=== PATIENT | male | born 1935 | race Caucasian/White ===

== ENCOUNTER 2017-01-08 16:17 | Inpatient (IN) | END 2017-01-23 23:40 | DRG 280 | DX: I13.2 Hypertensive heart and chronic kidney disease with heart failure and with stage 5 chronic kidney disease, or end stage renal disease (principal); I50.23 Acute on chronic systolic (congestive) heart failure; I21.4 Non-ST elevation (NSTEMI) myocardial infarction; J96.02 Acute respiratory failure with hypercapnia; N18.4 Chronic kidney disease, stage 4 (severe); N17.9 Acute kidney failure, unspecified; G93.49 Other encephalopathy; N18.6 End stage renal disease; F03.90 Unspecified dementia, unspecified severity, without behavioral disturbance, psychotic disturbance, mood disturbance, and anxiety; D68.9 Coagulation defect, unspecified; J44.9 Chronic obstructive pulmonary disease, unspecified; D64.9 Anemia, unspecified; I48.2 Chronic atrial fibrillation; I25.5 Ischemic cardiomyopathy; R09.02 Hypoxemia ==

== ENCOUNTER 2017-01-26 00:06 | Emergency (ER) | payer OTHER ==
[~2017-01-26] VITALS: Ht 162.6 cm; Wt 59.1 kg
[~2017-01-26 00:06] MED LIST: BUME0.5T PO; CARV3.1260 PO; FURO40TA4 PO; LOSA100T7 PO; METO-448 PO; POTA20TA96 PO; TRAM-40 PO
[2017-01-26 00:23] VITALS: Ht 162.6 cm; Wt 59.1 kg
[2017-01-26] MEDS ORDERED: DIPHTH/TET/ACEL PERTUSS (ADULT) 0.5 ML VIAL IM* ONE (01:30)
--- NOTE | 2017-01-26 02:19 | RADRPT ---
PROCEDURE: XR right shoulder. CLINICAL INDICATION: Fall with right shoulder pain. TECHNIQUE: 2 views of the right shoulder were performed. COMPARISON: None. FINDINGS: Demineralization limits evaluation of fine osseous detail. No acute fracture or osseous lesion is identified. Superior subluxation of the right humeral head in the glenoid fossa compatible with chronic rotator cuff tear. The soft tissues are unremarkable. IMPRESSION: Chronic rotator cuff tear and demineralization, otherwise without evident acute fracture. RPTAT: [facility] Physician Sejal Date Time Electronically viewed and signed by Physician Sejal on 01/26/2017 02:19 RS/
--- NOTE | 2017-01-26 02:20 | RADRPT ---
PROCEDURE: XR Humerus. CLINICAL INDICATION: fall TECHNIQUE: AP and lateral views of the right humerus were performed. COMPARISON: None. FINDINGS: No fracture or dislocation is seen. No definite lytic or blastic bony lesion. Degenerative change of the shoulder is seen with osteophytes and slight glenohumeral joint space narrowing. IMPRESSION: No definite acute bony abnormality. RPTAT: [facility] Physician Jemal Date Time Electronically viewed and signed by Jelly Traylor Physician on 01/26/2017 02:20 LE/
--- NOTE | 2017-01-26 02:21 | RADRPT ---
PROCEDURE: XR Elbow. CLINICAL INDICATION: fall TECHNIQUE: AP, lateral and oblique views of the right elbow performed. COMPARISON: None. FINDINGS: No fracture or dislocation is seen. No definite elbow effusion. No lytic or blastic lesion. No de finite soft tissue abnormality.. Olecranon osteophyte. IMPRESSION: No definite acute bony abnormality. RPTAT: [facility] Physician Jemal Date Time Electronically viewed and signed by Jelly Traylor Physician on 01/26/2017 02:21 LE/
--- NOTE | 2017-01-26 02:47 | RADRPT ---
PROCEDURE: CT brain without contrast. CLINICAL INDICATION: Injury and pain. TECHNIQUE: CT scan of the brain was performed on a multi-detector high-resolution CT scanner. Co ntiguous axial images were obtained from the skull base to the vertex without intravenous contrast. Coronal and sagittal reformatted images were also obtained. Images were reviewed on the PACS works tation. One or more of the following dose reduction techniques were used: - Automated exposure control. - Adjustment of the mA and/or kV according to patient size. - Use of iterative reconstruction technique. Exam CTD/vol = 44.93 mGy. Total exam DLP = 720.23 mGy-cm. COMPARISON: None. FINDINGS: The ventricles and cortical sulci are prominent consistent with moderate age related volume loss. T here are patchy areas of low attenuation within the periventricular and subcortical white matter con sistent with moderate chronic ischemic changes secondary to small vessel disease. There is no mass effect or midline shift. There is no intracranial hemorrhage or abnormal extra-axial collection. Th ere are atherosclerotic calcifications within bilateral distal internal carotid arteries. There is left frontal scalp soft tissue swelling and laceration. The calvarium is intact. There is no evidence of fracture. Visualized paranasal sinuses and mastoid air cells are clear. IMPRESSION: No acute intracranial abnormality identified. Moderate age related volume loss and chronic ischemic white matter disease. Cerebral atherosclerosis. Left frontal scalp soft tissue swelling and laceration. .Constantine Heard MD, MD Date Time Electronically viewed and signed by .Constantine Heard MD, MD on 01/26/2017 02:47 .T/
[2017-01-26] MEDS ORDERED: LIDOCAINE 1% (MDV) 20 ML INJ ONE (03:59)
[2017-01-26] MEDS ORDERED: LIDOCAINE 1% (MDV) 20 ML INJ SC ONE (04:00)
[2017-01-26 04:24] VITALS: TEMP 98.3
--- NOTE | 2017-01-26 05:49 | ERD ---
ER Documentation Chief Complaint Date/Time DATE: 01/26/17 TIME: 05:47 Chief Complaint BROUGHT IN VIA EMS DUE TO HIP PAIN AND LACERATION ON HEAD LEFT SIDE HPI This is an 81-year-old male brought in by EMS secondary to mechanical fall at group home facility. He has a laceration to his head. No loss consciousness. Patient remembers the fall. No other current complaints. Active bleeding noted a laceration site in the left periorbital ridge. ROS All systems reviewed and are negative except as per history of present illness. Medications Home Meds Reported Medications Tramadol Hcl* (Ultram*) 50 Mg Tablet, 50 MG PO Q6H Y for PAIN, TAB 01/08/17 Losartan Potassium* (Losartan Potassium*) 100 Mg Tablet, 100 MG PO DAILY, TAB 01/08/17 Potassium Chloride* (Potassium Chloride*) 20 Meq Tablet.er, 20 MEQ PO DAILY, TAB.SA 01/08/17 Metoprolol Tartrate* (Lopressor*) 25 Mg Tab, 25 MG PO BID, #60 TAB 01/08/17 Furosemide* (Furosemide*) 40 Mg Tablet, 40 MG PO DAILY, TAB 01/08/17 Carvedilol* (Carvedilol*) 3.125 Mg Tablet, 3.125 MG PO BID, #60 TAB 01/08/17 Bumetanide* (Bumetanide*) 0.5 Mg Tablet, 0.5 MG PO DAILY, TAB 01/08/17 Allergies Allergies: Coded Allergies: Penicillins (Verified Allergy, Unknown, 01/08/17) PMhx/Soc History of Surgery: Yes (left leg surgey, tonsillectomy) Anesthesia Reaction: No Hx Neurological Disorder: No Hx Respiratory Disorders: Yes (copd) Hx Cardiac Disorders: Yes (htn) Hx Psychiatric Problems: Yes (depression) Hx Miscellaneous Medical Probl: Yes (HTN, CHF, COPD, anemia, renal failure, ETOH/tobacco abuse) Hx Alcohol Use: Yes Hx Substance Use: No Hx Tobacco Use: Yes Smoking Status: Former smoker Physical Exam Vitals Vital Signs Date Time Temp Pulse Resp B/P Pulse Ox O2 Delivery O2 Flow Rate FiO2 01/26/17 04:24 98.3 99 20 114/79 Room Air 01/26/17 03:24 18 109/77 Room Air 01/26/17 01:25 98.2 88 20 105/68 Room Air 01/26/17 00:23 98.1 80 16 126/79 99 Physical Exam Const: [] Head: Atraumatic Eyes: Normal Conjunctiva ENT: Normal External Ears, Nose and Mouth. Neck: Full range of motion..~ No meningismus. Resp: Clear to auscultation bilaterally Cardio: Regular rate and rhythm, no murmurs Abd: Soft, non tender, non distended. Normal bowel sounds Skin: No petechiae or rashes Back: No midline or flank tenderness Ext: No cyanosis, or edema Neur: Awake and alert Psych: Normal Mood and Affect Results 24 hrs Current Medications Medications (Trade) Dose Ordered Sig/Kacy Route PRN Reason Start Time Stop Time Status Last Admin Dose Admin Diphtheria/ Tetanus/Acell Pertussis (Adacel) 0.5 ml ONCE ONCE IM* 01/26/17 01:30 01/26/17 01:31 DC 01/26/17 02:43 Lidocaine (Xylocaine 1% (Mdv) 20 ml) 20 ml ONCE ONCE SC 01/26/17 04:00 01/26/17 04:01 DC Lidocaine (Xylocaine 1% (Mdv) 20 ml) 20 ml STK-MED ONCE .ROUTE 01/26/17 03:59 01/26/17 04:00 DC Procedures/MDM X-ray Shoulder 3V Interpreted by me: Bones: [No fracture] Joints: [No dislocation] Foreign body: [None] X-ray Elbow 3V Interpreted by me: Fat Pads: Normal Bones: No fracture Joints: No dislocation Foreign body: None CT of the head is negative for acute pathology Medical decision making: A 1-year-old male who has a laceration secondary to fall. Laceration was repaired patient is at neurological baseline. Family refuses to have the patient come back to [facility] which is where his place. Patient awaiting case management Laceration Repair by me: Anesthesia: 1% lidocaine locally Location: Forehead Tendon/Joint/Nerves: No injury Foreign body: None detected after copious irrigation and exploration Technique: Simple Interrupted Sutures Complexity: No subcutaneous sutures/mucosal repair/ edge excision Post Closure Length: 4 cm Patient's bleeding was easily controlled in the department and there is no indication of anemia. No evidence of compartment syndrome, neurologic injury, vascular injury, open joint, tendon laceration, or foreign body. Patient is appropriate for outpatient follow up. 48 hour wound check. Scar minimization instructions given. Departure Diagnosis: Primary Impression: Closed head injury Encounter type: initial encounter Qualified Code: S09.90XA - Closed head injury, initial encounter Additional Impression: Laceration Condition: Stable INDERJIT MICHAEL Jan 26, 2017 05:49
[2017-01-26 13:19] VITALS: BP 118/90; PULSE 104; RESP 16
== END 2017-01-26 18:14 | disposition short-term general hospital (02) ==
LOC: E/R 00:06
DX: S09.90XA Unspecified injury of head, initial encounter (principal); I10 Essential (primary) hypertension; I50.9 Heart failure, unspecified; J44.9 Chronic obstructive pulmonary disease, unspecified; R40.2142 Coma scale, eyes open, spontaneous, at arrival to emergency department; R40.2252 Coma scale, best verbal response, oriented, at arrival to emergency department; R40.2362 Coma scale, best motor response, obeys commands, at arrival to emergency department; W18.39XA Other fall on same level, initial encounter; Y92.129 Unspecified place in nursing home as the place of occurrence of the external cause; Z23 Encounter for immunization; Z87.891 Personal history of nicotine dependence
CPT/HCPCS: 70450; 73020; 90471; 90715

== ENCOUNTER 2017-01-31 12:27 | Inpatient (IN) | payer OTHER ==
[~2017-01-31] VITALS: Ht 167.6 cm; Wt 65.0 kg
[2017-01-31] VITALS (13 sets, daily range): BP systolic 103–156; BP diastolic 55–94; PULSE 82–105; RESP 15–18; TEMP 98; Ht 167.6 cm; Wt 65.0 kg
[2017-01-31] MEDS ORDERED: ALBUTEROL 0.083% (NEB) 2.5 MG/3 ML AMP NEB STA (13:27)
[2017-01-31] MEDS ORDERED: IPRATROPIUM (NEB) 0.5 MG/2.5 ML AMP NEB STA (13:27)
--- NOTE | 2017-01-31 13:37 | ERA ---
ER Documentation Chief Complaint Date/Time DATE: 01/31/17 TIME: 13:27 Chief Complaint patient TREVON Sent from skilled nursing with Complaint of SOB HPI This is an 81-year-old male with a known history of dementia, atrial fibrillation, congestive heart failure, chronic kidney disease currently on hemodialysis which she receives every Tuesday and Tuesday. The patient had a recent closed head injury with a mechanical fall which required stitches in the left forehead 5 days prior to arrival. His friend was visiting the patient in his assisted living facility when she noticed that the patient appeared to have severe difficulty breathing. The patient was hypoxic satting at roughly 80%. He had been placed on low-flow supplemental oxygen when EMS arrived they indicated that the patient had a significant improvement in his respiratory distress as he was no longer using accessory muscles of respiration. There is been no documentation of fever shaking or chills. Patient however does complain of dyspnea but states it has improved after receiving the oxygen. He denies a productive or nonproductive cough. He denies any chest pain or pressure that radiates to the neck arm back or jaw. ROS All systems reviewed and are negative except as per history of present illness. Medications Home Meds Reported Medications Tramadol Hcl* (Ultram*) 50 Mg Tablet, 50 MG PO Q6H Y for PAIN, TAB 01/08/17 Losartan Potassium* (Losartan Potassium*) 100 Mg Tablet, 100 MG PO DAILY, TAB 01/08/17 Potassium Chloride* (Potassium Chloride*) 20 Meq Tablet.er, 20 MEQ PO DAILY, TAB.SA 01/08/17 Metoprolol Tartrate* (Lopressor*) 25 Mg Tab, 25 MG PO BID, #60 TAB 01/08/17 Furosemide* (Furosemide*) 40 Mg Tablet, 40 MG PO DAILY, TAB 01/08/17 Carvedilol* (Carvedilol*) 3.125 Mg Tablet, 3.125 MG PO BID, #60 TAB 01/08/17 Bumetanide* (Bumetanide*) 0.5 Mg Tablet, 0.5 MG PO DAILY, TAB 01/08/17 Allergies Allergies: Coded Allergies: Penicillins (Verified Allergy, Unknown, 01/08/17) PMhx/Soc History of Surgery: No Anesthesia Reaction: No Hx Neurological Disorder: No Hx Respiratory Disorders: No Hx Cardiac Disorders: No Hx Psychiatric Problems: No Hx Miscellaneous Medical Probl: Yes Hx Alcohol Use: No Hx Substance Use: No Hx Tobacco Use: No Smoking Status: Never smoker Physical Exam Vitals Vital Signs Date Time Temp Pulse Resp B/P Pulse Ox O2 Delivery O2 Flow Rate FiO2 01/31/17 14:27 69 20 100 Nasal Cannula 2.0 28 01/31/17 12:57 98.3 75 20 169/74 100 Nasal Cannula 2.0 01/31/17 12:57 Nasal Cannula 2.0 01/31/17 12:50 98.4 69 20 169/72 99 01/31/17 12:49 Nasal Cannula 2 Physical Exam Constitutional:Well-developed. Well-nourished. HEENT:Normocephalic. Ecchymosis over the left forehead and simple interrupted sutures were clean dry and intact present over the left forehead.Pupils were equal round reactive to light. Moist mucous membranes.No tonsillar exudates. Neck: No nuchal rigidity. No lymphadenopathy. No posterior cervical spine tenderness or step-offs. Respiratory: Not using accessory muscles of respiration.Lungs were clear to auscultation bilaterally. Bilateral rhonchi. No rales. No wheezing. Cardiovascular: Regular rate regular rhythm.No murmurs. No rubs were appreciated.S1, S2 normal. Distal pulses are palpable 2+ bilaterally. GI: Abdomen was soft. Nontender. Non Distended. No pulsatile abdominal masses or bruits. No rebound. No guarding. Bowel sounds were present and normal. Muscle skeletal: Full range of motion of both the upper and lower extremities bilaterally.Normal muscle tone.No assymetrical calf tenderness or swelling. Skin: No petechia, no purpura. No lesions on the palms or the soles of the feet. No maculopapular rash. NEURO: Patient was alert to person but not to time or place. He follows verbal command and answered all questions appropriately. Patient is unable to ambulate therefore gait not observed Result Diagram: 01/31/17 1342 01/31/17 1342 Results 24 hrs Laboratory Tests Test 01/31/17 12:33 01/31/17 13:42 Blood Gas Specimen Source Blood arterial Arterial Blood Date Drawn 01/31/2017 1:32:42 PM Arterial Blood pH (Temp corrected) 7.554 Arterial Blood pCO2 (Temp correct) 28.2mmhg Arterial Blood pO2 (Temp corrected) 97.5mmHG Arterial Blood HCO3 24.3mmol/L Arterial Blood Base Excess 2.6mmol/L Arterial Blood Oxygen Saturation 97.0mmHG Kevin Test N/A Arterial Blood Gas Puncture Site LB Arterial Blood Carboxyhemoglobin 0.3% Arterial Blood Methemoglobin 0.1% Blood Gas A-a O2 Differential 68.9mmHg Oxyhemoglobin Percent 96.6% Total Hemoglobin 10.3g/dl Blood Gas Temperature 37.0C Blood Gas Modality NASAL CANNULA FiO2 28.0% Blood Gas Critical Value Read Back DR. FERRELL Blood Gas Notified Whom Roberto Blood Gas Notified Time 01/31/2017 1:40:31 PM White Blood Count 12.610^3/ul Red Blood Count 3.2110^6/ul Hemoglobin 10.0g/dl Hematocrit 31.3% Mean Corpuscular Volume 97.5fl Mean Corpuscular Hemoglobin 31.2pg Mean Corpuscular Hemoglobin Concent 31.9g/dl Red Cell Distribution Width 14.9% Platelet Count 24020^3/UL Mean Platelet Volume 10.5fl Neutrophils % 79.5% Lymphocytes % 13.2% Monocytes % 6.0% Eosinophils % 0.1% Basophils % 0.2% Nucleated Red Blood Cells % 0.0/100WBC Neutrophils # 10.110^3/ul Lymphocytes # 1.710^3/ul Monocytes # 0.810^3/ul Eosinophils # 0.010^3/ul Basophils # 0.010^3/ul Nucleated Red Blood Cells # 0.010^3/ul Sodium Level 140mmol/L Potassium Level 4.5mmol/L Chloride Level 101mmol/L Carbon Dioxide Level 29mmol/L Anion Gap 15 Blood Urea Nitrogen 54mg/dl Creatinine 2.38mg/dl Glucose Level 99mg/dl Calcium Level 8.4mg/dl Total Bilirubin 0.2mg/dl Direct Bilirubin 0.00mg/dl Indirect Bilirubin 0.2mg/dl Aspartate Amino Transf (AST/SGOT) 35IU/L Alanine Aminotransferase (ALT/SGPT) 57IU/L Alkaline Phosphatase 176IU/L Troponin I 0.209ng/ml B-Type Natriuretic Peptide 47327NX/ML Total Protein 5.4g/dl Albumin 2.7g/dl Globulin 2.70g/dl Albumin/Globulin Ratio 1.00 Current Medications Medications (Trade) Dose Ordered Sig/Kacy Route PRN Reason Start Time Stop Time Status Last Admin Dose Admin Albuterol (Proventil 0.083% (Neb)) 2.5 mg ONCE STAT NEB 01/31/17 13:27 01/31/17 13:38 DC 01/31/17 14:26 Ipratropium [place] (Atrovent 0.02% (Neb)) 0.5 mg ONCE STAT NEB 01/31/17 13:27 01/31/17 13:38 DC 01/31/17 14:26 Furosemide 40 mg 40 mg ONCE ONCE IV 01/31/17 15:00 01/31/17 15:01 Cancel Vancomycin HCl 250 ml @ 125 mls/hr ONCE STAT IVPB 01/31/17 14:33 01/31/17 16:32 Cefepime HCl (Maxipime 2gm/50 ml (Pmx)) 50 ml @ 100 mls/hr ONCE STAT IVPB 01/31/17 14:33 01/31/17 15:02 UNV Aspirin (Aspirin) 325 mg ONCE ONCE PO 01/31/17 15:00 01/31/17 15:01 Ondansetron HCl (Zofran Inj) 4 mg ER BRIDGE PRN IV NAUSEA AND/OR VOMITING 01/31/17 15:00 02/01/17 14:59 Acetaminophen (Tylenol Tab) 650 mg ER BRIDGE PRN PO MILD PAIN/FEVER 01/31/17 15:00 02/01/17 14:59 Procedures/MDM The patient presented to the emergency department with shortness of breath. My differential diagnosis included but was not limited to upper airway obstruction , CHF, pulmonary embolism, cardiac ischemia, pneumonia, pneumothorax, anemia, drug overdose, pulmonary edema, COPD or asthma. The patient has a known history of congestive heart failure with an ejection fraction of 15-20%. The patient had IV access established by nursing staff was given nebulizer treatments of albuterol and Atrovent and placed on low-flow supplemental oxygen 2 L nasal cannula in the emergency department. The patient is a chest radiograph which showed bilateral lower lobe consolidations and atelectasis. The patient had mild leukocytosis but was afebrile. I was concerned with fluid overload and pulmonary edema and therefore the patient will be admitted for emergent hemodialysis. The patient' s troponin was elevated but he denied any chest pain. This could be a result of the patient's renal failure but did receive prophylactic aspirin. Patient will be admitted in serious condition in the care of Dr. Booker to the telemetry service with an anticipated stay of greater than 2 midnights. Departure Diagnosis: Primary Impression: Acute renal failure Qualified Code: N17.9 - Acute renal failure, unspecified acute renal failure type Additional Impression: Elevated troponin Condition: Serious KM PEDERSEN Jan 31, 2017 13:37
[2017-01-31 13:40] LABS: AADO2 Arterial 68.9 mmHg (7.0-24.0); Arterial Base Excess 2.6 mmol/L (-3.0-3); Arterial COHb 0.3 % (0.0-3.0); Arterial Fraction of Oxyhgb 96.6 % (93.0-99.0); Arterial HCO3 24.3 mmol/L (22.0-26.0); Arterial MetHb 0.1 % (0.0-1.5); Arterial Total Hemglobin 10.3 g/dl (12.0-18.0); MODE NASAL CANNULA
--- NOTE | 2017-01-31 13:41 | RADRPT ---
PROCEDURE: XR Chest. CLINICAL INDICATION: Abdominal pain TECHNIQUE: Chest AP portable. COMPARISON: 01/16/2017 FINDINGS: Right internal jugular tunnel dialysis catheter. The mediastinal structures are unremarkable. There is calcification of the thoracic aorta (consiste nt with atherosclerosis). There is mild to moderate cardiomegaly. The pulmonary vascularity is nor mal. There is bibasilar subsegmental atelectasis / patchy consolidations. There are small to moder ate-sized bilateral pleural effusions. There are senescent changes of the axial skeleton. IMPRESSION: Calcification of the thoracic aorta (consistent with atherosclerosis) Mild to moderate cardiomegaly RLL and LLL subsegmental atelectasis / patchy consolidations Small to moderate-sized bilateral pleural effusions RPTAT: HGDB .Gabriele Guadarrama MD, Date Time Electronically viewed and signed by .Gabriele Guadarrama MD, on 01/31/2017 13:41 .B/
[2017-01-31 13:50] LABS: ADD SCAN DIFF NO
[2017-01-31 13:52] LABS: BASOPHILS % 0.2 % (0.0-2.0); EOSINOPHILS % 0.1 % (0.0-7.0); HEMATOCRIT 31.3 % (42.0-52.0); LYMPHOCYTES # 1.7 10^3/ul (0.8-2.9); LYMPHOCYTES % 13.2 % (15.0-51.0); MEAN CORPUSCULAR HEMOGLOBIN 31.2 pg (29.0-33.0); MEAN CORPUSCULAR HGB CONC 31.9 g/dl (32.0-37.0); MEAN CORPUSCULAR VOLUME 97.5 fl (82.0-101.0); MEAN PLATELET VOLUME 10.5 fl (7.4-10.4); MONOCYTE # 0.8 10^3/ul (0.3-0.9); NEUTROPHIL # 10.1 10^3/ul (1.6-7.5); NEUTROPHILS % 79.5 % (39.0-77.0); PLATELET COUNT 351 10^3/UL (140-415); RED BLOOD COUNT 3.21 10^6/ul (4.70-6.10); RED CELL DISTRIBUTION WIDTH 14.9 % (11.5-14.5); WHITE BLOOD COUNT 12.6 10^3/ul (4.8-10.8)
[2017-01-31 14:01] LABS: ALBUMIN 2.7 g/dl (3.3-4.9)
[2017-01-31 14:02] LABS: POTASSIUM 4.5 mmol/L (3.5-5.1)
[2017-01-31 14:04] LABS: BILIRUBIN,INDIRECT 0.2 mg/dl (0-1.1); BILIRUBIN,TOTAL 0.2 mg/dl (0.2-1.3); CREATININE 2.38 mg/dl (0.61-1.24); TOTAL PROTEIN 5.4 g/dl (6.1-8.1)
[2017-01-31 14:05] LABS: CALCIUM 8.4 mg/dl (8.4-10.2)
[2017-01-31 14:25] LABS: TROPONIN-I 0.209 ng/ml (0.00-0.12)
[2017-01-31] MEDS ORDERED: CEFEPIME 2GM/50 ML (PMX) 50 ML IVPB STA (14:33)
[2017-01-31] MEDS ORDERED: VANCOMYCIN 1 GM (PMX) 250 ML IVPB STA (14:33)
[2017-01-31] MEDS ORDERED: ASPIRIN 325 MG TAB PO ONE (15:00)
[2017-01-31] MEDS ORDERED: ACETAMINOPHEN 325 MG TAB PO PRN ×2 (15:00→19:00)
[2017-01-31] MEDS ORDERED: FUROSEMIDE 40 MG INJ IV ONE ×2 (15:00→15:30)
[2017-01-31] MEDS ORDERED: ONDANSETRON 4 MG INJ IV PRN ×2 (15:00→19:00)
--- NOTE | 2017-01-31 18:04 | CONS ---
DATE OF ADMISSION: 01/31/2017 DATE OF CONSULTATION: 01/31/2017 TYPE OF CONSULTATION: Nephrology. REFERRING PHYSICIAN: Dr. Booker REASON FOR CONSULTATION: Acute fluid overload with hypoxic distress in a chronic dialysis patient. HISTORY OF PRESENT ILLNESS: This is an 81-year-old male with a past medical history of ischemic car diomyopathy, history of end-stage renal disease who was recently started on hemodialysis on last adm ission, and the patient was placed at the dialysis unit for scheduled dialysis on Tuesday, , Tuesday. The patient was also set up for care home facility placement. He gets his dialysi s scheduled on Tuesday, , Tuesday. He was sent from residential to the [facility] with a complaint of shortness of breath. In the emergency room, he was no lani to have a WBC count of 12.6. The patient was hypoxic with saturation down to 94% on 2 L nasal c annula. He was tachypneic. He had a blood pressure of 169/72. He had a chest x-ray done that show s bibasilar atelectases/infiltrates and possible pulmonary edema. He is getting admitted for fluid overload and hypoxic respiratory distress secondary to pulmonary edema. Renal has been consulted fo r possible hemodialysis. REVIEW OF SYSTEMS: Shortness of breath. Other review of systems is not obtainable from the patient due to the dementia. PAST MEDICAL HISTORY: Hypertension; hyperlipidemia; history of ischemic cardiomyopathy; end-stage r enal disease on hemodialysis Tuesday, , Tuesday. PAST SURGICAL HISTORY: History of dialysis catheter, PermCath placement on last admission. SOCIAL HISTORY: No smoking, alcohol, recreational drug use. FAMILY HISTORY: Noncontributory. PHYSICAL EXAMINATION: VITAL SIGNS: His temperature 98.3, heart rate is 69, respirations 20, blood pressure 169/71, satura tion is 100% on 3 L nasal cannula. GENERAL: Awake, alert. Mild to moderate distress. HEENT: Normal. Oropharynx clear. NECK: Jugular venous distention present. Neck supple. No lymphadenopathy. LUNGS: Bibasilar crackles present with minimal expiratory wheezing. HEART: S1, S2 with regular rhythm. No murmur. ABDOMEN: Soft, nontender, nondistended. Bowel sounds are present. EXTREMITIES: No clubbing, cyanosis, edema. NEUROLOGICAL: Nonfocal, intact. PSYCHIATRIC: Appropriate affect and mood. LABORATORY DATA: WBC 12.6, hemoglobin 10, platelet count is 351. Sodium 140, potassium 4.5, chlori de 101, bicarbonate 29, BUN 54, creatinine 2.3, glucose 99, calcium 8.4. LFTs are normal. Troponin 0.209. BNP 60,300. Albumin 2.7. ABG shows a pH 7.55, pCO2 28, pO2 ____, bicarbonate 24. IMPRESSION: This is an 81-year-old male who is getting admitted for: 1. Acute pulmonary edema secondary to fluid overload. 2. End-stage renal disease on hemodialysis Tuesday, , Tuesday at dialysis unit. 3. History of ischemic cardiomyopathy with low ejection fraction. 4. Hypertension. 5. Hyperlipidemia. 6. Dementia. PLAN: Thank you, Dr. Booker, for this consultation. The patient currently seen in the emergency room . He is getting admitted to the telemetry floor by [facility]. 1. The patient's chest x-ray has been reviewed and consistent with pulmonary edema. His labs today show a sodium of 140, potassium 4.5, chloride was 29. The patient is stable from the chemistry poi nt of view, but his chest x-ray shows pulmonary edema so will try to arrange his hemodialysis for to day, and then the patient will be also on scheduled hemodialysis for Tuesday, , Tuesday aft er that. The patient's BNP is elevated. He previously had a recent workup done for his ischemic ca rdiomyopathy on last admission, and we had a long discussion with the patient's DPOA about further p brent about the long-term dialysis care. At this point will continue his hemodialysis on Tue, Tuesday until the family changes their mind. 2. The patient currently seen in the emergency room, and he will be followed up along with his cour se in the hospital. Dictated By: MACI ASHLEY MD, KP/DINH Conf#: [id number] DID#: [id number]
[2017-01-31] MEDS ORDERED: DOCUSATE SODIUM 100 MG CAP PO PRN (19:00)
[2017-01-31] MEDS ORDERED: BISACODYL 10 MG SUPP PR PRN (19:00)
[2017-01-31] MEDS ORDERED: traMADol 50 MG TAB PO PRN (19:00)
[2017-01-31] MEDS ORDERED: MAGNESIUM HYDROXIDE 30ML CUP PO PRN (19:00)
[2017-01-31] MEDS ORDERED: NITROGLYCERIN (SL) 0.4 MG TAB SL PRN (19:00)
[2017-01-31] MEDS ORDERED: NACL 0.9% 3 ML SYG IV SCH (19:00)
[2017-01-31] MEDS ORDERED: ASPI-664 PO (19:03)
[2017-01-31] MEDS ORDERED: CITR30SO PO (19:04)
[2017-01-31] MEDS ORDERED: FAMO20TA18 PO (19:04)
[2017-01-31] MEDS ORDERED: FURO20TA3 PO (19:05)
[2017-01-31] MEDS ORDERED: LOSA50TA6 PO (19:06)
[2017-01-31] MEDS ORDERED: METO50TA16 PO (19:10)
[2017-01-31] MEDS ORDERED: NIT4 SL (19:10)
[2017-01-31] MEDS ORDERED: TRAM-40 PO (19:12)
[2017-01-31 20:46] LABS: CK-MB 1.67 ng/ml (0.0-2.4)
[2017-01-31 20:59] LABS: TROPONIN-I 0.262 ng/ml (0.00-0.12)
[2017-01-31] MEDS: FAMOTIDINE 20 MG TAB PO SCH ×2 (21:00→21:34)
[2017-01-31] MEDS: APIXABAN 5 MG TABLET PO SCH ×3 (21:00→21:34)
[2017-02-01] VITALS (18 sets, daily range): BP systolic 117–169; BP diastolic 55–101; PULSE 76–101; RESP 18–20
--- NOTE | 2017-02-01 02:01 | HP ---
DATE OF ADMISSION: 01/31/2017 SUCTION OPERATOR ON THIS ADMISSION: Dr. Jamarcus Summers, who is also his outpatient lpta. CHIEF COMPLAINT ON ADMISSION: Shortness of breath. HISTORY OF PRESENT ILLNESS: This is an 81-year-old male well known to me with history of dementia; atrial fibrillation; congestive heart failure, systolic, chronic with ejection fraction 15% to 20%; chronic kidney disease who is now on hemodialysis every Tuesday, and Tuesday; was also rec ently seen in the ER after having a closed head injury after falling, mechanical fall requiring stit ches, has been fairly stable at his longterm facility except today he had an episode of short ness of breath with saturations down to 80% on room air. The patient was started on oxygen, and his saturations did recover well on 3.5 L nasal cannula. However, his DPOA called 911 and requested fo r the patient to go to the emergency department. In the emergency department, the patient was evalu ated. Also per EMS report, the patient is fairly comfortable. His respiratory distress has resolve d the minute he was put on oxygen. The patient does not have any reported fevers. No cough per pat ient report and per longterm facility and ER report also. He does have shortness of breath, and he has been hypoxic, oxygen dependent before. He denied any chest pain or chest pressure. He i s very pleasant. His mental status is at baseline when I am seeing him today. He does remember fabio e of the staff. He, however, does not remember exactly where he is and had to be reminded that he i s in the hospital. In the emergency department, he had a chest x-ray done which shows bilateral pul monary edema actually with atelectasis associated with it, very unlikely to have pneumonia, but he d id receive antibiotics in the emergency department. Dr. Jamarcus Summers was contacted. The patient w ill be dialyzed today urgently for volume overload. He is also noted to have lower extremity edema on exam. He is being admitted to a telemetry bed as his troponin also came back positive with extre renetta elevated BNP of 60,000. ALLERGIES: PENICILLIN. PAST MEDICAL HISTORY: 1. Congestive heart failure, systolic dysfunction with ejection fraction 15% to 20%. 2. End-stage renal disease on dialysis. 3. Atrial fibrillation, chronic. 4. Coronary artery disease. 5. Ischemic cardiomyopathy, ejection fraction 15% to 20%. 6. Chronic hypoxemia, has been oxygen dependent. 7. Hypertension. 8. Dementia. 9. Status post fall with closed head injury, improving. PAST SURGICAL HISTORY: Unknown. SOCIAL HISTORY: The patient currently has been residing at a local longterm facility and goi ng to dialysis from there 3 times a week. Per report, there is no alcohol or tobacco use. REVIEW OF SYSTEMS: As per HPI. The patient is very stoic. He is not complaining of much except fo r some shortness of breath which is much improved currently. OUTPATIENT MEDICATIONS: This is based on the longterm facility medication list, includes: 1. Losartan 50 mg p.o. daily. 2. Metoprolol XL 50 mg p.o. daily. 3. Nitrostat sublingual p.r.n. chest pain. 4. Aspirin 81 mg p.o. daily. 5. Tramadol 50 mg p.o. q.6 hours p.r.n. pain. 6. Citric acid 30 mL p.o. t.i.d. 7. Furosemide 20 mg p.o. daily. 8. Pepcid 20 mg p.o. daily. PHYSICAL EXAMINATION: VITAL SIGNS: Temperature 98.0, heart rate of 96, respiratory rate of 20, blood pressure 131/85. Th at patient is saturating 96% on 3 L nasal cannula. GENERAL: He is alert, oriented x2 at best. He is not in acute distress. HEENT: Pupils are equally round and reactive to light. Extraocular muscles are intact. Anicteric sclerae. No JVD, no thyromegaly. On the right side of his face, he is noted to have some bruising in the periorbital area. He does have stitches on the upper corner of his right ear and also a desmond le scab scarring on the top of his nose. HEART: Irregularly irregular, atrial fibrillation. LUNGS: Decreased breath sounds at the bases bilaterally at least 1/3 up from the base bilaterally. ABDOMEN: Soft, nontender, nondistended. Bowel sounds are present. EXTREMITIES: He does have at least +1 to +2 edema up to his ankles. No clubbing is noted. He has mild cyanosis of the tip of his fingers. NEUROLOGIC: Again, he is slightly disoriented but very pleasant. He is moving all his 4 extremitie s. He does have generalized weakness, 4+/5. Sensation seems to be intact. He has a very unsteady gait, and he is aware he shouldn't be trying to walk on his own. LABORATORY DATA: White blood cell count 12.6, hemoglobin 10.0, hematocrit 31.3, platelet count of 3 51. Chemistry with a sodium of 140, potassium 4.5, chloride 101, bicarbonate 29, BUN 54, creatinine 2.38, glucose of 99, calcium 8.4. Liver function testing within normal. Alkaline phosphatase 176. His troponin is 0.209 with a BNP of 60,300. Total protein is 5.4, albumin of 2.7. INR is not julito lani. EKG is not found but will be reviewed. On telemetry, the patient has chronic atrial fibrillation. IMAGING: Chest x-ray shows bilateral small to moderate-sized pleural effusions, and there is bilate ral bases subsegmental atelectasis likely versus patchy consolidation. ASSESSMENT AND PLAN: This is an 81-year-old male with: 1. Acute episode of respiratory distress, likely due to volume overload. He is requiring minimal a mount of oxygen 2 to 3 L, which is usually his baseline. He does have signs of volume overload on c hest x-ray. Therefore, he is being admitted for urgent dialysis mainly. Dr. Jamarcus Summers has seen the patient already and scheduled him for dialysis today. Will resume the rest of his medications. 2. Chronic atrial fibrillation. I will clarify his beta joni regimen. He was discharged on car vedilol from the hospital, seems to be on Toprol-XL at the longterm facility. For now will r esume carvedilol until further clarification. He is also supposed to be on Eliquis for stroke proph ylaxis given his recent fall at the longterm facility. It looks like he has been taken off o f it. Will also clarify with the longterm facility. It has been reordered while inpatient. 3. Coronary artery disease. He did have a stress test on his past admission that did show signs of coronary artery disease but no acute reversible disease. Therefore, he is maintained on aspirin fo r that reason. 4. Ischemic cardiomyopathy with severe dysfunction, ejection fraction of 15% to 20%. He is current ly in congestive heart failure exacerbation. He will be dialyzed today. 5. Dementia. His mental status seems to be close to baseline at this time. 6. Chronic pain. He is on tramadol as needed for pain control. We are avoiding all narcotics. 7. Hypertension. We are going to resume his beta joni first, and it seems like he has been on l osartan as an outpatient. That can be resumed next after dialysis today, likely in the morning. 8. Status post recent fall with closed head injury, seems to be healing well. Continue aspirin for now. We are resuming his Eliquis prophylactic dosing with close monitoring. 9. Prophylaxis. The patient already on Eliquis, and Pepcid for GI prophylaxis. DISPOSITION: The patient is admitted to telemetry. He is to receive dialysis tonight. Will monito r and re-evaluate in a.m. for discharge planning. Dictated By: SOO TAMAYO/DINH Conf#: [id number] DID#: [id number]
[2017-02-01 03:09] LABS: CK-MB 1.82 ng/ml (0.0-2.4); TROPONIN-I 0.209 ng/ml (0.00-0.12)
[2017-02-01] MEDS: APIXABAN 5 MG TABLET PO SCH ×2 (08:10→22:03)
[2017-02-01] MEDS: ASPIRIN (EC) 81 MG TAB PO SCH (08:10)
[2017-02-01] MEDS: FAMOTIDINE 20 MG TAB PO SCH (08:10)
--- NOTE | 2017-02-01 09:43 | RADRPT ---
PROCEDURE: XR Chest 1 view. CLINICAL INDICATION: Shortness of breath, pulmonary edema TECHNIQUE: AP views of the chest were obtained. COMPARISON: January 31, 2017 FINDINGS: The heart is large. Calcified atherosclerosis is noted in the aorta. Right-sided dialysis catheter is stable. Central pulmonary vascular congestion and interstitial prominence in both lungs is uncha nged. Bilateral perihilar and lower lung infiltrates combined small to moderate pleural effusions a re stable. The osseous structures are unchanged. IMPRESSION: Cardiomegaly with calcified atherosclerosis in the aorta. Stable central pulmonary vascular congestion and interstitial prominence in both lungs. Stable bilateral perihilar and lower lung infiltrates combined with small to moderate pleural effusi ons. RPTAT: AA .Joon Mathew MD, MD Date Time Electronically viewed and signed by .Joon Mathew MD, on 02/01/2017 09:43 .P/
--- NOTE | 2017-02-01 10:13 | CONS ---
Date/Time of Note Date/Time of Note DATE: 02/01/17 TIME: 10:10 Assessment/Plan Assessment/Plan Additional Assessment/Plan 1. Acute pulmonary edema secondary to fluid overload. 2. End-stage renal disease on hemodialysis Tuesday, , Tuesday at dialysis unit. 3. History of ischemic cardiomyopathy with low ejection fraction. 4. Hypertension. 5. Hyperlipidemia. 6. Dementia. PLAN: s/p HD yesterday 2 L removed, will plan for HD today pt follows at HD unit for scheduled HD on TTS will follow up Consultation Date/Type/Reason Admit Date/Time Jan 31, 2017 at 14:53 Initial Consult Date 01/31/2017 Type of Consultation: NEPHROLOGY Reason for Consultation ESRD on HD with fluid overload, hypoxia Referring Provider: SOO NAIK 24 HR Interval Summary Free Text/Dictation s/p HD yesterday,had a CXR showing congestino, still tachypneic with SOB Exam/Review of Systems Vital Signs Vitals Vital Signs Date Time Temp Pulse Resp B/P Pulse Ox O2 Delivery O2 Flow Rate FiO2 02/01/17 08:18 101 02/01/17 08:00 Nasal Cannula 3.0 02/01/17 07:56 97.5 20 136/101 90 01/31/17 14:27 28 Intake and Output 01/31/17 01/31/17 02/01/17 14:59 22:59 06:59 Intake Total 500 ml 300 ml Output Total 2500 ml Balance -2000 ml 300 ml Exam GENERAL: Awake, alert. Mild to moderate distress. HEENT: Normal. Oropharynx clear. NECK: Jugular venous distention present. Neck supple. No lymphadenopathy. LUNGS: Bibasilar crackles present with minimal expiratory wheezing. HEART: S1, S2 with regular rhythm. No murmur. ABDOMEN: Soft, nontender, nondistended. Bowel sounds are present. EXTREMITIES: No clubbing, cyanosis, edema. NEUROLOGICAL: Nonfocal, intact. PSYCHIATRIC: Appropriate affect and mood. Results Result Diagram: 01/31/17 1342 01/31/17 1342 Results 24 hrs Laboratory Tests Test 01/31/17 12:33 01/31/17 13:42 01/31/17 20:15 02/01/17 02:00 Blood Gas Specimen Source Blood arterial Arterial Blood Date Drawn 01/31/2017 1:32:42 PM Arterial Blood pH (Temp corrected) 7.554 *H Arterial Blood pCO2 (Temp correct) 28.2 L Arterial Blood pO2 (Temp corrected) 97.5 H Arterial Blood HCO3 24.3 Arterial Blood Base Excess 2.6 Arterial Blood Oxygen Saturation 97.0 Kevin Test N/A Arterial Blood Gas Puncture Site LB Arterial Blood Carboxyhemoglobin 0.3 Arterial Blood Methemoglobin 0.1 Blood Gas A-a O2 Differential 68.9 H Oxyhemoglobin Percent 96.6 Total Hemoglobin 10.3 L Blood Gas Temperature 37.0 Blood Gas Modality NASAL CANNULA FiO2 28.0 Blood Gas Critical Value Read Back DR. FERRELL Blood Gas Notified Whom Roberto Blood Gas Notified Time 01/31/2017 1:40:31 PM White Blood Count 12.6 #H Red Blood Count 3.21 L Hemoglobin 10.0 L Hematocrit 31.3 L Mean Corpuscular Volume 97.5 Mean Corpuscular Hemoglobin 31.2 Mean Corpuscular Hemoglobin Concent 31.9 L Red Cell Distribution Width 14.9 H Platelet Count 351 # Mean Platelet Volume 10.5 H Neutrophils % 79.5 H Lymphocytes % 13.2 L Monocytes % 6.0 Eosinophils % 0.1 Basophils % 0.2 Nucleated Red Blood Cells % 0.0 Neutrophils # 10.1 H Lymphocytes # 1.7 Monocytes # 0.8 Eosinophils # 0.0 Basophils # 0.0 Nucleated Red Blood Cells # 0.0 Sodium Level 140 Potassium Level 4.5 Chloride Level 101 Carbon Dioxide Level 29 Anion Gap 15 Blood Urea Nitrogen 54 H Creatinine 2.38 H Glucose Level 99 Calcium Level 8.4 Total Bilirubin 0.2 Direct Bilirubin 0.00 Indirect Bilirubin 0.2 Aspartate Amino Transf (AST/SGOT) 35 Alanine Aminotransferase (ALT/SGPT) 57 Alkaline Phosphatase 176 H Troponin I 0.209 *H 0.262 *H 0.209 *H B-Type Natriuretic Peptide 40533 H Total Protein 5.4 L Albumin 2.7 L Globulin 2.70 Albumin/Globulin Ratio 1.00 Creatine Kinase 35 33 Creatine Kinase Index 4.8 5.5 Creatinine Kinase MB (Mass) 1.67 1.82 Medications Medications Current Medications Tramadol HCl (Ultram) 50 mg Q6H PRN PO PAIN; Start 01/31/17 at 19:00 Carvedilol (Coreg) 6.25 mg BID PO Last administered on 02/01/17 08:10; Admin Dose 6.25 MG; Start 01/31/17 at 21:00 Apixaban (Eliquis) 2.5 mg BID PO Last administered on 02/01/17 08:10; Admin Dose 2.5 MG; Start 01/31/17 at 21:00 Aspirin (Halfprin) 81 mg DAILY PO Last administered on 02/01/17 08:10; Admin Dose 81 MG; Start 02/01/17 at 09:00 Ondansetron HCl (Zofran Inj) 4 mg Q6H PRN IV NAUSEA AND/OR VOMITING; Start at 19:00 Nitroglycerin (Nitroglycerin (Sl Tab) 0.4 Mg) 1 tab Q5M PRN SL CHEST PAIN; Start 01/31/17 at 19:00 Acetaminophen (Tylenol Tab) 650 mg Q6H PRN PO PAIN LEVEL 1-3 OR FEVER; Start at 19:00 Docusate Sodium (Colace) 100 mg Q12H PRN PO CONSTIPATION; Start 01/31/17 at 19: 00 Magnesium Hydroxide (Milk Of Mag) 30 ml DAILY PRN PO CONSTIPATION; Start at 19:00 Bisacodyl (Dulcolax Supp) 10 mg DAILY PRN [place] CONSTIPATION; Start 01/31/17 at 19 :00 Famotidine (Pepcid) 20 mg DAILY PO Last administered on 02/01/17 08:10; Admin Dose 20 MG; Start 01/31/17 at 21:00 MACI ASHLEY MD Feb 01, 2017 10:13
[2017-02-01 10:18] LABS: ADD SCAN DIFF NO
[2017-02-01 10:24] LABS: BASOPHILS % 0.2 % (0.0-2.0); EOSINOPHILS % 0.2 % (0.0-7.0); HEMOGLOBIN 9.4 g/dl (14.0-18.0); LYMPHOCYTES # 1.2 10^3/ul (0.8-2.9); LYMPHOCYTES % 11.2 % (15.0-51.0); MEAN CORPUSCULAR HEMOGLOBIN 31.3 pg (29.0-33.0); MEAN CORPUSCULAR HGB CONC 32.4 g/dl (32.0-37.0); MEAN CORPUSCULAR VOLUME 96.7 fl (82.0-101.0); MEAN PLATELET VOLUME 10.6 fl (7.4-10.4); MONOCYTE # 0.6 10^3/ul (0.3-0.9); MONOCYTES % 5.3 % (0.0-11.0); NEUTROPHIL # 8.5 10^3/ul (1.6-7.5); NEUTROPHILS % 82.2 % (39.0-77.0); PLATELET COUNT 308 10^3/UL (140-415); RED CELL DISTRIBUTION WIDTH 14.9 % (11.5-14.5); WHITE BLOOD COUNT 10.4 10^3/ul (4.8-10.8)
[2017-02-01 11:00] LABS: ALBUMIN 2.8 g/dl (3.3-4.9)
[2017-02-01 11:03] LABS: ALBUMIN/GLOBULIN RATIO 1.07; BILIRUBIN,INDIRECT 0.2 mg/dl (0-1.1); BILIRUBIN,TOTAL 0.2 mg/dl (0.2-1.3); CREATININE 2.07 mg/dl (0.61-1.24); TOTAL PROTEIN 5.4 g/dl (6.1-8.1)
[2017-02-01 11:04] LABS: CALCIUM 8.3 mg/dl (8.4-10.2)
--- NOTE | 2017-02-01 16:14 | PN ---
Date/Time of Note Date/Time of Note DATE: 02/01/17 TIME: 15:57 Assessment/Plan VTE Prophylaxis VTE Prophylaxis Intervention: other (eliquis ) Lines/Catheters IV [facility]ter [facility]from [facility]): [facility] Urinary Cath still in place: No Assessment/Plan Assessment/Plan 81-year-old male with: 1. Acute episode of respiratory distress, likely due to volume overload. Remains stable, on supp O2 Appreciate Dr Summers's assistance with HD for volume removal 2. Chronic atrial fibrillation. Rate controlled on current regimen Continue Eliquis for now 3. Coronary artery disease. He did have a stress test on his past admission that did show signs of coronary artery disease but no acute reversible disease. Continue ASA and follow up with cardiology recommendations. 4. Ischemic cardiomyopathy with severe dysfunction, ejection fraction of 15% to 20%. HD for volume management 5. Dementia. Stable mental status. 6. Chronic pain. On tramadol as needed for pain control. 7. Hypertension. Continue beta joni, resume Losartan if tolerated 8. Status post recent fall with closed head injury, seems to be healing well. Continue aspirin for now On Eliquis prophylactic dosing with close monitoring. Prophylaxis. The patient already on Eliquis, and Pepcid for GI prophylaxis. DISPOSITION: HD, Cardiology eval, hopefully d/c plan in the next 48 hrs Subjective 24 Hr Interval Summary Free Text/Dictation Patient doing well this AM Remains stable Trop up, ? demand ischemia, cardiology to re eveal on this admission Exam/Review of Systems Vital Signs Vitals Vital Signs Date Time Temp Pulse Resp B/P Pulse Ox O2 Delivery O2 Flow Rate FiO2 02/01/17 15:19 97.9 93 20 138/83 100 02/01/17 08:00 Nasal Cannula 3.0 01/31/17 14:27 28 Intake and Output 01/31/17 01/31/17 02/01/17 15:00 23:00 07:00 Intake Total 500 ml 300 ml Output Total 2500 ml Balance -2000 ml 300 ml Exam Constitutional: alert, frail, oriented Respiratory: diminished breath sounds (bases ), normal air movement Cardiovascular: irregular rhythm (A fib ) Gastrointestinal: non-tender, soft Musculoskeletal: nl extremities to inspection Extremities: normal pulses, other (trace edema, no clubbing or cyanosis ) Neurological: FORENSIC ANTHROPOLOGIST II-XII intact, nl mental status, nl speech Results Result Diagram: 02/01/1792902/01/17929 Results 24 hrs Laboratory Tests Test 01/31/17 20:15 02/01/17 02:00 02/01/17 09:30 Creatine Kinase 35 33 Creatine Kinase Index 4.8 5.5 Creatinine Kinase MB (Mass) 1.67 1.82 Troponin I 0.262 *H 0.209 *H White Blood Count 10.4 Red Blood Count 3.00 L Hemoglobin 9.4 L Hematocrit 29.0 L Mean Corpuscular Volume 96.7 Mean Corpuscular Hemoglobin 31.3 Mean Corpuscular Hemoglobin Concent 32.4 Red Cell Distribution Width 14.9 H Platelet Count 308 Mean Platelet Volume 10.6 H Neutrophils % 82.2 H Lymphocytes % 11.2 L Monocytes % 5.3 Eosinophils % 0.2 Basophils % 0.2 Nucleated Red Blood Cells % 0.0 Neutrophils # 8.5 H Lymphocytes # 1.2 Monocytes # 0.6 Eosinophils # 0.0 Basophils # 0.0 Nucleated Red Blood Cells # 0.0 Sodium Level 134 L Potassium Level 4.0 Chloride Level 98 Carbon Dioxide Level 29 Anion Gap 11 Blood Urea Nitrogen 44 H Creatinine 2.07 H Glucose Level 133 Calcium Level 8.3 L Magnesium Level 2.0 Total Bilirubin 0.2 Direct Bilirubin 0.00 Indirect Bilirubin 0.2 Aspartate Amino Transf (AST/SGOT) 33 Alanine Aminotransferase (ALT/SGPT) 61 Alkaline Phosphatase 187 H Total Protein 5.4 L Albumin 2.8 L Globulin 2.60 Albumin/Globulin Ratio 1.07 Medications Medications Current Medications Tramadol HCl (Ultram) 50 mg Q6H PRN PO PAIN; Start 01/31/17 at 19:00 Carvedilol (Coreg) 6.25 mg BID PO Last administered on 02/01/17 08:10; Admin Dose 6.25 MG; Start 01/31/17 at 21:00 Apixaban (Eliquis) 2.5 mg BID PO Last administered on 02/01/17 08:10; Admin Dose 2.5 MG; Start 01/31/17 at 21:00 Aspirin (Halfprin) 81 mg DAILY PO Last administered on 02/01/17 08:10; Admin Dose 81 MG; Start 02/01/17 at 09:00 Ondansetron HCl (Zofran Inj) 4 mg Q6H PRN IV NAUSEA AND/OR VOMITING; Start at 19:00 Nitroglycerin (Nitroglycerin (Sl Tab) 0.4 Mg) 1 tab Q5M PRN SL CHEST PAIN; Start 01/31/17 at 19:00 Acetaminophen (Tylenol Tab) 650 mg Q6H PRN PO PAIN LEVEL 1-3 OR FEVER; Start at 19:00 Docusate Sodium (Colace) 100 mg Q12H PRN PO CONSTIPATION; Start 01/31/17 at 19: 00 Magnesium Hydroxide (Milk Of Mag) 30 ml DAILY PRN PO CONSTIPATION; Start at 19:00 Bisacodyl (Dulcolax Supp) 10 mg DAILY PRN [place] CONSTIPATION; Start 01/31/17 at 19 :00 Famotidine (Pepcid) 20 mg DAILY PO Last administered on 02/01/17 08:10; Admin Dose 20 MG; Start 01/31/17 at 21:00 SOO NAIK Feb 01, 2017 16:11
[2017-02-01 16:34] LABS: CK-MB 1.88 ng/ml (0.0-2.4)
[2017-02-01 16:38] LABS: TROPONIN-I 0.192 ng/ml (0.00-0.12)
[2017-02-02] VITALS (11 sets, daily range): BP systolic 126–149; BP diastolic 73–94; PULSE 81–117; RESP 18–20
[2017-02-02 07:49] LABS: ADD SCAN DIFF NO
[2017-02-02 07:57] LABS: BASOPHILS % 0.1 % (0.0-2.0); EOSINOPHILS # 0.1 10^3/ul (0.0-0.5); EOSINOPHILS % 0.7 % (0.0-7.0); LYMPHOCYTES # 1.3 10^3/ul (0.8-2.9); MEAN CORPUSCULAR HEMOGLOBIN 31.3 pg (29.0-33.0); MEAN CORPUSCULAR HGB CONC 32.1 g/dl (32.0-37.0); MEAN CORPUSCULAR VOLUME 97.2 fl (82.0-101.0); MEAN PLATELET VOLUME 10.3 fl (7.4-10.4); MONOCYTE # 0.7 10^3/ul (0.3-0.9); MONOCYTES % 7.1 % (0.0-11.0); NEUTROPHIL # 7.6 10^3/ul (1.6-7.5); NEUTROPHILS % 78.6 % (39.0-77.0); PLATELET COUNT 227 10^3/UL (140-415); RED BLOOD COUNT 2.88 10^6/ul (4.70-6.10); RED CELL DISTRIBUTION WIDTH 15.2 % (11.5-14.5); WHITE BLOOD COUNT 9.6 10^3/ul (4.8-10.8)
[2017-02-02 08:08] LABS: POTASSIUM 3.8 mmol/L (3.5-5.1)
[2017-02-02 08:11] LABS: CALCIUM 8.2 mg/dl (8.4-10.2); CREATININE 1.73 mg/dl (0.61-1.24)
[2017-02-02] MEDS: FAMOTIDINE 20 MG TAB PO SCH (08:40)
[2017-02-02] MEDS: APIXABAN 5 MG TABLET PO SCH ×2 (08:40→21:11)
[2017-02-02] MEDS: ASPIRIN (EC) 81 MG TAB PO SCH (08:40)
[2017-02-02 09:21] LABS: MAGNESIUM 1.9 mg/dl (1.7-2.5); PHOSPHORUS 3.8 mg/dl (2.5-4.9)
[2017-02-02] MEDS ORDERED: ALBUTEROL/IPRATROPIUM (NEB) 3 ML AMP HHN PRN (12:00)
--- NOTE | 2017-02-02 12:16 | CONS ---
Date/Time of Note Date/Time of Note DATE: 02/02/17 TIME: 12:15 Assessment/Plan Assessment/Plan Additional Assessment/Plan 1. Acute pulmonary edema secondary to fluid overload. 2. End-stage renal disease on hemodialysis Tuesday, , Tuesday at dialysis unit. 3. History of ischemic cardiomyopathy with low ejection fraction. 4. Hypertension. 5. Hyperlipidemia. 6. Dementia. PLAN: s/p HD 2 days in a row, no plan for HD todaym, will order HD for tomorrow if pt stays here pt follows at HD unit for scheduled HD on TTS will follow up Consultation Date/Type/Reason Admit Date/Time Jan 31, 2017 at 14:53 Initial Consult Date 01/31/2017 Type of Consultation: NEPHROLOGY Referring Provider: SOO NAIK 24 HR Interval Summary Free Text/Dictation s/p HD yesterday Exam/Review of Systems Vital Signs Vitals Vital Signs Date Time Temp Pulse Resp B/P Pulse Ox O2 Delivery O2 Flow Rate FiO2 02/02/17 12:13 105 02/02/17 11:27 97.9 18 136/82 98 02/02/17 07:50 Nasal Cannula 3.0 01/31/17 14:27 28 Intake and Output 02/01/17 02/01/17 02/02/17 15:00 23:00 07:00 Intake Total 500 ml 400 ml 200 ml Output Total 1500 ml Balance -1000 ml 400 ml 200 ml Exam GENERAL: Awake, alert. Mild to moderate distress. HEENT: Normal. Oropharynx clear. NECK: Jugular venous distention present. Neck supple. No lymphadenopathy. + right chest permacath LUNGS: Bibasilar crackles present with minimal expiratory wheezing. HEART: S1, S2 with regular rhythm. No murmur. ABDOMEN: Soft, nontender, nondistended. Bowel sounds are present. EXTREMITIES: No clubbing, cyanosis, edema. NEUROLOGICAL: Nonfocal, intact. PSYCHIATRIC: Appropriate affect and mood. Results Result Diagram: 02/02/17 0710 02/02/17 0710 Results 24 hrs Laboratory Tests Test 02/01/17 15:50 02/02/17 07:10 Creatine Kinase 46 Creatine Kinase Index 4.1 Creatinine Kinase MB (Mass) 1.88 Troponin I 0.192 *H White Blood Count 9.6 Red Blood Count 2.88 L Hemoglobin 9.0 L Hematocrit 28.0 L Mean Corpuscular Volume 97.2 Mean Corpuscular Hemoglobin 31.3 Mean Corpuscular Hemoglobin Concent 32.1 Red Cell Distribution Width 15.2 H Platelet Count 227 # Mean Platelet Volume 10.3 Neutrophils % 78.6 H Lymphocytes % 13.0 L Monocytes % 7.1 Eosinophils % 0.7 Basophils % 0.1 Nucleated Red Blood Cells % 0.0 Neutrophils # 7.6 H Lymphocytes # 1.3 Monocytes # 0.7 Eosinophils # 0.1 Basophils # 0.0 Nucleated Red Blood Cells # 0.0 Sodium Level 136 Potassium Level 3.8 Chloride Level 102 Carbon Dioxide Level 28 Anion Gap 10 Blood Urea Nitrogen 34 H Creatinine 1.73 H Glucose Level 76 # Calcium Level 8.2 L Phosphorus Level 3.8 Magnesium Level 1.9 Medications Medications Current Medications Tramadol HCl (Ultram) 50 mg Q6H PRN PO PAIN; Start 01/31/17 at 19:00 Carvedilol (Coreg) 6.25 mg BID PO Last administered on 02/02/17 08:40; Admin Dose 6.25 MG; Start 01/31/17 at 21:00 Apixaban (Eliquis) 2.5 mg BID PO Last administered on 02/02/17 08:40; Admin Dose 2.5 MG; Start 01/31/17 at 21:00 Aspirin (Halfprin) 81 mg DAILY PO Last administered on 02/02/17 08:40; Admin Dose 81 MG; Start 02/01/17 at 09:00 Ondansetron HCl (Zofran Inj) 4 mg Q6H PRN IV NAUSEA AND/OR VOMITING; Start at 19:00 Nitroglycerin (Nitroglycerin (Sl Tab) 0.4 Mg) 1 tab Q5M PRN SL CHEST PAIN; Start 01/31/17 at 19:00 Acetaminophen (Tylenol Tab) 650 mg Q6H PRN PO PAIN LEVEL 1-3 OR FEVER; Start at 19:00 Docusate Sodium (Colace) 100 mg Q12H PRN PO CONSTIPATION; Start 01/31/17 at 19: 00 Magnesium Hydroxide (Milk Of Mag) 30 ml DAILY PRN PO CONSTIPATION; Start at 19:00 Bisacodyl (Dulcolax Supp) 10 mg DAILY PRN [place] CONSTIPATION; Start 01/31/17 at 19 :00 Famotidine (Pepcid) 20 mg DAILY PO Last administered on 02/02/17t 08:40; Admin Dose 20 MG; Start 01/31/17 at 21:00 MACI ASHLEY MD Feb 02, 2017 12:16
[2017-02-02] MEDS ORDERED: MAGNESIUM SULFATE 1 GM/D5W 100 ML IVPB ONE (14:00)
--- NOTE | 2017-02-02 14:44 | PN ---
Date/Time of Note Date/Time of Note DATE: 02/02/17 TIME: 14:37 Assessment/Plan VTE Prophylaxis VTE Prophylaxis Intervention: other (eliquis ) Lines/Catheters IV C[facility]ter Type (from [facility]): Saline Lock Urinary Cath still in place: No Assessment/Plan Assessment/Plan 81-year-old male with: 1. Acute episode of respiratory distress, likely due to volume overload. Resolved so far Remains stable, on supp O2 Appreciate Dr Summers's assistance with HD for volume removal 2. Chronic atrial fibrillation. Rate controlled on current regimen Continue Eliquis for now Repleting Magnesium 3. Coronary artery disease. He did have a stress test on his past admission that did show signs of coronary artery disease but no acute reversible disease. Continue ASA and follow up with cardiology recommendations today . 4. Ischemic cardiomyopathy with severe dysfunction, ejection fraction of 15% to 20%. HD for volume management Next HD tomorrow 5. Dementia. Stable mental status. 6. Chronic pain. On tramadol as needed for pain control. 7. Hypertension. Continue beta joni, resume Losartan if tolerated 8. Status post recent fall with closed head injury, seems to be healing well. Continue aspirin for now On Eliquis prophylactic dosing with close monitoring. Prophylaxis. The patient already on Eliquis, and Pepcid for GI prophylaxis. DISPOSITION: HD, Cardiology eval, hopefully d/c plan in the next 48 hrs to SNF , placement challenging due to DPOA requests, demands so far Subjective 24 Hr Interval Summary Free Text/Dictation Patient remains stable with rate controlled A fib, good volume status D/c plan to SNF in the next 24 to 48 hrs Exam/Review of Systems Vital Signs Vitals Vital Signs Date Time Temp Pulse Resp B/P Pulse Ox O2 Delivery O2 Flow Rate FiO2 02/02/17 12:13 105 02/02/17 11:27 97.9 18 136/82 98 02/02/17 07:50 Nasal Cannula 3.0 01/31/17 14:27 28 Intake and Output 02/01/17 02/01/17 02/02/17 15:00 23:00 07:00 Intake Total 500 ml 400 ml 200 ml Output Total 1500 ml Balance -1000 ml 400 ml 200 ml Exam Constitutional: alert, frail, oriented Respiratory: diminished breath sounds (bases bilaterally ), normal air movement Cardiovascular: irregular rhythm (chronic A fib ) Gastrointestinal: non-tender, soft Musculoskeletal: nl extremities to inspection Extremities: normal pulses, other (No clubbing, no cyanosis, trace pedal edema at most ) 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, confused (basline dementia ), other ( generalized weakness ) Results Result Diagram: 02/02/17 0710 02/02/17 0710 Results 24 hrs Laboratory Tests Test 02/01/17 15:50 02/02/17 07:10 Creatine Kinase 46 Creatine Kinase Index 4.1 Creatinine Kinase MB (Mass) 1.88 Troponin I 0.192 *H White Blood Count 9.6 Red Blood Count 2.88 L Hemoglobin 9.0 L Hematocrit 28.0 L Mean Corpuscular Volume 97.2 Mean Corpuscular Hemoglobin 31.3 Mean Corpuscular Hemoglobin Concent 32.1 Red Cell Distribution Width 15.2 H Platelet Count 227 # Mean Platelet Volume 10.3 Neutrophils % 78.6 H Lymphocytes % 13.0 L Monocytes % 7.1 Eosinophils % 0.7 Basophils % 0.1 Nucleated Red Blood Cells % 0.0 Neutrophils # 7.6 H Lymphocytes # 1.3 Monocytes # 0.7 Eosinophils # 0.1 Basophils # 0.0 Nucleated Red Blood Cells # 0.0 Sodium Level 136 Potassium Level 3.8 Chloride Level 102 Carbon Dioxide Level 28 Anion Gap 10 Blood Urea Nitrogen 34 H Creatinine 1.73 H Glucose Level 76 # Calcium Level 8.2 L Phosphorus Level 3.8 Magnesium Level 1.9 Medications Medications Current Medications Tramadol HCl (Ultram) 50 mg Q6H PRN PO PAIN; Start 01/31/17 at 19:00 Carvedilol (Coreg) 6.25 mg BID PO Last administered on 02/02/17 08:40; Admin Dose 6.25 MG; Start 01/31/17 at 21:00 Apixaban (Eliquis) 2.5 mg BID PO Last administered on 02/02/17 08:40; Admin Dose 2.5 MG; Start 01/31/17 at 21:00 Aspirin (Halfprin) 81 mg DAILY PO Last administered on 02/02/17 08:40; Admin Dose 81 MG; Start 02/01/17 at 09:00 Ondansetron HCl (Zofran Inj) 4 mg Q6H PRN IV NAUSEA AND/OR VOMITING; Start at 19:00 Nitroglycerin (Nitroglycerin (Sl Tab) 0.4 Mg) 1 tab Q5M PRN SL CHEST PAIN; Start 01/31/17 at 19:00 Acetaminophen (Tylenol Tab) 650 mg Q6H PRN PO PAIN LEVEL 1-3 OR FEVER; Start at 19:00 Docusate Sodium (Colace) 100 mg Q12H PRN PO CONSTIPATION; Start 01/31/17 at 19: 00 Magnesium Hydroxide (Milk Of Mag) 30 ml DAILY PRN PO CONSTIPATION; Start at 19:00 Bisacodyl (Dulcolax Supp) 10 mg DAILY PRN [place] CONSTIPATION; Start 01/31/17 at 19 :00 Famotidine 20 mg 20 mg DAILY PO Last administered on 02/02/17 08:40; Admin Dose 20 MG; Start 01/31/17 at 21:00 Magnesium Sulfate/ Dextrose (Magnesium Sulfate 1 Gm/D5W) 100 ml @ 100 mls/hr ONCE ONCE IVPB Last administered on 02/02/17 14:35; Admin Dose 100 MLS/HR; Start 02/02/17 at 14:00; Stop 02/02/17 at 14:59 SOO NAIK Feb 02, 2017 14:44
--- NOTE | 2017-02-02 15:35 | CONS ---
DATE OF ADMISSION: 01/31/2017 DATE OF CONSULTATION: 02/02/2017 REASON FOR CONSULTATION: Atrial fibrillation, positive troponin, cardiomyopathy. REQUESTING PHYSICIAN: Dr. Naik HISTORY OF PRESENT ILLNESS: Mr. Duggan is an 81-year-old male known to me from very recent hospit al admission with a history of cardiomyopathy with severely depressed left ventricular ejection frac tion at approximately 41% by stress 01/21/2017 with scar with no ischemia at that time, chronic obst ructive pulmonary disease, ETOH abuse, tobacco use, end-stage renal disease on hemodialysis, and enc ephalopathy who had a recent hospital course for treatment of congestive heart failure exacerbation, atrial fibrillation, and encephalopathy. He was discharged to outpatient followup and represented with shortness of breath. Initially upon arrival, temperature 98.3, blood pressure 169/74, pulse 75 , respiratory rate 20, saturating 100%. The patient's labs revealed a white blood cell count 12.6, hemoglobin 10.0, platelet count of 351. Sodium 140, potassium 4.5, creatinine 2.38, BUN 54. Tropon in 0.209. INR 1.37. ABG revealing a pH of 7.554, PaO2 of 97, pCO2 of 28. The patient's electrocar diogram revealed atrial fibrillation at a rate of 102 with poor R-wave progression across the anteri or precordial leads and artifact obscuring much of the baseline echo interpretation and lateral T-wa ve inversions. The patient subsequently has been admitted to the floor and had been initiated on ba seline aspirin, Eliquis, and carvedilol and is being additionally seen by the phys asst and is un dergoing hemodialysis. The patient, at this time, denies chest pain but has mild shortness breath. The patient additionally had down trending of cardiac enzymes at this time. PAST MEDICAL HISTORY: As above in HPI. MEDICATIONS CURRENTLY IN HOSPITAL: 1. DuoNeb. 2. Aspirin 81 mg daily. 3. Carvedilol 6.25 mg p.o. b.i.d. 4. Apixaban 2.5 mg p.o. b.i.d. 5. Pepcid 20 mg daily. 6. Tramadol 50 mg q. 6 p.r.n. 7. Zofran p.r.n. 8. Tylenol p.r.n. 9. Sublingual nitroglycerin p.r.n. 10. Colace p.r.n. 11. Milk of magnesia p.r.n. 12. Dulcolax p.r.n. ALLERGIES: PENICILLIN. SOCIAL HISTORY: Positive history of tobacco, history of ETOH abuse, no illicit drug use. FAMILY HISTORY: No history of sudden cardiac or early CAD. REVIEW OF SYSTEMS: As above in HPI. CONSTITUTIONAL: No fevers, chills. PULMONARY: Shortness of breath. CARDIOVASCULAR: Congestive heart failure. GASTROINTESTINAL: No vomiting. GENITOURINARY: No hematuria. End-stage renal disease. PSYCHIATRIC: No documented psych history. NEUROLOGIC: Altered mental state. PHYSICAL EXAMINATION: VITAL SIGNS: Temperature of 97.9, blood pressure most recently 136/82, pulse 80, respiratory rate 1 8, saturating 98%. GENERAL: The patient is alert, awake, mildly confused, and lethargic. NECK: JVP approximately 9 cm of water. CHEST: Bibasilar crackles. HEART: Irregularly irregular, I/ systolic murmur, nondisplaced PMI. ABDOMEN: Positive bowel sounds, soft. EXTREMITIES: Trace edema, 1+ pulses bilaterally, posterior tibial. LABORATORY DATA: Most recently from today, sodium 136, potassium 3.8, creatinine 1.73, BUN of 34. Troponin is 0.192, down from a peak of 0.262. White blood cell count 9.6, hemoglobin 9.0, platelet count 227. ABG revealing a pH of 7.554, PaO2 of 97, pCO2 of 28. INR 1.37. IMAGING STUDIES: Chest x-ray from 02/01/2017 revealing cardiomegaly, calcified atherosclerosis of a pawan, stable central pulmonary vascular congestion, and interstitial prominence of both lungs. ECG: As above in HPI. No further electrocardiograms for my review at this time. IMPRESSION: 1. Congestive heart failure exacerbation, systolic, acute on chronic. 2. History of cardiomyopathy, decreased left ventricular ejection fraction. 3. Hypertension. 4. Atrial fibrillation on apixaban with reasonable rate control at this time. 5. End-stage renal disease on hemodialysis. 6. Anemia and thrombocytopenia increasing. RECOMMENDATIONS: 1. At this time, would maintain the patient on telemetry monitoring to follow rhythm and rate contr ol closely. 2. Continue the patient's current carvedilol, and we will initiate the patient on low dose LOBO inhi bitor afterload reduction following potassium closely on this medication. 3. Continue the patient's hemodialysis for volume removal. 4. Continue the patient's apixaban for prevention of thrombolic events in the setting of atrial fib rillation and increased CHADS score. Continue the patient's aspirin as tolerated and follow up for any bleeding complications. 5. Continue to trend the patient's cardiac enzymes to assess for any significant ongoing cardiac da mage. Thank you for allowing me to take part in the care of this patient. I will continue to follow along very closely with you with further recommendations to be made as [facility] Dictated By: SALOMON GRAJEDA/DINH Conf#: [id number] DID#: [id number] CC: SOO NAIK MD;*EndCC*
[2017-02-02] MEDS: ALBUTEROL/IPRATROPIUM (NEB) 3 ML AMP HHN SCH (16:59)
[2017-02-03] VITALS (19 sets, daily range): BP systolic 102–136; BP diastolic 52–95; PULSE 82–124; RESP 18–20
[2017-02-03] MEDS: ALBUTEROL/IPRATROPIUM (NEB) 3 ML AMP HHN SCH ×4 (00:07→23:35)
[2017-02-03 07:43] LABS: ADD SCAN DIFF NO
[2017-02-03 07:48] LABS: BASOPHILS % 0.2 % (0.0-2.0); EOSINOPHILS # 0.1 10^3/ul (0.0-0.5); EOSINOPHILS % 1.1 % (0.0-7.0); HEMATOCRIT 29.8 % (42.0-52.0); HEMOGLOBIN 9.4 g/dl (14.0-18.0); LYMPHOCYTES # 1.6 10^3/ul (0.8-2.9); LYMPHOCYTES % 16.9 % (15.0-51.0); MEAN CORPUSCULAR HEMOGLOBIN 30.9 pg (29.0-33.0); MEAN CORPUSCULAR HGB CONC 31.5 g/dl (32.0-37.0); MEAN PLATELET VOLUME 10.5 fl (7.4-10.4); MONOCYTE # 0.8 10^3/ul (0.3-0.9); MONOCYTES % 8.2 % (0.0-11.0); NEUTROPHIL # 6.8 10^3/ul (1.6-7.5); NEUTROPHILS % 72.6 % (39.0-77.0); PLATELET COUNT 238 10^3/UL (140-415); RED BLOOD COUNT 3.04 10^6/ul (4.70-6.10); RED CELL DISTRIBUTION WIDTH 15.5 % (11.5-14.5); WHITE BLOOD COUNT 9.4 10^3/ul (4.8-10.8)
[2017-02-03 07:58] LABS: POTASSIUM 3.6 mmol/L (3.5-5.1)
[2017-02-03 07:59] LABS: MAGNESIUM 2.1 mg/dl (1.7-2.5); PHOSPHORUS 4.4 mg/dl (2.5-4.9)
[2017-02-03 08:00] LABS: CREATININE 1.95 mg/dl (0.61-1.24)
[2017-02-03 08:01] LABS: CALCIUM 7.7 mg/dl (8.4-10.2)
[2017-02-03 08:15] LABS: CK-MB 1.82 ng/ml (0.0-2.4); TROPONIN-I 0.141 ng/ml (0.00-0.12)
[2017-02-03] MEDS: ASPIRIN (EC) 81 MG TAB PO SCH (08:49)
[2017-02-03] MEDS: FAMOTIDINE 20 MG TAB PO SCH (08:49)
[2017-02-03] MEDS: APIXABAN 5 MG TABLET PO SCH ×2 (08:49→22:00)
--- NOTE | 2017-02-03 11:05 | CONS ---
Date/Time of Note Date/Time of Note DATE: 02/03/17 TIME: 11:03 Assessment/Plan Assessment/Plan Additional Assessment/Plan 1. Acute pulmonary edema secondary to fluid overload. 2. End-stage renal disease on hemodialysis Tuesday, , Tuesday at dialysis unit. 3. History of ischemic cardiomyopathy with low ejection fraction. 4. Hypertension. 5. Hyperlipidemia. 6. Dementia. PLAN: s/p HD 2 days in a row, , No HD done yesterday, will plan for HD today then pt will be on TTS schedule pt follows at [facility] Dialysis unit for chronic HD under my care will follow up Consultation Date/Type/Reason Admit Date/Time Jan 31, 2017 at 14:53 Initial Consult Date 01/31/2017 Type of Consultation: NEPHROLOGY Reason for Consultation ESRD on HD with fluid overload, hyperkalemia, Referring Provider: SOO NAIK 24 HR Interval Summary Free Text/Dictation pt stable, plan for HD today Exam/Review of Systems Vital Signs Vitals Vital Signs Date Time Temp Pulse Resp B/P Pulse Ox O2 Delivery O2 Flow Rate FiO2 02/03/17 08:50 74 18 96 Nasal Cannula 2.0 02/03/17 07:34 98.0 128/77 02/03/17 00:09 28 Intake and Output 02/02/17 02/02/17 02/03/17 15:00 23:00 07:00 Intake Total 400 ml 200 ml Balance 400 ml 200 ml Exam GENERAL: Awake, alert. Mild to moderate distress. HEENT: Normal. Oropharynx clear. NECK: Jugular venous distention present. Neck supple. No lymphadenopathy. + right chest permacath LUNGS: Bibasilar crackles present with minimal expiratory wheezing. HEART: S1, S2 with regular rhythm. No murmur. ABDOMEN: Soft, nontender, nondistended. Bowel sounds are present. EXTREMITIES: No clubbing, cyanosis, edema. NEUROLOGICAL: Nonfocal, intact. PSYCHIATRIC: Appropriate affect and mood. Results Result Diagram: 02/03/1730 02/03/1730 Results 24 hrs Laboratory Tests Test 02/03/17 07:30 White Blood Count 9.4 Red Blood Count 3.04 L Hemoglobin 9.4 L Hematocrit 29.8 L Mean Corpuscular Volume 98.0 Mean Corpuscular Hemoglobin 30.9 Mean Corpuscular Hemoglobin Concent 31.5 L Red Cell Distribution Width 15.5 H Platelet Count 238 Mean Platelet Volume 10.5 H Neutrophils % 72.6 Lymphocytes % 16.9 Monocytes % 8.2 Eosinophils % 1.1 Basophils % 0.2 Nucleated Red Blood Cells % 0.0 Neutrophils # 6.8 Lymphocytes # 1.6 Monocytes # 0.8 Eosinophils # 0.1 Basophils # 0.0 Nucleated Red Blood Cells # 0.0 Sodium Level 133 L Potassium Level 3.6 Chloride Level 100 Carbon Dioxide Level 27 Anion Gap 10 Blood Urea Nitrogen 41 H Creatinine 1.95 H Glucose Level 73 Calcium Level 7.7 L Phosphorus Level 4.4 Magnesium Level 2.1 Creatine Kinase 34 Creatine Kinase Index 5.4 Creatinine Kinase MB (Mass) 1.82 Troponin I 0.141 *H Medications Medications Current Medications Tramadol HCl (Ultram) 50 mg Q6H PRN PO PAIN; Start 01/31/17 at 19:00 Carvedilol (Coreg) 6.25 mg BID PO Last administered on 02/02/17 21:11; Admin Dose 6.25 MG; Start 01/31/17 at 21:00 Apixaban (Eliquis) 2.5 mg BID PO Last administered on 02/03/17 08:49; Admin Dose 2.5 MG; Start 01/31/17 at 21:00 Aspirin (Halfprin) 81 mg DAILY PO Last administered on 02/03/17 08:49; Admin Dose 81 MG; Start 02/01/17 at 09:00 Ondansetron HCl (Zofran Inj) 4 mg Q6H PRN IV NAUSEA AND/OR VOMITING; Start at 19:00 Nitroglycerin (Nitroglycerin (Sl Tab) 0.4 Mg) 1 tab Q5M PRN SL CHEST PAIN; Start 01/31/17 at 19:00 Acetaminophen (Tylenol Tab) 650 mg Q6H PRN PO PAIN LEVEL 1-3 OR FEVER; Start at 19:00 Docusate Sodium (Colace) 100 mg Q12H PRN PO CONSTIPATION; Start 01/31/17 at 19: 00 Magnesium Hydroxide (Milk Of Mag) 30 ml DAILY PRN PO CONSTIPATION; Start at 19:00 Bisacodyl (Dulcolax Supp) 10 mg DAILY PRN [place] CONSTIPATION; Start 01/31/17 at 19 :00 Famotidine (Pepcid) 20 mg DAILY PO Last administered on 02/03/17 08:49; Admin Dose 20 MG; Start 01/31/17 at 21:00 MACI ASHLEY MD Feb 03, 2017 11:05
--- NOTE | 2017-02-03 16:05 | PN ---
Date/Time of Note Date/Time of Note DATE: 02/03/17 TIME: 15:52 Assessment/Plan VTE Prophylaxis VTE Prophylaxis Intervention: other (Eliquis ) Lines/Catheters IV [facility]ter [facility]from [facility] Saline Lock Urinary Cath still in place: No Assessment/Plan Assessment/Plan 81-year-old male with: 1. Acute episode of respiratory distress, likely due to volume overload. Resolved so far after HD x 2, next HD today Remains stable, on supp O2, 2L NC thst he should remain on. Appreciate Dr Summers's assistance with HD for volume removal (-3L today) 2. Chronic atrial fibrillation. Rate controlled on current regimen Continue Eliquis for now Monitor electrolytes 3. Coronary artery disease. He did have a stress test on his past admission that did show signs of coronary artery disease but no acute reversible disease. Continue ASA, carvedilol Cardiac enzymes trending down Follow up with cardiology recommendations today. 4. Ischemic cardiomyopathy with severe dysfunction, ejection fraction of 15% to 20%. HD for volume management HD today. 5. Dementia. Stable mental status. 6. Chronic pain. On tramadol as needed for pain control. 7. Hypertension. Continue beta joni, resume Losartan un the next 24 hrs if BP tolerates. 8. Status post recent fall with closed head injury, seems to be healing well. Continue aspirin for now On Eliquis prophylactic dosing with close monitoring. Prophylaxis. The patient already on Eliquis, and Pepcid for GI prophylaxis. DISPOSITION: HD today, Cardiology eval, hopefully d/c plan in the next 24 to 48 hrs to SNF if OK with Cardio, placement challenging due to DPOA requests, demands so far Subjective 24 Hr Interval Summary Free Text/Dictation Patient stable Episode of mild RVR with chronic A fib No complaints, pleasant and s/p HD with -3L fluid removal Exam/Review of Systems Vital Signs Vitals Vital Signs Date Time Temp Pulse Resp B/P Pulse Ox O2 Delivery O2 Flow Rate FiO2 02/03/17 14:23 2.0 02/03/17 12:33 112 02/03/17 12:09 98.0 19 109/64 95 02/03/17 09:00 Nasal Cannula 02/03/17 00:09 28 Intake and Output 02/02/17 02/02/17 02/03/17 15:00 23:00 07:00 Intake Total 400 ml 200 ml Balance 400 ml 200 ml Exam Constitutional: alert, frail, oriented (x2) Respiratory: diminished breath sounds (bases ) Cardiovascular: irregular rhythm (chronic a fib ), nl pulses Gastrointestinal: non-tender, soft Musculoskeletal: nl extremities to inspection Extremities: normal pulses, other (no edema, clubbing or cyanosis ) 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, nl mental status, nl speech, other ( generalized weakness ) Results Result Diagram: 02/03/17 0730 02/03/17 0730 Results 24 hrs Laboratory Tests Test 02/03/17 07:30 White Blood Count 9.4 Red Blood Count 3.04 L Hemoglobin 9.4 L Hematocrit 29.8 L Mean Corpuscular Volume 98.0 Mean Corpuscular Hemoglobin 30.9 Mean Corpuscular Hemoglobin Concent 31.5 L Red Cell Distribution Width 15.5 H Platelet Count 238 Mean Platelet Volume 10.5 H Neutrophils % 72.6 Lymphocytes % 16.9 Monocytes % 8.2 Eosinophils % 1.1 Basophils % 0.2 Nucleated Red Blood Cells % 0.0 Neutrophils # 6.8 Lymphocytes # 1.6 Monocytes # 0.8 Eosinophils # 0.1 Basophils # 0.0 Nucleated Red Blood Cells # 0.0 Sodium Level 133 L Potassium Level 3.6 Chloride Level 100 Carbon Dioxide Level 27 Anion Gap 10 Blood Urea Nitrogen 41 H Creatinine 1.95 H Glucose Level 73 Calcium Level 7.7 L Phosphorus Level 4.4 Magnesium Level 2.1 Creatine Kinase 34 Creatine Kinase Index 5.4 Creatinine Kinase MB (Mass) 1.82 Troponin I 0.141 *H Medications Medications Current Medications Tramadol HCl (Ultram) 50 mg Q6H PRN PO PAIN; Start 01/31/17 at 19:00 Carvedilol (Coreg) 6.25 mg BID PO Last administered on 02/02/17 21:11; Admin Dose 6.25 MG; Start 01/31/17 at 21:00 Apixaban (Eliquis) 2.5 mg BID PO Last administered on 02/03/17 08:49; Admin Dose 2.5 MG; Start 01/31/17 at 21:00 Aspirin (Halfprin) 81 mg DAILY PO Last administered on 02/03/17 08:49; Admin Dose 81 MG; Start 02/01/17 at 09:00 Ondansetron HCl (Zofran Inj) 4 mg Q6H PRN IV NAUSEA AND/OR VOMITING; Start at 19:00 Nitroglycerin (Nitroglycerin (Sl Tab) 0.4 Mg) 1 tab Q5M PRN SL CHEST PAIN; Start 01/31/17 at 19:00 Acetaminophen (Tylenol Tab) 650 mg Q6H PRN PO PAIN LEVEL 1-3 OR FEVER; Start at 19:00 Docusate Sodium (Colace) 100 mg Q12H PRN PO CONSTIPATION; Start 01/31/17 at 19: 00 Magnesium Hydroxide (Milk Of Mag) 30 ml DAILY PRN PO CONSTIPATION; Start at 19:00 Bisacodyl (Dulcolax Supp) 10 mg DAILY PRN [place] CONSTIPATION; Start 01/31/17 at 19 :00 Famotidine (Pepcid) 20 mg DAILY PO Last administered on 02/03/17 08:49; Admin Dose 20 MG; Start 01/31/17 at 21:00 SOO NAIK Feb 03, 2017 16:02
--- NOTE | 2017-02-03 18:03 | RADRPT ---
PROCEDURE: XR Chest. CLINICAL INDICATION: Shortness of breath. TECHNIQUE: Single frontal view. COMPARISON: 02/01/2017. FINDINGS: The right internal jugular vein tunneled dialysis catheter remains in satisfactory position with the tip in the upper right atrium. Pulmonary edema, cardiomegaly, and moderate bilateral pleural effus ions are unchanged. Calcification is present in the aorta consistent with atherosclerosis. There is no pneumothorax. IMPRESSION: 1. No change from 02/01/2017. RPTAT: QQ .Mil Almodovar MD, MD Date Time Electronically viewed and signed by .Mil Almodovar MD, MD on 02/03/2017 18:03 .R/
--- NOTE | 2017-02-03 21:17 | CONS ---
Date/Time of Note Date/Time of Note DATE: 02/03/17 TIME: 21:11 Assessment/Plan Assessment/Plan Chief Complaint/Hosp Course IMPRESSION: 1. Congestive heart failure exacerbation, systolic, acute on chronic. 2. History of cardiomyopathy, decreased left ventricular ejection fraction. 3. Hypertension. 4. Atrial fibrillation on apixaban with reasonable rate control at this time. 5. End-stage renal disease on hemodialysis. 6. Anemia and thrombocytopenia increasing. 7. Positive troponin-minimal in the setting of renal failure/Downtrending Recc: -Tele -serial ecg's -trend cardiac enzymes -Continue apixaban/asa -Continue coreg -will give dose IVP digoxin -will f/u echo to reassess EF given sig discrepancy between prior echo at OSH and [facility] here at [facility] -Resume low dose ARB afterload reduction -HD for volume removal Problems: Consultation Date/Type/Reason Admit Date/Time Jan 31, 2017 at 14:53 Initial Consult Date 02/01/2017 Type of Consultation: Cardiology Reason for Consultation AF/Cardiomyopathy/CHF Referring Provider: SOO NAIK Exam/Review of Systems Vital Signs Vitals Vital Signs Date Time Temp Pulse Resp B/P Pulse Ox O2 Delivery O2 Flow Rate FiO2 02/03/17 20:50 Nasal Cannula 3.0 02/03/17 19:41 97.5 110 18 121/79 92 02/03/17 00:09 28 Intake and Output 02/02/17 02/02/17 02/03/17 15:00 23:00 07:00 Intake Total 400 ml 200 ml Balance 400 ml 200 ml Exam Review of Systems: CONSTITUTIONAL: No fevers, chills. PULMONARY: No sob CARDIOVASCULAR: No chest pain/palpitations GASTROINTESTINAL: No nausea/vomiting. GENITOURINARY: No hematuria/dysuria. MUSCULOSKELETAL: No myagias/arthalgias. PSYCHIATRIC: The patient denies depression. NEUROLOGIC: lethargic Constitutional: alert Psych: no complaints Head: normocephalic ENMT: mucosa pink and moist Neck: jvd, supple Respiratory: diminished breath sounds Cardiovascular: irregular rhythm (tachycardic) Gastrointestinal: non-tender, soft Musculoskeletal: muscle tone (normal) Extremities: edema (none) Neurological: other Results Result Diagram: 02/03/1772902/03/17729 Results 24 hrs Laboratory Tests Test 02/03/17 07:30 White Blood Count 9.4 Red Blood Count 3.04 L Hemoglobin 9.4 L Hematocrit 29.8 L Mean Corpuscular Volume 98.0 Mean Corpuscular Hemoglobin 30.9 Mean Corpuscular Hemoglobin Concent 31.5 L Red Cell Distribution Width 15.5 H Platelet Count 238 Mean Platelet Volume 10.5 H Neutrophils % 72.6 Lymphocytes % 16.9 Monocytes % 8.2 Eosinophils % 1.1 Basophils % 0.2 Nucleated Red Blood Cells % 0.0 Neutrophils # 6.8 Lymphocytes # 1.6 Monocytes # 0.8 Eosinophils # 0.1 Basophils # 0.0 Nucleated Red Blood Cells # 0.0 Sodium Level 133 L Potassium Level 3.6 Chloride Level 100 Carbon Dioxide Level 27 Anion Gap 10 Blood Urea Nitrogen 41 H Creatinine 1.95 H Glucose Level 73 Calcium Level 7.7 L Phosphorus Level 4.4 Magnesium Level 2.1 Creatine Kinase 34 Creatine Kinase Index 5.4 Creatinine Kinase MB (Mass) 1.82 Troponin I 0.141 *H Medications Medications Current Medications Tramadol HCl (Ultram) 50 mg Q6H PRN PO PAIN; Start 01/31/17 at 19:00 Carvedilol (Coreg) 6.25 mg BID PO Last administered on 02/02/17 21:11; Admin Dose 6.25 MG; Start 01/31/17 at 21:00 Apixaban (Eliquis) 2.5 mg BID PO Last administered on 02/03/17 08:49; Admin Dose 2.5 MG; Start 01/31/17 at 21:00 Aspirin (Halfprin) 81 mg DAILY PO Last administered on 02/03/17 08:49; Admin Dose 81 MG; Start 02/01/17 at 09:00 Ondansetron HCl (Zofran Inj) 4 mg Q6H PRN IV NAUSEA AND/OR VOMITING; Start at 19:00 Nitroglycerin (Nitroglycerin (Sl Tab) 0.4 Mg) 1 tab Q5M PRN SL CHEST PAIN; Start 01/31/17 at 19:00 Acetaminophen (Tylenol Tab) 650 mg Q6H PRN PO PAIN LEVEL 1-3 OR FEVER; Start at 19:00 Docusate Sodium (Colace) 100 mg Q12H PRN PO CONSTIPATION; Start 01/31/17 at 19: 00 Magnesium Hydroxide (Milk Of Mag) 30 ml DAILY PRN PO CONSTIPATION; Start at 19:00 Bisacodyl (Dulcolax Supp) 10 mg DAILY PRN [place] CONSTIPATION; Start 01/31/17 at 19 :00 Famotidine (Pepcid) 20 mg DAILY PO Last administered on 02/03/17t 08:49; Admin Dose 20 MG; Start 01/31/17 at 21:00 SALOMON ROPER Feb 03, 2017 21:17
[2017-02-03] MEDS ORDERED: DIGOXIN 500 MCG INJ IV ONE (21:30)
--- NOTE | 2017-02-03 21:56 | RADRPT ---
Echocardiogram Report Patient Name: RADHA ENGLISH Gender: Male Date: 1935 Study Date: 03-Feb-2017 Psychiatric Aides Teacher: James Burrows [facility] Location: [id number] Ref. Physician: SALOMON BERMAN Quality: Adequate Procedures: Transthoracic echocardiogram with complete 2D, M-Mode, and doppler examination. Indications: Congestive Heart Failure. 2D/M Mode Doppler Measurement Value Normal Ranges Measurement Value Normal Ranges LVIDd 2D 3.7 3.5 - 5.6 cm AV Peak Mani 1.9 m/sec LVIDs 2D 2.6 2.1 - 4.1 cm AV Peak PG 14.0 mmHg FS 2D 27.7 % AI Peak PG 82.0 mmHg LVPWd 2D 1.7 0.6 - 1.1 cm AI Peak Mani 4.5 m/sec IVSd 2D 1.6 0.6 - 1.1 cm AI PHT 612.0 msec IVS/LVPW 2D 1.0 LVOT Peak Mani 1.3 m/sec AoR Diam 2D 2.2 2.0 - 3.7 cm LVOT Peak PG 7.0 mmHg LA/Ao 2D 2 0 - 1 MV E Peak Mani 1.2 m/sec EDV 2D 48.6 cm3 MR Peak PG 61.0 mmHg ESV 2D 18.4 cm3 MR Peak Mani 3.9 m/sec LA Dimen 2D 4.5 2.3 - 4.0 cm TR Peak Mani 2.1 m/sec TR Peak PG 17.0 mmHg Findings Left Ventricle: Moderate concentric left ventricular hypertrophy. Reduced left ventricular cavity size. Moderate global left ventricular systolic dysfunction. Ejection fraction is visually estimated at 30 %. Abnormal Diastolic Function. Right Ventricle: Mild right ventricular systolic dysfunction. Mild enlargement of right ventricle. Left Atrium: There is moderate enlargement of left atrium. Right Atrium: There is moderate enlargement of right atrium. Mitral Valve: Mitral valve leaflets appear mildly thickened. Mild mitral annular calcification. Mild mitral valve regurgitation. Aortic Valve: Aortic sclerosis without stenosis. Trileaflet aortic valve. Mild to moderate aortic valve regurgitation. Tricuspid Valve: Estimated peak PA systolic pressure 40 mmHg. There is moderate tricuspid regurgitation. Pericardium: Trivial pericardial effusion. Bilateral pleural effusion seen. Aorta: Normal aortic root. IVC: Dilated IVC without respiratory collapse consistent with elevated right atrial pressure. Conclusions Moderate concentric left ventricular hypertrophy. Reduced left ventricular cavity size. Moderate to severe global left ventricular systolic dysfunction. Ejection fraction is visually estimated at 30 %. Abnormal Diastolic Function. Mild right ventricular systolic dysfunction. Mild enlargement of right ventricle. There is moderate enlargement of left atrium. There is moderate enlargement of right atrium. Mild mitral valve regurgitation. Aortic sclerosis without stenosis. Mild to moderate aortic valve regurgitation. Estimated peak PA systolic pressure 40 mmHg. There is moderate tricuspid regurgitation. Electronically Signed By: Salomon Berman 03-Feb-2017 21:55:14 -0700 Patient Name: RADHA ENGLISH Study Date: 03-Feb-2017 [id number]
[2017-02-04] VITALS (10 sets, daily range): BP systolic 128–153; BP diastolic 61–118; PULSE 94–107; RESP 18–20
[2017-02-04] MEDS: ALBUTEROL/IPRATROPIUM (NEB) 3 ML AMP HHN SCH ×2 (07:40→16:46)
[2017-02-04 08:08] LABS: ADD SCAN DIFF NO
[2017-02-04 08:10] LABS: BASOPHILS % 0.2 % (0.0-2.0); EOSINOPHILS # 0.1 10^3/ul (0.0-0.5); HEMATOCRIT 28.2 % (42.0-52.0); HEMOGLOBIN 8.7 g/dl (14.0-18.0); LYMPHOCYTES # 1.6 10^3/ul (0.8-2.9); LYMPHOCYTES % 16.1 % (15.0-51.0); MEAN CORPUSCULAR HEMOGLOBIN 30.2 pg (29.0-33.0); MEAN CORPUSCULAR HGB CONC 30.9 g/dl (32.0-37.0); MEAN CORPUSCULAR VOLUME 97.9 fl (82.0-101.0); MEAN PLATELET VOLUME 10.1 fl (7.4-10.4); MONOCYTE # 0.9 10^3/ul (0.3-0.9); MONOCYTES % 8.4 % (0.0-11.0); NEUTROPHIL # 7.5 10^3/ul (1.6-7.5); NEUTROPHILS % 73.5 % (39.0-77.0); PLATELET COUNT 202 10^3/UL (140-415); RED BLOOD COUNT 2.88 10^6/ul (4.70-6.10); RED CELL DISTRIBUTION WIDTH 15.7 % (11.5-14.5); WHITE BLOOD COUNT 10.2 10^3/ul (4.8-10.8)
[2017-02-04 08:27] LABS: POTASSIUM 3.6 mmol/L (3.5-5.1)
[2017-02-04 08:30] LABS: CREATININE 1.92 mg/dl (0.61-1.24)
[2017-02-04] MEDS: ASPIRIN (EC) 81 MG TAB PO SCH (08:33)
[2017-02-04] MEDS: LOSARTAN 25 MG TAB PO SCH (08:33)
[2017-02-04] MEDS: FAMOTIDINE 20 MG TAB PO SCH (08:34)
[2017-02-04] MEDS: APIXABAN 5 MG TABLET PO SCH ×2 (08:34→21:25)
[2017-02-04 08:47] LABS: MAGNESIUM 2.1 mg/dl (1.7-2.5); PHOSPHORUS 3.8 mg/dl (2.5-4.9)
--- NOTE | 2017-02-04 11:51 | PN ---
Date/Time of Note Date/Time of Note DATE: 02/04/17 TIME: 11:50 Assessment/Plan VTE Prophylaxis VTE Prophylaxis Intervention: other (on Eliquis ) Lines/Catheters IV Catheter Type (from Nrsg): Peripheral IV Urinary Cath still in place: No Assessment/Plan Assessment/Plan 81-year-old male with: 1. Acute episode of respiratory distress, likely due to volume overload. Resolved so far after HD x 2, next HD tomorrow. Remains stable, on supp O2, 2L NC that he should remain on. Appreciate Dr Summers's assistance with HD for volume removal (-3L today) 2. Chronic atrial fibrillation. Rate controlled most of he time on current regimen, plan to increase Coreg to 12.5 mg po bid, did require Digoxin x 1 last night for episode of RVR. Continue Eliquis for now Monitor electrolytes 3. Coronary artery disease. He did have a stress test on his past admission that did show signs of coronary artery disease but no acute reversible disease. Continue ASA, carvedilol, Cozaar Cardiac enzymes trending down Follow up with cardiology recommendations, d/c plan to SNF post HD. 4. Ischemic cardiomyopathy with severe dysfunction, ejection fraction of 30% likely per Cardiology. Continue Blockers, ARB, ASA HD for volume management HD tomorrow. 5. Moderate Dementia at least. Stable mental status. 6. Chronic pain. On tramadol as needed for pain control. 7. Hypertension. Continue beta joni, back Losartan today, BP tolerating. 8. Status post recent fall with closed head injury, seems to be healing well. Continue aspirin for now On Eliquis prophylactic dosing with close monitoring. Prophylaxis. The patient already on Eliquis, and Pepcid for GI prophylaxis. DISPOSITION: HD today, Cardiology eval, hopefully d/c plan in the next 24 hrs after HD tomorrow to SNF, placement challenging due to DPOA requests, demands so far. Subjective 24 Hr Interval Summary Free Text/Dictation Patient awake and easy to redirect but with at least Moderate dementia No complaints Last HD yesterday and seems stable Will plan for discharge to SNF after HD tomorrow if able to find placement Exam/Review of Systems Vital Signs Vitals Vital Signs Date Time Temp Pulse Resp B/P Pulse Ox O2 Delivery O2 Flow Rate FiO2 02/04/17 11:06 98.0 115 18 128/74 94 02/04/17 07:41 Nasal Cannula 2.0 02/03/17 23:39 28 Intake and Output 02/03/17 02/03/17 02/04/17 15:00 23:00 07:00 Intake Total 500 ml 900 ml 360 ml Output Total 3500 ml Balance -3000 ml 900 ml 360 ml Exam Constitutional: alert, frail, oriented (x 2 at most ) Respiratory: clear to auscultation, normal air movement, other (on 2L NC ) Cardiovascular: irregular rhythm (chronic A fib ), nl pulses Gastrointestinal: non-tender, soft Musculoskeletal: nl extremities to inspection Extremities: normal pulses, other (no edema, clubbing or cyanosis ) Neurological: [employer] II-XII intact, confused, nl speech, other (generalized weakness ) Results Result Diagram: 02/04/1772902/04/17 0730 Results 24 hrs Laboratory Tests Test 02/04/17 07:30 White Blood Count 10.2 Red Blood Count 2.88 L Hemoglobin 8.7 L Hematocrit 28.2 L Mean Corpuscular Volume 97.9 Mean Corpuscular Hemoglobin 30.2 Mean Corpuscular Hemoglobin Concent 30.9 L Red Cell Distribution Width 15.7 H Platelet Count 202 Mean Platelet Volume 10.1 Neutrophils % 73.5 Lymphocytes % 16.1 Monocytes % 8.4 Eosinophils % 1.0 Basophils % 0.2 Nucleated Red Blood Cells % 0.0 Neutrophils # 7.5 Lymphocytes # 1.6 Monocytes # 0.9 Eosinophils # 0.1 Basophils # 0.0 Nucleated Red Blood Cells # 0.0 Sodium Level 135 Potassium Level 3.6 Chloride Level 101 Carbon Dioxide Level 27 Anion Gap 11 Blood Urea Nitrogen 32 H Creatinine 1.92 H Glucose Level 77 Calcium Level 8.0 L Phosphorus Level 3.8 Magnesium Level 2.1 Medications Medications Current Medications Tramadol HCl (Ultram) 50 mg Q6H PRN PO PAIN; Start 01/31/17 at 19:00 Carvedilol (Coreg) 6.25 mg BID PO Last administered on 02/04/17 08:35; Admin Dose 6.25 MG; Start 01/31/17 at 21:00 Apixaban (Eliquis) 2.5 mg BID PO Last administered on 02/04/17 08:34; Admin Dose 2.5 MG; Start 01/31/17 at 21:00 Aspirin (Halfprin) 81 mg DAILY PO Last administered on 02/04/17 08:33; Admin Dose 81 MG; Start 02/01/17 at 09:00 Ondansetron HCl (Zofran Inj) 4 mg Q6H PRN IV NAUSEA AND/OR VOMITING; Start at 19:00 Nitroglycerin (Nitroglycerin (Sl Tab) 0.4 Mg) 1 tab Q5M PRN SL CHEST PAIN; Start 01/31/17 at 19:00 Acetaminophen (Tylenol Tab) 650 mg Q6H PRN PO PAIN LEVEL 1-3 OR FEVER; Start at 19:00 Docusate Sodium (Colace) 100 mg Q12H PRN PO CONSTIPATION; Start 01/31/17 at 19: 00 Magnesium Hydroxide (Milk Of Mag) 30 ml DAILY PRN PO CONSTIPATION; Start at 19:00 Bisacodyl (Dulcolax Supp) 10 mg DAILY PRN [place] CONSTIPATION; Start 01/31/17 at 19 :00 Famotidine (Pepcid) 20 mg DAILY PO Last administered on 02/04/17 08:34; Admin Dose 20 MG; Start 01/31/17 at 21:00 Losartan Potassium (Cozaar) 25 mg DAILY PO Last administered on 02/04/17 08:33 ; Admin Dose 25 MG; Start 02/04/17 at 09:00 SOO NAIK Feb 04, 2017 11:51
--- NOTE | 2017-02-04 12:12 | CONS ---
Date/Time of Note Date/Time of Note DATE: 02/04/17 TIME: 12:08 Assessment/Plan Assessment/Plan Chief Complaint/Hosp Course IMPRESSION: 1. Congestive heart failure exacerbation, systolic, acute on chronic.-EF 30% by echo this admit/RV HK 2. History of cardiomyopathy, decreased left ventricular ejection fraction. 3. Hypertension. 4. Atrial fibrillation on apixaban with reasonable rate control at this time-s/ p dose IVP digoxin. 5. End-stage renal disease on hemodialysis. 6. Anemia and thrombocytopenia increasing-improving . 7. Positive troponin-minimal in the setting of renal failure/Downtrending Recc: -Tele -serial ecg's -trend cardiac enzymes -Continue apixaban/asa -Continue coreg/ARB -HD for volume removal Problems: Consultation Date/Type/Reason Admit Date/Time Jan 31, 2017 at 14:53 Initial Consult Date 02/01/2017 Type of Consultation: Cardiology Reason for Consultation cardiomyopathy/CHF Referring Provider: SOO NAIK Exam/Review of Systems Vital Signs Vitals Vital Signs Date Time Temp Pulse Resp B/P Pulse Ox O2 Delivery O2 Flow Rate FiO2 02/04/17 11:06 98.0 115 18 128/74 94 02/04/17 08:30 Nasal Cannula 3.0 02/03/17 23:39 28 Intake and Output 02/03/17 02/03/17 02/04/17 15:00 23:00 07:00 Intake Total 500 ml 900 ml 360 ml Output Total 3500 ml Balance -3000 ml 900 ml 360 ml Exam Review of Systems: CONSTITUTIONAL: No fevers, chills. PULMONARY: No sob CARDIOVASCULAR: No chest pain/palpitations GASTROINTESTINAL: No nausea/vomiting. GENITOURINARY: No hematuria/dysuria. MUSCULOSKELETAL: No myagias/arthalgias. PSYCHIATRIC: The patient denies depression. NEUROLOGIC: Encephalopathic Constitutional: alert Psych: no complaints Head: normocephalic ENMT: mucosa pink and moist Neck: jvd (9 cm water), supple Respiratory: diminished breath sounds (at bases/B) Cardiovascular: irregular rhythm Gastrointestinal: non-tender, soft Musculoskeletal: muscle tone (normal) Extremities: edema (none) Results Result Diagram: 02/04/17 0730 02/04/17 0730 Results 24 hrs Laboratory Tests Test 02/04/17 07:30 White Blood Count 10.2 Red Blood Count 2.88 L Hemoglobin 8.7 L Hematocrit 28.2 L Mean Corpuscular Volume 97.9 Mean Corpuscular Hemoglobin 30.2 Mean Corpuscular Hemoglobin Concent 30.9 L Red Cell Distribution Width 15.7 H Platelet Count 202 Mean Platelet Volume 10.1 Neutrophils % 73.5 Lymphocytes % 16.1 Monocytes % 8.4 Eosinophils % 1.0 Basophils % 0.2 Nucleated Red Blood Cells % 0.0 Neutrophils # 7.5 Lymphocytes # 1.6 Monocytes # 0.9 Eosinophils # 0.1 Basophils # 0.0 Nucleated Red Blood Cells # 0.0 Sodium Level 135 Potassium Level 3.6 Chloride Level 101 Carbon Dioxide Level 27 Anion Gap 11 Blood Urea Nitrogen 32 H Creatinine 1.92 H Glucose Level 77 Calcium Level 8.0 L Phosphorus Level 3.8 Magnesium Level 2.1 Medications Medications Current Medications Tramadol HCl (Ultram) 50 mg Q6H PRN PO PAIN; Start 01/31/17 at 19:00 Carvedilol (Coreg) 6.25 mg BID PO Last administered on 02/04/17 08:35; Admin Dose 6.25 MG; Start 01/31/17 at 21:00 Apixaban (Eliquis) 2.5 mg BID PO Last administered on 02/04/17 08:34; Admin Dose 2.5 MG; Start 01/31/17 at 21:00 Aspirin (Halfprin) 81 mg DAILY PO Last administered on 02/04/17 08:33; Admin Dose 81 MG; Start 02/01/17 at 09:00 Ondansetron HCl (Zofran Inj) 4 mg Q6H PRN IV NAUSEA AND/OR VOMITING; Start at 19:00 Nitroglycerin (Nitroglycerin (Sl Tab) 0.4 Mg) 1 tab Q5M PRN SL CHEST PAIN; Start 01/31/17 at 19:00 Acetaminophen (Tylenol Tab) 650 mg Q6H PRN PO PAIN LEVEL 1-3 OR FEVER; Start at 19:00 Docusate Sodium (Colace) 100 mg Q12H PRN PO CONSTIPATION; Start 01/31/17 at 19: 00 Magnesium Hydroxide (Milk Of Mag) 30 ml DAILY PRN PO CONSTIPATION; Start at 19:00 Bisacodyl (Dulcolax Supp) 10 mg DAILY PRN [place] CONSTIPATION; Start 01/31/17 at 19 :00 Famotidine (Pepcid) 20 mg DAILY PO Last administered on 02/04/17 08:34; Admin Dose 20 MG; Start 01/31/17 at 21:00 Losartan Potassium (Cozaar) 25 mg DAILY PO Last administered on 02/04/17 08:33 ; Admin Dose 25 MG; Start 02/04/17 at 09:00 SALOMON ROPER Feb 04, 2017 12:12
--- NOTE | 2017-02-04 12:24 | CONS ---
Date/Time of Note Date/Time of Note DATE: 02/04/17 TIME: 12:21 Assessment/Plan Assessment/Plan Additional Assessment/Plan 1. Acute pulmonary edema secondary to fluid overload. 2. End-stage renal disease on hemodialysis Tuesday, , Tuesday at dialysis unit. 3. History of ischemic cardiomyopathy with low ejection fraction. 4. Hypertension. 5. Hyperlipidemia. 6. Dementia. 7. Atiral fibrillation with RVR - now HR in 100s PLAN: HD ordered for tomorrow then we will keep him on TTS schedule pt HR went high during HD yesterday- need better HR control, discussed with cardiology today- plan is to increase coreg and Nurses are instructed not to use hold coreg before HD DPOA changed mind about SNF pt follows at [facility] for chronic HD under my care will follow up Consultation Date/Type/Reason Admit Date/Time Jan 31, 2017 at 14:53 Initial Consult Date 01/31/2017 Type of Consultation: NEPHROLOGY Referring Provider: SOO NAIK 24 HR Interval Summary Free Text/Dictation , little altered today, HR went high during HD without dropping BP , Exam/Review of Systems Vital Signs Vitals Vital Signs Date Time Temp Pulse Resp B/P Pulse Ox O2 Delivery O2 Flow Rate FiO2 02/04/17 12:09 97 02/04/17 11:06 98.0 18 128/74 94 02/04/17 08:30 Nasal Cannula 3.0 02/03/17 23:39 28 Intake and Output 02/03/17 02/03/17 02/04/17 15:00 23:00 07:00 Intake Total 500 ml 900 ml 360 ml Output Total 3500 ml Balance -3000 ml 900 ml 360 ml Exam GENERAL: Awake Mild to moderate distress.. NECK: suppler LUNGS: Bibasilar crackles present with minimal expiratory wheezing.+ right chest permacath HEART: S1, S2 with regular rhythm. No murmur. ABDOMEN: Soft, nontender, nondistended. Bowel sounds are present. EXTREMITIES: No clubbing, cyanosis, edema. NEUROLOGICAL: Nonfocal, intact. Results Result Diagram: 02/04/17 0730 02/04/17 0730 Results 24 hrs Laboratory Tests Test 02/04/17 07:30 White Blood Count 10.2 Red Blood Count 2.88 L Hemoglobin 8.7 L Hematocrit 28.2 L Mean Corpuscular Volume 97.9 Mean Corpuscular Hemoglobin 30.2 Mean Corpuscular Hemoglobin Concent 30.9 L Red Cell Distribution Width 15.7 H Platelet Count 202 Mean Platelet Volume 10.1 Neutrophils % 73.5 Lymphocytes % 16.1 Monocytes % 8.4 Eosinophils % 1.0 Basophils % 0.2 Nucleated Red Blood Cells % 0.0 Neutrophils # 7.5 Lymphocytes # 1.6 Monocytes # 0.9 Eosinophils # 0.1 Basophils # 0.0 Nucleated Red Blood Cells # 0.0 Sodium Level 135 Potassium Level 3.6 Chloride Level 101 Carbon Dioxide Level 27 Anion Gap 11 Blood Urea Nitrogen 32 H Creatinine 1.92 H Glucose Level 77 Calcium Level 8.0 L Phosphorus Level 3.8 Magnesium Level 2.1 Medications Medications Current Medications Tramadol HCl (Ultram) 50 mg Q6H PRN PO PAIN; Start 01/31/17 at 19:00 Carvedilol (Coreg) 6.25 mg BID PO Last administered on 02/04/17 08:35; Admin Dose 6.25 MG; Start 01/31/17 at 21:00 Apixaban (Eliquis) 2.5 mg BID PO Last administered on 02/04/17 08:34; Admin Dose 2.5 MG; Start 01/31/17 at 21:00 Aspirin (Halfprin) 81 mg DAILY PO Last administered on 02/04/17 08:33; Admin Dose 81 MG; Start 02/01/17 at 09:00 Ondansetron HCl (Zofran Inj) 4 mg Q6H PRN IV NAUSEA AND/OR VOMITING; Start at 19:00 Nitroglycerin (Nitroglycerin (Sl Tab) 0.4 Mg) 1 tab Q5M PRN SL CHEST PAIN; Start 01/31/17 at 19:00 Acetaminophen (Tylenol Tab) 650 mg Q6H PRN PO PAIN LEVEL 1-3 OR FEVER; Start at 19:00 Docusate Sodium (Colace) 100 mg Q12H PRN PO CONSTIPATION; Start 01/31/17 at 19: 00 Magnesium Hydroxide (Milk Of Mag) 30 ml DAILY PRN PO CONSTIPATION; Start at 19:00 Bisacodyl (Dulcolax Supp) 10 mg DAILY PRN [place] CONSTIPATION; Start 01/31/17 at 19 :00 Famotidine (Pepcid) 20 mg DAILY PO Last administered on 02/04/17 08:34; Admin Dose 20 MG; Start 01/31/17 at 21:00 Losartan Potassium (Cozaar) 25 mg DAILY PO Last administered on 02/04/17 08:33 ; Admin Dose 25 MG; Start 02/04/17 at 09:00 MACI ASHLEY MD Feb 04, 2017 12:24
[2017-02-05] VITALS (19 sets, daily range): BP systolic 106–142; BP diastolic 56–92; PULSE 84–107; RESP 17–20
[2017-02-05] MEDS: ALBUTEROL/IPRATROPIUM (NEB) 3 ML AMP HHN SCH ×4 (00:22→23:32)
[2017-02-05 07:31] LABS: ADD SCAN DIFF NO
[2017-02-05 07:40] LABS: BASOPHILS % 0.2 % (0.0-2.0); EOSINOPHILS # 0.1 10^3/ul (0.0-0.5); EOSINOPHILS % 1.2 % (0.0-7.0); HEMATOCRIT 28.1 % (42.0-52.0); HEMOGLOBIN 8.9 g/dl (14.0-18.0); LYMPHOCYTES # 1.7 10^3/ul (0.8-2.9); LYMPHOCYTES % 17.7 % (15.0-51.0); MEAN CORPUSCULAR HEMOGLOBIN 30.7 pg (29.0-33.0); MEAN CORPUSCULAR HGB CONC 31.7 g/dl (32.0-37.0); MEAN CORPUSCULAR VOLUME 96.9 fl (82.0-101.0); MEAN PLATELET VOLUME 10.2 fl (7.4-10.4); MONOCYTE # 0.8 10^3/ul (0.3-0.9); MONOCYTES % 8.4 % (0.0-11.0); NEUTROPHIL # 6.7 10^3/ul (1.6-7.5); PLATELET COUNT 192 10^3/UL (140-415); RED CELL DISTRIBUTION WIDTH 15.8 % (11.5-14.5); WHITE BLOOD COUNT 9.3 10^3/ul (4.8-10.8)
[2017-02-05 08:30] LABS: POTASSIUM 3.7 mmol/L (3.5-5.1)
[2017-02-05 08:32] LABS: CREATININE 2.13 mg/dl (0.61-1.24)
[2017-02-05 08:33] LABS: CALCIUM 8.1 mg/dl (8.4-10.2)
[2017-02-05 09:03] LABS: MAGNESIUM 2.1 mg/dl (1.7-2.5); PHOSPHORUS 3.7 mg/dl (2.5-4.9)
[2017-02-05] MEDS: LOSARTAN 25 MG TAB PO SCH (10:09)
[2017-02-05] MEDS: ASPIRIN (EC) 81 MG TAB PO SCH (10:10)
[2017-02-05] MEDS: APIXABAN 5 MG TABLET PO SCH ×2 (10:10→20:48)
[2017-02-05] MEDS: FAMOTIDINE 20 MG TAB PO SCH (10:10)
--- NOTE | 2017-02-05 10:47 | PN ---
Date/Time of Note Date/Time of Note DATE: 02/05/17 TIME: 10:40 Assessment/Plan VTE Prophylaxis VTE Prophylaxis Intervention: other (on Eliquis ) Lines/Catheters IV Catheter Type (from Nrs): Peripheral IV Urinary Cath still in place: No Assessment/Plan Assessment/Plan 81-year-old male with: 1. Acute episode of respiratory distress, likely due to volume overload. Resolved so far after HD x 2, next HD tomorrow. Remains stable, on supp O2, 2L NC that he should remain on and has been stable so far Appreciate Dr Summers's assistance with HD for volume removal (-3L today) 2. Chronic atrial fibrillation. Rate controlled on increased dose of Coreg to 12.5 mg po bid. Continue Eliquis for now Monitor electrolytes 3. Coronary artery disease. He did have a stress test on his past admission that did show signs of coronary artery disease but no acute reversible disease. Continue ASA, carvedilol, Cozaar Cardiac enzymes trending down Follow up with cardiology recommendations, d/c plan to SNF post HD today. 4. Ischemic cardiomyopathy with severe dysfunction, ejection fraction of 30% likely per Cardiology. Continue Blockers, ARB, ASA HD for volume management HD tomorrow. 5. Moderate Dementia at least. Stable mental status. 6. Chronic pain. On tramadol as needed for pain control. 7. Hypertension. Continue beta joni, on Losartan low dose, BP tolerating so far. Follow up post HD today. 8. Status post recent fall with closed head injury, seems to be healing well. Continue aspirin for now On Eliquis prophylactic dosing with close monitoring. Prophylaxis. The patient already on Eliquis, and Pepcid for GI prophylaxis. DISPOSITION: HD today and plan for SNF discharge after HD today, placement has been challenging due to DPOA requests, demands so far. Subjective 24 Hr Interval Summary Free Text/Dictation Patient HR stable on increased dose of Coreg, BP stable HD today and if stable post HD, plan for SNF discharge Afebrile and labs stable Exam/Review of Systems Vital Signs Vitals Vital Signs Date Time Temp Pulse Resp B/P Pulse Ox O2 Delivery O2 Flow Rate FiO2 02/05/17 09:50 80 20 95 Nasal Cannula 2.0 02/05/17 07:49 98.3 120/81 02/03/17 23:39 28 Intake and Output 3/02/04/17 02/05/17 14:59 22:59 06:59 Intake Total 700 ml 300 ml Output Total 100 ml Balance 700 ml 200 ml Exam Constitutional: alert, frail, oriented (x2) Respiratory: diminished breath sounds (bases slight, stable ), normal air movement, other (on 2 L NC ) Cardiovascular: irregular rhythm (controlled A fib ), nl pulses Extremities: normal pulses, other (no edema, clubibng or cyanosis ) Neurological: [employer] II-XII intact, nl speech, other (mental status at baseline and generalized weakness) Results Result Diagram: 02/05/1762702/05/17627 Results 24 hrs Laboratory Tests Test 02/05/17 06:28 White Blood Count 9.3 Red Blood Count 2.90 L Hemoglobin 8.9 L Hematocrit 28.1 L Mean Corpuscular Volume 96.9 Mean Corpuscular Hemoglobin 30.7 Mean Corpuscular Hemoglobin Concent 31.7 L Red Cell Distribution Width 15.8 H Platelet Count 192 Mean Platelet Volume 10.2 Neutrophils % 72.0 Lymphocytes % 17.7 Monocytes % 8.4 Eosinophils % 1.2 Basophils % 0.2 Nucleated Red Blood Cells % 0.0 Neutrophils # 6.7 Lymphocytes # 1.7 Monocytes # 0.8 Eosinophils # 0.1 Basophils # 0.0 Nucleated Red Blood Cells # 0.0 Sodium Level 136 Potassium Level 3.7 Chloride Level 99 Carbon Dioxide Level 27 Anion Gap 14 Blood Urea Nitrogen 45 #H Creatinine 2.13 H Glucose Level 84 Calcium Level 8.1 L Phosphorus Level 3.7 Magnesium Level 2.1 Troponin I 0.192 *H Medications Medications Current Medications Tramadol HCl (Ultram) 50 mg Q6H PRN PO PAIN; Start 01/31/17 at 19:00 Apixaban (Eliquis) 2.5 mg BID PO Last administered on 02/05/17 10:10; Admin Dose 2.5 MG; Start 01/31/17 at 21:00 Aspirin (Halfprin) 81 mg DAILY PO Last administered on 02/05/17 10:10; Admin Dose 81 MG; Start 02/01/17 at 09:00 Ondansetron HCl (Zofran Inj) 4 mg Q6H PRN IV NAUSEA AND/OR VOMITING; Start at 19:00 Nitroglycerin (Nitroglycerin (Sl Tab) 0.4 Mg) 1 tab Q5M PRN SL CHEST PAIN; Start 01/31/17 at 19:00 Acetaminophen (Tylenol Tab) 650 mg Q6H PRN PO PAIN LEVEL 1-3 OR FEVER; Start at 19:00 Docusate Sodium (Colace) 100 mg Q12H PRN PO CONSTIPATION; Start 01/31/17 at 19: 00 Magnesium Hydroxide (Milk Of Mag) 30 ml DAILY PRN PO CONSTIPATION; Start at 19:00 Bisacodyl (Dulcolax Supp) 10 mg DAILY PRN [place] CONSTIPATION; Start 01/31/17 at 19 :00 Famotidine (Pepcid) 20 mg DAILY PO Last administered on 02/05/17 10:10; Admin Dose 20 MG; Start 01/31/17 at 21:00 Losartan Potassium (Cozaar) 25 mg DAILY PO Last administered on 02/05/17 10:09 ; Admin Dose 25 MG; Start 02/04/17 at 09:00 Carvedilol (Coreg) 12.5 mg BID PO Last administered on 02/05/17 10:09; Admin Dose 12.5 MG; Start 02/04/17 at 21:00 SOO NAIK Feb 05, 2017 10:47
--- NOTE | 2017-02-05 10:48 | PDOCDIS ---
Discharge Instructions CONDITION Patient Condition: Stable HOME CARE INSTRUCTIONS: Special Diet: Renal ACTIVITY: Activity Restrictions: Slowly Increase Activity FOLLOW UP/APPOINTMENTS Appointments Resume outpatient HD Follow up with Cardiology within 2 to 4 weeks SOO NAIK Feb 05, 2017 10:48
--- NOTE | 2017-02-05 12:27 | CONS ---
Date/Time of Note Date/Time of Note DATE: 02/05/17 TIME: 12:23 Assessment/Plan Assessment/Plan Additional Assessment/Plan CAD with Ischemic cardiomyopathy Atrial fibrillation Acute exacerbation of congestive heart failure ESRD on HD Hypertension Dyslipidemia Dementia Heart failure clinically compensated Atrial fibrillation rate controlled Continue Coreg Continue Eliquis Continue Losartan Continue HD as scheduled Avoid Volume Overload Continue Nebs as scheduled Keep Mag > 2 and Potassium > 4 replete PRN Consultation Date/Type/Reason Admit Date/Time Jan 31, 2017 at 14:53 Psychological: no complaints Social History Smoking Status: Never smoker Exam/Review of Systems Vital Signs Vitals Vital Signs Date Time Temp Pulse Resp B/P Pulse Ox O2 Delivery O2 Flow Rate FiO2 02/05/17 12:13 91 02/05/17 11:38 98.2 17 128/81 95 02/05/17 09:50 Nasal Cannula 2.0 02/03/17 23:39 28 Intake and Output 02/04/17 02/04/17 02/05/17 15:00 23:00 07:00 Intake Total 700 ml 300 ml Output Total 100 ml Balance 700 ml 200 ml Exam Constitutional: alert Head: atraumatic, normocephalic Neck: non-tender, supple Respiratory: diminished breath sounds Cardiovascular: irregular rhythm Gastrointestinal: nl liver, spleen, non-tender, soft Extremities: edema Results Result Diagram: 02/05/17 0628 02/05/17 0628 Results 24 hrs Laboratory Tests Test 02/05/17 06:28 White Blood Count 9.3 Red Blood Count 2.90 L Hemoglobin 8.9 L Hematocrit 28.1 L Mean Corpuscular Volume 96.9 Mean Corpuscular Hemoglobin 30.7 Mean Corpuscular Hemoglobin Concent 31.7 L Red Cell Distribution Width 15.8 H Platelet Count 192 Mean Platelet Volume 10.2 Neutrophils % 72.0 Lymphocytes % 17.7 Monocytes % 8.4 Eosinophils % 1.2 Basophils % 0.2 Nucleated Red Blood Cells % 0.0 Neutrophils # 6.7 Lymphocytes # 1.7 Monocytes # 0.8 Eosinophils # 0.1 Basophils # 0.0 Nucleated Red Blood Cells # 0.0 Sodium Level 136 Potassium Level 3.7 Chloride Level 99 Carbon Dioxide Level 27 Anion Gap 14 Blood Urea Nitrogen 45 #H Creatinine 2.13 H Glucose Level 84 Calcium Level 8.1 L Phosphorus Level 3.7 Magnesium Level 2.1 Troponin I 0.192 *H Medications Medications Current Medications Tramadol HCl (Ultram) 50 mg Q6H PRN PO PAIN; Start 01/31/17 at 19:00 Apixaban (Eliquis) 2.5 mg BID PO Last administered on 02/05/17 10:10; Admin Dose 2.5 MG; Start 01/31/17 at 21:00 Aspirin (Halfprin) 81 mg DAILY PO Last administered on 02/05/17 10:10; Admin Dose 81 MG; Start 02/01/17 at 09:00 Ondansetron HCl (Zofran Inj) 4 mg Q6H PRN IV NAUSEA AND/OR VOMITING; Start at 19:00 Nitroglycerin (Nitroglycerin (Sl Tab) 0.4 Mg) 1 tab Q5M PRN SL CHEST PAIN; Start 01/31/17 at 19:00 Acetaminophen (Tylenol Tab) 650 mg Q6H PRN PO PAIN LEVEL 1-3 OR FEVER; Start at 19:00 Docusate Sodium (Colace) 100 mg Q12H PRN PO CONSTIPATION; Start 01/31/17 at 19: 00 Magnesium Hydroxide (Milk Of Mag) 30 ml DAILY PRN PO CONSTIPATION; Start at 19:00 Bisacodyl (Dulcolax Supp) 10 mg DAILY PRN [place] CONSTIPATION; Start 01/31/17 at 19 :00 Famotidine (Pepcid) 20 mg DAILY PO Last administered on 02/05/17 10:10; Admin Dose 20 MG; Start 01/31/17 at 21:00 Losartan Potassium (Cozaar) 25 mg DAILY PO Last administered on 02/05/17 10:09 ; Admin Dose 25 MG; Start 02/04/17 at 09:00 Carvedilol (Coreg) 12.5 mg BID PO Last administered on 02/05/17 10:09; Admin Dose 12.5 MG; Start 02/04/17 at 21:00 CECILIA NARVAEZ M.D. Feb 05, 2017 12:27
--- NOTE | 2017-02-05 22:03 | CONS ---
Date/Time of Note Date/Time of Note DATE: 02/05/17 TIME: 22:02 Assessment/Plan Assessment/Plan Additional Assessment/Plan 1. Acute pulmonary edema secondary to fluid overload. 2. End-stage renal disease on hemodialysis Tuesday, , Tuesday at dialysis unit. 3. History of ischemic cardiomyopathy with low ejection fraction. 4. Hypertension. 5. Hyperlipidemia. 6. Dementia. PLAN: s/p HD today 2 L removed, pt will be on TTS schedule pt follows at [facility] Dialysis unit for chronic HD under my care will follow up Consultation Date/Type/Reason Admit Date/Time Jan 31, 2017 at 14:53 Initial Consult Date 01/31/2017 Type of Consultation: NEPHROLOGY Referring Provider: SOO NAIK 24 HR Interval Summary Free Text/Dictation s/p HD today 2 L removed, Bp stable Exam/Review of Systems Vital Signs Vitals Vital Signs Date Time Temp Pulse Resp B/P Pulse Ox O2 Delivery O2 Flow Rate FiO2 02/05/17 20:28 107 02/05/17 20:02 97.9 20 128/77 94 02/05/17 15:54 2.0 02/05/17 15:53 Nasal Cannula 02/03/17 23:39 28 Intake and Output 02/04/17 02/04/17 02/05/17 15:00 23:00 07:00 Intake Total 700 ml 300 ml Output Total 100 ml Balance 700 ml 200 ml Exam GENERAL: Awake Mild to moderate distress.. NECK: suppler LUNGS: Bibasilar crackles present with minimal expiratory wheezing.+ right chest permacath HEART: S1, S2 with regular rhythm. No murmur. ABDOMEN: Soft, nontender, nondistended. Bowel sounds are present. EXTREMITIES: No clubbing, cyanosis, edema. NEUROLOGICAL: Nonfocal, intact. Results Result Diagram: 02/05/17 0628 02/05/17 0628 Results 24 hrs Laboratory Tests Test 02/05/17 06:28 White Blood Count 9.3 Red Blood Count 2.90 L Hemoglobin 8.9 L Hematocrit 28.1 L Mean Corpuscular Volume 96.9 Mean Corpuscular Hemoglobin 30.7 Mean Corpuscular Hemoglobin Concent 31.7 L Red Cell Distribution Width 15.8 H Platelet Count 192 Mean Platelet Volume 10.2 Neutrophils % 72.0 Lymphocytes % 17.7 Monocytes % 8.4 Eosinophils % 1.2 Basophils % 0.2 Nucleated Red Blood Cells % 0.0 Neutrophils # 6.7 Lymphocytes # 1.7 Monocytes # 0.8 Eosinophils # 0.1 Basophils # 0.0 Nucleated Red Blood Cells # 0.0 Sodium Level 136 Potassium Level 3.7 Chloride Level 99 Carbon Dioxide Level 27 Anion Gap 14 Blood Urea Nitrogen 45 #H Creatinine 2.13 H Glucose Level 84 Calcium Level 8.1 L Phosphorus Level 3.7 Magnesium Level 2.1 Troponin I 0.192 *H Medications Medications Current Medications Tramadol HCl (Ultram) 50 mg Q6H PRN PO PAIN; Start 01/31/17 at 19:00 Apixaban (Eliquis) 2.5 mg BID PO Last administered on 02/05/17 20:48; Admin Dose 2.5 MG; Start 01/31/17 at 21:00 Aspirin (Halfprin) 81 mg DAILY PO Last administered on 02/05/17 10:10; Admin Dose 81 MG; Start 02/01/17 at 09:00 Ondansetron HCl (Zofran Inj) 4 mg Q6H PRN IV NAUSEA AND/OR VOMITING; Start at 19:00 Nitroglycerin (Nitroglycerin (Sl Tab) 0.4 Mg) 1 tab Q5M PRN SL CHEST PAIN; Start 01/31/17 at 19:00 Acetaminophen (Tylenol Tab) 650 mg Q6H PRN PO PAIN LEVEL 1-3 OR FEVER; Start at 19:00 Docusate Sodium (Colace) 100 mg Q12H PRN PO CONSTIPATION; Start 01/31/17 at 19: 00 Magnesium Hydroxide (Milk Of Mag) 30 ml DAILY PRN PO CONSTIPATION; Start at 19:00 Bisacodyl (Dulcolax Supp) 10 mg DAILY PRN [place] CONSTIPATION; Start 01/31/17 at 19 :00 Famotidine (Pepcid) 20 mg DAILY PO Last administered on 02/05/17 10:10; Admin Dose 20 MG; Start 01/31/17 at 21:00 Losartan Potassium (Cozaar) 25 mg DAILY PO Last administered on 02/05/17 10:09 ; Admin Dose 25 MG; Start 02/04/17 at 09:00 Carvedilol (Coreg) 12.5 mg BID PO Last administered on 02/05/17t 20:50; Admin Dose 12.5 MG; Start 02/04/17 at 21:00 MACI ASHLEY MD Feb 05, 2017 22:03
[2017-02-06] VITALS (14 sets, daily range): BP systolic 87–137; BP diastolic 59–97; PULSE 77–99; RESP 18–20
[2017-02-06] MEDS: ALBUTEROL/IPRATROPIUM (NEB) 3 ML AMP HHN SCH ×3 (08:20→23:31)
[2017-02-06] MEDS: ASPIRIN (EC) 81 MG TAB PO SCH (08:31)
[2017-02-06] MEDS: FAMOTIDINE 20 MG TAB PO SCH (08:31)
[2017-02-06] MEDS: APIXABAN 5 MG TABLET PO SCH ×2 (08:31→21:14)
[2017-02-06] MEDS: LOSARTAN 25 MG TAB PO SCH (08:32)
--- NOTE | 2017-02-06 10:59 | PN ---
Date/Time of Note Date/Time of Note DATE: 02/06/17 TIME: 10:55 Assessment/Plan VTE Prophylaxis VTE Prophylaxis Intervention: other Lines/Catheters IV Catheter Type (from Nrs): Saline Lock Urinary Cath still in place: No Assessment/Plan Assessment/Plan 1. Acute pulmonary edema secondary to fluid overload. 2. End-stage renal disease on hemodialysis Tuesday, , Tuesday at dialysis unit. 3. History of ischemic cardiomyopathy with low ejection fraction. 4. Hypertension. 5. Hyperlipidemia. 6. Dementia. PLAN: s/p HD yesterday 2 L removed, pt will be on TTS schedule pt follows at [facility] Dialysis unit for chronic HD under my care Total time spent 30 minutes on this patient's follow up progress note, communicating with Nursing Staff, and discussing with MD. Further clinical recommendations depend upon patient's clinical course. Dw Dr Frank Summers. Subjective 24 Hr Interval Summary Free Text/Dictation NAD, pleasantly confused, no new issues reported by staff. Eyes: no complaints ENT: no complaints Exam/Review of Systems Vital Signs Vitals Vital Signs Date Time Temp Pulse Resp B/P Pulse Ox O2 Delivery O2 Flow Rate FiO2 02/06/17 08:33 94 02/06/17 08:21 20 96 Nasal Cannula 2.0 02/06/17 08:10 97.3 125/86 02/03/17 23:39 28 Intake and Output 02/05/17 02/05/17 02/06/17 15:00 23:00 07:00 Intake Total 300 ml 760 ml 300 ml Output Total 2300 ml 250 ml Balance -2000 ml 510 ml 300 ml Exam Constitutional: alert Psych: nl mood/affect Head: atraumatic Eyes: EOMI, PERRL, nl sclera ENMT: nl external ears & nose Neck: non-tender Respiratory: clear to auscultation Cardiovascular: nl pulses Gastrointestinal: non-tender, soft Musculoskeletal: nl extremities to inspection Extremities: normal pulses Neurological: confused, nl speech Skin: other Lymph: nontender Results Result Diagram: 02/05/1762702/05/17627 Medications Medications Current Medications Tramadol HCl (Ultram) 50 mg Q6H PRN PO PAIN; Start 01/31/17 at 19:00 Apixaban (Eliquis) 2.5 mg BID PO Last administered on 02/06/17t 08:31; Admin Dose 2.5 MG; Start 01/31/17 at 21:00 Aspirin (Halfprin) 81 mg DAILY PO Last administered on 02/06/17 08:31; Admin Dose 81 MG; Start 02/01/17 at 09:00 Ondansetron HCl (Zofran Inj) 4 mg Q6H PRN IV NAUSEA AND/OR VOMITING; Start at 19:00 Nitroglycerin (Nitroglycerin (Sl Tab) 0.4 Mg) 1 tab Q5M PRN SL CHEST PAIN; Start 01/31/17 at 19:00 Acetaminophen (Tylenol Tab) 650 mg Q6H PRN PO PAIN LEVEL 1-3 OR FEVER; Start at 19:00 Docusate Sodium (Colace) 100 mg Q12H PRN PO CONSTIPATION; Start 01/31/17 at 19: 00 Magnesium Hydroxide (Milk Of Mag) 30 ml DAILY PRN PO CONSTIPATION; Start at 19:00 Bisacodyl (Dulcolax Supp) 10 mg DAILY PRN [place] CONSTIPATION; Start 01/31/17 at 19 :00 Famotidine (Pepcid) 20 mg DAILY PO Last administered on 02/06/17 08:31; Admin Dose 20 MG; Start 01/31/17 at 21:00 Losartan Potassium (Cozaar) 25 mg DAILY PO Last administered on 02/06/17 08:32 ; Admin Dose 25 MG; Start 02/04/17 at 09:00 Carvedilol (Coreg) 12.5 mg BID PO Last administered on 02/06/17 08:32; Admin Dose 12.5 MG; Start 02/04/17 at 21:00 SHAGUFTA RAE Feb 06, 2017 10:58
--- NOTE | 2017-02-06 11:05 | PN ---
Date/Time of Note Date/Time of Note DATE: 02/06/17 TIME: 10:55 Assessment/Plan VTE Prophylaxis VTE Prophylaxis Intervention: other (Eliquis) Lines/Catheters IV Catheter Type (from Nrs): Saline Lock Urinary Cath still in place: No Assessment/Plan Assessment/Plan 81-year-old male with: 1. Acute episode of respiratory distress, likely due to volume overload. Resolved so far after HD x 2, back on outpatient HD regimen Remains stable, on supp O2, 2L NC prn at least. Appreciate Dr Summers's assistance with HD for volume removal 2. Chronic atrial fibrillation. Rate controlled on increased dose of Coreg to 12.5 mg po bid. Rate controlled for the past 48 hrs with Coreg Continue Eliquis for now Monitor electrolytes 3. Coronary artery disease. He did have a stress test on his past admission that did show signs of coronary artery disease but no acute reversible disease. Continue ASA, carvedilol, Cozaar Cardiac enzymes trending down Follow up with cardiology recommendations, d/c plan to SNF and awaiting bed x 24 hrs now. 4. Ischemic cardiomyopathy with severe dysfunction, ejection fraction of 30% likely per Cardiology. Continue Blockers, ARB, ASA HD for volume management. 5. Moderate Dementia at least. Stable mental status. 6. Chronic pain. On tramadol as needed for pain control. 7. Hypertension. BP tolerating current Carvedilol and Cozaar dosage. 8. Status post recent fall with closed head injury, healing well. Continue aspirin for now and Eliquis prophylactic dosing with close monitoring. Prophylaxis. The patient already on Eliquis, and Pepcid for GI prophylaxis. DISPOSITION: Discharged to SNF yesterday after HD, awaiting bed, placement has been challenging due to DPOA requests, demands so far. Subjective 24 Hr Interval Summary Free Text/Dictation Patient with very poor short term memory A fib controlled and stable Volume status and respiratory status optimal currently Discharged to SNF yesterday after HD but awaiting bed and/or consent form DPOA Exam/Review of Systems Vital Signs Vitals Vital Signs Date Time Temp Pulse Resp B/P Pulse Ox O2 Delivery O2 Flow Rate FiO2 02/06/17 08:33 94 02/06/17 08:21 20 96 Nasal Cannula 2.0 02/06/17 08:10 97.3 125/86 02/03/17 23:39 28 Intake and Output 02/05/17 02/05/17 02/06/17 15:00 23:00 07:00 Intake Total 300 ml 760 ml 300 ml Output Total 2300 ml 250 ml Balance -2000 ml 510 ml 300 ml Exam Constitutional: alert, frail, oriented (x2 person and self at best ) Head: lacerations (left forehead and eyelid healing well ) Respiratory: clear to auscultation, normal air movement Cardiovascular: irregular rhythm (chronic controlled A fib ) Gastrointestinal: non-tender Musculoskeletal: nl extremities to inspection Extremities: normal pulses, other (no edema, clubbing or cyanosis ) Neurological: RECEIVING TEAM MEMBER II-XII intact, confused (poor short term memory, moderate dementia at least ), other (generalized weakness ) Results Result Diagram: 02/05/1728 02/05/17627 Medications Medications Current Medications Tramadol HCl (Ultram) 50 mg Q6H PRN PO PAIN; Start 01/31/17 at 19:00 Apixaban (Eliquis) 2.5 mg BID PO Last administered on 02/06/17 08:31; Admin Dose 2.5 MG; Start 01/31/17 at 21:00 Aspirin (Halfprin) 81 mg DAILY PO Last administered on 02/06/17 08:31; Admin Dose 81 MG; Start 02/01/17 at 09:00 Ondansetron HCl (Zofran Inj) 4 mg Q6H PRN IV NAUSEA AND/OR VOMITING; Start at 19:00 Nitroglycerin (Nitroglycerin (Sl Tab) 0.4 Mg) 1 tab Q5M PRN SL CHEST PAIN; Start 01/31/17 at 19:00 Acetaminophen (Tylenol Tab) 650 mg Q6H PRN PO PAIN LEVEL 1-3 OR FEVER; Start at 19:00 Docusate Sodium (Colace) 100 mg Q12H PRN PO CONSTIPATION; Start 01/31/17 at 19: 00 Magnesium Hydroxide (Milk Of Mag) 30 ml DAILY PRN PO CONSTIPATION; Start at 19:00 Bisacodyl (Dulcolax Supp) [address] CONSTIPATION; Start 01/31/17 at 19 :00 Famotidine (Pepcid) 20 mg DAILY PO Last administered on 02/06/17 08:31; Admin Dose 20 MG; Start 01/31/17 at 21:00 Losartan Potassium (Cozaar) 25 mg DAILY PO Last administered on 02/06/17 08:32 ; Admin Dose 25 MG; Start 02/04/17 at 09:00 Carvedilol (Coreg) 12.5 mg BID PO Last administered on 02/06/17 08:32; Admin Dose 12.5 MG; Start 02/04/17 at 21:00 SOO NAIK Feb 06, 2017 11:05
--- NOTE | 2017-02-06 15:22 | CONS ---
Date/Time of Note Date/Time of Note DATE: 02/06/17 TIME: 15:21 Assessment/Plan Assessment/Plan Additional Assessment/Plan CAD with Ischemic cardiomyopathy Atrial fibrillation Acute exacerbation of congestive heart failure ESRD on HD Hypertension Dyslipidemia Dementia Anemia Heart failure clinically compensated Atrial fibrillation rate controlled Continue Coreg Continue Eliquis Continue Losartan Continue HD as scheduled Avoid Volume Overload Continue Nebs as scheduled Keep Mag > 2 and Potassium > 4 replete PRN Consultation Date/Type/Reason Admit Date/Time Jan 31, 2017 at 14:53 Initial Consult Date Type of Consultation: NEPHROLOGY Referring Provider: SOO NAIK Exam/Review of Systems Vital Signs Vitals Vital Signs Date Time Temp Pulse Resp B/P Pulse Ox O2 Delivery O2 Flow Rate FiO2 02/06/17 15:09 98.8 92 18 94/61 97 02/06/17 08:21 Nasal Cannula 2.0 02/03/17 23:39 28 Intake and Output 02/05/17 02/05/17 02/06/17 15:00 23:00 07:00 Intake Total 300 ml 760 ml 300 ml Output Total 2300 ml 250 ml Balance -2000 ml 510 ml 300 ml Exam Constitutional: alert Head: atraumatic, normocephalic Neck: non-tender, supple Respiratory: diminished breath sounds Cardiovascular: irregular rhythm Gastrointestinal: nl liver, spleen, non-tender, soft Extremities: edema Results Result Diagram: 02/05/1762702/05/17627 Medications Medications Current Medications Tramadol HCl (Ultram) 50 mg Q6H PRN PO PAIN; Start 01/31/17 at 19:00 Apixaban (Eliquis) 2.5 mg BID PO Last administered on 02/06/17 08:31; Admin Dose 2.5 MG; Start 01/31/17 at 21:00 Aspirin (Halfprin) 81 mg DAILY PO Last administered on 02/06/17 08:31; Admin Dose 81 MG; Start 02/01/17 at 09:00 Ondansetron HCl (Zofran Inj) 4 mg Q6H PRN IV NAUSEA AND/OR VOMITING; Start at 19:00 Nitroglycerin (Nitroglycerin (Sl Tab) 0.4 Mg) 1 tab Q5M PRN SL CHEST PAIN; Start 01/31/17 at 19:00 Acetaminophen (Tylenol Tab) 650 mg Q6H PRN PO PAIN LEVEL 1-3 OR FEVER; Start at 19:00 Docusate Sodium (Colace) 100 mg Q12H PRN PO CONSTIPATION; Start 01/31/17 at 19: 00 Magnesium Hydroxide (Milk Of Mag) 30 ml DAILY PRN PO CONSTIPATION; Start at 19:00 Bisacodyl (Dulcolax Supp) 10 mg DAILY PRN [place] CONSTIPATION; Start 01/31/17 at 19 :00 Famotidine (Pepcid) 20 mg DAILY PO Last administered on 02/06/17 08:31; Admin Dose 20 MG; Start 01/31/17 at 21:00 Losartan Potassium (Cozaar) 25 mg DAILY PO Last administered on 02/06/17 08:32 ; Admin Dose 25 MG; Start 02/04/17 at 09:00 Carvedilol (Coreg) 12.5 mg BID PO Last administered on 02/06/17 08:32; Admin Dose 12.5 MG; Start 02/04/17 at 21:00 CECILIA NARVAEZ M.D. Feb 06, 2017 15:22
[2017-02-07] VITALS (11 sets, daily range): BP systolic 101–144; BP diastolic 63–85; PULSE 68–105; RESP 18–20
[2017-02-07 08:00] LABS: ADD SCAN DIFF NO
[2017-02-07 08:09] LABS: BASOPHILS % 0.2 % (0.0-2.0); EOSINOPHILS # 0.1 10^3/ul (0.0-0.5); EOSINOPHILS % 1.9 % (0.0-7.0); HEMATOCRIT 25.5 % (42.0-52.0); HEMOGLOBIN 8.2 g/dl (14.0-18.0); LYMPHOCYTES # 1.6 10^3/ul (0.8-2.9); LYMPHOCYTES % 24.5 % (15.0-51.0); MEAN CORPUSCULAR HEMOGLOBIN 30.9 pg (29.0-33.0); MEAN CORPUSCULAR HGB CONC 32.2 g/dl (32.0-37.0); MEAN CORPUSCULAR VOLUME 96.2 fl (82.0-101.0); MEAN PLATELET VOLUME 10.6 fl (7.4-10.4); MONOCYTE # 0.6 10^3/ul (0.3-0.9); MONOCYTES % 8.9 % (0.0-11.0); NEUTROPHIL # 4.1 10^3/ul (1.6-7.5); NEUTROPHILS % 64.3 % (39.0-77.0); PLATELET COUNT 151 10^3/UL (140-415); RED BLOOD COUNT 2.65 10^6/ul (4.70-6.10); RED CELL DISTRIBUTION WIDTH 15.9 % (11.5-14.5); WHITE BLOOD COUNT 6.4 10^3/ul (4.8-10.8)
[2017-02-07] MEDS: ALBUTEROL/IPRATROPIUM (NEB) 3 ML AMP HHN SCH ×3 (08:25→23:36)
[2017-02-07 08:26] LABS: POTASSIUM 3.4 mmol/L (3.5-5.1)
[2017-02-07 08:28] LABS: CREATININE 1.99 mg/dl (0.61-1.24)
[2017-02-07 08:29] LABS: CALCIUM 7.7 mg/dl (8.4-10.2)
[2017-02-07 08:36] LABS: PHOSPHORUS 3.7 mg/dl (2.5-4.9)
[2017-02-07] MEDS: ASPIRIN (EC) 81 MG TAB PO SCH (08:48)
[2017-02-07] MEDS: APIXABAN 5 MG TABLET PO SCH ×2 (08:48→21:17)
[2017-02-07] MEDS: LOSARTAN 25 MG TAB PO SCH (08:48)
[2017-02-07] MEDS ORDERED: POTASSIUM CHLORIDE (SR) 20 MEQ TAB PO STA (08:50)
[2017-02-07] MEDS: FAMOTIDINE 20 MG TAB PO SCH (08:50)
--- NOTE | 2017-02-07 11:12 | PN ---
Date/Time of Note Date/Time of Note DATE: 02/07/17 TIME: 11:06 Assessment/Plan VTE Prophylaxis VTE Prophylaxis Intervention: other (eliquis ) Lines/Catheters [facility] Saline Lock Urinary Cath still in place: No Assessment/Plan Assessment/Plan 81-year-old male with: 1. Acute episode of respiratory distress, likely due to volume overload. Resolved so far after HD x 2, back on outpatient HD regimen Remains stable, on supp O2, 2L NC prn at most. Appreciate Dr Summers's assistance with HD for volume removal 2. Chronic atrial fibrillation. Rate controlled on increased dose of Coreg to 12.5 mg po bid. Rate controlled for the 3 days with Coreg Continue Eliquis for now Monitor electrolytes 3. Coronary artery disease. He did have a stress test on his past admission that did show signs of coronary artery disease but no acute reversible disease. Continue ASA, carvedilol, Cozaar Cardiac enzymes trending down Follow up with cardiology recommendations, d/c plan to SNF and awaiting bed x 24 hrs now. 4. Ischemic cardiomyopathy with severe dysfunction, ejection fraction of 30% likely per Cardiology. Continue Blockers, ARB, ASA HD for volume management. 5. Moderate Dementia at least. Stable mental status. 6. Chronic pain. On tramadol as needed for pain control. 7. Hypertension. BP tolerating current Carvedilol and Cozaar dosage. 8. Status post recent fall with closed head injury, healing well. Continue aspirin for now and Eliquis prophylactic dosing with close monitoring. Prophylaxis. The patient already on Eliquis, and Pepcid for GI prophylaxis. DISPOSITION: Discharged to SNF as of 02/05/17 after HD, awaiting bed, placement has been challenging due to DPOA requests, demands so far. Subjective 24 Hr Interval Summary Free Text/Dictation Patient remains stable and awaiting SNF discharge pending DPOA consent HD tomorrow Appreciate Cardiology and Nephrology recommendations, patient has been stable for discharge to SNF since 02/05/17 Exam/Review of Systems Vital Signs Vitals Vital Signs Date Time Temp Pulse Resp B/P Pulse Ox O2 Delivery O2 Flow Rate FiO2 02/07/17 09:12 86 02/07/17 08:25 2.0 02/07/17 08:25 18 99 Nasal Cannula 02/07/17 07:11 97.6 104/63 02/03/17 23:39 28 Intake and Output 02/06/17 02/06/17 02/07/17 15:00 23:00 07:00 Intake Total 800 ml 300 ml Output Total 100 ml 300 ml Balance 700 ml 0 ml Exam Constitutional: alert, frail, oriented (x2 at best ) Respiratory: clear to auscultation, normal air movement Cardiovascular: irregular rhythm (chronic A fib ) Gastrointestinal: non-tender, soft Musculoskeletal: nl extremities to inspection Extremities: normal pulses, other (no edema, clubbing or cyanosis ) Neurological: DIRECTOR OF FINANCIAL REPORTING II-XII intact, nl mental status, nl speech, other ( genralized weakness ) Results Result Diagram: 02/07/1770402/07/17 07 Results 24 hrs Laboratory Tests Test 02/07/17 07:05 White Blood Count 6.4 # Red Blood Count 2.65 L Hemoglobin 8.2 L Hematocrit 25.5 L Mean Corpuscular Volume 96.2 Mean Corpuscular Hemoglobin 30.9 Mean Corpuscular Hemoglobin Concent 32.2 Red Cell Distribution Width 15.9 H Platelet Count 151 # Mean Platelet Volume 10.6 H Neutrophils % 64.3 Lymphocytes % 24.5 Monocytes % 8.9 Eosinophils % 1.9 Basophils % 0.2 Nucleated Red Blood Cells % 0.0 Neutrophils # 4.1 Lymphocytes # 1.6 Monocytes # 0.6 Eosinophils # 0.1 Basophils # 0.0 Nucleated Red Blood Cells # 0.0 Sodium Level 132 L Potassium Level 3.4 L Chloride Level 99 Carbon Dioxide Level 28 Anion Gap 8 Blood Urea Nitrogen 37 H Creatinine 1.99 H Glucose Level 69 L Calcium Level 7.7 L Phosphorus Level 3.7 Magnesium Level 2.0 Medications Medications Current Medications Tramadol HCl (Ultram) 50 mg Q6H PRN PO PAIN; Start 01/31/17 at 19:00 Apixaban (Eliquis) 2.5 mg BID PO Last administered on 02/07/17 08:48; Admin Dose 2.5 MG; Start 01/31/17 at 21:00 Aspirin (Halfprin) 81 mg DAILY PO Last administered on 02/07/17 08:48; Admin Dose 81 MG; Start 02/01/17 at 09:00 Ondansetron HCl (Zofran Inj) 4 mg Q6H PRN IV NAUSEA AND/OR VOMITING; Start at 19:00 Nitroglycerin (Nitroglycerin (Sl Tab) 0.4 Mg) 1 tab Q5M PRN SL CHEST PAIN; Start 01/31/17 at 19:00 Acetaminophen (Tylenol Tab) 650 mg Q6H PRN PO PAIN LEVEL 1-3 OR FEVER; Start at 19:00 Docusate Sodium (Colace) 100 mg Q12H PRN PO CONSTIPATION; Start 01/31/17 at 19: 00 Magnesium Hydroxide (Milk Of Mag) 30 ml DAILY PRN PO CONSTIPATION; Start at 19:00 Bisacodyl (Dulcolax Supp) 10 mg DAILY PRN [place] CONSTIPATION; Start 01/31/17 at 19 :00 Famotidine (Pepcid) 20 mg DAILY PO Last administered on 02/07/17 08:50; Admin Dose 20 MG; Start 01/31/17 at 21:00 Losartan Potassium (Cozaar) 25 mg DAILY PO Last administered on 02/06/17 08:32 ; Admin Dose 25 MG; Start 02/04/17 at 09:00 Carvedilol (Coreg) 12.5 mg BID PO Last administered on 02/06/17 21:14; Admin Dose 12.5 MG; Start 02/04/17 at 21:00 SOO NAIK Feb 07, 2017 11:12
--- NOTE | 2017-02-07 12:20 | CONS ---
Date/Time of Note Date/Time of Note DATE: 02/07/17 TIME: 12:19 Assessment/Plan Assessment/Plan Additional Assessment/Plan 1. Acute pulmonary edema secondary to fluid overload. 2. End-stage renal disease on hemodialysis Tuesday, , Tuesday at dialysis unit. 3. History of ischemic cardiomyopathy with low ejection fraction. 4. Hypertension. 5. Hyperlipidemia. 6. Dementia. 7. Atiral fibrillation with RVR - now HR in 100s PLAN: HD ordered for tomorrow then we will keep him on TTS schedule pt HR went high during HD yesterday- need better HR control, discussed with cardiology today- plan is to increase coreg and Nurses are instructed not to use hold coreg before HD DPOA changed mind about SNF pt follows at [facility] Dialysis unit for chronic HD under my care will follow up Consultation Date/Type/Reason Admit Date/Time Jan 31, 2017 at 14:53 Initial Consult Date 01/31/2017 Type of Consultation: NEPHROLOGY Referring Provider: SOO NAIK 24 HR Interval Summary Free Text/Dictation no events, Bp stable, plan for HD tomorrow Exam/Review of Systems Vital Signs Vitals Vital Signs Date Time Temp Pulse Resp B/P Pulse Ox O2 Delivery O2 Flow Rate FiO2 02/07/17 11:34 98.0 107 18 109/71 98 02/07/17 08:25 2.0 02/07/17 08:25 Nasal Cannula 02/03/17 23:39 28 Intake and Output 02/06/17 02/06/17 02/07/17 15:00 23:00 07:00 Intake Total 800 ml 300 ml Output Total 100 ml 300 ml Balance 700 ml 0 ml Exam GENERAL: Awake Mild to moderate distress.. NECK: suppler LUNGS: Bibasilar crackles present with minimal expiratory wheezing.+ right chest permacath HEART: S1, S2 with regular rhythm. No murmur. ABDOMEN: Soft, nontender, nondistended. Bowel sounds are present. EXTREMITIES: No clubbing, cyanosis, edema. NEUROLOGICAL: Nonfocal, intact. Results Result Diagram: 02/07/1770402/07/17704 Results 24 hrs Laboratory Tests Test 02/07/17 07:05 White Blood Count 6.4 # Red Blood Count 2.65 L Hemoglobin 8.2 L Hematocrit 25.5 L Mean Corpuscular Volume 96.2 Mean Corpuscular Hemoglobin 30.9 Mean Corpuscular Hemoglobin Concent 32.2 Red Cell Distribution Width 15.9 H Platelet Count 151 # Mean Platelet Volume 10.6 H Neutrophils % 64.3 Lymphocytes % 24.5 Monocytes % 8.9 Eosinophils % 1.9 Basophils % 0.2 Nucleated Red Blood Cells % 0.0 Neutrophils # 4.1 Lymphocytes # 1.6 Monocytes # 0.6 Eosinophils # 0.1 Basophils # 0.0 Nucleated Red Blood Cells # 0.0 Sodium Level 132 L Potassium Level 3.4 L Chloride Level 99 Carbon Dioxide Level 28 Anion Gap 8 Blood Urea Nitrogen 37 H Creatinine 1.99 H Glucose Level 69 L Calcium Level 7.7 L Phosphorus Level 3.7 Magnesium Level 2.0 Medications Medications Current Medications Tramadol HCl (Ultram) 50 mg Q6H PRN PO PAIN; Start 01/31/17 at 19:00 Apixaban (Eliquis) 2.5 mg BID PO Last administered on 02/07/17 08:48; Admin Dose 2.5 MG; Start 01/31/17 at 21:00 Aspirin (Halfprin) 81 mg DAILY PO Last administered on 02/07/17 08:48; Admin Dose 81 MG; Start 02/01/17 at 09:00 Ondansetron HCl (Zofran Inj) 4 mg Q6H PRN IV NAUSEA AND/OR VOMITING; Start at 19:00 Nitroglycerin (Nitroglycerin (Sl Tab) 0.4 Mg) 1 tab Q5M PRN SL CHEST PAIN; Start 01/31/17 at 19:00 Acetaminophen (Tylenol Tab) 650 mg Q6H PRN PO PAIN LEVEL 1-3 OR FEVER; Start at 19:00 Docusate Sodium (Colace) 100 mg Q12H PRN PO CONSTIPATION; Start 01/31/17 at 19: 00 Magnesium Hydroxide (Milk Of Mag) 30 ml DAILY PRN PO CONSTIPATION; Start at 19:00 Bisacodyl (Dulcolax Supp) 10 mg DAILY PRN [place] CONSTIPATION; Start 01/31/17 at 19 :00 Famotidine (Pepcid) 20 mg DAILY PO Last administered on 02/07/17 08:50; Admin Dose 20 MG; Start 01/31/17 at 21:00 Losartan Potassium (Cozaar) 25 mg DAILY PO Last administered on 02/06/17 08:32 ; Admin Dose 25 MG; Start 02/04/17 at 09:00 Carvedilol (Coreg) 12.5 mg BID PO Last administered on 02/06/17 21:14; Admin Dose 12.5 MG; Start 02/04/17 at 21:00 MACI ASHLEY MD Feb 07, 2017 12:20
--- NOTE | 2017-02-07 13:20 | CONS ---
Date/Time of Note Date/Time of Note DATE: 02/07/17 TIME: 13:18 Assessment/Plan Assessment/Plan Chief Complaint/Hosp Course IMPRESSION: 1. Congestive heart failure exacerbation, systolic, acute on chronic.-EF 30% by echo this admit/RV HK 2. History of cardiomyopathy, decreased left ventricular ejection fraction. 3. Hypertension. 4. Atrial fibrillation on apixaban with some RVR when Coreg held due to low/ marginal BP 5. End-stage renal disease on hemodialysis. 6. Anemia and thrombocytopenia increasing-improving . 7. Positive troponin-minimal in the setting of renal failure/Downtrending Recc: -Tele -serial ecg's -trend cardiac enzymes -Continue apixaban/asa -Continue coreg/ARB but will decrase dose of coreg to allow patient to better tolerate -HD for volume removal Problems: Consultation Date/Type/Reason Admit Date/Time Jan 31, 2017 at 14:53 Initial Consult Date 02/01/2017 Type of Consultation: cardiology Reason for Consultation Cardiomyopathy/CHF Referring Provider: SOO NAIK Exam/Review of Systems Vital Signs Vitals Vital Signs Date Time Temp Pulse Resp B/P Pulse Ox O2 Delivery O2 Flow Rate FiO2 02/07/17 12:20 101 02/07/17 11:34 98.0 18 109/71 98 02/07/17 08:25 2.0 02/07/17 08:25 Nasal Cannula 02/03/17 23:39 28 Intake and Output 02/06/17 02/06/17 02/07/17 15:00 23:00 07:00 Intake Total 800 ml 300 ml Output Total 100 ml 300 ml Balance 700 ml 0 ml Exam Review of Systems: CONSTITUTIONAL: No fevers, chills. PULMONARY: No sob CARDIOVASCULAR: No chest pain/palpitations GASTROINTESTINAL: No nausea/vomiting. GENITOURINARY: No hematuria/dysuria. MUSCULOSKELETAL: No myagias/arthalgias. PSYCHIATRIC: The patient denies depression. NEUROLOGIC: lethargic Constitutional: alert Psych: no complaints Head: normocephalic ENMT: mucosa pink and moist Neck: jvd (9cm water), supple Respiratory: diminished breath sounds (at bases/B) Cardiovascular: regular rate and rhythm Gastrointestinal: non-tender, soft Musculoskeletal: muscle tone (normal) Extremities: edema (none) Neurological: other (NO focal deficits) Results Result Diagram: 02/07/17 0705 02/07/17 0705 Results 24 hrs Laboratory Tests Test 02/07/17 07:05 White Blood Count 6.4 # Red Blood Count 2.65 L Hemoglobin 8.2 L Hematocrit 25.5 L Mean Corpuscular Volume 96.2 Mean Corpuscular Hemoglobin 30.9 Mean Corpuscular Hemoglobin Concent 32.2 Red Cell Distribution Width 15.9 H Platelet Count 151 # Mean Platelet Volume 10.6 H Neutrophils % 64.3 Lymphocytes % 24.5 Monocytes % 8.9 Eosinophils % 1.9 Basophils % 0.2 Nucleated Red Blood Cells % 0.0 Neutrophils # 4.1 Lymphocytes # 1.6 Monocytes # 0.6 Eosinophils # 0.1 Basophils # 0.0 Nucleated Red Blood Cells # 0.0 Sodium Level 132 L Potassium Level 3.4 L Chloride Level 99 Carbon Dioxide Level 28 Anion Gap 8 Blood Urea Nitrogen 37 H Creatinine 1.99 H Glucose Level 69 L Calcium Level 7.7 L Phosphorus Level 3.7 Magnesium Level 2.0 Medications Medications Current Medications Tramadol HCl (Ultram) 50 mg Q6H PRN PO PAIN; Start 01/31/17 at 19:00 Apixaban (Eliquis) 2.5 mg BID PO Last administered on 02/07/17 08:48; Admin Dose 2.5 MG; Start 01/31/17 at 21:00 Aspirin (Halfprin) 81 mg DAILY PO Last administered on 02/07/17 08:48; Admin Dose 81 MG; Start 02/01/17 at 09:00 Ondansetron HCl (Zofran Inj) 4 mg Q6H PRN IV NAUSEA AND/OR VOMITING; Start at 19:00 Nitroglycerin (Nitroglycerin (Sl Tab) 0.4 Mg) 1 tab Q5M PRN SL CHEST PAIN; Start 01/31/17 at 19:00 Acetaminophen (Tylenol Tab) 650 mg Q6H PRN PO PAIN LEVEL 1-3 OR FEVER; Start at 19:00 Docusate Sodium (Colace) 100 mg Q12H PRN PO CONSTIPATION; Start 01/31/17 at 19: 00 Magnesium Hydroxide (Milk Of Mag) 30 ml DAILY PRN PO CONSTIPATION; Start at 19:00 Bisacodyl (Dulcolax Supp) 10 mg DAILY PRN [place] CONSTIPATION; Start 01/31/17 at 19 :00 Famotidine (Pepcid) 20 mg DAILY PO Last administered on 02/07/17 08:50; Admin Dose 20 MG; Start 01/31/17 at 21:00 Losartan Potassium (Cozaar) 25 mg DAILY PO Last administered on 02/06/17 08:32 ; Admin Dose 25 MG; Start 02/04/17 at 09:00 Carvedilol (Coreg) 12.5 mg BID PO Last administered on 02/06/17 21:14; Admin Dose 12.5 MG; Start 02/04/17 at 21:00 SALOMON ROPER Feb 07, 2017 13:19
[2017-02-07] MEDS ORDERED: DIGOXIN 500 MCG INJ IV ONE (13:30)
[2017-02-08] VITALS (18 sets, daily range): BP systolic 104–129; BP diastolic 48–88; PULSE 72–104; RESP 18
[2017-02-08] MEDS: ALBUTEROL/IPRATROPIUM (NEB) 3 ML AMP HHN SCH ×2 (08:28→17:32)
[2017-02-08] MEDS: LOSARTAN 25 MG TAB PO SCH (09:26)
[2017-02-08] MEDS: ASPIRIN (EC) 81 MG TAB PO SCH (09:26)
[2017-02-08] MEDS: FAMOTIDINE 20 MG TAB PO SCH (09:26)
[2017-02-08] MEDS: APIXABAN 5 MG TABLET PO SCH ×2 (09:26→22:47)
--- NOTE | 2017-02-08 10:13 | PN ---
Date/Time of Note Date/Time of Note DATE: 02/08/17 TIME: 10:07 Assessment/Plan VTE Prophylaxis VTE Prophylaxis Intervention: other (eliquis ) Lines/Catheters IV Catheter Type (from Nrs): Saline Lock Urinary Cath still in place: No (CONDOM CATH) Assessment/Plan Assessment/Plan 81-year-old male with: 1. Acute episode of respiratory distress, likely due to volume overload. Resolved so far after HD x 2, back on outpatient HD regimen. T/T/S Remains stable, on supp O2, 2L NC prn at most. Appreciate Dr Summers's assistance with HD for volume removal 2. Chronic atrial fibrillation. Rate controlled on increased dose of Coreg to 12.5 mg po bid. Rate controlled for the past few days with Coreg Continue Eliquis for now Monitor electrolytes 3. Coronary artery disease. He did have a stress test on his past admission that did show signs of coronary artery disease but no acute reversible disease. Continue ASA, carvedilol, Cozaar Cardiac enzymes trending down Follow up with cardiology recommendations, d/c plan to SNF and awaiting bed x 2 days, appeal process started 4. Ischemic cardiomyopathy with severe dysfunction, ejection fraction of 30% likely per Cardiology. Continue Blockers, ARB, ASA HD for volume management. 5. Moderate Dementia at least. Stable mental status. 6. Chronic pain. On tramadol as needed for pain control. 7. Hypertension. BP tolerating current Carvedilol and Cozaar dosage. 8. Status post recent fall with closed head injury, healing well. Continue aspirin for now and Eliquis prophylactic dosing with close monitoring. Prophylaxis. The patient already on Eliquis, and Pepcid for GI prophylaxis. DISPOSITION: Discharged to SNF as of 02/05/17 after HD, awaiting ongoing appeal process from [facility], placement has been challenging due to DPOA requests, demands so far. Subjective 24 Hr Interval Summary Free Text/Dictation Patient remains stable Awaiting decision re appeal process for SNF discharge started 02/05 post HD Exam/Review of Systems Vital Signs Vitals Vital Signs Date Time Temp Pulse Resp B/P Pulse Ox O2 Delivery O2 Flow Rate FiO2 02/08/17 08:43 97 02/08/17 08:34 17 94 Nasal Cannula 2.0 02/08/17 08:21 97.9 128/88 Intake and Output 02/07/17 02/07/17 02/08/17 15:00 23:00 07:00 Intake Total 800 ml 650 ml Output Total 700 ml 350 ml Balance 100 ml 300 ml Exam Constitutional: alert, frail, oriented (x2 ) Respiratory: clear to auscultation, diminished breath sounds (bases bilaterally ) Cardiovascular: nl pulses, regular rate and rhythm Gastrointestinal: non-tender, soft Musculoskeletal: nl extremities to inspection, other (no edema, clubbing or cyanosis ) Extremities: normal pulses Neurological: BARIATRIC NURSE II-XII intact, confused (with dementia at baseline ), other ( generalized weakness and unsteady at baseline ) Results Result Diagram: 02/07/1770402/07/17704 Medications Medications Current Medications Tramadol HCl (Ultram) 50 mg Q6H PRN PO PAIN; Start 01/31/17 at 19:00 Apixaban (Eliquis) 2.5 mg BID PO Last administered on 02/08/17 09:26; Admin Dose 2.5 MG; Start 01/31/17 at 21:00 Aspirin (Halfprin) 81 mg DAILY PO Last administered on 02/08/17 09:26; Admin Dose 81 MG; Start 02/01/17 at 09:00 Ondansetron HCl (Zofran Inj) 4 mg Q6H PRN IV NAUSEA AND/OR VOMITING; Start at 19:00 Nitroglycerin (Nitroglycerin (Sl Tab) 0.4 Mg) 1 tab Q5M PRN SL CHEST PAIN; Start 01/31/17 at 19:00 Acetaminophen (Tylenol Tab) 650 mg Q6H PRN PO PAIN LEVEL 1-3 OR FEVER; Start at 19:00 Docusate Sodium (Colace) 100 mg Q12H PRN PO CONSTIPATION; Start 01/31/17 at 19: 00 Magnesium Hydroxide (Milk Of Mag) 30 ml DAILY PRN PO CONSTIPATION; Start at 19:00 Bisacodyl (Dulcolax Supp) 10 mg DAILY PRN [place] CONSTIPATION; Start 01/31/17 at 19 :00 Famotidine (Pepcid) 20 mg DAILY PO Last administered on 02/08/17 09:26; Admin Dose 20 MG; Start 01/31/17 at 21:00 Losartan Potassium (Cozaar) 25 mg DAILY PO Last administered on 02/08/17 09:26 ; Admin Dose 25 MG; Start 02/04/17 at 09:00 Carvedilol (Coreg) 6.25 mg BID PO Last administered on 02/08/17 09:26; Admin Dose 6.25 MG; Start 02/07/17 at 21:00 SOO NAIK Feb 08, 2017 10:13
--- NOTE | 2017-02-08 16:29 | CONS ---
Date/Time of Note Date/Time of Note DATE: 02/08/17 TIME: 16:28 Assessment/Plan Assessment/Plan Additional Assessment/Plan 1. Congestive heart failure exacerbation, systolic, acute on chronic.-EF 30% by echo this admit/RV HK - con't to remove fluid as tolerated 2. History of cardiomyopathy, decreased left ventricular ejection fraction- outpt ICD eval 3. Hypertension- well controlled - con't med rx 4. Atrial fibrillation on apixaban with some RVR when Coreg held due to low/ marginal BP - still in a. fib -rate well controlled 5. End-stage renal disease on hemodialysis- Rx as needed per primary team. 6. Anemia and thrombocytopenia increasing-improving . 7. Positive troponin-minimal in the setting of renal failure/Downtrending Consultation Date/Type/Reason Admit Date/Time Jan 31, 2017 at 14:53 Initial Consult Date Type of Consultation: cardiology Referring Provider: SOO NAIK 24 HR Interval Summary Free Text/Dictation No acute e vents - still in a. fib - rate well controlled. ROS: No fever, no chills, no nausea, no vomiting, no diarrhea/constipation No recent weight changes No chest pain, no PND, no orthopnea No dizziness, blurred vision No thirst, no heat or cold intolerance Exam/Review of Systems Vital Signs Vitals Vital Signs Date Time Temp Pulse Resp B/P Pulse Ox O2 Delivery O2 Flow Rate FiO2 02/08/17 14:15 82 02/08/17 13:15 16 02/08/17 08:34 94 Nasal Cannula 2.0 02/08/17 08:21 97.9 128/88 Intake and Output 02/07/17 02/07/17 02/08/17 14:59 22:59 06:59 Intake Total 800 ml 650 ml Output Total 700 ml 350 ml Balance 100 ml 300 ml Exam General: WN/WD/NAD, AOx 1-2 HEENT: Unicetric/atraumatic/EOMI (follow commands) NECK: JVD elevated, no thyromegaly Lymph: no lymphadenopathy HEART: Ir IRregular with no S3, II/ systolic murmur at apex LUNGS: Coarse sounds ABD: soft, NT, ND, +BS : Intact Neuro: non focal SKIN: chronic changes EXT: trace edema Results Result Diagram: 02/07/1770402/07/17 07 Medications Medications Current Medications Tramadol HCl (Ultram) 50 mg Q6H PRN PO PAIN; Start 01/31/17 at 19:00 Apixaban (Eliquis) 2.5 mg BID PO Last administered on 02/08/17 09:26; Admin Dose 2.5 MG; Start 01/31/17 at 21:00 Aspirin (Halfprin) 81 mg DAILY PO Last administered on 02/08/17 09:; Admin Dose 81 MG; Start 02/01/17 at 09:00 Ondansetron HCl (Zofran Inj) 4 mg Q6H PRN IV NAUSEA AND/OR VOMITING; Start at 19:00 Nitroglycerin (Nitroglycerin (Sl Tab) 0.4 Mg) 1 tab Q5M PRN SL CHEST PAIN; Start 01/31/17 at 19:00 Acetaminophen (Tylenol Tab) 650 mg Q6H PRN PO PAIN LEVEL 1-3 OR FEVER; Start at 19:00 Docusate Sodium (Colace) 100 mg Q12H PRN PO CONSTIPATION; Start 01/31/17 at 19: 00 Magnesium Hydroxide (Milk Of Mag) 30 ml DAILY PRN PO CONSTIPATION; Start at 19:00 Bisacodyl (Dulcolax Supp) 10 mg DAILY PRN [place] CONSTIPATION; Start 01/31/17 at 19 :00 Famotidine (Pepcid) 20 mg DAILY PO Last administered on 02/08/17 09:26; Admin Dose 20 MG; Start 01/31/17 at 21:00 Losartan Potassium (Cozaar) 25 mg DAILY PO Last administered on 02/08/17 09:26 ; Admin Dose 25 MG; Start 02/04/17 at 09:00 Carvedilol (Coreg) 6.25 mg BID PO Last administered on 02/08/17 09:26; Admin Dose 6.25 MG; Start 02/07/17 at 21:00 JULIA MCKNIGHT MD Feb 08, 2017 16:29
--- NOTE | 2017-02-08 17:34 | CONS ---
Date/Time of Note Date/Time of Note DATE: 02/08/17 TIME: 17:33 Assessment/Plan Assessment/Plan Additional Assessment/Plan 1. Acute pulmonary edema secondary to fluid overload. 2. End-stage renal disease on hemodialysis Tuesday, , Tuesday at dialysis unit. 3. History of ischemic cardiomyopathy with low ejection fraction. 4. Hypertension. 5. Hyperlipidemia. 6. Dementia. 7. Atiral fibrillation with RVR - now HR in 100s PLAN: HD today pt is on TTS schedule DPOA changed mind about SNF pt follows at [facility] Dialysis unit for chronic HD under my care will follow up Consultation Date/Type/Reason Admit Date/Time Jan 31, 2017 at 14:53 Initial Consult Date 01/31/2017 Type of Consultation: NEPHROLOGY Referring Provider: SOO NAIK 24 HR Interval Summary Free Text/Dictation plan for HD today, BP stable, Exam/Review of Systems Vital Signs Vitals Vital Signs Date Time Temp Pulse Resp B/P Pulse Ox O2 Delivery O2 Flow Rate FiO2 02/08/17 16:30 75 15 02/08/17 08:34 94 Nasal Cannula 2.0 02/08/17 08:21 97.9 128/88 Intake and Output 02/07/17 02/07/17 02/08/17 15:00 23:00 07:00 Intake Total 800 ml 650 ml Output Total 700 ml 350 ml Balance 100 ml 300 ml Exam GENERAL: Awake Mild to moderate distress.. NECK: suppler LUNGS: Bibasilar crackles present with minimal expiratory wheezing.+ right chest permacath HEART: S1, S2 with regular rhythm. No murmur. ABDOMEN: Soft, nontender, nondistended. Bowel sounds are present. EXTREMITIES: No clubbing, cyanosis, edema. NEUROLOGICAL: Nonfocal, intact. Results Result Diagram: 02/07/1770402/07/17704 Medications Medications Current Medications Tramadol HCl (Ultram) 50 mg Q6H PRN PO PAIN; Start 01/31/17 at 19:00 Apixaban (Eliquis) 2.5 mg BID PO Last administered on 02/08/17 09:26; Admin Dose 2.5 MG; Start 01/31/17 at 21:00 Aspirin (Halfprin) 81 mg DAILY PO Last administered on 02/08/17 09:26; Admin Dose 81 MG; Start 02/01/17 at 09:00 Ondansetron HCl (Zofran Inj) 4 mg Q6H PRN IV NAUSEA AND/OR VOMITING; Start at 19:00 Nitroglycerin (Nitroglycerin (Sl Tab) 0.4 Mg) 1 tab Q5M PRN SL CHEST PAIN; Start 01/31/17 at 19:00 Acetaminophen (Tylenol Tab) 650 mg Q6H PRN PO PAIN LEVEL 1-3 OR FEVER; Start at 19:00 Docusate Sodium (Colace) 100 mg Q12H PRN PO CONSTIPATION; Start 01/31/17 at 19: 00 Magnesium Hydroxide (Milk Of Mag) 30 ml DAILY PRN PO CONSTIPATION; Start at 19:00 Bisacodyl (Dulcolax Supp) 10 mg DAILY PRN [place] CONSTIPATION; Start 01/31/17 at 19 :00 Famotidine (Pepcid) 20 mg DAILY PO Last administered on 02/08/17 09:26; Admin Dose 20 MG; Start 01/31/17 at 21:00 Losartan Potassium (Cozaar) 25 mg DAILY PO Last administered on 02/08/17 09:26 ; Admin Dose 25 MG; Start 02/04/17 at 09:00 Carvedilol (Coreg) 6.25 mg BID PO Last administered on 02/08/17 09:26; Admin Dose 6.25 MG; Start 02/07/17 at 21:00 MACI ASHLEY MD Feb 08, 2017 17:34
[2017-02-09] VITALS (11 sets, daily range): BP systolic 104–167; BP diastolic 62–94; PULSE 82–106; RESP 16–18
[2017-02-09] MEDS: ALBUTEROL/IPRATROPIUM (NEB) 3 ML AMP HHN SCH ×4 (01:15→23:55)
[2017-02-09] MEDS: ASPIRIN (EC) 81 MG TAB PO SCH (08:03)
[2017-02-09] MEDS: FAMOTIDINE 20 MG TAB PO SCH (08:03)
[2017-02-09] MEDS: APIXABAN 5 MG TABLET PO SCH ×2 (08:05→21:18)
[2017-02-09] MEDS: LOSARTAN 25 MG TAB PO SCH (08:09)
--- NOTE | 2017-02-09 11:03 | CONS ---
Date/Time of Note Date/Time of Note DATE: 02/09/17 TIME: 11:02 Assessment/Plan Assessment/Plan Additional Assessment/Plan 1. Acute pulmonary edema secondary to fluid overload. 2. End-stage renal disease on hemodialysis Tuesday, , Tuesday at dialysis unit. 3. History of ischemic cardiomyopathy with low ejection fraction. 4. Hypertension. 5. Hyperlipidemia. 6. Dementia. 7. Atiral fibrillation with RVR - now HR in 100s PLAN: HD ordered for tomorrow DPOA changed mind about SNF pt follows at [facility] Dialysis unit for chronic HD under my care will follow up Consultation Date/Type/Reason Admit Date/Time Jan 31, 2017 at 14:53 Initial Consult Date 01/31/2017 Type of Consultation: NEPHROLOGY Referring Provider: SOO NAIK 24 HR Interval Summary Free Text/Dictation pt stable, Plan for HD tomorrow, HR in 100s Exam/Review of Systems Vital Signs Vitals Vital Signs Date Time Temp Pulse Resp B/P Pulse Ox O2 Delivery O2 Flow Rate FiO2 02/09/17 09:00 79 18 96 Nasal Cannula 2.0 02/09/17 08:04 98.7 144/86 Intake and Output 02/08/17 02/08/17 02/09/17 15:00 23:00 07:00 Intake Total 900 ml 800 ml Output Total 2250 ml 200 ml Balance -1350 ml 600 ml Exam GENERAL: Awake Mild to moderate distress.. NECK: suppler LUNGS: Bibasilar crackles present with minimal expiratory wheezing.+ right chest permacath HEART: S1, S2 with regular rhythm. No murmur. ABDOMEN: Soft, nontender, nondistended. Bowel sounds are present. EXTREMITIES: No clubbing, cyanosis, edema. NEUROLOGICAL: Nonfocal, intact. Results Result Diagram: 02/07/1770402/07/17704 Medications Medications Current Medications Tramadol HCl (Ultram) 50 mg Q6H PRN PO PAIN; Start 01/31/17 at 19:00 Apixaban (Eliquis) 2.5 mg BID PO Last administered on 02/09/17 08:05; Admin Dose 2.5 MG; Start 01/31/17 at 21:00 Aspirin (Halfprin) 81 mg DAILY PO Last administered on 4/5/17at 08:03; Admin Dose 81 MG; Start 02/01/17 at 09:00 Ondansetron HCl (Zofran Inj) 4 mg Q6H PRN IV NAUSEA AND/OR VOMITING; Start at 19:00 Nitroglycerin (Nitroglycerin (Sl Tab) 0.4 Mg) 1 tab Q5M PRN SL CHEST PAIN; Start 01/31/17 at 19:00 Acetaminophen (Tylenol Tab) 650 mg Q6H PRN PO PAIN LEVEL 1-3 OR FEVER; Start at 19:00 Docusate Sodium (Colace) 100 mg Q12H PRN PO CONSTIPATION; Start 01/31/17 at 19: 00 Magnesium Hydroxide (Milk Of Mag) 30 ml DAILY PRN PO CONSTIPATION; Start at 19:00 Bisacodyl (Dulcolax Supp) 10 mg DAILY PRN [place] CONSTIPATION; Start 01/31/17 at 19 :00 Famotidine (Pepcid) 20 mg DAILY PO Last administered on 02/09/17 08:03; Admin Dose 20 MG; Start 01/31/17 at 21:00 Losartan Potassium (Cozaar) 25 mg DAILY PO Last administered on 02/09/17 08:09 ; Admin Dose 25 MG; Start 02/04/17 at 09:00 Carvedilol (Coreg) 6.25 mg BID PO Last administered on 02/09/17 08:10; Admin Dose 6.25 MG; Start 02/07/17 at 21:00 MACI ASHLEY MD Feb 09, 2017 11:03
--- NOTE | 2017-02-09 11:51 | PN ---
Date/Time of Note Date/Time of Note DATE: 02/09/17 TIME: 11:43 Assessment/Plan VTE Prophylaxis VTE Prophylaxis Intervention: other (Eliquis ) Lines/Catheters IV Catheter Type (from Nrs): Saline Lock Urinary Cath still in place: No (condom cath) Assessment/Plan Assessment/Plan 81-year-old male with: 1. Acute episode of respiratory distress, due to volume overload. Resolved so far after HD x 2, back on outpatient HD regimen. T/T/S Remains stable, on supp O2, 2L NC prn at most. Appreciate Dr Summers's assistance with HD for volume removal 2. Chronic atrial fibrillation. Rate controlled on increased dose of Coreg to 6.25 mg po bid along with added Cardizem per cardiology recs Rate controlled for the past few days. Continue Eliquis for now Monitor electrolytes 3. Coronary artery disease. He did have a stress test on his past admission that did show signs of coronary artery disease but no acute reversible disease. Continue ASA, carvedilol, Cardizem and Cozaar Follow up with cardiology recommendations, d/c plan to SNF and awaiting bed x few days, appeal process lost apparently and patient to be discharged to SNF today if bed still available 4. Ischemic cardiomyopathy with severe dysfunction, ejection fraction of 30% likely per Cardiology. Continue Blockers, ARB, ASA HD for volume management. 5. Moderate Dementia at least. Stable mental status. 6. Chronic pain. On tramadol as needed for pain control. 7. Hypertension. BP tolerating current Carvedilol and Cozaar dosage. 8. Status post recent fall with closed head injury, healing well. Continue aspirin for now and Eliquis prophylactic dosing with close monitoring. Prophylaxis. The patient already on Eliquis, and Pepcid for GI prophylaxis. DISPOSITION: Discharged to SNF as of 02/05/17 after HD, awaiting ongoing appeal process from DPOA, placement has been challenging due to DPOA requests, demands so far. Subjective 24 Hr Interval Summary Free Text/Dictation Patient remains stable, HD tomorrow, A fib remains controlled Awaiting appeal decision for SNF discharge Exam/Review of Systems Vital Signs Vitals Vital Signs Date Time Temp Pulse Resp B/P Pulse Ox O2 Delivery O2 Flow Rate FiO2 02/09/17 11:18 97.8 89 18 104/62 97 02/09/17 09:00 Nasal Cannula 2.0 Intake and Output 02/08/17 02/08/17 02/09/17 15:00 23:00 07:00 Intake Total 900 ml 800 ml Output Total 2250 ml 200 ml Balance -1350 ml 600 ml Exam Constitutional: alert, frail, oriented Respiratory: diminished breath sounds (bases bilateral ), normal air movement Cardiovascular: irregular rhythm Gastrointestinal: non-tender, soft Musculoskeletal: nl extremities to inspection, other (no edema, clubbing or cyanosis ) Extremities: normal pulses Neurological: TAILOR GARMENT FITTER II-XII intact, confused, other (most bed bound ) Results Result Diagram: 02/07/1770402/07/17704 Medications Medications Current Medications Tramadol HCl (Ultram) 50 mg Q6H PRN PO PAIN; Start 01/31/17 at 19:00 Apixaban (Eliquis) 2.5 mg BID PO Last administered on 02/09/17 08:05; Admin Dose 2.5 MG; Start 01/31/17 at 21:00 Aspirin (Halfprin) 81 mg DAILY PO Last administered on 02/09/17 08:03; Admin Dose 81 MG; Start 02/01/17 at 09:00 Ondansetron HCl (Zofran Inj) 4 mg Q6H PRN IV NAUSEA AND/OR VOMITING; Start at 19:00 Nitroglycerin (Nitroglycerin (Sl Tab) 0.4 Mg) 1 tab Q5M PRN SL CHEST PAIN; Start 01/31/17 at 19:00 Acetaminophen (Tylenol Tab) 650 mg Q6H PRN PO PAIN LEVEL 1-3 OR FEVER; Start at 19:00 Docusate Sodium (Colace) 100 mg Q12H PRN PO CONSTIPATION; Start 01/31/17 at 19: 00 Magnesium Hydroxide (Milk Of Mag) 30 ml DAILY PRN PO CONSTIPATION; Start at 19:00 Bisacodyl (Dulcolax Supp) 10 mg DAILY PRN [place] CONSTIPATION; Start 01/31/17 at 19 :00 Famotidine (Pepcid) 20 mg DAILY PO Last administered on 02/09/17 08:03; Admin Dose 20 MG; Start 01/31/17 at 21:00 Losartan Potassium (Cozaar) 25 mg DAILY PO Last administered on 02/09/17 08:09 ; Admin Dose 25 MG; Start 02/04/17 at 09:00 Carvedilol (Coreg) 6.25 mg BID PO Last administered on 02/09/17 08:10; Admin Dose 6.25 MG; Start 02/07/17 at 21:00 SOO NAIK Feb 09, 2017 11:51
--- NOTE | 2017-02-09 13:48 | CONS ---
Date/Time of Note Date/Time of Note DATE: 02/09/17 TIME: 13:46 Assessment/Plan Assessment/Plan Chief Complaint/Hosp Course IMPRESSION: 1. Congestive heart failure exacerbation, systolic, acute on chronic.-EF 30% by echo this admit/RV HK 2. History of cardiomyopathy, decreased left ventricular ejection fraction. 3. Hypertension. 4. Atrial fibrillation on apixaban with some mild RVR 5. End-stage renal disease on hemodialysis. 6. Anemia and thrombocytopenia increasing-improving . 7. Positive troponin-minimal in the setting of renal failure/Downtrending Recc: -Tele -serial ecg's -trend cardiac enzymes -Continue apixaban/asa -Continue coreg/ARB and will add low dose dilt in attempt to improve HR control -HD for volume removal Problems: Consultation Date/Type/Reason Admit Date/Time Jan 31, 2017 at 14:53 Initial Consult Date 02/01/2017 Type of Consultation: Cardiology Reason for Consultation CHF/AF Referring Provider: SOO NAIK Exam/Review of Systems Vital Signs Vitals Vital Signs Date Time Temp Pulse Resp B/P Pulse Ox O2 Delivery O2 Flow Rate FiO2 02/09/17 12:22 82 02/09/17 11:18 97.8 18 104/62 97 02/09/17 09:00 Nasal Cannula 2.0 Intake and Output 02/08/17 02/08/17 02/09/17 15:00 23:00 07:00 Intake Total 900 ml 800 ml Output Total 2250 ml 200 ml Balance -1350 ml 600 ml Exam Review of Systems: CONSTITUTIONAL: No fevers, chills. PULMONARY: No sob CARDIOVASCULAR: No chest pain/palpitations GASTROINTESTINAL: No nausea/vomiting. GENITOURINARY: No hematuria/dysuria. MUSCULOSKELETAL: No myagias/arthalgias. PSYCHIATRIC: The patient denies depression. NEUROLOGIC: No weakness Constitutional: alert, oriented Psych: no complaints Head: normocephalic ENMT: mucosa pink and moist Neck: jvd (9 cm water), supple Respiratory: diminished breath sounds (at bases/B) Cardiovascular: regular rate and rhythm Gastrointestinal: non-tender, soft Musculoskeletal: muscle tone (normal) Extremities: edema (none) Neurological: other (No focal deficits) Results Result Diagram: 02/07/17 0702/07/17704 Medications Medications Current Medications Tramadol HCl (Ultram) 50 mg Q6H PRN PO PAIN; Start 01/31/17 at 19:00 Apixaban (Eliquis) 2.5 mg BID PO Last administered on 02/09/17 08:05; Admin Dose 2.5 MG; Start 01/31/17 at 21:00 Aspirin (Halfprin) 81 mg DAILY PO Last administered on 02/09/17 08:03; Admin Dose 81 MG; Start 02/01/17 at 09:00 Ondansetron HCl (Zofran Inj) 4 mg Q6H PRN IV NAUSEA AND/OR VOMITING; Start at 19:00 Nitroglycerin (Nitroglycerin (Sl Tab) 0.4 Mg) 1 tab Q5M PRN SL CHEST PAIN; Start 01/31/17 at 19:00 Acetaminophen (Tylenol Tab) 650 mg Q6H PRN PO PAIN LEVEL 1-3 OR FEVER; Start at 19:00 Docusate Sodium (Colace) 100 mg Q12H PRN PO CONSTIPATION; Start 01/31/17 at 19: 00 Magnesium Hydroxide (Milk Of Mag) 30 ml DAILY PRN PO CONSTIPATION; Start at 19:00 Bisacodyl (Dulcolax Supp) 10 mg DAILY PRN [place] CONSTIPATION; Start 01/31/17 at 19 :00 Famotidine (Pepcid) 20 mg DAILY PO Last administered on 02/09/17 08:03; Admin Dose 20 MG; Start 01/31/17 at 21:00 Losartan Potassium (Cozaar) 25 mg DAILY PO Last administered on 02/09/17 08:09 ; Admin Dose 25 MG; Start 02/04/17 at 09:00 Carvedilol (Coreg) 6.25 mg BID PO Last administered on 02/09/17 08:10; Admin Dose 6.25 MG; Start 02/07/17 at 21:00 SALOMON ROPER Feb 09, 2017 13:48
[2017-02-10] VITALS (19 sets, daily range): BP systolic 94–157; BP diastolic 53–95; PULSE 70–110; RESP 18–20
[2017-02-10] MEDS: ALBUTEROL/IPRATROPIUM (NEB) 3 ML AMP HHN SCH ×3 (07:38→23:21)
[2017-02-10] MEDS: LOSARTAN 25 MG TAB PO SCH (08:29)
[2017-02-10] MEDS: DILTIAZEM (CD) 120 MG CAP PO SCH (08:33)
[2017-02-10] MEDS: APIXABAN 5 MG TABLET PO SCH ×2 (08:33→22:18)
[2017-02-10] MEDS: ASPIRIN (EC) 81 MG TAB PO SCH (08:33)
[2017-02-10] MEDS: FAMOTIDINE 20 MG TAB PO SCH (08:33)
[2017-02-10 10:36] LABS: ADD SCAN DIFF NO
--- NOTE | 2017-02-10 10:36 | PN ---
Date/Time of Note Date/Time of Note DATE: 02/10/17 TIME: 10:25 Assessment/Plan VTE Prophylaxis VTE Prophylaxis Intervention: other (Eliquis ) Lines/Catheters IV Catheter Type (from Nrs): H/D ACCESS Urinary Cath still in place: No (condom cath) Assessment/Plan Assessment/Plan 81-year-old male with: 1. Acute episode of respiratory distress, due to volume overload. Resolved so far after HD x 2, back on outpatient HD regimen. T/T/S Remains stable, on supp O2, 2L NC prn at most. Appreciate Dr Summers's assistance with HD for volume removal 2. Chronic atrial fibrillation. Rate controlled on Coreg to 6.25 mg po bid. Rate controlled for the past few days with Coreg Continue Eliquis for now Monitor electrolytes 3. Coronary artery disease. He did have a stress test on his past admission that did show signs of coronary artery disease but no acute reversible disease. Continue ASA, carvedilol, Cozaar Follow up with cardiology recommendations, d/c plan to SNF today after HD. 4. Ischemic cardiomyopathy with severe dysfunction, ejection fraction of 30% likely per Cardiology. Continue Blockers, ARB, ASA HD for volume management. 5. Moderate Dementia at least. Stable mental status. 6. Chronic pain. On tramadol as needed for pain control. 7. Hypertension. BP tolerating current Carvedilol and Cozaar dosage. 8. Status post recent fall with closed head injury, healing well. Continue aspirin for now and Eliquis prophylactic dosing with close monitoring. Prophylaxis. The patient already on Eliquis, and Pepcid for GI prophylaxis. DISPOSITION: Discharged to SNF as of 02/05/17 after HD, plan for SNF after HD today since we were notified patient lost appeal. Placement has been challenging due to DPOA requests, demands so far. Subjective 24 Hr Interval Summary Free Text/Dictation Patient remains stable Stable for SNF transfer after HD today Exam/Review of Systems Vital Signs Vitals Vital Signs Date Time Temp Pulse Resp B/P Pulse Ox O2 Delivery O2 Flow Rate FiO2 02/10/17 08:28 110 02/10/17 07:50 20 98 Nasal Cannula 2.0 02/10/17 07:30 98.3 157/95 Intake and Output 02/09/17 02/09/17 02/10/17 14:59 22:59 06:59 Intake Total 250 ml Output Total 200 ml Balance 50 ml Exam Constitutional: alert, frail, oriented (x 2 at best ), other (stable ) Cardiovascular: nl pulses, regular rate and rhythm Gastrointestinal: non-tender, soft Musculoskeletal: nl extremities to inspection, other (no edema, clubbing or cyanosis ) Neurological: UNLOADER OPERATOR II-XII intact, confused (baseline), nl speech Results Result Diagram: 02/07/1770402/07/17704 Medications Medications Current Medications Tramadol HCl (Ultram) 50 mg Q6H PRN PO PAIN; Start 01/31/17 at 19:00 Apixaban (Eliquis) 2.5 mg BID PO Last administered on 02/10/17 08:33; Admin Dose 2.5 MG; Start 01/31/17 at 21:00 Aspirin (Halfprin) 81 mg DAILY PO Last administered on 02/10/17 08:33; Admin Dose 81 MG; Start 02/01/17 at 09:00 Ondansetron HCl (Zofran Inj) 4 mg Q6H PRN IV NAUSEA AND/OR VOMITING; Start at 19:00 Nitroglycerin (Nitroglycerin (Sl Tab) 0.4 Mg) 1 tab Q5M PRN SL CHEST PAIN; Start 01/31/17 at 19:00 Acetaminophen (Tylenol Tab) 650 mg Q6H PRN PO PAIN LEVEL 1-3 OR FEVER; Start at 19:00 Docusate Sodium (Colace) 100 mg Q12H PRN PO CONSTIPATION; Start 01/31/17 at 19: 00 Magnesium Hydroxide (Milk Of Mag) 30 ml DAILY PRN PO CONSTIPATION; Start at 19:00 Bisacodyl (Dulcolax Supp) 10 mg DAILY PRN [place] CONSTIPATION; Start 01/31/17 at 19 :00 Famotidine (Pepcid) 20 mg DAILY PO Last administered on 02/10/17 08:33; Admin Dose 20 MG; Start 01/31/17 at 21:00 Losartan Potassium (Cozaar) 25 mg DAILY PO Last administered on 02/09/17 08:09 ; Admin Dose 25 MG; Start 02/04/17 at 09:00 Carvedilol (Coreg) 6.25 mg BID PO Last administered on 02/10/17 08:34; Admin Dose 6.25 MG; Start 02/07/17 at 21:00 Diltiazem HCl (Cardizem Cd) 120 mg DAILY PO Last administered on 02/10/17t 08:33 ; Admin Dose 120 MG; Start 02/10/17 at 09:00 SOO NAIK Feb 10, 2017 10:36
[2017-02-10 10:42] LABS: BASOPHILS % 0.3 % (0.0-2.0); EOSINOPHILS # 0.1 10^3/ul (0.0-0.5); EOSINOPHILS % 1.3 % (0.0-7.0); HEMATOCRIT 26.9 % (42.0-52.0); HEMOGLOBIN 8.6 g/dl (14.0-18.0); LYMPHOCYTES # 1.5 10^3/ul (0.8-2.9); LYMPHOCYTES % 22.2 % (15.0-51.0); MEAN CORPUSCULAR HEMOGLOBIN 30.8 pg (29.0-33.0); MEAN CORPUSCULAR VOLUME 96.4 fl (82.0-101.0); MEAN PLATELET VOLUME 10.3 fl (7.4-10.4); MONOCYTE # 0.5 10^3/ul (0.3-0.9); MONOCYTES % 7.9 % (0.0-11.0); NEUTROPHIL # 4.6 10^3/ul (1.6-7.5); PLATELET COUNT 125 10^3/UL (140-415); RED BLOOD COUNT 2.79 10^6/ul (4.70-6.10); RED CELL DISTRIBUTION WIDTH 15.8 % (11.5-14.5); WHITE BLOOD COUNT 6.7 10^3/ul (4.8-10.8)
[2017-02-10 10:56] LABS: POTASSIUM 3.8 mmol/L (3.5-5.1)
[2017-02-10 10:58] LABS: PHOSPHORUS 3.1 mg/dl (2.5-4.9)
[2017-02-10 10:59] LABS: CREATININE 2.19 mg/dl (0.61-1.24)
--- NOTE | 2017-02-10 12:33 | CONS ---
Date/Time of Note Date/Time of Note DATE: 02/10/17 TIME: 12:31 Assessment/Plan Assessment/Plan Chief Complaint/Hosp Course IMPRESSION: 1. Congestive heart failure exacerbation, systolic, acute on chronic.-EF 30% by echo this admit/RV HK 2. History of cardiomyopathy, decreased left ventricular ejection fraction. 3. Hypertension. 4. Atrial fibrillation on apixaban with some mild RVR 5. End-stage renal disease on hemodialysis. 6. Anemia and thrombocytopenia increasing-improving . 7. Positive troponin-minimal in the setting of renal failure/Downtrending Recc: -Tele -serial ecg's -Continue apixaban/asa -Continue coreg/ARB and now low dose CCB to assure good HR control -HD for volume removal Problems: Consultation Date/Type/Reason Admit Date/Time Jan 31, 2017 at 14:53 Initial Consult Date 02/01/2017 Type of Consultation: Cardiology Reason for Consultation AF/CHF Referring Provider: SOO NAIK Exam/Review of Systems Vital Signs Vitals Vital Signs Date Time Temp Pulse Resp B/P Pulse Ox O2 Delivery O2 Flow Rate FiO2 02/10/17 12:08 98.0 105 19 129/58 94 02/10/17 07:50 Nasal Cannula 2.0 Intake and Output 02/09/17 02/09/17 02/10/17 15:00 23:00 07:00 Intake Total 250 ml Output Total 200 ml Balance 50 ml Exam Review of Systems: CONSTITUTIONAL: No fevers, chills. PULMONARY: No sob CARDIOVASCULAR: No chest pain/palpitations GASTROINTESTINAL: No nausea/vomiting. GENITOURINARY: No hematuria/dysuria. MUSCULOSKELETAL: No myagias/arthalgias. PSYCHIATRIC: The patient denies depression. NEUROLOGIC: lethargic Constitutional: alert, oriented Psych: no complaints Head: normocephalic ENMT: mucosa pink and moist Neck: jvd (9 cm water), supple Respiratory: diminished breath sounds (at bases/B) Cardiovascular: irregular rhythm Gastrointestinal: non-tender, soft Musculoskeletal: muscle tone (normal) Extremities: edema (none) Neurological: lethargic Results Result Diagram: 02/10/17 1019 02/10/17 1019 Results 24 hrs Laboratory Tests Test 02/10/17 10:19 White Blood Count 6.7 Red Blood Count 2.79 L Hemoglobin 8.6 L Hematocrit 26.9 L Mean Corpuscular Volume 96.4 Mean Corpuscular Hemoglobin 30.8 Mean Corpuscular Hemoglobin Concent 32.0 Red Cell Distribution Width 15.8 H Platelet Count 125 L Mean Platelet Volume 10.3 Neutrophils % 68.0 Lymphocytes % 22.2 Monocytes % 7.9 Eosinophils % 1.3 Basophils % 0.3 Nucleated Red Blood Cells % 0.0 Neutrophils # 4.6 Lymphocytes # 1.5 Monocytes # 0.5 Eosinophils # 0.1 Basophils # 0.0 Nucleated Red Blood Cells # 0.0 Sodium Level 131 L Potassium Level 3.8 Chloride Level 99 Carbon Dioxide Level 27 Anion Gap 9 Blood Urea Nitrogen 45 H Creatinine 2.19 H Glucose Level 90 Calcium Level 8.0 L Phosphorus Level 3.1 Magnesium Level 2.0 Medications Medications Current Medications Tramadol HCl (Ultram) 50 mg Q6H PRN PO PAIN; Start 01/31/17 at 19:00 Apixaban (Eliquis) 2.5 mg BID PO Last administered on 02/10/17 08:33; Admin Dose 2.5 MG; Start 01/31/17 at 21:00 Aspirin (Halfprin) 81 mg DAILY PO Last administered on 02/10/17 08:33; Admin Dose 81 MG; Start 02/01/17 at 09:00 Ondansetron HCl (Zofran Inj) 4 mg Q6H PRN IV NAUSEA AND/OR VOMITING; Start at 19:00 Nitroglycerin (Nitroglycerin (Sl Tab) 0.4 Mg) 1 tab Q5M PRN SL CHEST PAIN; Start 01/31/17 at 19:00 Acetaminophen (Tylenol Tab) 650 mg Q6H PRN PO PAIN LEVEL 1-3 OR FEVER; Start at 19:00 Docusate Sodium (Colace) 100 mg Q12H PRN PO CONSTIPATION; Start 01/31/17 at 19: 00 Magnesium Hydroxide (Milk Of Mag) 30 ml DAILY PRN PO CONSTIPATION; Start at 19:00 Bisacodyl (Dulcolax Supp) 10 mg DAILY PRN [place] CONSTIPATION; Start 01/31/17 at 19 :00 Famotidine (Pepcid) 20 mg DAILY PO Last administered on 02/10/17 08:33; Admin Dose 20 MG; Start 01/31/17 at 21:00 Losartan Potassium (Cozaar) 25 mg DAILY PO Last administered on 02/09/17 08:09 ; Admin Dose 25 MG; Start 02/04/17 at 09:00 Carvedilol (Coreg) 6.25 mg BID PO Last administered on 02/10/17 08:34; Admin Dose 6.25 MG; Start 02/07/17 at 21:00 Diltiazem HCl (Cardizem Cd) 120 mg DAILY PO Last administered on 02/10/17 08:33 ; Admin Dose 120 MG; Start 02/10/17 at 09:00 SALOMON ROPER Feb 10, 2017 12:32
--- NOTE | 2017-02-10 12:52 | CONS ---
Date/Time of Note Date/Time of Note DATE: 02/10/17 TIME: 12:51 Assessment/Plan Assessment/Plan Additional Assessment/Plan 1. Acute pulmonary edema secondary to fluid overload. 2. End-stage renal disease on hemodialysis Tuesday, , Tuesday at dialysis unit. 3. History of ischemic cardiomyopathy with low ejection fraction. 4. Hypertension. 5. Hyperlipidemia. 6. Dementia. 7. Atiral fibrillation with RVR - now HR in 100s PLAN: HD ordered for today DPOA changed mind about SNF pt follows at [facility] Dialysis unit for chronic HD under my care will follow up Consultation Date/Type/Reason Admit Date/Time Jan 31, 2017 at 14:53 Initial Consult Date 01/31/2017 Type of Consultation: NEPHROLOGY Referring Provider: SOO NAIK 24 HR Interval Summary Free Text/Dictation pt stable, plan for HD today Exam/Review of Systems Vital Signs Vitals Vital Signs Date Time Temp Pulse Resp B/P Pulse Ox O2 Delivery O2 Flow Rate FiO2 02/10/17 12:39 83 02/10/17 12:08 98.0 19 129/58 94 02/10/17 07:50 Nasal Cannula 2.0 Intake and Output 02/09/17 02/09/17 02/10/17 15:00 23:00 07:00 Intake Total 250 ml Output Total 200 ml Balance 50 ml Results Result Diagram: 02/10/17 1019 02/10/17 1019 Results 24 hrs Laboratory Tests Test 02/10/17 10:19 White Blood Count 6.7 Red Blood Count 2.79 L Hemoglobin 8.6 L Hematocrit 26.9 L Mean Corpuscular Volume 96.4 Mean Corpuscular Hemoglobin 30.8 Mean Corpuscular Hemoglobin Concent 32.0 Red Cell Distribution Width 15.8 H Platelet Count 125 L Mean Platelet Volume 10.3 Neutrophils % 68.0 Lymphocytes % 22.2 Monocytes % 7.9 Eosinophils % 1.3 Basophils % 0.3 Nucleated Red Blood Cells % 0.0 Neutrophils # 4.6 Lymphocytes # 1.5 Monocytes # 0.5 Eosinophils # 0.1 Basophils # 0.0 Nucleated Red Blood Cells # 0.0 Sodium Level 131 L Potassium Level 3.8 Chloride Level 99 Carbon Dioxide Level 27 Anion Gap 9 Blood Urea Nitrogen 45 H Creatinine 2.19 H Glucose Level 90 Calcium Level 8.0 L Phosphorus Level 3.1 Magnesium Level 2.0 Medications Medications Current Medications Tramadol HCl (Ultram) 50 mg Q6H PRN PO PAIN; Start 01/31/17 at 19:00 Apixaban (Eliquis) 2.5 mg BID PO Last administered on 02/10/17 08:33; Admin Dose 2.5 MG; Start 01/31/17 at 21:00 Aspirin (Halfprin) 81 mg DAILY PO Last administered on 02/10/17 08:33; Admin Dose 81 MG; Start 02/01/17 at 09:00 Ondansetron HCl (Zofran Inj) 4 mg Q6H PRN IV NAUSEA AND/OR VOMITING; Start at 19:00 Nitroglycerin (Nitroglycerin (Sl Tab) 0.4 Mg) 1 tab Q5M PRN SL CHEST PAIN; Start 01/31/17 at 19:00 Acetaminophen (Tylenol Tab) 650 mg Q6H PRN PO PAIN LEVEL 1-3 OR FEVER; Start at 19:00 Docusate Sodium (Colace) 100 mg Q12H PRN PO CONSTIPATION; Start 01/31/17 at 19: 00 Magnesium Hydroxide (Milk Of Mag) 30 ml DAILY PRN PO CONSTIPATION; Start at 19:00 Bisacodyl (Dulcolax Supp) 10 mg DAILY PRN [place] CONSTIPATION; Start 01/31/17 at 19 :00 Famotidine (Pepcid) 20 mg DAILY PO Last administered on 02/10/17 08:33; Admin Dose 20 MG; Start 01/31/17 at 21:00 Losartan Potassium (Cozaar) 25 mg DAILY PO Last administered on 02/09/17 08:09 ; Admin Dose 25 MG; Start 02/04/17 at 09:00 Carvedilol (Coreg) 6.25 mg BID PO Last administered on 02/10/17 08:34; Admin Dose 6.25 MG; Start 02/07/17 at 21:00 Diltiazem HCl (Cardizem Cd) 120 mg DAILY PO Last administered on 02/10/17 08:33 ; Admin Dose 120 MG; Start 02/10/17 at 09:00 MACI ASHLEY MD Feb 10, 2017 12:51
[2017-02-11] VITALS (12 sets, daily range): BP systolic 99–134; BP diastolic 59–89; PULSE 75–98; RESP 18–20
[2017-02-11] MEDS: ALBUTEROL/IPRATROPIUM (NEB) 3 ML AMP HHN SCH ×3 (08:26→23:30)
[2017-02-11] MEDS: LOSARTAN 25 MG TAB PO SCH (08:53)
[2017-02-11] MEDS: DILTIAZEM (CD) 120 MG CAP PO SCH (08:53)
[2017-02-11] MEDS: FAMOTIDINE 20 MG TAB PO SCH (08:53)
[2017-02-11] MEDS: APIXABAN 5 MG TABLET PO SCH ×2 (08:54→21:23)
[2017-02-11] MEDS: ASPIRIN (EC) 81 MG TAB PO SCH (08:54)
--- NOTE | 2017-02-11 13:12 | CONS ---
Date/Time of Note Date/Time of Note DATE: 02/11/17 TIME: 13:10 Assessment/Plan Assessment/Plan Chief Complaint/Hosp Course IMPRESSION: 1. Congestive heart failure exacerbation, systolic, acute on chronic.-EF 30% by echo this admit/RV HK 2. History of cardiomyopathy, decreased left ventricular ejection fraction. 3. Hypertension. 4. Atrial fibrillation on apixaban-well rate controlled now 5. End-stage renal disease on hemodialysis. 6. Anemia and thrombocytopenia increasing-improving . 7. Positive troponin-minimal in the setting of renal failure/Downtrending Recc: -Tele -serial ecg's -Continue apixaban/asa -Continue coreg/ARB/CCB -HD for volume removal Problems: Consultation Date/Type/Reason Admit Date/Time Jan 31, 2017 at 14:53 Initial Consult Date 02/01/2017 Type of Consultation: Cardiology Reason for Consultation CHF Referring Provider: SOO NAIK Exam/Review of Systems Vital Signs Vitals Vital Signs Date Time Temp Pulse Resp B/P Pulse Ox O2 Delivery O2 Flow Rate FiO2 02/11/17 12:28 87 02/11/17 11:59 98.3 19 126/59 95 02/11/17 08:26 2.0 02/11/17 07:31 Nasal Cannula 02/11/17 01:07 27 Intake and Output 02/10/17 02/10/17 02/11/17 15:00 23:00 07:00 Intake Total 500 ml 500 ml Output Total 1500 ml 300 ml Balance -1000 ml 200 ml Exam Review of Systems: CONSTITUTIONAL: No fevers, chills. PULMONARY: No sob CARDIOVASCULAR: No chest pain/palpitations GASTROINTESTINAL: No nausea/vomiting. GENITOURINARY: No hematuria/dysuria. MUSCULOSKELETAL: No myagias/arthalgias. PSYCHIATRIC: The patient denies depression. NEUROLOGIC: No weakness Constitutional: alert, oriented Psych: no complaints ENMT: mucosa pink and moist Neck: jvd (9 cm water), supple Respiratory: diminished breath sounds (at bases/B) Cardiovascular: regular rate and rhythm Gastrointestinal: non-tender, soft Musculoskeletal: muscle tone (normal) Extremities: edema (none) Neurological: other Results Result Diagram: 02/10/17 1019 02/10/17 1019 Medications Medications Current Medications Tramadol HCl (Ultram) 50 mg Q6H PRN PO PAIN; Start 3/27/17 at 19:00 Apixaban (Eliquis) 2.5 mg BID PO Last administered on 02/11/17 08:54; Admin Dose 2.5 MG; Start 01/31/17 at 21:00 Aspirin (Halfprin) 81 mg DAILY PO Last administered on 02/11/17 08:54; Admin Dose 81 MG; Start 02/01/17 at 09:00 Ondansetron HCl (Zofran Inj) 4 mg Q6H PRN IV NAUSEA AND/OR VOMITING; Start at 19:00 Nitroglycerin (Nitroglycerin (Sl Tab) 0.4 Mg) 1 tab Q5M PRN SL CHEST PAIN; Start 01/31/17 at 19:00 Acetaminophen (Tylenol Tab) 650 mg Q6H PRN PO PAIN LEVEL 1-3 OR FEVER; Start at 19:00 Docusate Sodium (Colace) 100 mg Q12H PRN PO CONSTIPATION; Start 01/31/17 at 19: 00 Magnesium Hydroxide (Milk Of Mag) 30 ml DAILY PRN PO CONSTIPATION; Start at 19:00 Bisacodyl (Dulcolax Supp) 10 mg DAILY PRN [place] CONSTIPATION; Start 01/31/17 at 19 :00 Famotidine (Pepcid) 20 mg DAILY PO Last administered on 02/11/17 08:53; Admin Dose 20 MG; Start 01/31/17 at 21:00 Losartan Potassium (Cozaar) 25 mg DAILY PO Last administered on 02/11/17 08:53 ; Admin Dose 25 MG; Start 02/04/17 at 09:00 Carvedilol (Coreg) 6.25 mg BID PO Last administered on 02/11/17 08:53; Admin Dose 6.25 MG; Start 02/07/17 at 21:00 Diltiazem HCl (Cardizem Cd) 120 mg DAILY PO Last administered on 02/11/17 08:53 ; Admin Dose 120 MG; Start 02/10/17 at 09:00 SALOMON ROPER Feb 11, 2017 13:12
--- NOTE | 2017-02-11 14:01 | CONS ---
Date/Time of Note Date/Time of Note DATE: 02/11/17 TIME: 14:00 Assessment/Plan Assessment/Plan Additional Assessment/Plan 1. Acute pulmonary edema secondary to fluid overload. 2. End-stage renal disease on hemodialysis Tuesday, , Tuesday at dialysis unit. 3. History of ischemic cardiomyopathy with low ejection fraction. 4. Hypertension. 5. Hyperlipidemia. 6. Dementia. 7. Atiral fibrillation with RVR - now HR in 100s PLAN: HD ordered for tomorrow DPOA changed mind about SNF pt follows at [facility] Dialysis unit for chronic HD under my care will follow up Consultation Date/Type/Reason Admit Date/Time Jan 31, 2017 at 14:53 Initial Consult Date 01/31/2017 Type of Consultation: NEPHROLOGY Referring Provider: SOO NAIK 24 HR Interval Summary Free Text/Dictation Pt did not get discharged , BP stable Exam/Review of Systems Vital Signs Vitals Vital Signs Date Time Temp Pulse Resp B/P Pulse Ox O2 Delivery O2 Flow Rate FiO2 02/11/17 12:28 87 02/11/17 11:59 98.3 19 126/59 95 02/11/17 08:26 2.0 02/11/17 07:31 Nasal Cannula 02/11/17 01:07 27 Intake and Output 02/10/17 02/10/17 02/11/17 15:00 23:00 07:00 Intake Total 500 ml 500 ml Output Total 1500 ml 300 ml Balance -1000 ml 200 ml Exam GENERAL: Awake Mild to moderate distress.. NECK: suppler LUNGS: Bibasilar crackles present with minimal expiratory wheezing.+ right chest permacath HEART: S1, S2 with regular rhythm. No murmur. ABDOMEN: Soft, nontender, nondistended. Bowel sounds are present. EXTREMITIES: No clubbing, cyanosis, edema. NEUROLOGICAL: Nonfocal, intact. Results Result Diagram: 02/10/17 1019 02/10/17 1019 Medications Medications Current Medications Tramadol HCl (Ultram) 50 mg Q6H PRN PO PAIN; Start 01/31/17 at 19:00 Apixaban (Eliquis) 2.5 mg BID PO Last administered on 02/11/17t 08:54; Admin Dose 2.5 MG; Start 01/31/17 at 21:00 Aspirin (Halfprin) 81 mg DAILY PO Last administered on 02/11/17 08:54; Admin Dose 81 MG; Start 02/01/17 at 09:00 Ondansetron HCl (Zofran Inj) 4 mg Q6H PRN IV NAUSEA AND/OR VOMITING; Start at 19:00 Nitroglycerin (Nitroglycerin (Sl Tab) 0.4 Mg) 1 tab Q5M PRN SL CHEST PAIN; Start 01/31/17 at 19:00 Acetaminophen (Tylenol Tab) 650 mg Q6H PRN PO PAIN LEVEL 1-3 OR FEVER; Start at 19:00 Docusate Sodium (Colace) 100 mg Q12H PRN PO CONSTIPATION; Start 01/31/17 at 19: 00 Magnesium Hydroxide (Milk Of Mag) 30 ml DAILY PRN PO CONSTIPATION; Start at 19:00 Bisacodyl (Dulcolax Supp) 10 mg DAILY PRN [place] CONSTIPATION; Start 01/31/17 at 19 :00 Famotidine (Pepcid) 20 mg DAILY PO Last administered on 02/11/17 08:53; Admin Dose 20 MG; Start 01/31/17 at 21:00 Losartan Potassium (Cozaar) 25 mg DAILY PO Last administered on 02/11/17 08:53 ; Admin Dose 25 MG; Start 02/04/17 at 09:00 Carvedilol (Coreg) 6.25 mg BID PO Last administered on 02/11/17 08:53; Admin Dose 6.25 MG; Start 02/07/17 at 21:00 Diltiazem HCl (Cardizem Cd) 120 mg DAILY PO Last administered on 02/11/17 08:53 ; Admin Dose 120 MG; Start 02/10/17 at 09:00 MACI ASHLEY MD Feb 11, 2017 14:01
--- NOTE | 2017-02-11 14:34 | PN ---
Date/Time of Note Date/Time of Note DATE: 02/11/17 TIME: 14:27 Assessment/Plan VTE Prophylaxis VTE Prophylaxis Intervention: other (eliquis ) Lines/Catheters IV Catheter Type (from Nrs): Saline Lock Urinary Cath still in place: No Assessment/Plan Assessment/Plan 81-year-old male with: 1. Acute episode of respiratory distress, due to volume overload. All symptoms resolved, awaiting discharge to halfway facility Back on outpatient HD regimen. T/T/S Remains stable, on supp O2, 2L NC prn at most. Appreciate Dr Summers's assistance with HD for volume removal 2. Chronic atrial fibrillation. Rate controlled on Coreg to 6.25 mg po bid. Rate controlled for the past few days with Coreg Continue Eliquis for now Monitor electrolytes 3. Coronary artery disease. He did have a stress test on his past admission that did show signs of coronary artery disease but no acute reversible disease. Continue ASA, carvedilol, Cozaar Follow up with cardiology recommendations, Awaiting d/c to SNF. 4. Ischemic cardiomyopathy with severe dysfunction, ejection fraction of 30% likely per Cardiology. Continue Blockers, ARB, ASA HD for volume management. 5. Advanced chronic kidney disease, requiring hemodialysis Patient on T/T/S schedule, next HD session due tomorrow Tuesday 6. Moderate Dementia at least. Stable mental status. 7. Chronic pain. On tramadol as needed for pain control. 8. Hypertension. BP tolerating current Carvedilol, Cardizem and Cozaar dosage. 9. Status post recent fall with closed head injury, healing well. Continue aspirin for now and Eliquis prophylactic dosing with close monitoring. Prophylaxis. The patient already on Eliquis, and Pepcid for GI prophylaxis. DISPOSITION: Discharged to SNF as of 02/05/17 after HD, DPOA is going through second level of appeal since she lost the first time around, decision pending regarding discharge to SNF. Placement has been challenging due to DPOA requests , demands so far. Subjective 24 Hr Interval Summary Free Text/Dictation Patient remained stable, atrial fibrillation rate controlled, no acute bleeding , tolerating anticoagulation well, good p.o. intake, tolerating dialysis well with adequate volume removal. Apparently the patient's DPOA has decided to go through second level of appeal in regards to discharge to halfway facility. We are awaiting decision, for now the patient is scheduled for hemodialysis tomorrow Tuesday for outpatient schedule Exam/Review of Systems Vital Signs Vitals Vital Signs Date Time Temp Pulse Resp B/P Pulse Ox O2 Delivery O2 Flow Rate FiO2 02/11/17 12:28 87 02/11/17 11:59 98.3 19 126/59 95 02/11/17 08:26 2.0 02/11/17 07:31 Nasal Cannula 02/11/17 01:07 27 Intake and Output 02/10/17 02/10/17 02/11/17 15:00 23:00 07:00 Intake Total 500 ml 500 ml Output Total 1500 ml 300 ml Balance -1000 ml 200 ml Exam Constitutional: alert, oriented (x2 at best) Cardiovascular: irregular rhythm (chronic A fib ) Gastrointestinal: non-tender, soft Musculoskeletal: nl extremities to inspection, other (no edema, clubbing or cyanosis ) Extremities: normal pulses Neurological: THERAPY ADMINISTRATIVE ASSISTANT II-XII intact, nl mental status, nl speech, other ( generalized weakness and unsteady gait chronic) Results Result Diagram: 02/10/17 1019 02/10/17 1019 Medications Medications Current Medications Tramadol HCl (Ultram) 50 mg Q6H PRN PO PAIN; Start 01/31/17 at 19:00 Apixaban (Eliquis) 2.5 mg BID PO Last administered on 02/11/17 08:54; Admin Dose 2.5 MG; Start 01/31/17 at 21:00 Aspirin (Halfprin) 81 mg DAILY PO Last administered on 02/11/17 08:54; Admin Dose 81 MG; Start 02/01/17 at 09:00 Ondansetron HCl (Zofran Inj) 4 mg Q6H PRN IV NAUSEA AND/OR VOMITING; Start at 19:00 Nitroglycerin (Nitroglycerin (Sl Tab) 0.4 Mg) 1 tab Q5M PRN SL CHEST PAIN; Start 01/31/17 at 19:00 Acetaminophen (Tylenol Tab) 650 mg Q6H PRN PO PAIN LEVEL 1-3 OR FEVER; Start at 19:00 Docusate Sodium (Colace) 100 mg Q12H PRN PO CONSTIPATION; Start 01/31/17 at 19: 00 Magnesium Hydroxide (Milk Of Mag) 30 ml DAILY PRN PO CONSTIPATION; Start at 19:00 Bisacodyl (Dulcolax Supp) 10 mg DAILY PRN [place] CONSTIPATION; Start 01/31/17 at 19 :00 Famotidine (Pepcid) 20 mg DAILY PO Last administered on 02/11/17 08:53; Admin Dose 20 MG; Start 01/31/17 at 21:00 Losartan Potassium (Cozaar) 25 mg DAILY PO Last administered on 02/11/17 08:53 ; Admin Dose 25 MG; Start 02/04/17 at 09:00 Carvedilol (Coreg) 6.25 mg BID PO Last administered on 02/11/17 08:53; Admin Dose 6.25 MG; Start 02/07/17 at 21:00 Diltiazem HCl (Cardizem Cd) 120 mg DAILY PO Last administered on 02/11/17 08:53 ; Admin Dose 120 MG; Start 02/10/17 at 09:00 SOO NAIK Feb 11, 2017 14:34
[2017-02-12] VITALS (18 sets, daily range): BP systolic 103–136; BP diastolic 65–102; PULSE 60–98; RESP 16–20
[2017-02-12 06:39] LABS: ADD SCAN DIFF NO
[2017-02-12 07:20] LABS: BASOPHILS % 0.1 % (0.0-2.0); EOSINOPHILS # 0.1 10^3/ul (0.0-0.5); EOSINOPHILS % 1.7 % (0.0-7.0); HEMATOCRIT 28.2 % (42.0-52.0); HEMOGLOBIN 9.1 g/dl (14.0-18.0); LYMPHOCYTES # 1.8 10^3/ul (0.8-2.9); LYMPHOCYTES % 24.6 % (15.0-51.0); MEAN CORPUSCULAR HEMOGLOBIN 31.3 pg (29.0-33.0); MEAN CORPUSCULAR HGB CONC 32.3 g/dl (32.0-37.0); MEAN CORPUSCULAR VOLUME 96.9 fl (82.0-101.0); MEAN PLATELET VOLUME 10.6 fl (7.4-10.4); MONOCYTE # 0.6 10^3/ul (0.3-0.9); MONOCYTES % 8.4 % (0.0-11.0); NEUTROPHIL # 4.7 10^3/ul (1.6-7.5); NEUTROPHILS % 64.9 % (39.0-77.0); PLATELET COUNT 145 10^3/UL (140-415); POTASSIUM 4.1 mmol/L (3.5-5.1); RED BLOOD COUNT 2.91 10^6/ul (4.70-6.10); RED CELL DISTRIBUTION WIDTH 15.9 % (11.5-14.5); WHITE BLOOD COUNT 7.2 10^3/ul (4.8-10.8)
[2017-02-12 07:22] LABS: CREATININE 2.01 mg/dl (0.61-1.24)
[2017-02-12 07:23] LABS: CALCIUM 8.3 mg/dl (8.4-10.2)
[2017-02-12 07:45] LABS: PHOSPHORUS 3.4 mg/dl (2.5-4.9)
[2017-02-12] MEDS: ALBUTEROL/IPRATROPIUM (NEB) 3 ML AMP HHN SCH ×3 (08:09→23:04)
[2017-02-12] MEDS: APIXABAN 5 MG TABLET PO SCH ×2 (10:04→20:37)
[2017-02-12] MEDS: ASPIRIN (EC) 81 MG TAB PO SCH (10:04)
[2017-02-12] MEDS: FAMOTIDINE 20 MG TAB PO SCH (10:05)
[2017-02-12] MEDS: DILTIAZEM (CD) 120 MG CAP PO SCH (10:10)
[2017-02-12] MEDS: LOSARTAN 25 MG TAB PO SCH (10:11)
--- NOTE | 2017-02-12 13:39 | CONS ---
Date/Time of Note Date/Time of Note DATE: 02/12/17 TIME: 13:38 Assessment/Plan Assessment/Plan Additional Assessment/Plan 1. Acute pulmonary edema secondary to fluid overload. 2. End-stage renal disease on hemodialysis Tuesday, , Tuesday at dialysis unit. 3. History of ischemic cardiomyopathy with low ejection fraction. 4. Hypertension. 5. Hyperlipidemia. 6. Dementia. 7. Atiral fibrillation with RVR - now HR in 100s PLAN: HD ordered for tomorrow DPOA changed mind about SNF pt follows at [facility] Dialysis unit for chronic HD under Dr Caro Summers will follow up dw Dr Caro Summers Consultation Date/Type/Reason Admit Date/Time Jan 31, 2017 at 14:53 Initial Consult Date Type of Consultation: NEPHROLOGY Referring Provider: SOO NAIK Exam/Review of Systems Vital Signs Vitals Vital Signs Date Time Temp Pulse Resp B/P Pulse Ox O2 Delivery O2 Flow Rate FiO2 02/12/17 13:15 60 02/12/17 13:15 19 02/12/17 11:17 98.3 110/78 94 02/12/17 08:12 2.0 02/12/17 08:11 Nasal Cannula 02/11/17 01:07 27 Intake and Output 02/11/17 02/11/17 02/12/17 15:00 23:00 07:00 Intake Total 500 ml 250 ml Output Total 150 ml Balance 500 ml 100 ml Exam Constitutional: alert Results Result Diagram: 02/12/17 0540 02/12/17 0540 Results 24 hrs Laboratory Tests Test 02/12/17 05:40 White Blood Count 7.2 Red Blood Count 2.91 L Hemoglobin 9.1 L Hematocrit 28.2 L Mean Corpuscular Volume 96.9 Mean Corpuscular Hemoglobin 31.3 Mean Corpuscular Hemoglobin Concent 32.3 Red Cell Distribution Width 15.9 H Platelet Count 145 Mean Platelet Volume 10.6 H Neutrophils % 64.9 Lymphocytes % 24.6 Monocytes % 8.4 Eosinophils % 1.7 Basophils % 0.1 Nucleated Red Blood Cells % 0.0 Neutrophils # 4.7 Lymphocytes # 1.8 Monocytes # 0.6 Eosinophils # 0.1 Basophils # 0.0 Nucleated Red Blood Cells # 0.0 Sodium Level 136 Potassium Level 4.1 Chloride Level 100 Carbon Dioxide Level 28 Anion Gap 12 Blood Urea Nitrogen 48 H Creatinine 2.01 H Glucose Level 84 Calcium Level 8.3 L Phosphorus Level 3.4 Magnesium Level 2.0 Medications Medications Current Medications Tramadol HCl (Ultram) 50 mg Q6H PRN PO PAIN; Start 01/31/17 at 19:00 Apixaban (Eliquis) 2.5 mg BID PO Last administered on 02/12/17 10:04; Admin Dose 2.5 MG; Start 01/31/17 at 21:00 Aspirin (Halfprin) 81 mg DAILY PO Last administered on 02/12/17 10:04; Admin Dose 81 MG; Start 02/01/17 at 09:00 Ondansetron HCl (Zofran Inj) 4 mg Q6H PRN IV NAUSEA AND/OR VOMITING; Start at 19:00 Nitroglycerin (Nitroglycerin (Sl Tab) 0.4 Mg) 1 tab Q5M PRN SL CHEST PAIN; Start 01/31/17 at 19:00 Acetaminophen (Tylenol Tab) 650 mg Q6H PRN PO PAIN LEVEL 1-3 OR FEVER; Start at 19:00 Docusate Sodium (Colace) 100 mg Q12H PRN PO CONSTIPATION; Start 01/31/17 at 19: 00 Magnesium Hydroxide (Milk Of Mag) 30 ml DAILY PRN PO CONSTIPATION; Start at 19:00 Bisacodyl (Dulcolax Supp) 10 mg DAILY PRN [place] CONSTIPATION; Start 01/31/17 at 19 :00 Famotidine (Pepcid) 20 mg DAILY PO Last administered on 02/12/17 10:05; Admin Dose 20 MG; Start 01/31/17 at 21:00 Losartan Potassium (Cozaar) 25 mg DAILY PO Last administered on 02/12/17 10:11 ; Admin Dose 25 MG; Start 02/04/17 at 09:00 Carvedilol (Coreg) 6.25 mg BID PO Last administered on 02/12/17 10:11; Admin Dose 6.25 MG; Start 02/07/17 at 21:00 Diltiazem HCl (Cardizem Cd) 120 mg DAILY PO Last administered on 02/12/17 10:10 ; Admin Dose 120 MG; Start 02/10/17 at 09:00 SHAGUFTA RAE Feb 12, 2017 13:39
--- NOTE | 2017-02-12 15:21 | CONS ---
Date/Time of Note Date/Time of Note DATE: 02/12/17 TIME: 15:19 Assessment/Plan Assessment/Plan Chief Complaint/Hosp Course IMPRESSION: 1. Congestive heart failure exacerbation, systolic, acute on chronic.-EF 30% by echo this admit/RV HK 2. History of cardiomyopathy, decreased left ventricular ejection fraction. 3. Hypertension. 4. Atrial fibrillation on apixaban-well rate controlled now 5. End-stage renal disease on hemodialysis. 6. Anemia and thrombocytopenia increasing-improving . 7. Positive troponin-minimal in the setting of renal failure/Downtrending Recc: -Tele -serial ecg's -Continue apixaban/asa -Continue coreg/ARB/CCB -HD for volume removal Problems: Consultation Date/Type/Reason Admit Date/Time Jan 31, 2017 at 14:53 Initial Consult Date 02/01/2017 Type of Consultation: Cardiology Reason for Consultation positive troponin/CHF Referring Provider: SOO NAIK Exam/Review of Systems Vital Signs Vitals Vital Signs Date Time Temp Pulse Resp B/P Pulse Ox O2 Delivery O2 Flow Rate FiO2 02/12/17 15:15 98.4 79 19 125/79 98 02/12/17 08:12 2.0 02/12/17 08:11 Nasal Cannula 02/11/17 01:07 27 Intake and Output 02/11/17 02/11/17 02/12/17 15:00 23:00 07:00 Intake Total 500 ml 250 ml Output Total 150 ml Balance 500 ml 100 ml Exam Review of Systems: CONSTITUTIONAL: No fevers, chills. PULMONARY: No sob CARDIOVASCULAR: No chest pain/palpitations GASTROINTESTINAL: No nausea/vomiting. GENITOURINARY: No hematuria/dysuria. MUSCULOSKELETAL: No myagias/arthalgias. PSYCHIATRIC: The patient denies depression. NEUROLOGIC: lethargic Constitutional: alert Psych: no complaints Head: normocephalic ENMT: mucosa pink and moist Neck: jvd (9 cm water), supple Respiratory: diminished breath sounds (at bases/B) Cardiovascular: regular rate and rhythm Gastrointestinal: non-tender, soft Musculoskeletal: muscle tone (normal) Extremities: edema (none) Neurological: other (No focal deficits) Results Result Diagram: 02/12/17 0540 02/12/17 0540 Results 24 hrs Laboratory Tests Test 02/12/17 05:40 White Blood Count 7.2 Red Blood Count 2.91 L Hemoglobin 9.1 L Hematocrit 28.2 L Mean Corpuscular Volume 96.9 Mean Corpuscular Hemoglobin 31.3 Mean Corpuscular Hemoglobin Concent 32.3 Red Cell Distribution Width 15.9 H Platelet Count 145 Mean Platelet Volume 10.6 H Neutrophils % 64.9 Lymphocytes % 24.6 Monocytes % 8.4 Eosinophils % 1.7 Basophils % 0.1 Nucleated Red Blood Cells % 0.0 Neutrophils # 4.7 Lymphocytes # 1.8 Monocytes # 0.6 Eosinophils # 0.1 Basophils # 0.0 Nucleated Red Blood Cells # 0.0 Sodium Level 136 Potassium Level 4.1 Chloride Level 100 Carbon Dioxide Level 28 Anion Gap 12 Blood Urea Nitrogen 48 H Creatinine 2.01 H Glucose Level 84 Calcium Level 8.3 L Phosphorus Level 3.4 Magnesium Level 2.0 Medications Medications Current Medications Tramadol HCl (Ultram) 50 mg Q6H PRN PO PAIN; Start 01/31/17 at 19:00 Apixaban (Eliquis) 2.5 mg BID PO Last administered on 02/12/17 10:04; Admin Dose 2.5 MG; Start 01/31/17 at 21:00 Aspirin (Halfprin) 81 mg DAILY PO Last administered on 02/12/17 10:04; Admin Dose 81 MG; Start 02/01/17 at 09:00 Ondansetron HCl (Zofran Inj) 4 mg Q6H PRN IV NAUSEA AND/OR VOMITING; Start at 19:00 Nitroglycerin (Nitroglycerin (Sl Tab) 0.4 Mg) 1 tab Q5M PRN SL CHEST PAIN; Start 01/31/17 at 19:00 Acetaminophen (Tylenol Tab) 650 mg Q6H PRN PO PAIN LEVEL 1-3 OR FEVER; Start at 19:00 Docusate Sodium (Colace) 100 mg Q12H PRN PO CONSTIPATION; Start 01/31/17 at 19: 00 Magnesium Hydroxide (Milk Of Mag) 30 ml DAILY PRN PO CONSTIPATION; Start at 19:00 Bisacodyl (Dulcolax Supp) 10 mg DAILY PRN [place] CONSTIPATION; Start 01/31/17 at 19 :00 Famotidine (Pepcid) 20 mg DAILY PO Last administered on 02/12/17 10:05; Admin Dose 20 MG; Start 01/31/17 at 21:00 Losartan Potassium (Cozaar) 25 mg DAILY PO Last administered on 02/12/17 10:11 ; Admin Dose 25 MG; Start 02/04/17 at 09:00 Carvedilol (Coreg) 6.25 mg BID PO Last administered on 02/12/17 10:11; Admin Dose 6.25 MG; Start 02/07/17 at 21:00 Diltiazem HCl (Cardizem Cd) 120 mg DAILY PO Last administered on 02/12/17 10:10 ; Admin Dose 120 MG; Start 02/10/17 at 09:00 SALOMON ROPER Feb 12, 2017 15:21
--- NOTE | 2017-02-12 21:00 | PN ---
Date/Time of Note Date/Time of Note DATE: 02/12/17 TIME: 20:53 Assessment/Plan VTE Prophylaxis VTE Prophylaxis Intervention: SCD's Lines/Catheters IV Catheter Type (from Nrs): Saline Lock Assessment/Plan Assessment/Plan [facility] 1. 81-year-old man with acute respiratory distress due to volume overload. All symptoms are now resolved, [facility] I discussed this at length with his daughter, who expressed concern about a fall at the previous SNF (requiring the left forehead stitches) and five days without oxygen per nasal cannula. * Initiate facility search to find the perfect SNF * Undergoing hemodialysis this afternoon. 2. Chronic atrial fibrillation. Rate controlled on Coreg to 6.25 mg po bid. * Continue Eliquis for now * Monitor electrolytes 3. Coronary artery disease. He did have a stress test on his past admission that did show signs of coronary artery disease but no acute reversible disease. * Continue ASA, carvedilol, Cozaar * Follow up with cardiology recommendations 4. Ischemic cardiomyopathy with severe dysfunction, ejection fraction of 30% likely per Cardiology. * Continue beta-blockers, ARB, ASA * HD for volume management. 5. Advanced chronic kidney disease, requiring hemodialysis Patient on T// schedule, next HD session due Tuesday 6. Moderate Dementia. Stable mental status. 7. Chronic pain. On tramadol as needed for pain control. 8. Hypertension. BP tolerating current Carvedilol, Cardizem and Cozaar dosage. 9. Status post recent fall with closed head injury, healing well. Continue aspirin for now and Eliquis prophylactic dosing with close monitoring. 10. Prophylaxis. The patient already on Eliquis, and Pepcid for GI prophylaxis. 11. DISPOSITION: Discharged to SNF as of 02/05/17 after HD, DPOA is going through second level of appeal since she lost the first time around, decision pending regarding discharge to SNF. Placement has been challenging due to DPOA requests, demands so far. Judith Germain MD PhD [phone] Subjective 24 Hr Interval Summary Free Text/Dictation No visitors. I spoke by phone to his daughter Fabiola. Patient says he feels great, with no pain or nausea. No headache or cough. Exam/Review of Systems Vital Signs Vitals Vital Signs Date Time Temp Pulse Resp B/P Pulse Ox O2 Delivery O2 Flow Rate FiO2 02/12/17 20:28 96 02/12/17 20:00 97.9 18 136/87 92 02/12/17 17:35 2.0 02/12/17 15:25 Nasal Cannula 02/11/17 01:07 27 Intake and Output 02/11/17 02/11/17 02/12/17 15:00 23:00 07:00 Intake Total 500 ml 250 ml Output Total 150 ml Balance 500 ml 100 ml Exam Constitutional: alert, oriented to self but not to place or circumstance, eating comfortably in bed Cardiovascular: irregular rhythm, no murmur, rate-controlled Gastrointestinal: non-tender, soft, bowel sounds normal Musculoskeletal: Moderate to severe muscle atrophy, no edema, clubbing or cyanosis. Right hand Depuytren's contracture, with mild flexion contracture of all fingers. Symmetric pulses Neurological: COMBAT ENGINEER II-XII intact, nl mental status, nl speech, 5/5 strength, downgoing toes. Results Result Diagram: 02/12/17 0540 02/12/17 0540 Results 24 hrs Laboratory Tests Test 02/12/17 05:40 White Blood Count 7.2 Red Blood Count 2.91 L Hemoglobin 9.1 L Hematocrit 28.2 L Mean Corpuscular Volume 96.9 Mean Corpuscular Hemoglobin 31.3 Mean Corpuscular Hemoglobin Concent 32.3 Red Cell Distribution Width 15.9 H Platelet Count 145 Mean Platelet Volume 10.6 H Neutrophils % 64.9 Lymphocytes % 24.6 Monocytes % 8.4 Eosinophils % 1.7 Basophils % 0.1 Nucleated Red Blood Cells % 0.0 Neutrophils # 4.7 Lymphocytes # 1.8 Monocytes # 0.6 Eosinophils # 0.1 Basophils # 0.0 Nucleated Red Blood Cells # 0.0 Sodium Level 136 Potassium Level 4.1 Chloride Level 100 Carbon Dioxide Level 28 Anion Gap 12 Blood Urea Nitrogen 48 H Creatinine 2.01 H Glucose Level 84 Calcium Level 8.3 L Phosphorus Level 3.4 Magnesium Level 2.0 Medications Medications Current Medications Tramadol HCl (Ultram) 50 mg Q6H PRN PO PAIN; Start 01/31/17 at 19:00 Apixaban (Eliquis) 2.5 mg BID PO Last administered on 02/12/17t 20:37; Admin Dose 2.5 MG; Start 01/31/17 at 21:00 Aspirin (Halfprin) 81 mg DAILY PO Last administered on 02/12/17 10:04; Admin Dose 81 MG; Start 02/01/17 at 09:00 Ondansetron HCl (Zofran Inj) 4 mg Q6H PRN IV NAUSEA AND/OR VOMITING; Start at 19:00 Nitroglycerin (Nitroglycerin (Sl Tab) 0.4 Mg) 1 tab Q5M PRN SL CHEST PAIN; Start 01/31/17 at 19:00 Acetaminophen (Tylenol Tab) 650 mg Q6H PRN PO PAIN LEVEL 1-3 OR FEVER; Start at 19:00 Docusate Sodium (Colace) 100 mg Q12H PRN PO CONSTIPATION; Start 01/31/17 at 19: 00 Magnesium Hydroxide (Milk Of Mag) 30 ml DAILY PRN PO CONSTIPATION; Start at 19:00 Bisacodyl (Dulcolax Supp) 10 mg DAILY PRN [place] CONSTIPATION; Start 01/31/17 at 19 :00 Famotidine (Pepcid) 20 mg DAILY PO Last administered on 02/12/17 10:05; Admin Dose 20 MG; Start 01/31/17 at 21:00 Losartan Potassium (Cozaar) 25 mg DAILY PO Last administered on 02/12/17 10:11 ; Admin Dose 25 MG; Start 02/04/17 at 09:00 Carvedilol (Coreg) 6.25 mg BID PO Last administered on 02/12/17 20:37; Admin Dose 6.25 MG; Start 02/07/17 at 21:00 Diltiazem HCl (Cardizem Cd) 120 mg DAILY PO Last administered on 02/12/17 10:10 ; Admin Dose 120 MG; Start 02/10/17 at 09:00 ROHIT GERMAIN M.D. Feb 12, 2017 21:00
[2017-02-13] VITALS (10 sets, daily range): BP systolic 126–144; BP diastolic 63–84; PULSE 62–90; RESP 18–19
[2017-02-13 06:25] LABS: ADD SCAN DIFF NO
[2017-02-13 06:41] LABS: BASOPHILS % 0.2 % (0.0-2.0); EOSINOPHILS # 0.1 10^3/ul (0.0-0.5); HEMATOCRIT 28.2 % (42.0-52.0); HEMOGLOBIN 9.1 g/dl (14.0-18.0); LYMPHOCYTES # 1.5 10^3/ul (0.8-2.9); MEAN CORPUSCULAR HGB CONC 32.3 g/dl (32.0-37.0); MEAN CORPUSCULAR VOLUME 95.9 fl (82.0-101.0); MEAN PLATELET VOLUME 10.6 fl (7.4-10.4); MONOCYTE # 0.6 10^3/ul (0.3-0.9); MONOCYTES % 9.5 % (0.0-11.0); NEUTROPHIL # 4.3 10^3/ul (1.6-7.5); PLATELET COUNT 118 10^3/UL (140-415); RED BLOOD COUNT 2.94 10^6/ul (4.70-6.10); RED CELL DISTRIBUTION WIDTH 15.8 % (11.5-14.5); WHITE BLOOD COUNT 6.7 10^3/ul (4.8-10.8)
[2017-02-13 06:56] LABS: CREATININE 1.45 mg/dl (0.61-1.24); POTASSIUM 3.4 mmol/L (3.5-5.1)
[2017-02-13] MEDS: ALBUTEROL/IPRATROPIUM (NEB) 3 ML AMP HHN SCH ×2 (08:24→15:14)
[2017-02-13] MEDS: ASPIRIN (EC) 81 MG TAB PO SCH (09:54)
[2017-02-13] MEDS: FAMOTIDINE 20 MG TAB PO SCH (09:54)
[2017-02-13] MEDS: APIXABAN 5 MG TABLET PO SCH (09:55)
[2017-02-13] MEDS: DILTIAZEM (CD) 120 MG CAP PO SCH (09:55)
[2017-02-13] MEDS: LOSARTAN 25 MG TAB PO SCH (09:56)
--- NOTE | 2017-02-13 13:29 | CONS ---
Date/Time of Note Date/Time of Note DATE: 02/13/17 TIME: 13:28 Assessment/Plan Assessment/Plan Chief Complaint/Hosp Course IMPRESSION: 1. Congestive heart failure exacerbation, systolic, acute on chronic.-EF 30% by echo this admit/RV HK 2. History of cardiomyopathy, decreased left ventricular ejection fraction. 3. Hypertension. 4. Atrial fibrillation on apixaban-well rate controlled now 5. End-stage renal disease on hemodialysis. 6. Anemia and thrombocytopenia increasing-improving . 7. Positive troponin-minimal in the setting of renal failure/Downtrending Recc: -Tele -serial ecg's -Continue apixaban/asa -Continue coreg/ARB/CCB at current doses -HD for volume removal Problems: Consultation Date/Type/Reason Admit Date/Time Jan 31, 2017 at 14:53 Initial Consult Date 02/01/2017 Type of Consultation: Cardiology Reason for Consultation CHF/cardiomyopathy Referring Provider: SOO NAIK Exam/Review of Systems Vital Signs Vitals Vital Signs Date Time Temp Pulse Resp B/P Pulse Ox O2 Delivery O2 Flow Rate FiO2 02/13/17 12:15 90 02/13/17 11:16 98.0 19 137/83 97 02/13/17 08:24 Nasal Cannula 2.0 02/11/17 01:07 27 Intake and Output 02/12/17 02/12/17 02/13/17 15:00 23:00 07:00 Intake Total 400 ml 400 ml 150 ml Output Total 2400 ml 200 ml 150 ml Balance -2000 ml 200 ml 0 ml Exam Review of Systems: CONSTITUTIONAL: No fevers, chills. PULMONARY: No sob CARDIOVASCULAR: No chest pain/palpitations GASTROINTESTINAL: No nausea/vomiting. GENITOURINARY: No hematuria/dysuria. MUSCULOSKELETAL: No myagias/arthalgias. PSYCHIATRIC: The patient denies depression. NEUROLOGIC: lethargic Constitutional: alert Psych: confusion, no complaints Head: normocephalic Neck: jvd (9 cm water), supple Respiratory: clear to auscultation Cardiovascular: regular rate and rhythm Gastrointestinal: non-tender, soft Musculoskeletal: muscle weakness (generalized) Extremities: edema (none) Neurological: other (No focal deficits) Results Result Diagram: 02/13/17 0502/13/17 0520 Results 24 hrs Laboratory Tests Test 02/13/17 05:20 White Blood Count 6.7 Red Blood Count 2.94 L Hemoglobin 9.1 L Hematocrit 28.2 L Mean Corpuscular Volume 95.9 Mean Corpuscular Hemoglobin 31.0 Mean Corpuscular Hemoglobin Concent 32.3 Red Cell Distribution Width 15.8 H Platelet Count 118 L Mean Platelet Volume 10.6 H Neutrophils % 65.0 Lymphocytes % 23.0 Monocytes % 9.5 Eosinophils % 2.0 Basophils % 0.2 Nucleated Red Blood Cells % 0.0 Neutrophils # 4.3 Lymphocytes # 1.5 Monocytes # 0.6 Eosinophils # 0.1 Basophils # 0.0 Nucleated Red Blood Cells # 0.0 Sodium Level 132 L Potassium Level 3.4 L Chloride Level 100 Carbon Dioxide Level 29 Anion Gap 6 L Blood Urea Nitrogen 30 #H Creatinine 1.45 H Glucose Level 80 Calcium Level 8.0 L Medications Medications Current Medications Tramadol HCl (Ultram) 50 mg Q6H PRN PO PAIN; Start 01/31/17 at 19:00 Apixaban (Eliquis) 2.5 mg BID PO Last administered on 02/13/17 09:55; Admin Dose 2.5 MG; Start 01/31/17 at 21:00 Aspirin (Halfprin) 81 mg DAILY PO Last administered on 02/13/17 09:54; Admin Dose 81 MG; Start 02/01/17 at 09:00 Ondansetron HCl (Zofran Inj) 4 mg Q6H PRN IV NAUSEA AND/OR VOMITING; Start at 19:00 Nitroglycerin (Nitroglycerin (Sl Tab) 0.4 Mg) 1 tab Q5M PRN SL CHEST PAIN; Start 01/31/17 at 19:00 Acetaminophen (Tylenol Tab) 650 mg Q6H PRN PO PAIN LEVEL 1-3 OR FEVER; Start at 19:00 Docusate Sodium (Colace) 100 mg Q12H PRN PO CONSTIPATION; Start 01/31/17 at 19: 00 Magnesium Hydroxide (Milk Of Mag) 30 ml DAILY PRN PO CONSTIPATION; Start at 19:00 Bisacodyl (Dulcolax Supp) 10 mg DAILY PRN [place] CONSTIPATION; Start 01/31/17 at 19 :00 Famotidine (Pepcid) 20 mg DAILY PO Last administered on 02/13/17 09:54; Admin Dose 20 MG; Start 01/31/17 at 21:00 Losartan Potassium (Cozaar) 25 mg DAILY PO Last administered on 02/13/17 09:56 ; Admin Dose 25 MG; Start 02/04/17 at 09:00 Carvedilol (Coreg) 6.25 mg BID PO Last administered on 02/13/17 09:55; Admin Dose 6.25 MG; Start 02/07/17 at 21:00 Diltiazem HCl (Cardizem Cd) 120 mg DAILY PO Last administered on 02/13/17 09:55 ; Admin Dose 120 MG; Start 02/10/17 at 09:00 SALOMON ROPER Feb 13, 2017 13:29
--- NOTE | 2017-02-13 14:34 | CONS ---
Date/Time of Note Date/Time of Note DATE: 02/13/17 TIME: 14:32 Consultation Date/Type/Reason Admit Date/Time Jan 31, 2017 at 14:53 Type of Consultation: Cardiology Referring Provider: SOO NAIK 24 HR Interval Summary Free Text/Dictation 1. Acute pulmonary edema secondary to fluid overload. 2. End-stage renal disease on hemodialysis Tuesday, , Tuesday at dialysis unit. 3. History of ischemic cardiomyopathy with low ejection fraction. 4. Hypertension. 5. Hyperlipidemia. 6. Dementia. 7. Atiral fibrillation with RVR - now HR in 100s PLAN: HD today DPOA changed mind about SNF pt follows at [facility] Dialysis unit for chronic HD under Dr Caro Summers Discharged today will follow up. Constitutional: chills, diaphoresis, disoriented, febrile, improved, no complaints, other, poor po, requiring IVF, requiring O2 Exam/Review of Systems Vital Signs Vitals Vital Signs Date Time Temp Pulse Resp B/P Pulse Ox O2 Delivery O2 Flow Rate FiO2 02/13/17 12:15 90 02/13/17 11:16 98.0 19 137/83 97 02/13/17 08:24 Nasal Cannula 2.0 02/11/17 01:07 27 Intake and Output 02/12/17 02/12/17 02/13/17 15:00 23:00 07:00 Intake Total 400 ml 400 ml 150 ml Output Total 2400 ml 200 ml 150 ml Balance -2000 ml 200 ml 0 ml Results Result Diagram: 02/13/17 0520 02/13/17 0520 Results 24 hrs Laboratory Tests Test 02/13/17 05:20 White Blood Count 6.7 Red Blood Count 2.94 L Hemoglobin 9.1 L Hematocrit 28.2 L Mean Corpuscular Volume 95.9 Mean Corpuscular Hemoglobin 31.0 Mean Corpuscular Hemoglobin Concent 32.3 Red Cell Distribution Width 15.8 H Platelet Count 118 L Mean Platelet Volume 10.6 H Neutrophils % 65.0 Lymphocytes % 23.0 Monocytes % 9.5 Eosinophils % 2.0 Basophils % 0.2 Nucleated Red Blood Cells % 0.0 Neutrophils # 4.3 Lymphocytes # 1.5 Monocytes # 0.6 Eosinophils # 0.1 Basophils # 0.0 Nucleated Red Blood Cells # 0.0 Sodium Level 132 L Potassium Level 3.4 L Chloride Level 100 Carbon Dioxide Level 29 Anion Gap 6 L Blood Urea Nitrogen 30 #H Creatinine 1.45 H Glucose Level 80 Calcium Level 8.0 L Medications Medications Current Medications Tramadol HCl (Ultram) 50 mg Q6H PRN PO PAIN; Start 01/31/17 at 19:00 Apixaban (Eliquis) 2.5 mg BID PO Last administered on 02/13/17 09:55; Admin Dose 2.5 MG; Start 01/31/17 at 21:00 Aspirin (Halfprin) 81 mg DAILY PO Last administered on 02/13/17 09:54; Admin Dose 81 MG; Start 02/01/17 at 09:00 Ondansetron HCl (Zofran Inj) 4 mg Q6H PRN IV NAUSEA AND/OR VOMITING; Start at 19:00 Nitroglycerin (Nitroglycerin (Sl Tab) 0.4 Mg) 1 tab Q5M PRN SL CHEST PAIN; Start 01/31/17 at 19:00 Acetaminophen (Tylenol Tab) 650 mg Q6H PRN PO PAIN LEVEL 1-3 OR FEVER; Start at 19:00 Docusate Sodium (Colace) 100 mg Q12H PRN PO CONSTIPATION; Start 01/31/17 at 19: 00 Magnesium Hydroxide (Milk Of Mag) 30 ml DAILY PRN PO CONSTIPATION; Start at 19:00 Bisacodyl (Dulcolax Supp) 10 mg DAILY PRN [place] CONSTIPATION; Start 01/31/17 at 19 :00 Famotidine (Pepcid) 20 mg DAILY PO Last administered on 02/13/17 09:54; Admin Dose 20 MG; Start 01/31/17 at 21:00 Losartan Potassium (Cozaar) 25 mg DAILY PO Last administered on 02/13/17 09:56 ; Admin Dose 25 MG; Start 02/04/17 at 09:00 Carvedilol (Coreg) 6.25 mg BID PO Last administered on 02/13/17 09:55; Admin Dose 6.25 MG; Start 02/07/17 at 21:00 Diltiazem HCl (Cardizem Cd) 120 mg DAILY PO Last administered on 02/13/17 09:55 ; Admin Dose 120 MG; Start 02/10/17 at 09:00 SHAGUFTA RAE Apr 9, 2017 14:34
[2017-02-13] MEDS ORDERED: traMADol 50 MG TAB PO PRN (16:00)
[2017-02-13] MEDS ORDERED: NITROGLYCERIN (SL) 0.4 MG TAB SL PRN (16:00)
--- NOTE | 2017-02-13 16:12 | DS ---
Date/Time of Note Date/Time of Note DATE: 02/13/17 TIME: 15:56 Discharge Summary Admission/Discharge Info Admit Date/Time Jan 31, 2017 at 14:53 Discharge Date/Time February 13, 2017 Final Diagnosis S/p fall, dementia, ESRD, COPD (oxygen-dependent) Patient Condition: Good Consults Cardiology (Lory Berman) Nephrology Procedures Echocardiogram Hemodialysis Hospital Course Congestive heart failure exacerbation, systolic, acute on chronic. Echocardiogram showed EF 30%. He was admitted on telemetry monitoring for rate control with carvedilol and diltiazem, and continued on apixaban (Eliquis) for anticoagulation. He received regularly scheduled dialysis, and gradually recovered his ability to communicate and comprehend his circumstances. Cardiology consultation obtained. His guardian is a 42-year-old neighbor, Fabiola, who expressed concern about a fall at [facility], requiring left forehead stitches on 01/27/17. She also worried about five days without oxygen per nasal cannula at the SNF. 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 He was able to eat independently, and made no effort to get out of bed that I observed in the hospital. His chronic atrial fibrillation was well-controlled on Coreg 6.25 mg po bid. He has a history of coronary artery disease, and note was made of a stress test on a past admission that did show signs of coronary artery disease but no acute reversible disease. He was continued on aspirin 81mg, and diltiazem and Cozaar for blood pressure control. He received tramadol as needed for mild ain control, though he looked comfortable to me through the weekend. I had a long discussion today with Fabiola, his guardian (no relatives involved in his care), and she was in agreement with transfer today to [facility] with careful attention to FALL RISK, CONSTANT OXYGEN REQUIREMENTS, AND NEED FOR OXYGEN THROUGH MEALS AND ALL TRANSPORT TO DIALYSIS. Patient is not ambulatory without assistance. He was comfortable sitting up in bed. No headache or other pain complaints. Breathing comfortably on O2 per nasal cannula. Cardiovascular: irregular rhythm, no murmur, rate-controlled Chest: Clear bilaterally Gastrointestinal: non-tender, soft, bowel sounds normal Musculoskeletal: Moderate to severe muscle atrophy, no edema, clubbing or cyanosis. Right hand Depuytren's contracture, with mild flexion contracture of all fingers. Symmetric pulses Neurological: RIBBON HAND II-XII intact, nl mental status, nl speech, 5/5 strength, downgoing toes. Skin: Intact Home Meds Active Scripts Acetaminophen (MAPAP) 325 Mg Tablet, 650 MG PO Q6H Y for PAIN LEVEL 1-3 OR FEVER for 30 Days, TAB Prov:ROHIT SALMON M.D. 02/13/17 Losartan Potassium* (Losartan Potassium*) 50 Mg Tablet, 25 MG PO DAILY for 30 Days, TAB Prov:ROHIT SALMON. MTaniaD. 02/13/17 Nitroglycerin* (Nitrostat*) 0.4 Mg Tab.subl, 1 TAB SL Q5M Y for CHEST PAIN for 10 Days, #1 BOTTLE Prov:ROHIT SALMON M.D. 02/13/17 Diltiazem Hcl* (Cardizem CD*) 120 Mg Cap.sr.24h, 120 MG PO DAILY for 30 Days Prov:ROHIT SALMON M.D. 02/13/17 Carvedilol* (Carvedilol*) 6.25 Mg Tablet, 6.25 MG PO BID for 30 Days, TAB Prov:ROHIT SALMON M.D. 02/13/17 Apixaban* (Eliquis*) 5 Mg Tablet, 2.5 MG PO BID, #60 TAB Prov:ROHIT SALMON MTaniaD. 02/13/17 Ipratropium-Albuterol (Ipratropium-Albuterol) 0.5-3 Mg/3 Ml Ampul.neb, 3 ML HHN Q4H RESP THERAPY Y for SHORTNESS OF BREATH for 30 Days Prov:ROHIT SALMON M.D. 02/13/17 Ipratropium-Albuterol (Ipratropium-Albuterol) 0.5-3 Mg/3 Ml Ampul.neb, 3 ML HHN Q8H RESP THERAPY for 30 Days Prov:ROHIT SALMON MTaniaDTania 02/13/17 Reported Medications Tramadol Hcl* (Ultram*) 50 Mg Tablet, 50 MG PO Q6H Y for PAIN, TAB 01/31/17 Famotidine* (Famotidine*) 20 Mg Tablet, 20 MG PO DAILY, #30 TAB 01/31/17 Aspirin* (Aspirin* EC) 81 Mg Tablet.dr, 81 MG PO DAILY, TAB 01/31/17 Discontinued Reported Medications Nitroglycerin* (Nitrostat*) 0.4 Mg Tab.subl, 0.4 MG SL Q5MIN Y for CHEST PAIN, BOTTLE 01/31/17 Metoprolol Succinate* (Toprol XL*) 50 Mg Tab.er.24h, 50 MG PO DAILY, #30 TAB HOLD FOR SBP BELOW 110 OR HR BELOW 60 01/31/17 Losartan Potassium* (Losartan Potassium*) 50 Mg Tablet, 50 MG PO DAILY, TAB HOLD FOR SBP BELOW 110 01/31/17 Furosemide* (Furosemide*) 20 Mg Tablet, 20 MG PO DAILY, #60 TAB HOLD FOR SBP [id number] 01/31/17 Citric Acid/Sodium Citrate (Oracit Solution 30 Ml) 30 Ml Solution, 30 ML PO TID 01/31/17 Follow-up Plan Outpatient hemodialysis three times per week. PCP follow-up in the next week. Pending Labs Laboratory Tests Test 02/13/17 05:20 White Blood Count 6.710^3/ul (4.8-10.8) Red Blood Count 2.9410^6/ul (4.70-6.10) Hemoglobin 9.1g/dl (14.0-18.0) Hematocrit 28.2% (42.0-52.0) Mean Corpuscular Volume 95.9fl (82.0-101.0) Mean Corpuscular Hemoglobin 31.0pg (29.0-33.0) Mean Corpuscular Hemoglobin Concent 32.3g/dl (32.0-37.0) Red Cell Distribution Width 15.8% (11.5-14.5) Platelet Count 54882^3/UL (140-415) Mean Platelet Volume 10.6fl (7.4-10.4) Neutrophils % 65.0% (39.0-77.0) Lymphocytes % 23.0% (15.0-51.0) Monocytes % 9.5% (0.0-11.0) Eosinophils % 2.0% (0.0-7.0) Basophils % 0.2% (0.0-2.0) Nucleated Red Blood Cells % 0.0/100WBC (0.0-0.0) Neutrophils # 4.310^3/ul (1.6-7.5) Lymphocytes # 1.510^3/ul (0.8-2.9) Monocytes # 0.610^3/ul (0.3-0.9) Eosinophils # 0.110^3/ul (0.0-0.5) Basophils # 0.010^3/ul (0.0-0.1) Nucleated Red Blood Cells # 0.010^3/ul (0.0-0.0) Sodium Level 132mmol/L (135-144) Potassium Level 3.4mmol/L (3.5-5.1) Chloride Level 100mmol/L (97-110) Carbon Dioxide Level 29mmol/L (21-31) Anion Gap 6 (8-16) Blood Urea Nitrogen 30mg/dl (7-20) Creatinine 1.45mg/dl (0.61-1.24) Glucose Level 80mg/dl (70-220) Calcium Level 8.0mg/dl (8.4-10.2) Copies To: CC: SALOMON BERMAN; SOO NAIK JOHN P. M.D. Feb 13, 2017 16:09
[2017-02-13] MEDS ORDERED: APIX5TAB PO (16:19)
[2017-02-13] MEDS ORDERED: DILT120C77 PO (16:19)
[2017-02-13] MEDS ORDERED: NIT4 SL (16:19)
[2017-02-13] MEDS ORDERED: CARV6.2579 PO (16:19)
[2017-02-13] MEDS ORDERED: ACET325T40 PO (16:19)
[2017-02-13] MEDS ORDERED: IPRA3AMP HHN ×2 (16:19)
[2017-02-13] MEDS ORDERED: LOSA50TA6 PO (16:19)
[2017-02-13] MEDS ORDERED: CITRIC ACID/NA CITRATE 30 ML CUP PO SCH (21:00)
[2017-02-14] MEDS ORDERED: FAMOTIDINE 20 MG TAB PO SCH (09:00)
[2017-02-14] MEDS ORDERED: FUROSEMIDE 20 MG TAB PO SCH (09:00)
[2017-02-14] MEDS ORDERED: LOSARTAN 50 MG TAB PO SCH (09:00)
[2017-02-14] MEDS ORDERED: METOPROLOL (XL) 50 MG TAB PO SCH (09:00)
[2017-02-14] MEDS ORDERED: ASPIRIN (EC) 81 MG TAB PO SCH (09:00)
== END 2017-02-13 18:45 | DRG 291 ==
LOC: E/R 12:27 → TEL 14:53
PROVIDERS: ADMIT Internal Medicine; ATTEND Internal Medicine
PROC: 5A1D60Z (ICD-10-PCS; principal; 2017-01-31)
DX: I13.2 Hypertensive heart and chronic kidney disease with heart failure and with stage 5 chronic kidney disease, or end stage renal disease (principal); N18.6 End stage renal disease; Z99.81 Dependence on supplemental oxygen; D69.6 Thrombocytopenia, unspecified; F03.90 Unspecified dementia, unspecified severity, without behavioral disturbance, psychotic disturbance, mood disturbance, and anxiety; J44.9 Chronic obstructive pulmonary disease, unspecified; I50.23 Acute on chronic systolic (congestive) heart failure; Z99.2 Dependence on renal dialysis; I25.5 Ischemic cardiomyopathy; E78.5 Hyperlipidemia, unspecified; I48.2 Chronic atrial fibrillation; I25.10 Atherosclerotic heart disease of native coronary artery without angina pectoris; G89.29 Other chronic pain; R09.02 Hypoxemia; Z91.81 History of falling; D64.9 Anemia, unspecified; S09.90XD Unspecified injury of head, subsequent encounter; W19.XXXD Unspecified fall, subsequent encounter; R79.89 Other specified abnormal findings of blood chemistry; S01.81XD Laceration without foreign body of other part of head, subsequent encounter
CPT/HCPCS: 36415; 36600; 71010; 80048; 80053; 82550; 82553; 82803; 83735; 83880; 84100; 84484; 85025; 87040; 90935; 93005; 93306; 94640; 94664; 96374; 96375; 97110; 97162; J1940; J3370; J3475

== ENCOUNTER 2017-04-16 22:41 | Inpatient (IN) | payer OTHER ==
[~2017-04-16] VITALS: Ht 162.6 cm; Wt 55.9 kg
[~2017-04-16 22:41] MED LIST changes: +ACET325T40 PO; +APIX5TAB PO; +ASPI-664 PO; -BUME0.5T PO; -CARV3.1260 PO; +CARV6.2579 PO; +DILT120C77 PO; +FAMO20TA18 PO; -FURO40TA4 PO; +IPRA3AMP HHN; -LOSA100T7 PO; +LOSA50TA6 PO; -METO-448 PO; +NIT4 SL; -POTA20TA96 PO
--- NOTE | 2017-04-16 23:01 | ERA ---
ER Documentation Chief Complaint Date/Time DATE: 04/16/17 TIME: 22:58 Chief Complaint TREVON RA90 from [facility] for SOB HPI This 81-year-old male was brought in from his snf facility for having apparent difficulty breathing as well as temporary difficulty answering some questions. This was noticed by the patient's daughter who is also accompanied the patient to the emergency room. During the paramedics assessment they found no abnormalities and the patient was satting 96% on his normal [id number]-frbxl oxygen. There is no wheezing audible in the lungs the patient was able to answer their questions. He did have bilateral thoracentesis recently for accumulation of pleural effusions. Is a dialysis patient received dialysis earlier today. The patient himself says that he feels well but is slow to answer questions and may not be a reliable historian. He has a history of dementia. ROS Unobtainable secondary to clinical condition Medications Home Meds Active Scripts Acetaminophen (MAPAP) 325 Mg Tablet, 650 MG PO Q6H Y for PAIN LEVEL 1-3 OR FEVER for 30 Days, TAB Prov:ROHIT SALMON. M.D. 02/13/17 Losartan Potassium* (Losartan Potassium*) 50 Mg Tablet, 25 MG PO DAILY for 30 Days, TAB Prov:ROHIT SALMON. MTaniaD. 02/13/17 Nitroglycerin* (Nitrostat*) 0.4 Mg Tab.subl, 1 TAB SL Q5M Y for CHEST PAIN for 10 Days, #1 BOTTLE Prov:ROHIT SALMON MTaniaDTania 02/13/17 Diltiazem Hcl* (Cardizem CD*) 120 Mg Cap.sr.24h, 120 MG PO DAILY for 30 Days Prov:ROHIT SALMON. MTaniaD. 02/13/17 Carvedilol* (Carvedilol*) 6.25 Mg Tablet, 6.25 MG PO BID for 30 Days, TAB Prov:ROHIT SALMON. MTaniaD. 02/13/17 Apixaban* (Eliquis*) 5 Mg Tablet, 2.5 MG PO BID, #60 TAB Prov:ROHIT SALMON. MTaniaD. 02/13/17 Ipratropium-Albuterol (Ipratropium-Albuterol) 0.5-3 Mg/3 Ml Ampul.neb, 3 ML HHN Q4H RESP THERAPY Y for SHORTNESS OF BREATH for 30 Days Prov:ROHIT SALMON M.D. 02/13/17 Ipratropium-Albuterol (Ipratropium-Albuterol) 0.5-3 Mg/3 Ml Ampul.neb, 3 ML HHN Q8H RESP THERAPY for 30 Days Prov:ROHIT SALMON M.D. 02/13/17 Reported Medications Tramadol Hcl* (Ultram*) 50 Mg Tablet, 50 MG PO Q6H Y for PAIN, TAB 01/31/17 Famotidine* (Famotidine*) 20 Mg Tablet, 20 MG PO DAILY, #30 TAB 01/31/17 Aspirin* (Aspirin* EC) 81 Mg Tablet.dr, 81 MG PO DAILY, TAB 01/31/17 Allergies Allergies: Coded Allergies: Penicillins (Verified Allergy, Unknown, 01/31/17) PMhx/Soc History of Surgery: No Anesthesia Reaction: No Hx Neurological Disorder: Yes (DEMENTIA) Hx Respiratory Disorders: No Hx Cardiac Disorders: Yes (CHF, AFIB, CAD, CARDIOMYOPATHY, HTN) Hx Psychiatric Problems: Yes (dementia) Hx Miscellaneous Medical Probl: Yes (CKD,HEMODALYSIS,FALLS) Hx Alcohol Use: No Hx Substance Use: No Hx Tobacco Use: No (unable to obtain at this time) Smoking Status: Unknown if ever smoked Physical Exam Vitals Vital Signs Date Time Temp Pulse Resp B/P Pulse Ox O2 Delivery O2 Flow Rate FiO2 04/17/17 04:01 99 21 120/95 100 Nasal Cannula 4.0 04/17/17 03:00 96 21 115/99 100 Room Air 4.0 04/17/17 02:40 81 20 115/92 98 Nasal Cannula 4.0 04/17/17 01:09 108 16 115/90 99 Nasal Cannula 3.0 04/16/17 23:00 98 2.0 28 04/16/17 22:55 Nasal Cannula 2 04/16/17 22:50 Nasal Cannula 2.0 04/16/17 22:48 97.7 82 19 122/91 100 Physical Exam Const: [] No distress Head: Atraumatic Eyes: Normal Conjunctiva, EOMI, PRL ENT: Normal External Ears, Nose and Mouth. Slightly dry mucous membranes, breathing with mouth slightly open.. Neck: Full range of motion..~ No meningismus. Resp: Clear to auscultation bilaterally, mild decrease bibasilar breath sounds. No wheezing Cardio: Regular rate and rhythm, no murmurs Abd: Soft, non tender, non distended. Normal bowel sounds Skin: No petechiae or rashes Back: No midline or flank tenderness Ext: No cyanosis, or edema Neur: Awake and alert and oriented 2, moves all 4 extremities, slow to participate with complete neuro exam but cranial nerves II through XII grossly intact Psych: Normal Mood and Affect Result Diagram: 04/17/17 0050 04/16/17 2320 Results 24 hrs Laboratory Tests Test 04/16/17 00:50 04/16/17 23:20 04/17/17 00:50 Urine Color RED Urine Clarity TURBID Urine pH 5.0 Urine Specific Kinzers 1.025 Urine Ketones TRACE Urine Nitrite NEGATIVE Urine Bilirubin NEGATIVE Urine Urobilinogen 1.0 E.U./dL Urine Leukocyte Esterase 2+ Urine Microscopic RBC >200/HPF Urine Microscopic WBC 25-50/HPF Urine Squamous Epithelial Cells FEW Urine Bacteria FEW Urine Hemoglobin 3+ Urine Glucose NEGATIVE% Urine Total Protein 4+ Prothrombin Time 16.2Sec Prothrombin Time Ratio 1.3 INR International Normalized Ratio 1.29 Activated Partial Thromboplast Time 30.2Sec Sodium Level 136mmol/L Potassium Level 4.7mmol/L Chloride Level 103mmol/L Carbon Dioxide Level 25mmol/L Anion Gap 13 Blood Urea Nitrogen 25mg/dl Creatinine 1.95mg/dl Glucose Level 90mg/dl Calcium Level 8.4mg/dl Total Bilirubin 0.2mg/dl Direct Bilirubin 0.00mg/dl Indirect Bilirubin 0.2mg/dl Aspartate Amino Transf (AST/SGOT) 33IU/L Alanine Aminotransferase (ALT/SGPT) 39IU/L Alkaline Phosphatase 184IU/L Troponin I 1.700ng/ml B-Type Natriuretic Peptide 114869AV/ML Total Protein 5.2g/dl Albumin 2.6g/dl Globulin 2.60g/dl Albumin/Globulin Ratio 1.00 White Blood Count 7.210^3/ul Red Blood Count 3.3310^6/ul Hemoglobin 10.3g/dl Hematocrit 33.3% Mean Corpuscular Volume 100.0fl Mean Corpuscular Hemoglobin 30.9pg Mean Corpuscular Hemoglobin Concent 30.9g/dl Red Cell Distribution Width 17.0% Platelet Count 9510^3/UL Mean Platelet Volume 10.7fl Neutrophils % 67.8% Lymphocytes % 17.6% Monocytes % 11.9% Eosinophils % 2.0% Basophils % 0.3% Nucleated Red Blood Cells % 0.7/100WBC Neutrophils # 4.910^3/ul Lymphocytes # 1.310^3/ul Monocytes # 0.910^3/ul Eosinophils # 0.110^3/ul Basophils # 0.010^3/ul Nucleated Red Blood Cells # 0.110^3/ul Current Medications Medications (Trade) Dose Ordered Sig/Kacy Route PRN Reason Start Time Stop Time Status Last Admin Dose Admin Acetaminophen/ Hydrocodone Bitart (Amity (5/325)) 1 tab ONCE ONCE PO 04/16/17 23:30 04/16/17 23:31 DC 04/16/17 23:45 Aspirin (Aspirin) 324 mg ONCE ONCE PO 04/17/17 02:30 04/17/17 02:31 DC 04/17/17 02:38 Heparin Sodium (Porcine) (Heparin (1000 Units/ml)) 4,000 unit ONCE STAT IV 04/17/17 02:18 04/17/17 02:21 DC 04/17/17 02:38 Ondansetron HCl (Zofran Inj) 4 mg ER BRIDGE PRN IV NAUSEA AND/OR VOMITING 04/17/17 03:00 04/17/17 03:27 DC Acetaminophen (Tylenol Tab) 650 mg ER BRIDGE PRN PO MILD PAIN/FEVER 04/17/17 03:00 04/17/17 03:27 DC Acetaminophen (Tylenol Tab) 650 mg Q6H PRN PO PAIN LEVEL 1-3 OR FEVER 04/17/17 03:30 Apixaban (Eliquis) 2.5 mg BID PO 04/17/17 09:00 Aspirin (Halfprin) 81 mg DAILY PO 04/17/17 09:00 Carvedilol (Coreg) 6.25 mg BID PO 04/17/17 09:00 Diltiazem HCl (Cardizem Cd) 120 mg DAILY PO 04/17/17 09:00 Famotidine (Pepcid) 20 mg DAILY PO 04/17/17 09:00 Albuterol/ Ipratropium (Duoneb) 3 ml Q4H RESP THERAPY PRN HHN SHORTNESS OF BREATH 04/17/17 03:30 Albuterol/ Ipratropium (Duoneb) 3 ml Q8H RESP THERAPY HHN 04/17/17 08:00 Losartan Potassium (Cozaar) 25 mg DAILY PO 04/17/17 09:00 Nitroglycerin (Nitroglycerin (Sl Tab) 0.4 Mg) 1 tab Q5M PRN SL CHEST PAIN 04/17/17 03:30 Tramadol HCl (Ultram) 50 mg Q6H PRN PO PAIN 04/17/17 03:30 IV Flush (NS 3 ml) 3 ml PER PROTOCOL IV 04/17/17 03:30 Ondansetron HCl (Zofran Inj) 4 mg Q6H PRN IV NAUSEA AND/OR VOMITING 04/17/17 03:30 Nitroglycerin (Nitroglycerin (Sl Tab) 0.4 Mg) 1 tab Q5M PRN SL CHEST PAIN 04/17/17 03:30 Acetaminophen (Tylenol Tab) 650 mg Q6H PRN PO PAIN LEVEL 1-3 OR FEVER 04/17/17 03:30 Docusate Sodium (Colace) 100 mg Q12H PRN PO CONSTIPATION 04/17/17 03:30 Magnesium Hydroxide (Milk Of Mag) 30 ml DAILY PRN PO CONSTIPATION 04/17/17 03:30 Bisacodyl (Dulcolax Supp) 10 mg DAILY PRN [place] CONSTIPATION 04/17/17 03:30 Famotidine (Pepcid) 20 mg DAILY PO 04/17/17 09:00 Alprazolam (Xanax) 0.25 mg ONCE ONCE PO 04/17/17 04:30 04/17/17 04:30 DC Procedures/MDM NSTEMI with increasing pleural effusion and urinary tract infection.. Patient has a history of myocardial infarction at this hospital. Troponin is usually mildly elevated secondary to his renal dysfunction however 1.7 and his much higher than his baseline of 0.2. Patient denies pain and altered mental status is likely secondary to medical encephalopathy associated with urinary tract infection.. Was given cefepime. He is not given IV fluid as his chest x-ray shows worsening pleural effusion. Patient is remained stable on the monitor and rate controlled A. fib except for 1 mild reading of tachycardia. He is otherwise stable currently. He was given aspirin as well as 4000 units of heparin IV. I spoke with , who will be admitting the patient. She states that she is with the patient from a recent admission at [facility] where he was just discharged. States that he should not be put on a heparin drip as he is easy bleeder and has recently had an elevated troponin. he is being admitted to telemetry for further workup and monitoring. EKG interpretation #1: A. fib with PAC, left axis deviation, rate of 94, mild lateral T-wave flattening, no ST elevations or depressions concerning for acute ischemia, EKG interpretation #2: Atrial fibrillation rate of 90, indeterminate axis, lateral T-wave flattening suspicious for ischemia, no ST elevations or depressions in contiguous leads concerning for acute ischemia ekg monitor interpretation: Atrial fibrillation usually rate controlled. No other arrhythmias except for occasional PAC. Chest x-ray interpretation: Worsening pleural effusion on the right, unable to assess for infiltrates through this, no pneumothorax, no widened mediastinum, no fractures acutely. Departure Diagnosis: Primary Impression: Non-STEMI (non-ST elevated myocardial infarction) Additional Impressions: Pleural effusion CHF (congestive heart failure) UTI (urinary tract infection) Encephalopathy Condition: Serious BRIE LOPEZ DO Apr 16, 2017 23:01
[2017-04-16] MEDS ORDERED: HYDROCODONE/APAP (5/325) TAB PO ONE (23:30)
--- NOTE | 2017-04-16 23:59 | RADRPT ---
PROCEDURE: XR Chest. CLINICAL INDICATION: Chest pain. TECHNIQUE: Single frontal view of the chest. COMPARISON: 02/03/2017. FINDINGS: Right central venous dialysis catheter again seen. Cardiomegaly with atherosclerotic calcifications in the thoracic aorta. Increased bilateral pleural effusions, right greater than left with atelect asis versus airspace disease and bilateral lung bases. Nonspecific tubing overlies the right upper quadrant and the right lung base. Findings may represen t an narrow caliber right lung base chest tube. This is not clear. IMPRESSION: Increased pleural effusions, right greater than left. RPTAT: [facility] Physician Sejal Date Time Electronically viewed and signed by Physician Sejal on 04/16/2017 23:59 RS/
[2017-04-17] VITALS (9 sets, daily range): BP systolic 100–181; BP diastolic 63–117; PULSE 52–119; RESP 17–18; TEMP 97.1; Ht 162.6 cm; Wt 55.9 kg
[2017-04-17 00:01] LABS: INR 1.29; PROTIME 16.2 Sec (12.2-14.2); PT RATIO 1.3
[2017-04-17 00:02] LABS: PARTIAL THROMBOPLASTIN TIME 30.2 Sec (25.0-35.0)
[2017-04-17 00:13] LABS: ALBUMIN 2.6 g/dl (3.3-4.9); BILIRUBIN,INDIRECT 0.2 mg/dl (0-1.1); BILIRUBIN,TOTAL 0.2 mg/dl (0.2-1.3); CALCIUM 8.4 mg/dl (8.4-10.2); CREATININE 1.95 mg/dl (0.61-1.24); POTASSIUM 4.7 mmol/L (3.5-5.1); TOTAL PROTEIN 5.2 g/dl (6.1-8.1)
[2017-04-17 00:34] LABS: TROPONIN-I 1.7 ng/ml (0.00-0.12)
[2017-04-17 00:54] LABS: ADD SCAN DIFF NO
[2017-04-17 00:56] LABS: ABNORMAL IP MESSAGE 1; BASOPHILS % 0.3 % (0.0-2.0); EOSINOPHILS # 0.1 10^3/ul (0.0-0.5); HEMATOCRIT 33.3 % (42.0-52.0); HEMOGLOBIN 10.3 g/dl (14.0-18.0); LYMPHOCYTES # 1.3 10^3/ul (0.8-2.9); LYMPHOCYTES % 17.6 % (15.0-51.0); MEAN CORPUSCULAR HEMOGLOBIN 30.9 pg (29.0-33.0); MEAN CORPUSCULAR HGB CONC 30.9 g/dl (32.0-37.0); MEAN PLATELET VOLUME 10.7 fl (7.4-10.4); MONOCYTE # 0.9 10^3/ul (0.3-0.9); MONOCYTES % 11.9 % (0.0-11.0); NEUTROPHIL # 4.9 10^3/ul (1.6-7.5); NEUTROPHILS % 67.8 % (39.0-77.0); NUCLEATED RED BLOOD CELLS # 0.1 10^3/ul (0.0-0.0); NUCLEATED RED BLOOD CELLS% 0.7 /100WBC (0.0-0.0); PLATELET COUNT 95 10^3/UL (140-415); RED BLOOD COUNT 3.33 10^6/ul (4.70-6.10); WHITE BLOOD COUNT 7.2 10^3/ul (4.8-10.8)
[2017-04-17 02:10] LABS: ADD UMIC YES; UR BLOOD (Dip) 3+ (NEGATIVE); UR CLARITY TURBID (CLEAR); UR GLUCOSE (Dip) NEGATIVE (NEGATIVE); UR KETONES (Dip) TRACE (NEGATIVE); UR LEUKOCYTE ESTERASE (Dip) 2+ (NEGATIVE); UR NITRITE (Dip) NEGATIVE (NEGATIVE); UR TOTAL PROTEIN (Dip) 4+ (NEGATIVE); UR UROBILINOGEN (Dip) 1.0 E.U./dL (0.1-1.0)
[2017-04-17 02:11] LABS: UR COLOR RED (YELLOW)
[2017-04-17 02:13] LABS: UR BILIRUBIN (Dip) NEGATIVE (NEGATIVE)
[2017-04-17] MEDS ORDERED: HEPARIN 1000 UNITS/ML 10 ML INJ IV STA (02:18)
[2017-04-17 02:20] LABS: UR SQUAMOUS EPITHELIAL CELL FEW; URINE RBCS >200 /HPF (0)
[2017-04-17 02:21] LABS: UR BACTERIA FEW
[2017-04-17] MEDS ORDERED: ASPIRIN 81 MG TAB PO ONE (02:30)
[2017-04-17] MEDS ORDERED: ONDANSETRON 4 MG INJ IV PRN ×2 (03:00→03:30)
[2017-04-17] MEDS ORDERED: ACETAMINOPHEN 325 MG TAB PO PRN ×2 (03:00→03:30)
[2017-04-17] MEDS ORDERED: MAGNESIUM HYDROXIDE 30ML CUP PO PRN (03:30)
[2017-04-17] MEDS ORDERED: ALBUTEROL/IPRATROPIUM (NEB) 3 ML AMP HHN PRN (03:30)
[2017-04-17] MEDS ORDERED: BISACODYL 10 MG SUPP PR PRN (03:30)
[2017-04-17] MEDS ORDERED: NITROGLYCERIN (SL) 0.4 MG TAB SL PRN ×2 (03:30)
[2017-04-17] MEDS ORDERED: NACL 0.9% 3 ML SYG IV SCH (03:30)
[2017-04-17] MEDS ORDERED: DOCUSATE SODIUM 100 MG CAP PO PRN (03:30)
[2017-04-17] MEDS ORDERED: ALPRAZOLAM 0.25 MG TAB PO ONE (04:30)
[2017-04-17] MEDS ORDERED: CEFEPIME 1GM/50 ML (PMX) 50 ML IVPB ONE (05:30)
[2017-04-17 06:13] LABS: CK-MB 3.47 ng/ml (0.0-2.4); TROPONIN-I 1.68 ng/ml (0.00-0.12)
[2017-04-17] MEDS ORDERED: IPRATROPIUM (NEB) 0.5 MG/2.5 ML AMP INH STA (07:14)
[2017-04-17] MEDS ORDERED: ALBUTEROL 0.5% (NEB) 2.5 MG/0.5 ML AMP INH STA (07:14)
[2017-04-17] MEDS ORDERED: ASPIRIN (EC) 81 MG TAB PO SCH (09:00)
[2017-04-17] MEDS ORDERED: APIXABAN 5 MG TABLET PO SCH ×2 (09:00→21:00)
[2017-04-17] MEDS: FAMOTIDINE 20 MG TAB PO SCH ×2 (11:15)
[2017-04-17] MEDS: LOSARTAN 50 MG TAB PO SCH (11:17)
[2017-04-17] MEDS: DILTIAZEM (CD) 120 MG CAP PO SCH (11:18)
[2017-04-17] MEDS: ALBUTEROL/IPRATROPIUM (NEB) 3 ML AMP HHN SCH ×3 (12:11→23:37)
[2017-04-17 12:43] LABS: CK-MB 3.95 ng/ml (0.0-2.4); TROPONIN-I 1.68 ng/ml (0.00-0.12)
--- NOTE | 2017-04-17 14:50 | CONS ---
DATE OF ADMISSION: 04/17/2017 DATE OF CONSULTATION: 04/17/2017 REASON FOR CONSULTATION: Positive troponin. REQUESTING PHYSICIAN: Dr. Naik HISTORY OF PRESENT ILLNESS: Mr. Duggan is an 81-year-old male with a history of cardiomyopathy with depressed left ventricular ejection fraction 41% by stress 01/21/2017 with no ischemia at that time, 30 % by most recent echo 2016 with moderate tricuspid regurgitation, diastolic dysfunction, chronic obstructive pulmonary disease, ETOH abuse, tobacco use, end-stage renal disease on dialysis, congestive heart failure, and atrial fibrillation who presents with complaints of shortness of breath. Initially, upon arrival, temperature 97.7, blood pressure 122/91, pulse 82, respiratory rate 19, saturating 100%. The patient's labs revealed white count 7.2, hemoglobin 10.3, platelet count 95. Sodium 136, potassium 4.7, creatinine 1.95, BUN 25, AST 33, ALT 39. Troponin 1.7. BNP of 126,000. INR of 1.29. The patient had a chest x-ray revealing increased pleural effusions, right greater than left. The patient's electrocardiogram revealed atrial fibrillation, rate of 94, normal axis, biphasic abnormalities in the lateral leads, poor R-wave progression across the anterior precordial leads, and borderline anterior Q's. The patient was subsequently admitted to the floor where he has been continued on baseline apixaban, aspirin, given Carvedilol, diltiazem, and Losartan. The patient has had some tachycardia to the mid 100s and most recently has heart rates approximately 100 to the high 90s with elevated systolic blood pressures. The patient, at this time, denies chest pain, states he has ongoing shortness of breath. PAST MEDICAL HISTORY: As above in HPI. MEDICATIONS CURRENTLY IN HOSPITAL: 1. Apixaban 2.5 mg p.o. b.i.d. 2. Aspirin 81 mg daily. 3. Carvedilol 6.25 mg p.o. b.i.d. 4. Diltiazem 120 mg daily. 5. Pepcid 20 mg daily. 6. Cozaar 20 mg daily. 7. Pepcid 20 mg daily. 8. DuoNeb. 9. Cefepime. 10. Tylenol. ALLERGIES: PENICILLIN. SOCIAL HISTORY: Positive history of tobacco, positive history of ETOH abuse. No illicit drug use. FAMILY HISTORY: No history of sudden cardiac or early CAD. REVIEW OF SYSTEMS: As above in HPI. CONSTITUTIONAL: No fevers, chills. PULMONARY: Shortness of breath. CARDIOVASCULAR: Positive troponin, non-ST elevation myocardial infarction. GASTROINTESTINAL: No vomiting. GENITOURINARY: Renal failure. PSYCHIATRIC: Possible psych history. NEUROLOGIC: No documented history of CVA. PHYSICAL EXAMINATION VITAL SIGNS: Temperature of 98.5, blood pressure most recently 145/89, pulse 109, saturating 99% on 3 liters. GENERAL: The patient is alert, awake, complaining of shortness of breath, no chest pain. NECK: JVP approximately 9 cm water. CHEST: Bibasilar crackles. HEART: Irregularly irregular, tachycardic, I/ systolic murmur. ABDOMEN: Positive bowel sounds, soft. EXTREMITIES: Skin breakdown. Difficult to palpate distal pulses bilaterally, posterior tibial. LABORATORIES: Most recently from today, troponin trending from 1.7 to 1.68. Negative CK-MB. IMAGING STUDIES: As above in HPI. No further imaging studies for my review at this time. ECG: As above in HPI, with most recent from today revealing atrial fibrillation , rate of 90, normal axis, lateral biphasic T-wave abnormalities, poor R-wave progression across the precordial leads. No significant change from admitting. IMPRESSION: 1. Positive troponin consistent with non-ST elevation myocardial infarction, likely type 2 in the setting of atrial fibrillation with rapid ventricular response, possible respiratory distress with a negative CK-MB fraction at this time and no chest pain. 2. Cardiomyopathy with decreased left ventricular ejection fraction. 3. Congestive heart failure, systolic, acute on chronic. 4. Abnormal electrocardiogram with lateral biphasic T-wave abnormalities and poor R-wave progression across the precordial leads. 5. Hypertension. 6. Atrial fibrillation on Eliquis. 7. Renal failure. 8. Anemia. 9. Thrombocytopenia. RECOMMENDATIONS: 1. At this time, would maintain the patient on telemetry monitoring to follow rhythm and rate control closely. 2. Continue to trend the patient's cardiac enzymes at this time. 3. We will continue the patient's apixaban and change the patient's aspirin for Plavix to maximize medical management in the setting of recurrent positive troponins, following platelet count closely, and following for any bleeding complications. 4. Continue the patient's current Coreg with up titration to improve overall heart rate and blood pressure control, continue the patient's diltiazem with possible need for further up titration to improve heart rate control. Continue the patient's Cozaar afterload reduction. 5. We will initiate the patient on Lasix for gentle diuresis and follow strict I's and O's and creatinine closely. 6. Continue the patient's antibiotics and follow up all culture data. 7. Continue to trend the patient's cardiac enzymes. 8. Check a fasting lipid panel and initiate lipid-lowering medication as necessary. Thank you for allowing me to take part in the care of this patient. I will continue to follow along very closely with you. Further recommendations will be made as the patient progresses through his inpatient hospital clinical course. Dictated By: SALOMON GRAJEDA/DINH Conf#: [id number] DID#: [id number] CC: SOO NAIK MD;*EndCC* MTDD
--- NOTE | 2017-04-17 16:06 | HP ---
DATE OF ADMISSION: 04/17/2017 ADMITTING PHYSICIAN: Soo Booker MD CONSULTANTS: Dr. Berman, cardiology, Dr. Summers from Nephrology. HISTORY OF PRESENT ILLNESS: This is an 81-year-old male with severe dementia. He is basically not oriented much except to self, severe cardiomyopathy, ejection fraction of 15% with recurrent pleural effusions status post bilateral Pleurx catheter placement, atrial fibrillation chronic, end-stage r enal disease on hemodialysis 3 times a week, severe debility, and protein calorie malnutrition, who was sent over to [facility] per request by his DPOA. The patient has the durable power of extended day teacher, which is a neighbor that has taken durable power of extended day teacher lately, he has been residing at a long term facility for the past couple weeks, according to the notes, has been doing fairly well, he is stable. He has 2 Pleurx catheters, one on the right and one of the left th at is being drained q. weekly for his recurrent pleural effusion resistant to dialysis or diuresis. Patient is extremely debilitated, his prognosis is extremely poor. At this point, he has multiple organ failures including severe congestive heart failure and cardiomyopathy with ejection fraction of 15% and end-stage renal disease, dialysis dependent. Apparently he is in the process of being di scharged from long term facility and the DPOA is again appealing discharge. Yesterday she did request for the patient to go to [facility] for evaluation. In the emergency dep artment, most of the history was lost in translation and it was not available. Therefore, upon pres entation, he was noted to have bilateral pleural effusions, right greater than left. His BNP is meryl vated at 120,000. He has a troponin leak, old versus NSTEMI with a troponin of 1.7. Otherwise the patient himself denies chest pain. He is on 2 liters nasal cannula at rest. He does not exert hims elf at all; he his bedbound and has been pretty much unchanged. Based on the findings, the patient was admitted to telemetry. Today I did obtain records from [place]. Patient had bilateral Pleurx c atheters placed due to recurrent bilateral pleural effusions requiring multiple thoracentesis. His Pleurx catheters are supposed to be drained weekly. This will be done today here in the hospital. It is unclear what his latest troponin was. He had a recent MO versus just demand ischemia given hi s severe cardiomyopathy. His troponins are being trended, patient has been seen by cardiology; Plav ix was added to his regimen. Aspirin was discontinued. I have also obtained medication needs from the long term facility. His medication has been changed significantly. For now, he is on hiren ropriate medication per cardiology. I am holding his Eliquis for now until further clarification as to why it was discontinued as an outpatient. Patient is due for dialysis in the next 24 to 48 hour s. He remains afebrile. White blood cell count is within normal. Finding on chest x-ray consisten t with congestive heart failure exacerbation and not an acute infection. He had a urinalysis which was nonconclusive. Urine culture hopefully is pending for now, no need for antibiotics. Patient is admitted to telemetry while his goals of care, being clarified, he is FULL CODE, but according to t he notes from long term facility there was waiting placement in a board and care. ALLERGIES: PENICILLIN. PAST MEDICAL HISTORY: 1. Includes severe cardiomyopathy, ejection fraction of 15% with combined diastolic and systolic co ngestive heart failure, acute on chronic. 2. Chronic atrial fibrillation. 3. Recurrent bilateral pleural effusions, status post Pleurx catheter placement for outpatient mimi reinoso. 4. End-stage renal disease on hemodialysis. 5. Severe dementia. 6. Hypertension. 7. Coronary artery disease. 8. Status post recent hospitalization at [facility] now with respiratory failure, shock sta te. Cardiac versus septic shock. 9. Chronic hypoxemia on 2 liters nasal cannula at least. 10. Chronic anemia secondary to chronic disease. PAST SURGICAL HISTORY: Status post bilateral Pleurx valve insertion by Dr. David at [facility] on 03/25/2017. REVIEW OF SYSTEMS: Unable to obtain from patient. SOCIAL HISTORY: The patient currently has been bouncing around between long term facility and acute hospitals due to his worsening multiorgan failure. No reported tobacco or alcohol use, at le ast recently. OUTPATIENT MEDICATIONS: At [facility]. 1. Tylenol suppository 650 mg rectally every 6 hours as needed for pain. 2. Digoxin 125 mcg p.o. on Tuesday, Tuesday and Tuesday. 3. Colace 100 mg p.o. twice daily. 4. Dulcolax 10 mg rectally q.48h as needed for constipation. 5. DuoNeb 1 dose inhaled every 8 hours as needed for shortness of breath. 6. Pepcid 20 mg p.o. daily. 7. Metoprolol tartrate 50 mg p.o. b.i.d. 8. Mucinex Allergy 400 mg twice daily for cough. 9. [place] 5/325 one tab p.o. every 4 hours as needed for moderate pain. 10. ____ liquid 30 mL p.o. 3 times a day. 11. Soraya-Sumeet one tablet p.o. once a day. 12. Senna 8.6 mg 2 tablets q.h.s. PHYSICAL EXAMINATION: VITAL SIGNS: Temperature is 98.5, heart rate is 95, varying between 95 and 119. The patient is in atrial fibrillation, which is chronic. Respiratory rate is 20. Latest blood pressure 145/89. Georgie ent is satting 90% on 3 liters nasal cannula. GENERAL: He is alert. He is oriented x1, at best, and this is his baseline, he is in no acute dist ress. He answers "no" to all inquiry regarding ongoing symptoms. He does not have dentures. His d iet per long term facility has been pureed, which will be adjusted here. HEENT: Pupils are equally round and reactive to light. Extraocular muscles are intact. Anicteric sclerae. NECK: No JVD, no thyromegaly. Again, the patient has no teeth. HEART: Irregularly irregular. LUNGS: Decreased breath sounds bilaterally, right more so than left. ABDOMEN: Soft, nontender, nondistended. CHEST WALL: He has 2 Pleurx catheters, 1 on the right, 1 on the left in place with dressing in plac e. EXTREMITIES: No clubbing or cyanosis. Patient is noted to have +2 edema up to the knees. NEUROLOGIC: Very limited interaction. Patient again is significantly demented, pleasantly so, movi ng all 4 extremities, significantly cachectic and frail. LABORATORY DATA: White blood cell count 7.2, hemoglobin 10.3, hematocrit 33.3, platelet count of 95 . Chemistry with a sodium of 136, potassium 4.7, chloride 103, bicarbonate 25, BUN 25, creatinine 1 .95, glucose of 90, calcium of 8.4, alkaline phosphatase 184. Troponin is 1.680. BNP is 126,000, t otal protein 5.2, albumin of 2.6. INR is 1.29, PT 30.2, PTT is 16.2. Urinalysis turbid, 2+ leukocy te esterase, negative nitrites, few bacteria, more RBCs and just a few white blood cells. EKG: Patient shows to have atrial fibrillation, no ST or T-wave abnormalities. RADIOLOGICAL DATA: Chest x-ray does show increased pleural effusion, right greater than left, and a lso bilateral Pleurx catheters in place. ASSESSMENT AND PLAN: This is an 81-year-old male with: 1. Bilateral pleural effusion, recurrent secondary to severe cardiomyopathy, congestive heart failu re which is failing medical treatment basically. Patient is moribund. He has a poor prognosis. 2. Status post bilateral Pleurx catheter placement. Therefore, these will be drained today for pal liative supportive care to relieve the bilateral effusions. He already went to dialysis yesterday. His next dialysis is due Tuesday. Dr. Summers has been consulted. The rest of his electrolytes are stable. He is on carvedilol per cardiology and we are adjusting Cardizem at this point for heart ra te control. Patient is hypertensive here with systolic in the 80s. He is also on an ARB. Continue with supplemental oxygen 2 to 4 liters nasal cannula for now. Patient is on telemetry. He already had echocardiogram done at [place]. Apparently his ejection fraction is now 15%-it was 30% prior. Further volume management per dialysis. 3. Elevated troponin with no coronary artery disease. Appreciate cardiology evaluation. We will k eep trending the troponins. The patient denies chest pain. He has been started on Plavix, which wi ll be continued. Beta blockers are in place. 4. End-stage renal disease on hemodialysis. Patient's next dialysis is actually this coming , therefore in [address] Summers has been consulted in case the patient needs an earlier dialysis. 5. Chronic atrial fibrillation, with rapid ventricular rate, sometimes today, likely related to his respiratory distress. His carvedilol and Cardizem has been resumed here. Apparently as an outpati ent, he was on digoxin, will reevaluate if patient needs it resumed, will discuss with cardiology. For now I am holding his Eliquis, which has been discontinued as an outpatient until we clarifying t he goals of care and the reason why it was discontinued. The patient has [address] cathe[address] in plac e and there is still concern for bleeding, I am guessing. 6. Hypertension. The patient ____ and Diltiazem. 7. Moderate to severe dementia. At this point, the patient has a very poor short-term memory. He cannot really express his needs. He does not even communicate his symptoms effectively. He is comp letely dependent on his DPOA, Fabiola Traylor for decision making 8. Dysphagia per long term facility report, the patient also does not have a denture, therefo re has no teeth. His diet will be adjusted. 9. Chronic pain. Apparently, patient has been on [place] as needed for pain, as an outpatient, which will be resumed. 10. Prophylaxis. For now we will hold off the Eliquis. The patient got a dose this morning alread y, until we figure out goals of care. Continue Pepcid for GI prophylaxis. DISPOSITION: The patient has been admitted to telemetry today. His Pleurx catheter will be trained to relieve the bilateral pleural effusions. Dr. Berman from cardiology is following and Dr. Summers has been consulted. Dictated By: SOO TAMAYO/DINH Conf#: [id number] DID#: [id number]
[2017-04-17] MEDS ORDERED: FUROSEMIDE 20 MG INJ IV SCH (18:00)
--- NOTE | 2017-04-17 20:10 | RADRPT ---
PROCEDURE: XR Chest. CLINICAL INDICATION: Respiratory distress. Status post pleural effusion catheter drainage TECHNIQUE: AP view of the chest was performed. COMPARISON: April 16, 2017 FINDINGS: The previously seen bilateral pleural effusions have been successfully aspirated. No pneumothorax. Moderate cardiomegaly and a right dual lumen central venous catheter are stable. There are likely bilateral, small caliber chest tube present. Osteopenia is again noted. IMPRESSION: Successful aspiration of bilateral pleural effusions. No pneumothorax. Stable moderate cardiomegal y and a right central venous catheter. Small caliber bilateral chest tubes are likely present. RPTAT: QQ. .Cristina Myles MD, MD Date Time Electronically viewed and signed by .Cristina Myles MD, MD on 04/17/2017 20:09 .F/
[2017-04-17] MEDS: ATORVASTATIN 40 MG TAB PO SCH (20:34)
[2017-04-17 20:57] LABS: CK-MB 3.29 ng/ml (0.0-2.4); TROPONIN-I 1.44 ng/ml (0.00-0.12)
--- NOTE | 2017-04-17 22:24 | CONS ---
DATE OF ADMISSION: 04/17/2017 DATE OF CONSULTATION: 04/17/2017 REFERRING PHYSICIAN: Dr. Naik TYPE OF CONSULTATION: Nephrology. REASON FOR CONSULTATION: Maintenance hemodialysis in a chronic dialysis patient who presented with acute fluid overload and non-ST elevation myocardial infarction. HISTORY OF PRESENT ILLNESS: This is an 81-year-old male with a past medical history of severe demen tia, severe ischemic cardiomyopathy with ejection fraction 15% with a recurrent pleural effusions st atus post bilateral PleurX catheter placement, atrial fibrillation, chronic end-stage renal disease on hemodialysis 3 times a week at the [facility] on a Tuesday, , and Tuesday ; severe protein calorie malnutrition, and severe debility who was sent to the [facility] for a request by his DPOA. The patient's DPOA is a neighbor who has taken durable power of petrologist lately. The patient has been residing at the [facility] facility and he was sent to [facility] because of shortness of breath and was found to have a non-ST elevat ion myocardial infarction with a troponin of 1.7. The patient denies any chest pain. The patient h as been on 2 liters nasal cannula and he has a bilateral PleurX catheter placement for his recurrent pleural effusions, right greater than left. The patient is currently FULL CODE. The patient, acco rding to the notes from the [facility] facility there, was waiting for placement in a board and care. ALLERGIES: PENICILLIN. PAST MEDICAL HISTORY: Includes: 1. Severe cardiomyopathy, ejection fraction 15%, with a combined diastolic and systolic heart failu re, acute on chronic. 2. Chronic atrial fibrillation. 3. Recurrent bilateral pleural effusion, status post PleurX catheter placement for outpatient drain age. 4. End-stage renal disease on hemodialysis 3 times a week. 5. Severe dementia. 6. Hypertension. 7. Coronary artery disease. 8. Status post recent hospitalizations at [facility] with respiratory failure and cardiac versus septic shock. 9. Chronic hypoxemia on a 2 liter nasal cannula. 10. Chronic anemia secondary chronic disease. PAST SURGICAL HISTORY: History of bilateral PleurX catheters by Dr. David at the [facility] on 03/25/2017. REVIEW OF SYSTEMS: Unable to obtain from the patient. SOCIAL HISTORY: The patient is currently bed bound. He lives at the [facility] facility and h as multiple recurrent hospitalizations due to the worsening multiorgan failure. No reported smoking , alcohol or at least recently. PHYSICAL EXAMINATION: VITAL SIGNS: Temperature 98.5, heart rate 95, blood pressure is 145/85, respiratory rate 20, satura tion is 90% to 92% on 3 liters nasal cannula. GENERAL: The patient is alert, oriented x1. He has baseline severe dementia. No acute distress. HEENT: Pupils are equally round and reactive to light. Extraocular muscles are intact. Anicteric sclerae. NECK: Supple. No JVD, no lymphadenopathy, no thyromegaly. HEART: S1, S2. Irregularly irregular. LUNGS: Decreased breath sounds bilaterally. The patient has bilateral basilar rales, right greater than left. CHEST WALL: The patient has 2 PleurX catheters, one on the right, one on the left with a dressing i n place. EXTREMITIES: No clubbing, cyanosis. He has a 2+ lower extremity edema up to the knees. NEUROLOGICAL: Very limited interaction. The patient is severely demented. Moving all 4 extremitie s. Significantly cachectic and frail. LABORATORY DATA/DIAGNOSTIC IMAGIN. EKG shows atrial fibrillation. No ST-T wave changes. 2. Chest x-ray showed increased pleural effusions, right greater than left. Also has bilateral Ple urX catheters in place. 3. WBC count 7.2, hemoglobin 10.3, platelet count 195. Sodium 136, potassium 4.7, chloride 103, bi carbonate 25, BUN 25, creatinine 1.9, glucose 90, calcium 8.4, alkaline phosphatase 184. Troponin 1 .680. BNP 126,000. Total protein 5.2, albumin 2.6. INR 1.29. Urinalysis is mild urinary tract in fection. IMPRESSION: This is an 81-year-old male with multiple comorbidities who is currently a skilled nurs ing resident, has been admitted to the [facility] for: 1. Acute non-ST elevation myocardial infarction. 2. End-stage renal disease on hemodialysis 3 times a week. 3. Bilateral pleural effusion causing fluid overload, right greater than left, status post bilatera l PleurX catheter placement by Dr. David at the [facility]. 4. Hypertension. 5. Hyperlipidemia. 6. 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 7. Coronary artery disease. 8. Chronic atrial fibrillation. 9. 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 PLAN: Thank you, Dr. Naik, for this consultation. The patient currently seen in the telemetry unit . He will be followed up along with you. Plan is to do: 1. Hemodialysis tomorrow with ultrafiltration possibly removal of approximately 2 to 2.5 liters of fluid. 2. Continue the other home medications. 3. Cardiology consult, Dr. Darryl Berman, has been consulted to see patient. 4. The patient has multiple comorbidities. His DPOA is his neighbor and she wants to continue the hemodialysis. I had a discussion, so we will continue his hemodialysis maintenance. Currently is o n Tuesday, Tuesday, Tuesday schedule while he is being in the hospital. His outpatient dialysis puja edule at the [facility] is Tuesday, , Tuesday. 5. The patient is currently seen in the telemetry floor. He will be followed up along with the [facility] service and cardiology service. Total time spent in this patient consultation making assessment and plan, communicating with the patty tanner who is currently severely demented, and also communicated with the nursing staff took more than 60 minutes. Dictated By: MACI ASHLEY MD, KP/DINH Conf#: [id number] DID#: [id number] CC: SOO NAIK MD;*EndCC*
[2017-04-18] VITALS (15 sets, daily range): BP systolic 81–125; BP diastolic 50–76; PULSE 40–110; RESP 17–20
[2017-04-18 01:51] LABS: CK-MB 3.73 ng/ml (0.0-2.4); TROPONIN-I 1.22 ng/ml (0.00-0.12)
[2017-04-18 06:52] LABS: ADD SCAN DIFF NO
[2017-04-18 06:58] LABS: BASOPHILS % 0.1 % (0.0-2.0); EOSINOPHILS # 0.1 10^3/ul (0.0-0.5); EOSINOPHILS % 0.7 % (0.0-7.0); HEMOGLOBIN 10.6 g/dl (14.0-18.0); LYMPHOCYTES # 0.6 10^3/ul (0.8-2.9); LYMPHOCYTES % 6.3 % (15.0-51.0); MEAN CORPUSCULAR HEMOGLOBIN 31.2 pg (29.0-33.0); MEAN CORPUSCULAR HGB CONC 31.2 g/dl (32.0-37.0); MEAN PLATELET VOLUME 11.3 fl (7.4-10.4); MONOCYTE # 0.4 10^3/ul (0.3-0.9); MONOCYTES % 4.2 % (0.0-11.0); NEUTROPHIL # 8.8 10^3/ul (1.6-7.5); NEUTROPHILS % 88.4 % (39.0-77.0); NUCLEATED RED BLOOD CELLS # 0.1 10^3/ul (0.0-0.0); NUCLEATED RED BLOOD CELLS% 0.5 /100WBC (0.0-0.0); PLATELET COUNT 114 10^3/UL (140-415); RED CELL DISTRIBUTION WIDTH 17.9 % (11.5-14.5)
[2017-04-18 07:22] LABS: ALBUMIN 2.3 g/dl (3.3-4.9); ALBUMIN/GLOBULIN RATIO 0.95; BILIRUBIN,INDIRECT 0.3 mg/dl (0-1.1); BILIRUBIN,TOTAL 0.3 mg/dl (0.2-1.3); CALCIUM 8.4 mg/dl (8.4-10.2); CHOL/HDL RATIO 2.6 RATIO; CREATININE 2.31 mg/dl (0.61-1.24); MAGNESIUM 2.1 mg/dl (1.7-2.5); POTASSIUM 5.3 mmol/L (3.5-5.1); TOTAL PROTEIN 4.7 g/dl (6.1-8.1)
[2017-04-18] MEDS: ALBUTEROL/IPRATROPIUM (NEB) 3 ML AMP HHN SCH ×2 (08:02→16:49)
[2017-04-18] MEDS: CLOPIDOGREL 75 MG TAB PO SCH (08:59)
[2017-04-18] MEDS: FAMOTIDINE 20 MG TAB PO SCH ×2 (09:00→09:04)
[2017-04-18] MEDS: DILTIAZEM (CD) 120 MG CAP PO SCH (09:00)
[2017-04-18] MEDS: LOSARTAN 50 MG TAB PO SCH (09:00)
--- NOTE | 2017-04-18 13:54 | PN ---
Date/Time of Note Date/Time of Note DATE: 04/18/17 TIME: 13:38 Assessment/Plan VTE Prophylaxis VTE Prophylaxis Intervention: other (Eliquis ) Lines/Catheters [facility] [place] Urinary Cath still in place: No Assessment/Plan Assessment/Plan 81-year-old male with: 1. Bilateral pleural effusion, recurrent secondary to severe cardiomyopathy, diastolic and severe systolic congestive heart failure which is failing medical treatment basically, s/p bilateral Pleurx catheter placement. S/p drainage of bilateral pleural effusion and CXR today with resolved effusions Continue with supplemental oxygen 2 to 4 liters nasal cannula for now. 2. Elevated troponin with known coronary artery disease. Denies chest pain Appreciate cardiology evaluation. Medical management, continue Plavix. 3. End-stage renal disease on hemodialysis. Patient scheduled for HD today Dr. Summers following 4. Chronic atrial fibrillation, with rapid ventricular rate, sometimes today, likely related to his respiratory distress. Continue Carvedilol and Cardizem as tolerated Appreciate cardiology recommendations Should go back on eliquis unless contraindicated, will clarify with DPOA. 5. Hypertension. Continue current meds. 6. Moderate to severe dementia. Very poor short-term memory. He cannot really express his needs. He does not even communicate his symptoms effectively. He is completely dependent on his DPOA, Fabiola Traylor for decision making 7. Dysphagia per longterm facility report, the patient also does not have dentures, and on Puree diet. 8. Chronic pain. [place] prn 9. GNR UTI, awaiting sensitivities, given allergies, will give cipro while waiting. Prophylaxis: Eliquis may be resumed and continue Pepcid for GI prophylaxis. DISPOSITION: s/p successful drainage of PleurX valves Dr. Berman and Dr. Summers following . Patient is moribund. Poor overall prognosis. Subjective 24 Hr Interval Summary Free Text/Dictation Patient sleeping, easily arousable and pleasant Remains stable. Occasional Bradycardia to 40s? on tele but in A fib... Afebrile Exam/Review of Systems Vital Signs Vitals Vital Signs Date Time Temp Pulse Resp B/P Pulse Ox O2 Delivery O2 Flow Rate FiO2 04/18/17 12:18 61 04/18/17 11:07 97.9 18 111/63 97 04/18/17 08:02 3.0 04/18/17 08:02 Nasal Cannula 6/11/17 07:54 36 Intake and Output 04/17/17 04/17/17 04/18/17 15:00 23:00 07:00 Intake Total 400 ml 120 ml Output Total 3150 ml Balance -2750 ml 120 ml Exam Constitutional: alert (not oriented ), frail Respiratory: diminished breath sounds (bases ), normal air movement Cardiovascular: irregular rhythm (A fib controlled ) Gastrointestinal: non-tender, soft Musculoskeletal: muscle tone (poor), nl extremities to inspection Extremities: normal pulses 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, confused, lethargic Results Result Diagram: 04/18/17 0600 04/18/17 0600 Results 24 hrs Laboratory Tests Test 04/17/17 20:15 04/18/17 00:54 04/18/17 06:00 Creatine Kinase 37 95 Creatine Kinase Index 8.9 3.9 Creatinine Kinase MB (Mass) 3.29 H 3.73 H Troponin I 1.440 *H 1.220 *H White Blood Count 10.0 # Red Blood Count 3.40 L Hemoglobin 10.6 L Hematocrit 34.0 L Mean Corpuscular Volume 100.0 Mean Corpuscular Hemoglobin 31.2 Mean Corpuscular Hemoglobin Concent 31.2 L Red Cell Distribution Width 17.9 H Platelet Count 114 L Mean Platelet Volume 11.3 H Neutrophils % 88.4 H Lymphocytes % 6.3 L Monocytes % 4.2 Eosinophils % 0.7 Basophils % 0.1 Nucleated Red Blood Cells % 0.5 H Neutrophils # 8.8 H Lymphocytes # 0.6 L Monocytes # 0.4 Eosinophils # 0.1 Basophils # 0.0 Nucleated Red Blood Cells # 0.1 H Sodium Level 137 Potassium Level 5.3 H Chloride Level 104 Carbon Dioxide Level 27 Anion Gap 11 Blood Urea Nitrogen 37 #H Creatinine 2.31 H Glucose Level 91 Calcium Level 8.4 Magnesium Level 2.1 Total Bilirubin 0.3 Direct Bilirubin 0.00 Indirect Bilirubin 0.3 Aspartate Amino Transf (AST/SGOT) 25 Alanine Aminotransferase (ALT/SGPT) 36 Alkaline Phosphatase 147 H Total Protein 4.7 L Albumin 2.3 L Globulin 2.40 Albumin/Globulin Ratio 0.95 Triglycerides Level 65 Cholesterol Level 105 LDL Cholesterol, Calculated 52 HDL Cholesterol 40 Cholesterol/HDL Ratio 2.6 Medications Medications Current Medications Acetaminophen (Tylenol Tab) 650 mg Q6H PRN PO PAIN LEVEL 1-3 OR FEVER; Start at 03:30 Diltiazem HCl (Cardizem Cd) 120 mg DAILY PO Last administered on 04/18/17 09: 00; Admin Dose 120 MG; Start 04/17/17 at 09:00 Famotidine (Pepcid) 20 mg DAILY PO Last administered on 04/18/17 09:04; Admin Dose 20 MG; Start 04/17/17 at 09:00 Losartan Potassium (Cozaar) 25 mg DAILY PO Last administered on 04/18/17 09:00 ; Admin Dose 25 MG; Start 04/17/17 at 09:00 Tramadol HCl (Ultram) 50 mg Q6H PRN PO PAIN; Start 04/17/17 at 03:30 Ondansetron HCl (Zofran Inj) 4 mg Q6H PRN IV NAUSEA AND/OR VOMITING; Start 09/23 at 03:30 Nitroglycerin (Nitroglycerin (Sl Tab) 0.4 Mg) 1 tab Q5M PRN SL CHEST PAIN; Start 04/17/17 at 03:30 Acetaminophen (Tylenol Tab) 650 mg Q6H PRN PO PAIN LEVEL 1-3 OR FEVER; Start at 03:30 Docusate Sodium (Colace) 100 mg Q12H PRN PO CONSTIPATION; Start 04/17/17 at 03: 30 Magnesium Hydroxide (Milk Of Mag) 30 ml DAILY PRN PO CONSTIPATION; Start at 03:30 Bisacodyl (Dulcolax Supp) 10 mg DAILY PRN [place] CONSTIPATION; Start 04/17/17 at 03 :30 Famotidine (Pepcid) 20 mg DAILY PO ; Start 04/17/17 at 09:00 Carvedilol (Coreg) 12.5 mg BID PO Last administered on 04/18/17 09:01; Admin Dose 12.5 MG; Start 04/17/17 at 21:00 Clopidogrel Bisulfate (plaVIX) 75 mg DAILY PO Last administered on 04/18/17 08 :59; Admin Dose 75 MG; Start 04/18/17 at 09:00 Atorvastatin Calcium (Lipitor) 40 mg HS PO Last administered on 04/17/17 20:34 ; Admin Dose 40 MG; Start 04/17/17 at 21:00 SOO NAIK Apr 18, 2017 13:51
--- NOTE | 2017-04-18 14:02 | RADRPT ---
Vent Rate: 75 bpm RR Interval: 0 msec RI Interval: 0 msec QRS Duration: 104 msec QT Interval: 380 msec QTC Interval: 424 msec P-R-T [place]: 0 - -9 - 163 degrees Atrial fibrillation Inferior infarct , age undetermined ST amp; T wave abnormality, consider lateral ischemia or digitalis effect Abnormal ECG Electronically Signed By: Dirk Pro [id number]
[2017-04-18] MEDS: CIPROFLOXACIN 400MG/D5W 200 ML IVPB SCH (14:39)
--- NOTE | 2017-04-18 16:10 | CONS ---
Date/Time of Note Date/Time of Note DATE: 04/18/17 TIME: 16:01 Assessment/Plan Assessment/Plan Chief Complaint/Hosp Course IMPRESSION: 1. Positive troponin consistent with non-ST elevation myocardial infarction, likely type 2 in the setting of atrial fibrillation with rapid ventricular response, possible respiratory distress with a negative CK-MB fraction at this time and no chest pain.-decreasing enzymes currently 2. Cardiomyopathy with decreased left ventricular ejection fraction. 3. Congestive heart failure, systolic, acute on chronic. 4. Abnormal electrocardiogram with lateral biphasic T-wave abnormalities and poor R-wave progression across the precordial leads. 5. Hypertension. 6. Renal failure. 7. Anemia. 8. Thrombocytopenia-somewhat improved 9.pleural effusions- with pleur x catheters bilateral 10. bradycradia/paf rec: -Tele -serial ecg's -resume eliquis -continue plavix -agree with d/c dilt given bradycardia -continue statin -continue pleur x drainage of effusions -continue afterload reduction of losartan -hd for volume removal Problems: Consultation Date/Type/Reason Admit Date/Time Apr 17, 2017 at 02:32 Initial Consult Date 04/17/2017 Type of Consultation: cardiology Reason for Consultation positive troponin Referring Provider: SOO NAIK Exam/Review of Systems Vital Signs Vitals Vital Signs Date Time Temp Pulse Resp B/P Pulse Ox O2 Delivery O2 Flow Rate FiO2 04/18/17 15:11 98.1 51 18 81/50 94 04/18/17 08:02 3.0 04/18/17 08:02 Nasal Cannula 04/17/17 07:54 36 Intake and Output 04/17/17 04/17/17 04/18/17 15:00 23:00 07:00 Intake Total 400 ml 120 ml Output Total 3150 ml Balance -2750 ml 120 ml Exam Review of Systems: CONSTITUTIONAL: No fevers, chills. PULMONARY: No sob CARDIOVASCULAR: No chest pain/palpitations GASTROINTESTINAL: No nausea/vomiting. GENITOURINARY: No hematuria/dysuria. MUSCULOSKELETAL: No myagias/arthalgias. PSYCHIATRIC: The patient denies depression. NEUROLOGIC: lethargic Constitutional: alert Head: normocephalic ENMT: mucosa pink and moist Neck: jvd (9 cm water), supple Respiratory: diminished breath sounds (at bases/B) Cardiovascular: regular rate and rhythm Gastrointestinal: non-tender, soft Musculoskeletal: muscle tone (normal) Extremities: edema (none) Neurological: lethargic Results Result Diagram: 04/18/17 0600 04/18/17 0600 Results 24 hrs Laboratory Tests Test 04/17/17 20:15 04/18/17 00:54 04/18/17 06:00 Creatine Kinase 37 95 Creatine Kinase Index 8.9 3.9 Creatinine Kinase MB (Mass) 3.29 H 3.73 H Troponin I 1.440 *H 1.220 *H White Blood Count 10.0 # Red Blood Count 3.40 L Hemoglobin 10.6 L Hematocrit 34.0 L Mean Corpuscular Volume 100.0 Mean Corpuscular Hemoglobin 31.2 Mean Corpuscular Hemoglobin Concent 31.2 L Red Cell Distribution Width 17.9 H Platelet Count 114 L Mean Platelet Volume 11.3 H Neutrophils % 88.4 H Lymphocytes % 6.3 L Monocytes % 4.2 Eosinophils % 0.7 Basophils % 0.1 Nucleated Red Blood Cells % 0.5 H Neutrophils # 8.8 H Lymphocytes # 0.6 L Monocytes # 0.4 Eosinophils # 0.1 Basophils # 0.0 Nucleated Red Blood Cells # 0.1 H Sodium Level 137 Potassium Level 5.3 H Chloride Level 104 Carbon Dioxide Level 27 Anion Gap 11 Blood Urea Nitrogen 37 #H Creatinine 2.31 H Glucose Level 91 Calcium Level 8.4 Magnesium Level 2.1 Total Bilirubin 0.3 Direct Bilirubin 0.00 Indirect Bilirubin 0.3 Aspartate Amino Transf (AST/SGOT) 25 Alanine Aminotransferase (ALT/SGPT) 36 Alkaline Phosphatase 147 H Total Protein 4.7 L Albumin 2.3 L Globulin 2.40 Albumin/Globulin Ratio 0.95 Triglycerides Level 65 Cholesterol Level 105 LDL Cholesterol, Calculated 52 HDL Cholesterol 40 Cholesterol/HDL Ratio 2.6 Medications Medications Current Medications Acetaminophen (Tylenol Tab) 650 mg Q6H PRN PO PAIN LEVEL 1-3 OR FEVER; Start at 03:30 Famotidine (Pepcid) 20 mg DAILY PO Last administered on 04/18/17 09:04; Admin Dose 20 MG; Start 04/17/17 at 09:00 Losartan Potassium (Cozaar) 25 mg DAILY PO Last administered on 04/18/17 09:00 ; Admin Dose 25 MG; Start 04/17/17 at 09:00 Tramadol HCl (Ultram) 50 mg Q6H PRN PO PAIN; Start 04/17/17 at 03:30 Ondansetron HCl (Zofran Inj) 4 mg Q6H PRN IV NAUSEA AND/OR VOMITING; Start 09/23 at 03:30 Nitroglycerin (Nitroglycerin (Sl Tab) 0.4 Mg) 1 tab Q5M PRN SL CHEST PAIN; Start 04/17/17 at 03:30 Acetaminophen (Tylenol Tab) 650 mg Q6H PRN PO PAIN LEVEL 1-3 OR FEVER; Start at 03:30 Docusate Sodium (Colace) 100 mg Q12H PRN PO CONSTIPATION; Start 04/17/17 at 03: 30 Magnesium Hydroxide (Milk Of Mag) 30 ml DAILY PRN PO CONSTIPATION; Start at 03:30 Bisacodyl (Dulcolax Supp) 10 mg DAILY PRN [place] CONSTIPATION; Start 04/17/17 at 03 :30 Famotidine (Pepcid) 20 mg DAILY PO ; Start 04/17/17 at 09:00 Carvedilol (Coreg) 12.5 mg BID PO Last administered on 04/18/17 09:01; Admin Dose 12.5 MG; Start 04/17/17 at 21:00 Clopidogrel Bisulfate (plaVIX) 75 mg DAILY PO Last administered on 04/18/17 08 :59; Admin Dose 75 MG; Start 04/18/17 at 09:00 Atorvastatin Calcium 40 mg 40 mg HS PO Last administered on 04/17/17 20:34; Admin Dose 40 MG; Start 04/17/17 at 21:00 Ciprofloxacin/ Dextrose (Cipro Ivpb) 200 ml @ 200 mls/hr Q24H IVPB Last administered on 04/18/17 14:39; Admin Dose 200 MLS/HR; Start 04/18/17 at 14:00 SALOMON ROPER Apr 18, 2017 16:10
[2017-04-18] MEDS ORDERED: HYDROCODONE/APAP (5/325) TAB PO PRN (19:00)
--- NOTE | 2017-04-18 19:44 | CONS ---
Date/Time of Note Date/Time of Note DATE: 04/18/17 TIME: 19:41 Assessment/Plan Assessment/Plan Additional Assessment/Plan 1. Acute non-ST elevation myocardial infarction. 2. End-stage renal disease on hemodialysis 3 times a week. 3. Bilateral pleural effusion causing fluid overload, right greater than left, status post bilateral PleurX catheter placement by Dr. David at the [facility]. 4. Hypertension. 5. Hyperlipidemia. 6. 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 7. Coronary artery disease. 8. Chronic atrial fibrillation. 9. Multiple comorbidities with a poor prognosis and [facility] nursing service. PLAN: today BP has been low systolic 70s, cancelled HD for today will reassess him for HD in AM Midodrine has been ordered for BP support will follow up Consultation Date/Type/Reason Admit Date/Time Apr 17, 2017 at 02:32 Initial Consult Date Type of Consultation: NEPHROLOGY Referring Provider: SOO NAIK 24 HR Interval Summary Free Text/Dictation pt Blood pressure has been very low, pt lethargic Exam/Review of Systems Vital Signs Vitals Vital Signs Date Time Temp Pulse Resp B/P Pulse Ox O2 Delivery O2 Flow Rate FiO2 04/18/17 19:35 98.2 50 19 90/56 96 04/18/17 16:49 Nasal Cannula 3.0 04/17/17 07:54 36 Intake and Output 04/17/17 04/17/17 04/18/17 15:00 23:00 07:00 Intake Total 400 ml 120 ml Output Total 3150 ml Balance -2750 ml 120 ml Exam GENERAL: The patient is alert, oriented x1. He has baseline severe dementia. No acute distress. HEENT: Pupils are equally round and reactive to light. Extraocular muscles are intact. Anicteric sclerae. NECK: Supple. No JVD, no lymphadenopathy, no thyromegaly. HEART: S1, S2. Irregularly irregular. LUNGS: Decreased breath sounds bilaterally. The patient has bilateral basilar rales, right greater than left. CHEST WALL: The patient has 2 PleurX catheters, one on the right, one on the left with a dressing in place. EXTREMITIES: No clubbing, cyanosis. He has a 2+ lower extremity edema up to the knees. NEUROLOGICAL: Very limited interaction. The patient is severely demented. Results Result Diagram: 04/18/17 0600 04/18/17 0600 Results 24 hrs Laboratory Tests Test 04/17/17 20:15 04/18/17 00:54 04/18/17 06:00 Creatine Kinase 37 95 Creatine Kinase Index 8.9 3.9 Creatinine Kinase MB (Mass) 3.29 H 3.73 H Troponin I 1.440 *H 1.220 *H White Blood Count 10.0 # Red Blood Count 3.40 L Hemoglobin 10.6 L Hematocrit 34.0 L Mean Corpuscular Volume 100.0 Mean Corpuscular Hemoglobin 31.2 Mean Corpuscular Hemoglobin Concent 31.2 L Red Cell Distribution Width 17.9 H Platelet Count 114 L Mean Platelet Volume 11.3 H Neutrophils % 88.4 H Lymphocytes % 6.3 L Monocytes % 4.2 Eosinophils % 0.7 Basophils % 0.1 Nucleated Red Blood Cells % 0.5 H Neutrophils # 8.8 H Lymphocytes # 0.6 L Monocytes # 0.4 Eosinophils # 0.1 Basophils # 0.0 Nucleated Red Blood Cells # 0.1 H Sodium Level 137 Potassium Level 5.3 H Chloride Level 104 Carbon Dioxide Level 27 Anion Gap 11 Blood Urea Nitrogen 37 #H Creatinine 2.31 H Glucose Level 91 Calcium Level 8.4 Magnesium Level 2.1 Total Bilirubin 0.3 Direct Bilirubin 0.00 Indirect Bilirubin 0.3 Aspartate Amino Transf (AST/SGOT) 25 Alanine Aminotransferase (ALT/SGPT) 36 Alkaline Phosphatase 147 H Total Protein 4.7 L Albumin 2.3 L Globulin 2.40 Albumin/Globulin Ratio 0.95 Triglycerides Level 65 Cholesterol Level 105 LDL Cholesterol, Calculated 52 HDL Cholesterol 40 Cholesterol/HDL Ratio 2.6 Medications Medications Current Medications Losartan Potassium (Cozaar) 25 mg DAILY PO Last administered on 04/18/17t 09:00 ; Admin Dose 25 MG; Start 04/17/17 at 09:00 Tramadol HCl (Ultram) 50 mg Q6H PRN PO PAIN; Start 04/17/17 at 03:30 Ondansetron HCl (Zofran Inj) 4 mg Q6H PRN IV NAUSEA AND/OR VOMITING; Start 09/23 at 03:30 Nitroglycerin (Nitroglycerin (Sl Tab) 0.4 Mg) 1 tab Q5M PRN SL CHEST PAIN; Start 04/17/17 at 03:30 Acetaminophen (Tylenol Tab) 650 mg Q6H PRN PO PAIN LEVEL 1-3 OR FEVER; Start at 03:30 Docusate Sodium (Colace) 100 mg Q12H PRN PO CONSTIPATION; Start 04/17/17 at 03: 30 Magnesium Hydroxide (Milk Of Mag) 30 ml DAILY PRN PO CONSTIPATION; Start at 03:30 Bisacodyl (Dulcolax Supp) 10 mg DAILY PRN [place] CONSTIPATION; Start 04/17/17 at 03 :30 Famotidine (Pepcid) 20 mg DAILY PO ; Start 04/17/17 at 09:00 Clopidogrel Bisulfate (plaVIX) 75 mg DAILY PO Last administered on 04/18/17 08 :59; Admin Dose 75 MG; Start 04/18/17 at 09:00 Atorvastatin Calcium 40 mg 40 mg HS PO Last administered on 04/17/17 20:34; Admin Dose 40 MG; Start 04/17/17 at 21:00 Ciprofloxacin/ Dextrose (Cipro Ivpb) 200 ml @ 200 mls/hr Q24H IVPB Last administered on 04/18/17 14:39; Admin Dose 200 MLS/HR; Start 04/18/17 at 14:00 Carvedilol (Coreg) 6.25 mg BID PO ; Start 04/18/17 at 21:00 Apixaban (Eliquis) 2.5 mg BID PO ; Start 04/18/17 at 21:00 Acetaminophen/ Hydrocodone Bitart ([place] (5/325)) 1 tab Q4H PRN PO PAIN; Start 04/18/17 at 19:00 MACI ASHLEY MD Apr 18, 2017 19:44
[2017-04-18] MEDS ORDERED: MIDODRINE 5 MG TAB PO ONE (20:00)
[2017-04-18] MEDS: APIXABAN 5 MG TABLET PO SCH (21:36)
[2017-04-18] MEDS: ATORVASTATIN 40 MG TAB PO SCH (21:36)
[2017-04-19] VITALS (20 sets, daily range): BP systolic 90–149; BP diastolic 52–78; PULSE 60–92; RESP 17–21
[2017-04-19] MEDS: ALBUTEROL/IPRATROPIUM (NEB) 3 ML AMP HHN SCH ×3 (00:20→15:55)
[2017-04-19 07:03] LABS: ADD SCAN DIFF NO
[2017-04-19 07:14] LABS: BASOPHILS % 0.1 % (0.0-2.0); EOSINOPHILS # 0.1 10^3/ul (0.0-0.5); EOSINOPHILS % 1.6 % (0.0-7.0); HEMATOCRIT 29.8 % (42.0-52.0); HEMOGLOBIN 9.3 g/dl (14.0-18.0); LYMPHOCYTES % 13.1 % (15.0-51.0); MEAN CORPUSCULAR HGB CONC 31.2 g/dl (32.0-37.0); MEAN CORPUSCULAR VOLUME 99.3 fl (82.0-101.0); MEAN PLATELET VOLUME 11.3 fl (7.4-10.4); MONOCYTE # 0.5 10^3/ul (0.3-0.9); MONOCYTES % 6.3 % (0.0-11.0); NEUTROPHIL # 5.8 10^3/ul (1.6-7.5); NEUTROPHILS % 78.5 % (39.0-77.0); NUCLEATED RED BLOOD CELLS% 0.3 /100WBC (0.0-0.0); PLATELET COUNT 105 10^3/UL (140-415); RED CELL DISTRIBUTION WIDTH 18.3 % (11.5-14.5); WHITE BLOOD COUNT 7.4 10^3/ul (4.8-10.8)
[2017-04-19 07:32] LABS: MAGNESIUM 2.1 mg/dl (1.7-2.5); PHOSPHORUS 4.3 mg/dl (2.5-4.9)
[2017-04-19 07:51] LABS: CALCIUM 8.1 mg/dl (8.4-10.2); CREATININE 2.78 mg/dl (0.61-1.24)
[2017-04-19 07:53] LABS: POTASSIUM 5.2 mmol/L (3.5-5.1)
[2017-04-19] MEDS: MIDODRINE 5 MG TAB PO SCH ×2 (08:49→16:33)
[2017-04-19] MEDS: FAMOTIDINE 20 MG TAB PO SCH (08:49)
[2017-04-19] MEDS: APIXABAN 5 MG TABLET PO SCH ×2 (08:50→21:00)
[2017-04-19] MEDS: CLOPIDOGREL 75 MG TAB PO SCH (08:50)
[2017-04-19] MEDS: LOSARTAN 50 MG TAB PO SCH (08:50)
--- NOTE | 2017-04-19 09:28 | CONS ---
Date/Time of Note Date/Time of Note DATE: 04/19/17 TIME: 09:27 Assessment/Plan Assessment/Plan Additional Assessment/Plan 1. Positive troponin consistent with non-ST elevation myocardial infarction, likely type 2 in the setting of atrial fibrillation with rapid ventricular response, possible respiratory distress with a negative CK-MB fraction at this time and no chest pain.-decreasing enzymes currently - MED RX now 2. Cardiomyopathy with decreased left ventricular ejection fraction- stable urine output. 3. Congestive heart failure, systolic, acute on chronic- con't diuresis. 4. Abnormal electrocardiogram with lateral biphasic T-wave abnormalities and poor R-wave progression across the precordial leads. 5. Hypertension. 6. Renal failure. 7. Anemia. 8. Thrombocytopenia-somewhat improved 9.pleural effusions- with pleur x catheters bilateral 10. bradycradia/paf - a. fib now, rate controlled - no bardy episodes noted. Consultation Date/Type/Reason Admit Date/Time Apr 17, 2017 at 02:32 Initial Consult Date Type of Consultation: NEPHROLOGY Referring Provider: SOO NAIK 24 HR Interval Summary Free Text/Dictation a. fib now, rate controlled - no bardy episodes noted. ROS: No fever, no chills, no nausea, no vomiting, no diarrhea/constipation No recent weight changes No chest pain, no PND, no orthopnea No dizziness, blurred vision No thirst, no heat or cold intolerance *(per nurse) Exam/Review of Systems Vital Signs Vitals Vital Signs Date Time Temp Pulse Resp B/P Pulse Ox O2 Delivery O2 Flow Rate FiO2 04/19/17 08:05 96 3.0 04/19/17 08:04 82 20 Nasal Cannula 04/19/17 07:43 98.1 110/70 04/17/17 07:54 36 Intake and Output 04/18/17 04/18/17 04/19/17 15:00 23:00 07:00 Intake Total 850 ml 500 ml Balance 850 ml 500 ml Exam General: WN/WD/NAD, AOx 0 HEENT: Unicetric/atraumatic/EOMI (does not follow commands) NECK: JVD elevated, no thyromegaly Lymph: no lymphadenopathy HEART: IRR IRREgular with no S3, II/ systolic murmur at apex LUNGS: Coarse sounds ABD: soft, NT, ND, +BS : Intact Neuro: non focal SKIN: chronic changes EXT: trace edema Results Result Diagram: 04/19/17 0610 04/19/17 0610 Results 24 hrs Laboratory Tests Test 04/19/17 06:10 White Blood Count 7.4 # Red Blood Count 3.00 L Hemoglobin 9.3 L Hematocrit 29.8 L Mean Corpuscular Volume 99.3 Mean Corpuscular Hemoglobin 31.0 Mean Corpuscular Hemoglobin Concent 31.2 L Red Cell Distribution Width 18.3 H Platelet Count 105 L Mean Platelet Volume 11.3 H Neutrophils % 78.5 H Lymphocytes % 13.1 L Monocytes % 6.3 Eosinophils % 1.6 Basophils % 0.1 Nucleated Red Blood Cells % 0.3 H Neutrophils # 5.8 Lymphocytes # 1.0 Monocytes # 0.5 Eosinophils # 0.1 Basophils # 0.0 Nucleated Red Blood Cells # 0.0 Sodium Level 134 L Potassium Level 5.2 H Chloride Level 101 Carbon Dioxide Level 27 Anion Gap 11 Blood Urea Nitrogen 44 H Creatinine 2.78 H Glucose Level 101 Calcium Level 8.1 L Phosphorus Level 4.3 Magnesium Level 2.1 Medications Medications Current Medications Losartan Potassium (Cozaar) 25 mg DAILY PO Last administered on 04/18/17t 09:00 ; Admin Dose 25 MG; Start 04/17/17 at 09:00 Tramadol HCl (Ultram) 50 mg Q6H PRN PO PAIN; Start 04/17/17 at 03:30 Ondansetron HCl (Zofran Inj) 4 mg Q6H PRN IV NAUSEA AND/OR VOMITING; Start 09/23 at 03:30 Nitroglycerin (Nitroglycerin (Sl Tab) 0.4 Mg) 1 tab Q5M PRN SL CHEST PAIN; Start 04/17/17 at 03:30 Acetaminophen (Tylenol Tab) 650 mg Q6H PRN PO PAIN LEVEL 1-3 OR FEVER; Start at 03:30 Docusate Sodium (Colace) 100 mg Q12H PRN PO CONSTIPATION; Start 04/17/17 at 03: 30 Magnesium Hydroxide (Milk Of Mag) 30 ml DAILY PRN PO CONSTIPATION; Start at 03:30 Bisacodyl (Dulcolax Supp) 10 mg DAILY PRN [place] CONSTIPATION; Start 04/17/17 at 03 :30 Famotidine (Pepcid) 20 mg DAILY PO Last administered on 04/19/17 08:49; Admin Dose 20 MG; Start 04/17/17 at 09:00 Clopidogrel Bisulfate (plaVIX) 75 mg DAILY PO Last administered on 04/19/17 08 :50; Admin Dose 75 MG; Start 04/18/17 at 09:00 Atorvastatin Calcium 40 mg 40 mg HS PO Last administered on 04/18/17 21:36; Admin Dose 40 MG; Start 04/17/17 at 21:00 Ciprofloxacin/ Dextrose (Cipro Ivpb) 200 ml @ 200 mls/hr Q24H IVPB Last administered on 04/18/17 14:39; Admin Dose 200 MLS/HR; Start 04/18/17 at 14:00 Carvedilol (Coreg) 6.25 mg BID PO ; Start 04/18/17 at 21:00 Apixaban (Eliquis) 2.5 mg BID PO Last administered on 04/19/17 08:50; Admin Dose 2.5 MG; Start 04/18/17 at 21:00 Acetaminophen/ Hydrocodone Bitart ([place] (5/325)) 1 tab Q4H PRN PO PAIN; Start 04/18/17 at 19:00 Midodrine (Proamatine) 5 mg BID@,17 PO Last administered on 04/19/17 08:49; Admin Dose 5 MG; Start 04/19/17 at 09:00 JULIA MCKNIGHT MD Apr 19, 2017 09:28
--- NOTE | 2017-04-19 10:17 | CONS ---
Date/Time of Note Date/Time of Note DATE: 04/19/17 TIME: 10:08 Assessment/Plan Assessment/Plan Additional Assessment/Plan Called patient's spokesperson, I introduced myself and she hung up on me. She mentioned there is a case management meeting to be scheduled I will be there. Consultation Date/Type/Reason Admit Date/Time Apr 17, 2017 at 02:32 Initial Consult Date Type of Consultation: NEPHROLOGY Referring Provider: SOO NAIK Exam/Review of Systems Vital Signs Vitals Vital Signs Date Time Temp Pulse Resp B/P Pulse Ox O2 Delivery O2 Flow Rate FiO2 04/19/17 08:05 96 3.0 04/19/17 08:04 82 20 Nasal Cannula 04/19/17 07:43 98.1 110/70 04/17/17 07:54 36 Intake and Output 04/18/17 04/18/17 04/19/17 15:00 23:00 07:00 Intake Total 850 ml 500 ml Balance 850 ml 500 ml Results Result Diagram: 04/19/17 0610 04/19/17 0610 Results 24 hrs Laboratory Tests Test 04/19/17 06:10 White Blood Count 7.4 # Red Blood Count 3.00 L Hemoglobin 9.3 L Hematocrit 29.8 L Mean Corpuscular Volume 99.3 Mean Corpuscular Hemoglobin 31.0 Mean Corpuscular Hemoglobin Concent 31.2 L Red Cell Distribution Width 18.3 H Platelet Count 105 L Mean Platelet Volume 11.3 H Neutrophils % 78.5 H Lymphocytes % 13.1 L Monocytes % 6.3 Eosinophils % 1.6 Basophils % 0.1 Nucleated Red Blood Cells % 0.3 H Neutrophils # 5.8 Lymphocytes # 1.0 Monocytes # 0.5 Eosinophils # 0.1 Basophils # 0.0 Nucleated Red Blood Cells # 0.0 Sodium Level 134 L Potassium Level 5.2 H Chloride Level 101 Carbon Dioxide Level 27 Anion Gap 11 Blood Urea Nitrogen 44 H Creatinine 2.78 H Glucose Level 101 Calcium Level 8.1 L Phosphorus Level 4.3 Magnesium Level 2.1 Medications Medications Current Medications Losartan Potassium (Cozaar) 25 mg DAILY PO Last administered on 04/18/17t 09:00 ; Admin Dose 25 MG; Start 04/17/17 at 09:00 Tramadol HCl (Ultram) 50 mg Q6H PRN PO PAIN; Start 04/17/17 at 03:30 Ondansetron HCl (Zofran Inj) 4 mg Q6H PRN IV NAUSEA AND/OR VOMITING; Start 09/23 at 03:30 Nitroglycerin (Nitroglycerin (Sl Tab) 0.4 Mg) 1 tab Q5M PRN SL CHEST PAIN; Start 04/17/17 at 03:30 Acetaminophen (Tylenol Tab) 650 mg Q6H PRN PO PAIN LEVEL 1-3 OR FEVER; Start at 03:30 Docusate Sodium (Colace) 100 mg Q12H PRN PO CONSTIPATION; Start 04/17/17 at 03: 30 Magnesium Hydroxide (Milk Of Mag) 30 ml DAILY PRN PO CONSTIPATION; Start at 03:30 Bisacodyl (Dulcolax Supp) 10 mg DAILY PRN [place] CONSTIPATION; Start 04/17/17 at 03 :30 Famotidine (Pepcid) 20 mg DAILY PO Last administered on 04/19/17 08:49; Admin Dose 20 MG; Start 04/17/17 at 09:00 Clopidogrel Bisulfate (plaVIX) 75 mg DAILY PO Last administered on 04/19/17 08 :50; Admin Dose 75 MG; Start 04/18/17 at 09:00 Atorvastatin Calcium 40 mg 40 mg HS PO Last administered on 04/18/17 21:36; Admin Dose 40 MG; Start 04/17/17 at 21:00 Ciprofloxacin/ Dextrose (Cipro Ivpb) 200 ml @ 200 mls/hr Q24H IVPB Last administered on 04/18/17 14:39; Admin Dose 200 MLS/HR; Start 04/18/17 at 14:00 Carvedilol (Coreg) 6.25 mg BID PO ; Start 04/18/17 at 21:00 Apixaban (Eliquis) 2.5 mg BID PO Last administered on 04/19/17 08:50; Admin Dose 2.5 MG; Start 04/18/17 at 21:00 Acetaminophen/ Hydrocodone Bitart ([place] (5/325)) 1 tab Q4H PRN PO PAIN; Start 04/18/17 at 19:00 Midodrine (Proamatine) 5 mg BID@ PO Last administered on 04/19/17 08:49; Admin Dose 5 MG; Start 04/19/17 at 09:00 ROLAND LEMUS Apr 19, 2017 10:17
--- NOTE | 2017-04-19 10:18 | CONS ---
Date/Time of Note Date/Time of Note DATE: 04/19/17 TIME: 10:17 Assessment/Plan Assessment/Plan Additional Assessment/Plan Full palliative care consultation completed Consultation Date/Type/Reason Admit Date/Time Apr 17, 2017 at 02:32 Type of Consultation: NEPHROLOGY Referring Provider: SOO NAIK Exam/Review of Systems Vital Signs Vitals Vital Signs Date Time Temp Pulse Resp B/P Pulse Ox O2 Delivery O2 Flow Rate FiO2 04/19/17 08:05 96 3.0 04/19/17 08:04 82 20 Nasal Cannula 04/19/17 07:43 98.1 110/70 04/17/17 07:54 36 Intake and Output 04/18/17 04/18/17 04/19/17 15:00 23:00 07:00 Intake Total 850 ml 500 ml Balance 850 ml 500 ml Results Result Diagram: 04/19/17 0610 04/19/17 0610 Results 24 hrs Laboratory Tests Test 04/19/17 06:10 White Blood Count 7.4 # Red Blood Count 3.00 L Hemoglobin 9.3 L Hematocrit 29.8 L Mean Corpuscular Volume 99.3 Mean Corpuscular Hemoglobin 31.0 Mean Corpuscular Hemoglobin Concent 31.2 L Red Cell Distribution Width 18.3 H Platelet Count 105 L Mean Platelet Volume 11.3 H Neutrophils % 78.5 H Lymphocytes % 13.1 L Monocytes % 6.3 Eosinophils % 1.6 Basophils % 0.1 Nucleated Red Blood Cells % 0.3 H Neutrophils # 5.8 Lymphocytes # 1.0 Monocytes # 0.5 Eosinophils # 0.1 Basophils # 0.0 Nucleated Red Blood Cells # 0.0 Sodium Level 134 L Potassium Level 5.2 H Chloride Level 101 Carbon Dioxide Level 27 Anion Gap 11 Blood Urea Nitrogen 44 H Creatinine 2.78 H Glucose Level 101 Calcium Level 8.1 L Phosphorus Level 4.3 Magnesium Level 2.1 Medications Medications Current Medications Losartan Potassium (Cozaar) 25 mg DAILY PO Last administered on 04/18/17t 09:00 ; Admin Dose 25 MG; Start 04/17/17 at 09:00 Tramadol HCl (Ultram) 50 mg Q6H PRN PO PAIN; Start 04/17/17 at 03:30 Ondansetron HCl (Zofran Inj) 4 mg Q6H PRN IV NAUSEA AND/OR VOMITING; Start 09/23 at 03:30 Nitroglycerin (Nitroglycerin (Sl Tab) 0.4 Mg) 1 tab Q5M PRN SL CHEST PAIN; Start 04/17/17 at 03:30 Acetaminophen (Tylenol Tab) 650 mg Q6H PRN PO PAIN LEVEL 1-3 OR FEVER; Start at 03:30 Docusate Sodium (Colace) 100 mg Q12H PRN PO CONSTIPATION; Start 04/17/17 at 03: 30 Magnesium Hydroxide (Milk Of Mag) 30 ml DAILY PRN PO CONSTIPATION; Start at 03:30 Bisacodyl (Dulcolax Supp) 10 mg DAILY PRN [place] CONSTIPATION; Start 04/17/17 at 03 :30 Famotidine (Pepcid) 20 mg DAILY PO Last administered on 04/19/17 08:49; Admin Dose 20 MG; Start 04/17/17 at 09:00 Clopidogrel Bisulfate (plaVIX) 75 mg DAILY PO Last administered on 04/19/17 08 :50; Admin Dose 75 MG; Start 04/18/17 at 09:00 Atorvastatin Calcium 40 mg 40 mg HS PO Last administered on 04/18/17 21:36; Admin Dose 40 MG; Start 04/17/17 at 21:00 Ciprofloxacin/ Dextrose (Cipro Ivpb) 200 ml @ 200 mls/hr Q24H IVPB Last administered on 04/18/17 14:39; Admin Dose 200 MLS/HR; Start 04/18/17 at 14:00 Carvedilol (Coreg) 6.25 mg BID PO ; Start 04/18/17 at 21:00 Apixaban (Eliquis) 2.5 mg BID PO Last administered on 04/19/17 08:50; Admin Dose 2.5 MG; Start 04/18/17 at 21:00 Acetaminophen/ Hydrocodone Bitart ([place] (5/325)) 1 tab Q4H PRN PO PAIN; Start 04/18/17 at 19:00 Midodrine (Proamatine) 5 mg BID@09,17 PO Last administered on 04/19/17 08:49; Admin Dose 5 MG; Start 04/19/17 at 09:00 ROLAND LEMUS Apr 19, 2017 10:18
--- NOTE | 2017-04-19 10:58 | CONS ---
DATE OF ADMISSION: 04/17/2017 DATE OF CONSULTATION: 04/19/2017 REFERRING PHYSICIAN: Dr. Booker HISTORY OF PRESENT ILLNESS: The entire story is taken from the patient's medical records. I have p ut a phone call out to his next of kin person to contact, , and left my contact informati on, but essentially this is an 81-year-old gentleman who was admitted through [facility], brought in from a [facility] unit with increasing shortness of breath, he has had an ex tensive workup while here. From a palliative care standpoint, history of severe dementia, FULL CODE , recurrent hospitalizations for severe congestive heart failure with bilateral pleural effusion wit h an EF of 15%. Other comorbid major medical problems, chronic atrial fibrillation. I am asked to consult and assist with ongoing level of care with this patient and address his code status with demetria vargas. MEDICATIONS: Please refer to reconciliation sheet. ALLERGIES: PENICILLIN. MAJOR MEDICAL PROBLEMS IN THE PAST: As per history of present illness. SOCIAL HISTORY: Unknown, only that patient lives in a chcf unit prior to this hospitaliz ation. FAMILY HISTORY: Unknown. REVIEW OF SYSTEMS: Cannot be obtained. PHYSICAL EXAMINATION: GENERAL: Shows an ill-appearing, emaciated, malnourished male who is moribund grossly, minimally co mmunicative and lethargic. VITAL SIGNS: Blood pressure 110/70, pulse of 80 and regular, respirations of 18, temperature 98.1 d egrees, 96% saturation on 3 liters. HEENT: He is otherwise normocephalic and atraumatic, anicteric, acyanotic. CHEST: Shows bilateral distant breath sounds throughout both lung byrnes. COR: S1, S2, without S3, S4, murmur, gallop, rub, rapid rate. Cannot evaluate rhythm secondary to very distant breath sounds. ABDOMEN: Active bowel sounds without organomegaly, masses, tenderness, rebound or peritoneal signs. NEUROLOGIC: He is oriented x0. Cranial nerves grossly intact. Motor, sensory findings grossly wit hin normal limits. He is noncommunicative. He does not follow any simple commands, does respond to verbal stimuli. LABORATORIES: Have been reviewed. White blood cell count of 7.4, hemoglobin 9.3, hematocrit 29.8, MCV of 99.3, platelet count 105,000. Chemistries: Serum sodium 134, potassium 5.2, chloride 101, b icarbonate 27, BUN of 44, creatinine 2.78, blood sugar 101, calcium 8.1. Troponin #1 1.440, troponi n #2 1.220. BNP reportedly as 126,000. ASSESSMENT AND PLAN: This is an elderly gentleman, very moribund, comes from chcf unit, multiple serious major medical problems prior to hospitalization who has a spokesperson I have tried to reach out to who has my callback phone number. She is not available at this time. Medical problems including congestive heart failure, resulting in bilateral pleural effusions, end-s tage renal disease on hemodialysis, chronic atrial fibrillation by history, moderate to severe demen tia, malnutrition, dehydration. Issues to be discussed with significant other: 1. Goals of care: Background and social history of the this gentleman, level of dementia prior to this hospitalization, her understanding insofar as his ultimate prognosis and her hopes, acceptable quality of life will be addressed. 2. Communication preferences/caregiver concerns: An estimated prognosis is palliative performance scale is less than 10%. There are no pain or symptom management issues that I could ascertain from records or grossly on examination of the patient. I will explore psychosocial issues, spiritual iss ues ethical issues with significant other and hopefully that person will have some documentation in the form of POLST form or advanced directive. 3. Will continue to follow. Will reach out again for patient's spokesperson. Dictated By: ROLAND LEMUS MD, LP/DINH Conf#: [id number] DID#: [id number]
[2017-04-19] MEDS: ACETAMINOPHEN 325 MG TAB PO PRN (13:07)
[2017-04-19] MEDS: CIPROFLOXACIN 400MG/D5W 200 ML IVPB SCH (13:07)
--- NOTE | 2017-04-19 14:44 | PN ---
Date/Time of Note Date/Time of Note DATE: 04/19/17 TIME: 14:28 Assessment/Plan VTE Prophylaxis VTE Prophylaxis Intervention: other (Eliquis ) Lines/Catheters [facility] [place] Urinary Cath still in place: No Assessment/Plan Assessment/Plan 81-year-old male with: 1. Bilateral pleural effusion, recurrent secondary to severe cardiomyopathy, diastolic and severe systolic congestive heart failure which is failing medical treatment basically, s/p bilateral Pleurx catheter placement for drainage of recurrent pleural effusions S/p drainage of bilateral pleural effusion 04/17 and CXR yesterday with resolved effusions Continue with supplemental oxygen 2 to 4 liters nasal cannula for now. HD for further volume management 2. Elevated troponin with known coronary artery disease. Denies chest pain Appreciate cardiology evaluation. Medical management, continue Plavix and Eliquis. 3. End-stage renal disease on hemodialysis. HD held yesterday due to low BP. Patient has been started on Midodrine ? HD today Dr. Summers following 4. Chronic atrial fibrillation, with rapid ventricular rate, sometimes today, likely related to his respiratory distress. Patient with episodes of bradycardia. Cardizem discontinued and Coreg dose lowered. Appreciate cardiology recommendations. Back on eliquis Also will discuss any further recs with Cardio 5. Hypertension. Continue current meds. 6. Moderate to severe dementia. Very poor short-term memory. He cannot really express his needs. He does not even communicate his symptoms effectively. He is completely dependent on his DPOA, Fabiola Traylor for decision making 7. Dysphagia per long-term facility report, the patient also does not have dentures, and on Puree diet. 8. Chronic pain. [place] prn 9. E coli UTI, sensitive to Cefazolin , will try. Patient has PCN allergies listed Prophylaxis: Eliquis may be resumed and continue Pepcid for GI prophylaxis. DISPOSITION: s/p successful drainage of PleurX valves, HD if able to tolerate Dr. Berman and Dr. Summers following . Patient is moribund. Poor overall prognosis. Palliative care Dr Crook also involved. Subjective 24 Hr Interval Summary Free Text/Dictation Patient doing OK Noted some bradycardic episodes yesterday and patient has been off Cardizem since yesterday Afebrile but urine cx with E coli Exam/Review of Systems Vital Signs Vitals Vital Signs Date Time Temp Pulse Resp B/P Pulse Ox O2 Delivery O2 Flow Rate FiO2 04/19/17 12:00 85 04/19/17 11:10 98.0 18 123/78 98 04/19/17 08:05 3.0 04/19/17 08:04 Nasal Cannula 04/17/17 07:54 36 Intake and Output 04/18/17 04/18/17 04/19/17 15:00 23:00 07:00 Intake Total 850 ml 500 ml Balance 850 ml 500 ml Exam Constitutional: alert, frail, other (cachectic ) Respiratory: diminished breath sounds (bases ), normal air movement Cardiovascular: irregular rhythm (A fib ) Gastrointestinal: non-tender, soft Musculoskeletal: nl extremities to inspection, other (no clubbing or cyanosis ) Extremities: edema (hands ), normal pulses 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5 Eosinophils # 0.1 Basophils # 0.0 Nucleated Red Blood Cells # 0.0 Sodium Level 134 L Potassium Level 5.2 H Chloride Level 101 Carbon Dioxide Level 27 Anion Gap 11 Blood Urea Nitrogen 44 H Creatinine 2.78 H Glucose Level 101 Calcium Level 8.1 L Phosphorus Level 4.3 Magnesium Level 2.1 Medications Medications Current Medications Tramadol HCl (Ultram) 50 mg Q6H PRN PO PAIN; Start 04/17/17 at 03:30 Ondansetron HCl (Zofran Inj) 4 mg Q6H PRN IV NAUSEA AND/OR VOMITING; Start 09/23 at 03:30 Nitroglycerin (Nitroglycerin (Sl Tab) 0.4 Mg) 1 tab Q5M PRN SL CHEST PAIN; Start 04/17/17 at 03:30 Acetaminophen (Tylenol Tab) 650 mg Q6H PRN PO PAIN LEVEL 1-3 OR FEVER Last administered on 04/19/17 13:07; Admin Dose 650 MG; Start 04/17/17 at 03:30 Docusate Sodium (Colace) 100 mg Q12H PRN PO CONSTIPATION; Start 04/17/17 at 03: 30 Magnesium Hydroxide (Milk Of Mag) 30 ml DAILY PRN PO CONSTIPATION; Start at 03:30 Bisacodyl (Dulcolax Supp) 10 mg DAILY PRN [place] CONSTIPATION; Start 04/17/17 at 03 :30 Famotidine (Pepcid) 20 mg DAILY PO Last administered on 04/19/17 08:49; Admin Dose 20 MG; Start 04/17/17 at 09:00 Clopidogrel Bisulfate (plaVIX) 75 mg DAILY PO Last administered on 04/19/17 08 :50; Admin Dose 75 MG; Start 04/18/17 at 09:00 Atorvastatin Calcium (Lipitor) 40 mg HS PO Last administered on 04/18/17 21:36 ; Admin Dose 40 MG; Start 04/17/17 at 21:00 Carvedilol (Coreg) 6.25 mg BID PO ; Start 04/18/17 at 21:00 Apixaban (Eliquis) 2.5 mg BID PO Last administered on 04/19/17 08:50; Admin Dose 2.5 MG; Start 04/18/17 at 21:00 Midodrine (Proamatine) 5 mg BID@ PO Last administered on 04/19/17 08:49; Admin Dose 5 MG; Start 04/19/17 at 09:00 SOO NAIK Apr 19, 2017 14:44
[2017-04-19] MEDS: CEFAZOLIN 1 GM/50 ML (PMX) 50 ML IVPB SCH (16:32)
[2017-04-19] MEDS ORDERED: HEPARIN 1000 UNITS/ML 10 ML INJ CATHETER ONE (17:00)
[2017-04-19] MEDS: ATORVASTATIN 40 MG TAB PO SCH (21:00)
--- NOTE | 2017-04-19 21:35 | CONS ---
Date/Time of Note Date/Time of Note DATE: 04/19/17 TIME: 21:33 Assessment/Plan Assessment/Plan Additional Assessment/Plan 1. Acute non-ST elevation myocardial infarction. 2. End-stage renal disease on hemodialysis 3 times a week. 3. Bilateral pleural effusion causing fluid overload, right greater than left, status post bilateral PleurX catheter placement by Dr. David at the [facility]. 4. Hypertension. 5. Hyperlipidemia. 6. 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 7. Coronary artery disease. 8. Chronic atrial fibrillation. 9. Multiple comorbidities with a poor prognosis and half-waymanager nursing. PLAN: s/p HD today, very labile BP Family meeting tomorrow Midodrine has been ordered for BP support will follow up Consultation Date/Type/Reason Admit Date/Time Apr 17, 2017 at 02:32 Type of Consultation: NEPHROLOGY Referring Provider: SOO NAIK 24 HR Interval Summary Free Text/Dictation s/p HD yesterday Exam/Review of Systems Vital Signs Vitals Vital Signs Date Time Temp Pulse Resp B/P Pulse Ox O2 Delivery O2 Flow Rate FiO2 04/19/17 20:30 80 04/19/17 20:30 20 04/19/17 20:00 98.3 113/72 91 04/19/17 20:00 Nasal Cannula 3.0 04/17/17 07:54 36 Intake and Output 04/18/17 04/18/17 04/19/17 15:00 23:00 07:00 Intake Total 850 ml 500 ml Balance 850 ml 500 ml Exam GENERAL: awake demented HEENT: [place]KS, EOMI NECK: Supple. No JVD, no LAD HEART: S1, S2. Irregularly irregular. LUNGS: Decreased breath sounds bilaterally. bilateral drain in place CHEST WALL: The patient has 2 PleurX catheters, one on the right, one on the left with a dressing in place. EXTREMITIES: No clubbing, cyanosis. 2 + pitting edema upto knees . NEUROLOGICAL: Very limited interaction. The patient is severely demented. Results Result Diagram: 04/19/17 0610 04/19/17 0610 Results 24 hrs Laboratory Tests Test 04/19/17 06:10 White Blood Count 7.4 # Red Blood Count 3.00 L Hemoglobin 9.3 L Hematocrit 29.8 L Mean Corpuscular Volume 99.3 Mean Corpuscular Hemoglobin 31.0 Mean Corpuscular Hemoglobin Concent 31.2 L Red Cell Distribution Width 18.3 H Platelet Count 105 L Mean Platelet Volume 11.3 H Neutrophils % 78.5 H Lymphocytes % 13.1 L Monocytes % 6.3 Eosinophils % 1.6 Basophils % 0.1 Nucleated Red Blood Cells % 0.3 H Neutrophils # 5.8 Lymphocytes # 1.0 Monocytes # 0.5 Eosinophils # 0.1 Basophils # 0.0 Nucleated Red Blood Cells # 0.0 Sodium Level 134 L Potassium Level 5.2 H Chloride Level 101 Carbon Dioxide Level 27 Anion Gap 11 Blood Urea Nitrogen 44 H Creatinine 2.78 H Glucose Level 101 Calcium Level 8.1 L Phosphorus Level 4.3 Magnesium Level 2.1 Medications Medications Current Medications Tramadol HCl (Ultram) 50 mg Q6H PRN PO PAIN; Start 04/17/17 at 03:30 Ondansetron HCl (Zofran Inj) 4 mg Q6H PRN IV NAUSEA AND/OR VOMITING; Start 09/23 at 03:30 Nitroglycerin (Nitroglycerin (Sl Tab) 0.4 Mg) 1 tab Q5M PRN SL CHEST PAIN; Start 04/17/17 at 03:30 Acetaminophen (Tylenol Tab) 650 mg Q6H PRN PO PAIN LEVEL 1-3 OR FEVER Last administered on 04/19/17 13:07; Admin Dose 650 MG; Start 04/17/17 at 03:30 Docusate Sodium (Colace) 100 mg Q12H PRN PO CONSTIPATION; Start 04/17/17 at 03: 30 Magnesium Hydroxide (Milk Of Mag) 30 ml DAILY PRN PO CONSTIPATION; Start at 03:30 Bisacodyl (Dulcolax Supp) 10 mg DAILY PRN [place] CONSTIPATION; Start 04/17/17 at 03 :30 Famotidine (Pepcid) 20 mg DAILY PO Last administered on 04/19/17 08:49; Admin Dose 20 MG; Start 04/17/17 at 09:00 Clopidogrel Bisulfate (plaVIX) 75 mg DAILY PO Last administered on 04/19/17 08 :50; Admin Dose 75 MG; Start 04/18/17 at 09:00 Atorvastatin Calcium (Lipitor) 40 mg HS PO Last administered on 04/18/17 21:36 ; Admin Dose 40 MG; Start 04/17/17 at 21:00 Carvedilol (Coreg) 6.25 mg BID PO ; Start 04/18/17 at 21:00 Apixaban (Eliquis) 2.5 mg BID PO Last administered on 04/19/17 08:50; Admin Dose 2.5 MG; Start 04/18/17 at 21:00 Midodrine 5 mg 5 mg BID@,17 PO Last administered on 04/19/17 16:33; Admin Dose 5 MG; Start 04/19/17 at 09:00 Cefazolin Sodium (Ancef 1 Gm/50 ml (Pmx)) 50 ml @ 100 mls/hr Q24H IVPB Last administered on 04/19/17 16:32; Admin Dose 100 MLS/HR; Start 04/19/17 at 16:00 MACI ASHLEY MD Apr 19, 2017 21:35
[2017-04-20] VITALS (13 sets, daily range): BP systolic 95–157; BP diastolic 65–84; PULSE 83–107; RESP 16–18
[2017-04-20] MEDS: ALBUTEROL/IPRATROPIUM (NEB) 3 ML AMP HHN SCH ×4 (00:50→23:57)
[2017-04-20 06:53] LABS: ADD SCAN DIFF NO
[2017-04-20 06:55] LABS: BASOPHILS % 0.1 % (0.0-2.0); EOSINOPHILS # 0.1 10^3/ul (0.0-0.5); EOSINOPHILS % 1.1 % (0.0-7.0); HEMATOCRIT 30.1 % (42.0-52.0); HEMOGLOBIN 9.3 g/dl (14.0-18.0); LYMPHOCYTES # 0.9 10^3/ul (0.8-2.9); LYMPHOCYTES % 12.5 % (15.0-51.0); MEAN CORPUSCULAR HEMOGLOBIN 30.9 pg (29.0-33.0); MEAN CORPUSCULAR HGB CONC 30.9 g/dl (32.0-37.0); MEAN PLATELET VOLUME 11.3 fl (7.4-10.4); MONOCYTE # 0.5 10^3/ul (0.3-0.9); MONOCYTES % 7.3 % (0.0-11.0); NEUTROPHIL # 5.6 10^3/ul (1.6-7.5); NEUTROPHILS % 78.3 % (39.0-77.0); PLATELET COUNT 106 10^3/UL (140-415); RED BLOOD COUNT 3.01 10^6/ul (4.70-6.10); RED CELL DISTRIBUTION WIDTH 18.3 % (11.5-14.5); WHITE BLOOD COUNT 7.1 10^3/ul (4.8-10.8)
[2017-04-20 08:00] LABS: ALBUMIN 2.9 g/dl (3.3-4.9); ALBUMIN/GLOBULIN RATIO 1.45; BILIRUBIN,INDIRECT 0.3 mg/dl (0-1.1); BILIRUBIN,TOTAL 0.3 mg/dl (0.2-1.3); CALCIUM 8.3 mg/dl (8.4-10.2); CREATININE 2.31 mg/dl (0.61-1.24); POTASSIUM 4.3 mmol/L (3.5-5.1); TOTAL PROTEIN 4.9 g/dl (6.1-8.1)
[2017-04-20 08:13] LABS: PHOSPHORUS 3.4 mg/dl (2.5-4.9)
[2017-04-20] MEDS: FAMOTIDINE 20 MG TAB PO SCH (09:12)
[2017-04-20] MEDS: APIXABAN 5 MG TABLET PO SCH ×2 (09:12→21:28)
[2017-04-20] MEDS: CLOPIDOGREL 75 MG TAB PO SCH (09:12)
[2017-04-20] MEDS: MIDODRINE 5 MG TAB PO SCH ×2 (09:15→16:01)
--- NOTE | 2017-04-20 13:00 | RADRPT ---
PROCEDURE: CHEST 1VW CLINICAL INDICATION: Shortness of breath TECHNIQUE: Single frontal view of the chest was obtained COMPARISON: 04/17/2017 FINDINGS: Stable right neck dialysis catheter. The cardiac size is moderately enlarged, stable. Aortic vascular calcifications are demonstrated. There is developing moderate interstitial edema and pulmonary vascular congestion. Small to moderate bilateral effusions are seen with associated atelectasis. Mild degenerative changes of the visualized osseous structures are visualized. IMPRESSION: 1. Stable cardiomegaly with developing moderate pulmonary vascular congestion, interstitial edema, a nd layering small to moderate bilateral pleural effusions with associated atelectasis. 2. Atherosclerosis. RPTAT:PP .Berlin Motley MD, MD Date Time Electronically viewed and signed by .Berlin Motley MD, on 04/20/2017 13:00 .Wilfr[place]/
--- NOTE | 2017-04-20 14:11 | PN ---
Date/Time of Note Date/Time of Note DATE: 04/20/17 TIME: 12:57 Assessment/Plan VTE Prophylaxis VTE Prophylaxis Intervention: other (eliquis ) Lines/Catheters IV Catheter Type (from [facility]): [place] Urinary Cath still in place: No Assessment/Plan Assessment/Plan 81-year-old male with: 1. Bilateral pleural effusion, recurrent secondary to severe cardiomyopathy, diastolic and severe systolic congestive heart failure which is failing medical treatment basically, s/p bilateral Pleurx catheter placement for drainage of recurrent pleural effusions S/p drainage of bilateral pleural effusion 04/17 and CXR today showing re accumulation, patient also with pulmonary edema and planning for HD tomorrow if tolerates. Continue with supplemental oxygen 2 to 4 liters nasal cannula for now. HD for further volume management along with bilateral PleurX valves 2. Elevated troponin with known coronary artery disease. Denies chest pain Appreciate cardiology evaluation. Medical management, continue Plavix and Eliquis. 3. End-stage renal disease on hemodialysis. Patient has been started on Midodrine for blood pressure support especially during HD Dr. Summers following 4. Chronic atrial fibrillation, with rapid ventricular rate, sometimes today, likely related to his respiratory distress. Patient with episodes of bradycardia. Cardizem discontinued and Coreg dose lowered with holding parameters. Appreciate cardiology recommendations. Back on eliquis Also will discuss any further recs with Cardio 5. Hypertension. Continue current meds. 6. Moderate to severe dementia. Very poor short-term memory. He cannot really express his needs. He does not even communicate his symptoms effectively. He is completely dependent on his DPOA, Fabiola Traylor for decision making 7. Dysphagia per group home facility report, the patient also does not have dentures, and on Puree diet/mechanical soft diet. 8. Chronic pain. [place] prn as long as BP tolerates. 9. E coli UTI, sensitive to Cefazolin. Patient tolerating Cefazolin. Prophylaxis: Eliquis may be resumed and continue Pepcid for GI prophylaxis. DISPOSITION: Continue drainage of PleurX valves as needed and tolerated. HD if able to tolerate Dr. Berman and Dr. Summers following. Patient is moribund. Poor overall prognosis. Palliative care on board and plan for Bioethic meeting. Subjective 24 Hr Interval Summary Free Text/Dictation Patient remains the same so far on this admission. Unfortunately with ongoing multi organ failure CXR today pending Patient is the same so far and with moderate dementia and requiring midodrine to maintain blood pressure FULL code Bioethics meeting to be plan Exam/Review of Systems Vital Signs Vitals Vital Signs Date Time Temp Pulse Resp B/P Pulse Ox O2 Delivery O2 Flow Rate FiO2 04/20/17 12:28 97 04/20/17 11:32 98.0 18 157/68 95 04/20/17 08:03 Nasal Cannula 3.0 04/17/17 07:54 36 Intake and Output 04/19/17 04/19/17 04/20/17 15:00 23:00 07:00 Intake Total 1000 ml 450 ml Output Total 2500 ml Balance -1500 ml 450 ml Exam Constitutional: alert (not oriented ) Respiratory: diminished breath sounds (at bases ) Cardiovascular: irregular rhythm (atrial fibrillation ) Gastrointestinal: non-tender, soft Musculoskeletal: nl extremities to inspection, other (no clubbing or cyanosis ) Extremities: other (anasarca ) 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, confused, lethargic Results Result Diagram: 04/20/17 0620 04/20/17 0620 Results 24 hrs Laboratory Tests Test 04/20/17 06:20 White Blood Count 7.1 Red Blood Count 3.01 L Hemoglobin 9.3 L Hematocrit 30.1 L Mean Corpuscular Volume 100.0 Mean Corpuscular Hemoglobin 30.9 Mean Corpuscular Hemoglobin Concent 30.9 L Red Cell Distribution Width 18.3 H Platelet Count 106 L Mean Platelet Volume 11.3 H Neutrophils % 78.3 H Lymphocytes % 12.5 L Monocytes % 7.3 Eosinophils % 1.1 Basophils % 0.1 Nucleated Red Blood Cells % 0.0 Neutrophils # 5.6 Lymphocytes # 0.9 Monocytes # 0.5 Eosinophils # 0.1 Basophils # 0.0 Nucleated Red Blood Cells # 0.0 Sodium Level 136 Potassium Level 4.3 Chloride Level 100 Carbon Dioxide Level 28 Anion Gap 12 Blood Urea Nitrogen 34 H Creatinine 2.31 H Glucose Level 76 Calcium Level 8.3 L Phosphorus Level 3.4 Magnesium Level 2.0 Total Bilirubin 0.3 Direct Bilirubin 0.00 Indirect Bilirubin 0.3 Aspartate Amino Transf (AST/SGOT) 20 Alanine Aminotransferase (ALT/SGPT) 30 Alkaline Phosphatase 133 H Total Protein 4.9 L Albumin 2.9 L Globulin 2.00 Albumin/Globulin Ratio 1.45 Medications Medications Current Medications Tramadol HCl (Ultram) 50 mg Q6H PRN PO PAIN; Start 04/17/17 at 03:30 Ondansetron HCl (Zofran Inj) 4 mg Q6H PRN IV NAUSEA AND/OR VOMITING; Start 09/23 at 03:30 Nitroglycerin (Nitroglycerin (Sl Tab) 0.4 Mg) 1 tab Q5M PRN SL CHEST PAIN; Start 04/17/17 at 03:30 Acetaminophen (Tylenol Tab) 650 mg Q6H PRN PO PAIN LEVEL 1-3 OR FEVER Last administered on 04/19/17 13:07; Admin Dose 650 MG; Start 04/17/17 at 03:30 Docusate Sodium (Colace) 100 mg Q12H PRN PO CONSTIPATION; Start 04/17/17 at 03: 30 Magnesium Hydroxide (Milk Of Mag) 30 ml DAILY PRN PO CONSTIPATION; Start at 03:30 Bisacodyl (Dulcolax Supp) 10 mg DAILY PRN [place] CONSTIPATION; Start 04/17/17 at 03 :30 Famotidine (Pepcid) 20 mg DAILY PO Last administered on 04/20/17 09:12; Admin Dose 20 MG; Start 04/17/17 at 09:00 Clopidogrel Bisulfate (plaVIX) 75 mg DAILY PO Last administered on 04/20/17 09 :12; Admin Dose 75 MG; Start 04/18/17 at 09:00 Atorvastatin Calcium (Lipitor) 40 mg HS PO Last administered on 04/19/17 21:00 ; Admin Dose 40 MG; Start 04/17/17 at 21:00 Carvedilol (Coreg) 6.25 mg BID PO Last administered on 04/20/17 09:13; Admin Dose 6.25 MG; Start 04/18/17 at 21:00 Apixaban (Eliquis) 2.5 mg BID PO Last administered on 04/20/17 09:12; Admin Dose 2.5 MG; Start 04/18/17 at 21:00 Midodrine 5 mg 5 mg BID@,17 PO Last administered on 04/20/17 09:15; Admin Dose 5 MG; Start 04/19/17 at 09:00 Cefazolin Sodium (Ancef 1 Gm/50 ml (Pmx)) 50 ml @ 100 mls/hr Q24H IVPB Last administered on 04/19/17t 16:32; Admin Dose 100 MLS/HR; Start 04/19/17 at 16:00 SOO NAIK Apr 20, 2017 13:13
--- NOTE | 2017-04-20 14:23 | CONS ---
Date/Time of Note Date/Time of Note DATE: 04/20/17 TIME: 14:19 Assessment/Plan Assessment/Plan Chief Complaint/Hosp Course IMPRESSION: 1. Positive troponin consistent with non-ST elevation myocardial infarction, likely type 2 in the setting of atrial fibrillation with rapid ventricular response, possible respiratory distress with a negative CK-MB fraction at this time and no chest pain.-decreasing enzymes currently 2. Cardiomyopathy with decreased left ventricular ejection fraction. 3. Congestive heart failure, systolic, acute on chronic. 4. Abnormal electrocardiogram with lateral biphasic T-wave abnormalities and poor R-wave progression across the precordial leads. 5. Hypotension-now on midodrine 6. Renal failure. 7. Anemia. 8. Thrombocytopenia-somewhat improved 9.pleural effusions- with pleur x catheters bilateral 10. bradycardia/paf rec: -Tele -serial ecg's -Continue eliquis -continue plavix -continue statin -continue pleur x drainage of effusions -hd for volume removal -WEan midodrine as possible Problems: Consultation Date/Type/Reason Admit Date/Time Apr 17, 2017 at 02:32 Initial Consult Date 04/17/2017 Type of Consultation: Cardiology Reason for Consultation cardiomyopathy/CHF Referring Provider: SOO NAIK Exam/Review of Systems Vital Signs Vitals Vital Signs Date Time Temp Pulse Resp B/P Pulse Ox O2 Delivery O2 Flow Rate FiO2 04/20/17 12:28 97 04/20/17 11:32 98.0 18 157/68 95 04/20/17 08:03 Nasal Cannula 3.0 04/17/17 07:54 36 Intake and Output 04/19/17 04/19/17 04/20/17 15:00 23:00 07:00 Intake Total 1000 ml 450 ml Output Total 2500 ml Balance -1500 ml 450 ml Exam Review of Systems: CONSTITUTIONAL: No fevers, chills. PULMONARY: No sob CARDIOVASCULAR: No chest pain/palpitations GASTROINTESTINAL: No nausea/vomiting. GENITOURINARY: No hematuria/dysuria. MUSCULOSKELETAL: No myagias/arthalgias. PSYCHIATRIC: The patient denies depression. NEUROLOGIC: No weakness Constitutional: alert Psych: confusion Head: normocephalic ENMT: mucosa pink and moist Neck: jvd (9 cm water), supple Respiratory: diminished breath sounds (at bases/B) Cardiovascular: regular rate and rhythm Gastrointestinal: non-tender, soft Musculoskeletal: muscle tone (normal) Extremities: edema (none) Neurological: other (No focal deficits) Results Result Diagram: 04/20/17 0620 04/20/17 0620 Results 24 hrs Laboratory Tests Test 04/20/17 06:20 White Blood Count 7.1 Red Blood Count 3.01 L Hemoglobin 9.3 L Hematocrit 30.1 L Mean Corpuscular Volume 100.0 Mean Corpuscular Hemoglobin 30.9 Mean Corpuscular Hemoglobin Concent 30.9 L Red Cell Distribution Width 18.3 H Platelet Count 106 L Mean Platelet Volume 11.3 H Neutrophils % 78.3 H Lymphocytes % 12.5 L Monocytes % 7.3 Eosinophils % 1.1 Basophils % 0.1 Nucleated Red Blood Cells % 0.0 Neutrophils # 5.6 Lymphocytes # 0.9 Monocytes # 0.5 Eosinophils # 0.1 Basophils # 0.0 Nucleated Red Blood Cells # 0.0 Sodium Level 136 Potassium Level 4.3 Chloride Level 100 Carbon Dioxide Level 28 Anion Gap 12 Blood Urea Nitrogen 34 H Creatinine 2.31 H Glucose Level 76 Calcium Level 8.3 L Phosphorus Level 3.4 Magnesium Level 2.0 Total Bilirubin 0.3 Direct Bilirubin 0.00 Indirect Bilirubin 0.3 Aspartate Amino Transf (AST/SGOT) 20 Alanine Aminotransferase (ALT/SGPT) 30 Alkaline Phosphatase 133 H Total Protein 4.9 L Albumin 2.9 L Globulin 2.00 Albumin/Globulin Ratio 1.45 Medications Medications Current Medications Tramadol HCl (Ultram) 50 mg Q6H PRN PO PAIN; Start 04/17/17 at 03:30 Ondansetron HCl (Zofran Inj) 4 mg Q6H PRN IV NAUSEA AND/OR VOMITING; Start 09/23 at 03:30 Nitroglycerin (Nitroglycerin (Sl Tab) 0.4 Mg) 1 tab Q5M PRN SL CHEST PAIN; Start 04/17/17 at 03:30 Acetaminophen (Tylenol Tab) 650 mg Q6H PRN PO PAIN LEVEL 1-3 OR FEVER Last administered on 04/19/17t 13:07; Admin Dose 650 MG; Start 04/17/17 at 03:30 Docusate Sodium (Colace) 100 mg Q12H PRN PO CONSTIPATION; Start 04/17/17 at 03: 30 Magnesium Hydroxide (Milk Of Mag) 30 ml DAILY PRN PO CONSTIPATION; Start at 03:30 Bisacodyl (Dulcolax Supp) 10 mg DAILY PRN [place] CONSTIPATION; Start 04/17/17 at 03 :30 Famotidine (Pepcid) 20 mg DAILY PO Last administered on 04/20/17 09:12; Admin Dose 20 MG; Start 04/17/17 at 09:00 Clopidogrel Bisulfate (plaVIX) 75 mg DAILY PO Last administered on 04/20/17 09 :12; Admin Dose 75 MG; Start 04/18/17 at 09:00 Atorvastatin Calcium (Lipitor) 40 mg HS PO Last administered on 04/19/17 21:00 ; Admin Dose 40 MG; Start 04/17/17 at 21:00 Carvedilol (Coreg) 6.25 mg BID PO Last administered on 04/20/17 09:13; Admin Dose 6.25 MG; Start 04/18/17 at 21:00 Apixaban (Eliquis) 2.5 mg BID PO Last administered on 04/20/17 09:12; Admin Dose 2.5 MG; Start 04/18/17 at 21:00 Midodrine 5 mg 5 mg BID@,17 PO Last administered on 04/20/17 09:15; Admin Dose 5 MG; Start 04/19/17 at 09:00 Cefazolin Sodium (Ancef 1 Gm/50 ml (Pmx)) 50 ml @ 100 mls/hr Q24H IVPB Last administered on 04/19/17 16:32; Admin Dose 100 MLS/HR; Start 04/19/17 at 16:00 SALOMON ROPER Apr 20, 2017 14:23
[2017-04-20] MEDS: CEFAZOLIN 1 GM/50 ML (PMX) 50 ML IVPB SCH (16:00)
--- NOTE | 2017-04-20 16:11 | CONS ---
Date/Time of Note Date/Time of Note DATE: 04/20/17 TIME: 16:04 Assessment/Plan Assessment/Plan Additional Assessment/Plan Famly confwrence done today. Participants...Dr Naik, Dr Berman, Dr Summers, Case management from [facility] and [place] and pts Agent. Long discussion done with all consultants bringing he Agent up to date with clinical condition. Agent was give options for level of care.. she refused to give consent to lower level of care, " I don give consent to anything." Referral to Bioethics recommended. I have spoken with the chairperson. Consultation Date/Type/Reason Admit Date/Time Apr 17, 2017 at 02:32 Type of Consultation: Cardiology Referring Provider: SOO NAIK Exam/Review of Systems Vital Signs Vitals Vital Signs Date Time Temp Pulse Resp B/P Pulse Ox O2 Delivery O2 Flow Rate FiO2 04/20/17 15:38 88 18 96 Nasal Cannula 3.0 04/20/17 15:22 98.0 154/73 04/17/17 07:54 36 Intake and Output 04/19/17 04/19/17 04/20/17 15:00 23:00 07:00 Intake Total 1000 ml 450 ml Output Total 2500 ml Balance -1500 ml 450 ml Results Result Diagram: 04/20/17 0620 04/20/17 0620 Results 24 hrs Laboratory Tests Test 04/20/17 06:20 White Blood Count 7.1 Red Blood Count 3.01 L Hemoglobin 9.3 L Hematocrit 30.1 L Mean Corpuscular Volume 100.0 Mean Corpuscular Hemoglobin 30.9 Mean Corpuscular Hemoglobin Concent 30.9 L Red Cell Distribution Width 18.3 H Platelet Count 106 L Mean Platelet Volume 11.3 H Neutrophils % 78.3 H Lymphocytes % 12.5 L Monocytes % 7.3 Eosinophils % 1.1 Basophils % 0.1 Nucleated Red Blood Cells % 0.0 Neutrophils # 5.6 Lymphocytes # 0.9 Monocytes # 0.5 Eosinophils # 0.1 Basophils # 0.0 Nucleated Red Blood Cells # 0.0 Sodium Level 136 Potassium Level 4.3 Chloride Level 100 Carbon Dioxide Level 28 Anion Gap 12 Blood Urea Nitrogen 34 H Creatinine 2.31 H Glucose Level 76 Calcium Level 8.3 L Phosphorus Level 3.4 Magnesium Level 2.0 Total Bilirubin 0.3 Direct Bilirubin 0.00 Indirect Bilirubin 0.3 Aspartate Amino Transf (AST/SGOT) 20 Alanine Aminotransferase (ALT/SGPT) 30 Alkaline Phosphatase 133 H Total Protein 4.9 L Albumin 2.9 L Globulin 2.00 Albumin/Globulin Ratio 1.45 Medications Medications Current Medications Tramadol HCl (Ultram) 50 mg Q6H PRN PO PAIN; Start 04/17/17 at 03:30 Ondansetron HCl (Zofran Inj) 4 mg Q6H PRN IV NAUSEA AND/OR VOMITING; Start 09/23 at 03:30 Nitroglycerin (Nitroglycerin (Sl Tab) 0.4 Mg) 1 tab Q5M PRN SL CHEST PAIN; Start 04/17/17 at 03:30 Acetaminophen (Tylenol Tab) 650 mg Q6H PRN PO PAIN LEVEL 1-3 OR FEVER Last administered on 04/19/17 13:07; Admin Dose 650 MG; Start 04/17/17 at 03:30 Docusate Sodium (Colace) 100 mg Q12H PRN PO CONSTIPATION; Start 04/17/17 at 03: 30 Magnesium Hydroxide (Milk Of Mag) 30 ml DAILY PRN PO CONSTIPATION; Start at 03:30 Bisacodyl (Dulcolax Supp) 10 mg DAILY PRN [place] CONSTIPATION; Start 04/17/17 at 03 :30 Famotidine (Pepcid) 20 mg DAILY PO Last administered on 04/20/17 09:12; Admin Dose 20 MG; Start 04/17/17 at 09:00 Clopidogrel Bisulfate (plaVIX) 75 mg DAILY PO Last administered on 04/20/17 09 :12; Admin Dose 75 MG; Start 04/18/17 at 09:00 Atorvastatin Calcium (Lipitor) 40 mg HS PO Last administered on 04/19/17 21:00 ; Admin Dose 40 MG; Start 04/17/17 at 21:00 Carvedilol (Coreg) 6.25 mg BID PO Last administered on 04/20/17 09:13; Admin Dose 6.25 MG; Start 04/18/17 at 21:00 Apixaban (Eliquis) 2.5 mg BID PO Last administered on 04/20/17 09:12; Admin Dose 2.5 MG; Start 04/18/17 at 21:00 Midodrine 5 mg 5 mg BID@09,17 PO Last administered on 04/20/17 09:15; Admin Dose 5 MG; Start 04/19/17 at 09:00 Cefazolin Sodium (Ancef 1 Gm/50 ml (Pmx)) 50 ml @ 100 mls/hr Q24H IVPB Last administered on 04/20/17 16:00; Admin Dose 100 MLS/HR; Start 04/19/17 at 16:00 ROLAND LEMUS Apr 20, 2017 16:11
--- NOTE | 2017-04-20 18:26 | CONS ---
Date/Time of Note Date/Time of Note DATE: 04/20/17 TIME: 18:22 Assessment/Plan Assessment/Plan Additional Assessment/Plan 1. Acute non-ST elevation myocardial infarction. 2. End-stage renal disease on hemodialysis 3 times a week. 3. Bilateral pleural effusion causing fluid overload, right greater than left, status post bilateral PleurX catheter placement by Dr. David at the [facility]. 4. Hypertension. 5. Hyperlipidemia. 6. 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 7. Coronary artery disease. 8. Chronic atrial fibrillation. 9. 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 PLAN: s/p HDyesterday very labile BP- he becomes hypotensive and tachycardic, and we have to give him fluids to support his BP Midodrine has been ordered for BP support will follow up pt has very quality of life with current treatment he is going through. He is sometimes becomes hypotensive and Tachycardic and we have to give him fluids back to support his BP instead of removing any fluids. He is also getting midodrine for his BP support we have a family meeting today with Fabiola( DPOA of patient)- Cardiolgoy, palliative care, SW and Physical therapist with were present in meeting. we have attempted five different modalities of HD but he is very unstable and labile BP for HD. I explained this to Fabiola but she like to continue HD despite knowing that he is not stable for HD. Consultation Date/Type/Reason Admit Date/Time Apr 17, 2017 at 02:32 Type of Consultation: NEPHROLOGY Referring Provider: SOO NAIK 24 HR Interval Summary Free Text/Dictation BP drops during HD, HR becomes High Exam/Review of Systems Vital Signs Vitals Vital Signs Date Time Temp Pulse Resp B/P Pulse Ox O2 Delivery O2 Flow Rate FiO2 04/20/17 17:07 97 04/20/17 15:38 18 96 Nasal Cannula 3.0 04/20/17 15:22 98.0 154/73 04/17/17 07:54 36 Intake and Output 04/19/17 04/19/17 04/20/17 15:00 23:00 07:00 Intake Total 1000 ml 450 ml Output Total 2500 ml Balance -1500 ml 450 ml Exam GENERAL: awake demented HEENT: BROOKS, EOMI NECK: Supple. No JVD, no LAD HEART: S1, S2. Irregularly irregular. LUNGS: Decreased breath sounds bilaterally. bilateral drain in place CHEST WALL: The patient has 2 PleurX catheters, one on the right, one on the left with a dressing in place. EXTREMITIES: No clubbing, cyanosis. 2 + pitting edema upto knees . NEUROLOGICAL: Very limited interaction. The patient is severely demented. Results Result Diagram: 04/20/17 0620 04/20/17 0620 Results 24 hrs Laboratory Tests Test 04/20/17 06:20 White Blood Count 7.1 Red Blood Count 3.01 L Hemoglobin 9.3 L Hematocrit 30.1 L Mean Corpuscular Volume 100.0 Mean Corpuscular Hemoglobin 30.9 Mean Corpuscular Hemoglobin Concent 30.9 L Red Cell Distribution Width 18.3 H Platelet Count 106 L Mean Platelet Volume 11.3 H Neutrophils % 78.3 H Lymphocytes % 12.5 L Monocytes % 7.3 Eosinophils % 1.1 Basophils % 0.1 Nucleated Red Blood Cells % 0.0 Neutrophils # 5.6 Lymphocytes # 0.9 Monocytes # 0.5 Eosinophils # 0.1 Basophils # 0.0 Nucleated Red Blood Cells # 0.0 Sodium Level 136 Potassium Level 4.3 Chloride Level 100 Carbon Dioxide Level 28 Anion Gap 12 Blood Urea Nitrogen 34 H Creatinine 2.31 H Glucose Level 76 Calcium Level 8.3 L Phosphorus Level 3.4 Magnesium Level 2.0 Total Bilirubin 0.3 Direct Bilirubin 0.00 Indirect Bilirubin 0.3 Aspartate Amino Transf (AST/SGOT) 20 Alanine Aminotransferase (ALT/SGPT) 30 Alkaline Phosphatase 133 H Total Protein 4.9 L Albumin 2.9 L Globulin 2.00 Albumin/Globulin Ratio 1.45 Medications Medications Current Medications Tramadol HCl (Ultram) 50 mg Q6H PRN PO PAIN; Start 04/17/17 at 03:30 Ondansetron HCl (Zofran Inj) 4 mg Q6H PRN IV NAUSEA AND/OR VOMITING; Start 09/23 at 03:30 Nitroglycerin (Nitroglycerin (Sl Tab) 0.4 Mg) 1 tab Q5M PRN SL CHEST PAIN; Start 04/17/17 at 03:30 Acetaminophen (Tylenol Tab) 650 mg Q6H PRN PO PAIN LEVEL 1-3 OR FEVER Last administered on 04/19/17t 13:07; Admin Dose 650 MG; Start 04/17/17 at 03:30 Docusate Sodium (Colace) 100 mg Q12H PRN PO CONSTIPATION; Start 04/17/17 at 03: 30 Magnesium Hydroxide (Milk Of Mag) 30 ml DAILY PRN PO CONSTIPATION; Start at 03:30 Bisacodyl (Dulcolax Supp) 10 mg DAILY PRN [place] CONSTIPATION; Start 04/17/17 at 03 :30 Famotidine (Pepcid) 20 mg DAILY PO Last administered on 04/20/17 09:12; Admin Dose 20 MG; Start 04/17/17 at 09:00 Clopidogrel Bisulfate (plaVIX) 75 mg DAILY PO Last administered on 04/20/17 09 :12; Admin Dose 75 MG; Start 04/18/17 at 09:00 Atorvastatin Calcium (Lipitor) 40 mg HS PO Last administered on 04/19/17 21:00 ; Admin Dose 40 MG; Start 04/17/17 at 21:00 Carvedilol (Coreg) 6.25 mg BID PO Last administered on 04/20/17 09:13; Admin Dose 6.25 MG; Start 04/18/17 at 21:00 Apixaban (Eliquis) 2.5 mg BID PO Last administered on 04/20/17 09:12; Admin Dose 2.5 MG; Start 04/18/17 at 21:00 Midodrine 5 mg 5 mg BID@,17 PO Last administered on 04/20/17 09:15; Admin Dose 5 MG; Start 04/19/17 at 09:00 Cefazolin Sodium (Ancef 1 Gm/50 ml (Pmx)) 50 ml @ 100 mls/hr Q24H IVPB Last administered on 04/20/17 16:00; Admin Dose 100 MLS/HR; Start 04/19/17 at 16:00 MACI ASHLEY MD Apr 20, 2017 18:26
[2017-04-20] MEDS: ATORVASTATIN 40 MG TAB PO SCH (21:28)
[2017-04-21] VITALS (19 sets, daily range): BP systolic 98–173; BP diastolic 40–85; PULSE 72–110; RESP 16–17
[2017-04-21] MEDS: ALBUMIN HUMAN 25% 100 ML IV PRN (06:00)
[2017-04-21 06:02] LABS: ADD SCAN DIFF NO
[2017-04-21 06:10] LABS: ABNORMAL IP MESSAGE 1; EOSINOPHILS # 0.1 10^3/ul (0.0-0.5); HEMATOCRIT 27.8 % (42.0-52.0); HEMOGLOBIN 9.1 g/dl (14.0-18.0); LYMPHOCYTES # 0.9 10^3/ul (0.8-2.9); LYMPHOCYTES % 15.5 % (15.0-51.0); MEAN CORPUSCULAR HEMOGLOBIN 31.8 pg (29.0-33.0); MEAN CORPUSCULAR HGB CONC 32.7 g/dl (32.0-37.0); MEAN CORPUSCULAR VOLUME 97.2 fl (82.0-101.0); MEAN PLATELET VOLUME 11.1 fl (7.4-10.4); MONOCYTE # 0.3 10^3/ul (0.3-0.9); MONOCYTES % 5.6 % (0.0-11.0); NEUTROPHIL # 4.2 10^3/ul (1.6-7.5); NEUTROPHILS % 76.2 % (39.0-77.0); PLATELET COUNT 86 10^3/UL (140-415); RED BLOOD COUNT 2.86 10^6/ul (4.70-6.10); RED CELL DISTRIBUTION WIDTH 18.2 % (11.5-14.5); WHITE BLOOD COUNT 5.5 10^3/ul (4.8-10.8)
[2017-04-21 06:41] LABS: CALCIUM 7.7 mg/dl (8.4-10.2); CREATININE 1.77 mg/dl (0.61-1.24); POTASSIUM 3.7 mmol/L (3.5-5.1)
[2017-04-21 06:55] LABS: MAGNESIUM 1.8 mg/dl (1.7-2.5); PHOSPHORUS 2.5 mg/dl (2.5-4.9)
[2017-04-21] MEDS: ALBUTEROL/IPRATROPIUM (NEB) 3 ML AMP HHN SCH ×2 (08:31→16:18)
[2017-04-21] MEDS: CLOPIDOGREL 75 MG TAB PO SCH (09:38)
[2017-04-21] MEDS: FAMOTIDINE 20 MG TAB PO SCH (09:39)
[2017-04-21] MEDS: MIDODRINE 5 MG TAB PO SCH ×2 (10:12→17:41)
[2017-04-21] MEDS: APIXABAN 5 MG TABLET PO SCH (10:18)
--- NOTE | 2017-04-21 12:53 | CONS ---
Date/Time of Note Date/Time of Note DATE: 04/21/17 TIME: 12:49 Assessment/Plan Assessment/Plan Chief Complaint/Hosp Course IMPRESSION: 1. Positive troponin consistent with non-ST elevation myocardial infarction, likely type 2 in the setting of atrial fibrillation with rapid ventricular response, possible respiratory distress with a negative CK-MB fraction at this time and no chest pain.-decreasing enzymes currently 2. Cardiomyopathy with decreased left ventricular ejection fraction. 3. Congestive heart failure, systolic, acute on chronic. 4. Abnormal electrocardiogram with lateral biphasic T-wave abnormalities and poor R-wave progression across the precordial leads. 5. Hypotension-now on midodrine 6. Renal failure. 7. Anemia. 8. Thrombocytopenia-mildly worse 9.pleural effusions- with pleur x catheters bilateral 10. bradycardia/paf rec: -Tele -s/p discussion with conservator/patient remaining full code at this time -serial ecg's -Will hold eliquis and check INR given skin breakdown and bleeding -continue plavix as tolerated and may need to be held as well -continue statin -continue pleur x drainage of effusions -hd for volume removal -WEan midodrine as possible Problems: Consultation Date/Type/Reason Admit Date/Time Apr 17, 2017 at 02:32 Initial Consult Date 04/17/2017 Type of Consultation: Cardiology Reason for Consultation Nstemi Referring Provider: SOO NAIK Exam/Review of Systems Vital Signs Vitals Vital Signs Date Time Temp Pulse Resp B/P Pulse Ox O2 Delivery O2 Flow Rate FiO2 04/21/17 12:36 100 04/21/17 11:14 98.2 17 173/85 95 04/21/17 08:30 2.0 04/21/17 08:30 Nasal Cannula 04/21/17 01:47 27 Intake and Output 04/20/17 04/20/17 04/21/17 15:00 23:00 07:00 Intake Total 650 ml 400 ml Balance 650 ml 400 ml Exam Review of Systems: CONSTITUTIONAL: No fevers, chills. PULMONARY: No sob CARDIOVASCULAR: No chest pain/palpitations GASTROINTESTINAL: No nausea/vomiting. GENITOURINARY: No hematuria/dysuria. MUSCULOSKELETAL: skin breakdown and bleeding PSYCHIATRIC: The patient denies depression. NEUROLOGIC: lethargic Constitutional: alert Psych: confusion Head: normocephalic ENMT: mucosa pink and moist Neck: jvd (9 cm water), supple Respiratory: diminished breath sounds (at bases/B) Cardiovascular: irregular rhythm Gastrointestinal: non-tender, soft Musculoskeletal: other (Skin breakdown) Extremities: edema (trace) Neurological: lethargic Results Result Diagram: 04/21/1731 04/21/17 0531 Results 24 hrs Laboratory Tests Test 04/21/17 05:31 White Blood Count 5.5 # Red Blood Count 2.86 L Hemoglobin 9.1 L Hematocrit 27.8 L Mean Corpuscular Volume 97.2 Mean Corpuscular Hemoglobin 31.8 Mean Corpuscular Hemoglobin Concent 32.7 Red Cell Distribution Width 18.2 H Platelet Count 86 L Mean Platelet Volume 11.1 H Neutrophils % 76.2 Lymphocytes % 15.5 Monocytes % 5.6 Eosinophils % 2.0 Basophils % 0.0 Nucleated Red Blood Cells % 0.0 Neutrophils # 4.2 Lymphocytes # 0.9 Monocytes # 0.3 Eosinophils # 0.1 Basophils # 0.0 Nucleated Red Blood Cells # 0.0 Sodium Level 132 L Potassium Level 3.7 Chloride Level 98 Carbon Dioxide Level 30 Anion Gap 8 Blood Urea Nitrogen 28 H Creatinine 1.77 H Glucose Level 101 Calcium Level 7.7 L Phosphorus Level 2.5 Magnesium Level 1.8 Medications Medications Current Medications Tramadol HCl (Ultram) 50 mg Q6H PRN PO PAIN; Start 04/17/17 at 03:30 Ondansetron HCl (Zofran Inj) 4 mg Q6H PRN IV NAUSEA AND/OR VOMITING; Start 09/23 at 03:30 Nitroglycerin (Nitroglycerin (Sl Tab) 0.4 Mg) 1 tab Q5M PRN SL CHEST PAIN; Start 04/17/17 at 03:30 Acetaminophen (Tylenol Tab) 650 mg Q6H PRN PO PAIN LEVEL 1-3 OR FEVER Last administered on 04/19/17t 13:07; Admin Dose 650 MG; Start 04/17/17 at 03:30 Docusate Sodium (Colace) 100 mg Q12H PRN PO CONSTIPATION; Start 04/17/17 at 03: 30 Magnesium Hydroxide (Milk Of Mag) 30 ml DAILY PRN PO CONSTIPATION; Start at 03:30 Bisacodyl (Dulcolax Supp) 10 mg DAILY PRN [place] CONSTIPATION; Start 04/17/17 at 03 :30 Famotidine (Pepcid) 20 mg DAILY PO Last administered on 04/21/17 09:39; Admin Dose 20 MG; Start 04/17/17 at 09:00 Clopidogrel Bisulfate (plaVIX) 75 mg DAILY PO Last administered on 04/21/17 09 :38; Admin Dose 75 MG; Start 04/18/17 at 09:00 Atorvastatin Calcium (Lipitor) 40 mg HS PO Last administered on 04/20/17 21:28 ; Admin Dose 40 MG; Start 04/17/17 at 21:00 Carvedilol (Coreg) 6.25 mg BID PO Last administered on 04/21/17 09:42; Admin Dose 6.25 MG; Start 04/18/17 at 21:00 Apixaban (Eliquis) 2.5 mg BID PO Last administered on 04/21/17 10:18; Admin Dose 2.5 MG; Start 04/18/17 at 21:00 Midodrine 5 mg 5 mg BID@,17 PO Last administered on 04/21/17 10:12; Admin Dose 5 MG; Start 04/19/17 at 09:00 Cefazolin Sodium (Ancef 1 Gm/50 ml (Pmx)) 50 ml @ 100 mls/hr Q24H IVPB Last administered on 04/20/17 16:00; Admin Dose 100 MLS/HR; Start 04/19/17 at 16:00 SALOMON ROPER Apr 21, 2017 12:53
[2017-04-21] MEDS ORDERED: DIGOXIN 500 MCG INJ IV ONE (13:00)
[2017-04-21 13:55] LABS: INR 1.52; PROTIME 18.4 Sec (12.2-14.2); PT RATIO 1.4
--- NOTE | 2017-04-21 15:20 | PN ---
Date/Time of Note Date/Time of Note DATE: 04/21/17 TIME: 14:56 Assessment/Plan VTE Prophylaxis VTE Prophylaxis Intervention: other (easily bleeding ) Lines/Catheters IV Catheter Type (from Nrs): Permacath Urinary Cath still in place: No Assessment/Plan Assessment/Plan 81-year-old male with: 1. Bilateral pleural effusion, recurrent secondary to severe cardiomyopathy, diastolic and severe systolic congestive heart failure which is failing medical treatment basically, s/p bilateral Pleurx catheter placement for drainage of recurrent pleural effusions S/p drainage of bilateral pleural effusion 04/17 and CXR today showing re accumulation, patient also with pulmonary edema HD done today and planning for CXR in AM and possible pleurX drainage if needed. Continue with supplemental oxygen 2 to 4 liters nasal cannula for now. HD for further volume management along with bilateral PleurX valves 2. Elevated troponin with known coronary artery disease. Denies chest pain Appreciate cardiology evaluation. Medical management, continue Plavix Because of easy bleeding, d/c Eliquis today. 3. End-stage renal disease on hemodialysis. Patient has been started on Midodrine for blood pressure support especially during HD. S/p HD today. Dr. Summers following 4. Chronic atrial fibrillation, with rapid ventricular rate, currently HR in the 90's to low 100's Digoxin per Cardio, Off Cardizem and Eliquis Coreg dose lowered with holding parameters. Appreciate cardiology recommendations. 5. Hypotension especially during HD, patient on Midodrine especially during HD. 6. Moderate to severe dementia. Very poor short-term memory. He cannot really express his needs. He does not even communicate his symptoms effectively. He is completely dependent on his DPOA, Fabiola Traylor for decision making 7. Dysphagia per [facility] facility report, the patient also does not have dentures, and on Puree diet/mechanical soft diet. 8. Chronic pain. Gardner prn as long as BP tolerates. 9. E coli UTI. Patient tolerating Cefazolin so far, d/c on . Prophylaxis: Eliquis may be resumed and continue Pepcid for GI prophylaxis. DISPOSITION: Continue drainage of PleurX valves as needed and tolerated. HD if able to tolerate Dr. Berman and Dr. Summers following. Patient is moribund. Poor overall prognosis. Palliative care on board and plan for Bioethic meeting. Subjective 24 Hr Interval Summary Free Text/Dictation Patient remains stable post HD today but still on Midodrine for BP support Upper Ext ecchymosis and bleeding areas, d/c Eliquis and currently on Plavix for cad CXR in AM Exam/Review of Systems Vital Signs Vitals Vital Signs Date Time Temp Pulse Resp B/P Pulse Ox O2 Delivery O2 Flow Rate FiO2 04/21/17 14:18 98.6 109 17 139/78 94 04/21/17 08:30 2.0 04/21/17 08:30 Nasal Cannula 04/21/17 01:47 27 Intake and Output 04/20/17 04/20/17 04/21/17 15:00 23:00 07:00 Intake Total 650 ml 400 ml Balance 650 ml 400 ml Exam Constitutional: alert, frail, oriented (s1), other (cachectic ) Respiratory: diminished breath sounds (bilaterally bases ), normal air movement Cardiovascular: irregular rhythm Gastrointestinal: non-tender, soft Musculoskeletal: nl extremities to inspection, other Extremities: normal pulses, other (some anasara ) Neurological: DOCTOR OF NURSE ANESTHESIA PRACTICE II-XII intact, nl mental status, nl speech, other ( generalized wekaness ) Skin: ecchymosis, other (skin tear, paper thin skin, closed blood blister ) Results Result Diagram: 04/21/17 0531 04/21/17 0531 Results 24 hrs Laboratory Tests Test 04/21/17 05:31 04/21/17 13:15 White Blood Count 5.5 # Red Blood Count 2.86 L Hemoglobin 9.1 L Hematocrit 27.8 L Mean Corpuscular Volume 97.2 Mean Corpuscular Hemoglobin 31.8 Mean Corpuscular Hemoglobin Concent 32.7 Red Cell Distribution Width 18.2 H Platelet Count 86 L Mean Platelet Volume 11.1 H Neutrophils % 76.2 Lymphocytes % 15.5 Monocytes % 5.6 Eosinophils % 2.0 Basophils % 0.0 Nucleated Red Blood Cells % 0.0 Neutrophils # 4.2 Lymphocytes # 0.9 Monocytes # 0.3 Eosinophils # 0.1 Basophils # 0.0 Nucleated Red Blood Cells # 0.0 Sodium Level 132 L Potassium Level 3.7 Chloride Level 98 Carbon Dioxide Level 30 Anion Gap 8 Blood Urea Nitrogen 28 H Creatinine 1.77 H Glucose Level 101 Calcium Level 7.7 L Phosphorus Level 2.5 Magnesium Level 1.8 Prothrombin Time 18.4 H Prothrombin Time Ratio 1.4 INR International Normalized Ratio 1.52 Medications Medications Current Medications Tramadol HCl (Ultram) 50 mg Q6H PRN PO PAIN; Start 04/17/17 at 03:30 Ondansetron HCl (Zofran Inj) 4 mg Q6H PRN IV NAUSEA AND/OR VOMITING; Start 09/23 at 03:30 Nitroglycerin (Nitroglycerin (Sl Tab) 0.4 Mg) 1 tab Q5M PRN SL CHEST PAIN; Start 04/17/17 at 03:30 Acetaminophen (Tylenol Tab) 650 mg Q6H PRN PO PAIN LEVEL 1-3 OR FEVER Last administered on 04/19/17 13:07; Admin Dose 650 MG; Start 04/17/17 at 03:30 Docusate Sodium (Colace) 100 mg Q12H PRN PO CONSTIPATION; Start 04/17/17 at 03: 30 Magnesium Hydroxide (Milk Of Mag) 30 ml DAILY PRN PO CONSTIPATION; Start at 03:30 Bisacodyl (Dulcolax Supp) 10 mg DAILY PRN [place] CONSTIPATION; Start 04/17/17 at 03 :30 Famotidine (Pepcid) 20 mg DAILY PO Last administered on 04/21/17 09:39; Admin Dose 20 MG; Start 04/17/17 at 09:00 Clopidogrel Bisulfate (plaVIX) 75 mg DAILY PO Last administered on 04/21/17 09 :38; Admin Dose 75 MG; Start 04/18/17 at 09:00 Atorvastatin Calcium (Lipitor) 40 mg HS PO Last administered on 04/20/17 21:28 ; Admin Dose 40 MG; Start 04/17/17 at 21:00 Carvedilol (Coreg) 6.25 mg BID PO Last administered on 04/21/17 09:42; Admin Dose 6.25 MG; Start 04/18/17 at 21:00 Apixaban (Eliquis) 2.5 mg BID PO Last administered on 04/21/17 10:18; Admin Dose 2.5 MG; Start 04/18/17 at 21:00; Status Future Hold Midodrine 5 mg 5 mg BID@ PO Last administered on 04/21/17 10:12; Admin Dose 5 MG; Start 04/19/17 at 09:00 Cefazolin Sodium (Ancef 1 Gm/50 ml (Pmx)) 50 ml @ 100 mls/hr Q24H IVPB Last administered on 04/20/17t 16:00; Admin Dose 100 MLS/HR; Start 04/19/17 at 16:00 SOO NAIK Apr 21, 2017 15:06
[2017-04-21] MEDS: CEFAZOLIN 1 GM/50 ML (PMX) 50 ML IVPB SCH (16:30)
--- NOTE | 2017-04-21 17:44 | CONS ---
Date/Time of Note Date/Time of Note DATE: 04/21/17 TIME: 17:43 Assessment/Plan Assessment/Plan Additional Assessment/Plan 1. Acute non-ST elevation myocardial infarction. 2. End-stage renal disease on hemodialysis 3 times a week. 3. Bilateral pleural effusion causing fluid overload, right greater than left, status post bilateral PleurX catheter placement by Dr. David at the [facility]. 4. Hypertension. 5. Hyperlipidemia. 6. 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 7. Coronary artery disease. 8. Chronic atrial fibrillation. 9. 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 PLAN: HD plan today Midodrine has been ordered for BP support will follow up pt has very poor quality of life with current treatment he is going through. He is sometimes becomes hypotensive and Tachycardic and we have to give him fluids back to support his BP instead of removing any fluids. He is also getting midodrine for his BP support we have a family meeting today with Fabiola( DPOA of patient)- Cardiolgoy, palliative care, SW and Physical therapist with were present in meeting. we have attempted five different modalities of HD but he is very unstable and labile BP for HD. I explained this to Fabiola but she like to continue HD despite knowing that he is not stable for HD. Consultation Date/Type/Reason Admit Date/Time Apr 17, 2017 at 02:32 Type of Consultation: NEPHROLOGY Referring Provider: SOO NAIK 24 HR Interval Summary Free Text/Dictation doing ok, BP stbale, afebirle, Plan for HD today Exam/Review of Systems Vital Signs Vitals Vital Signs Date Time Temp Pulse Resp B/P Pulse Ox O2 Delivery O2 Flow Rate FiO2 04/21/17 16:25 92 04/21/17 16:19 18 95 Nasal Cannula 2.0 04/21/17 14:18 98.6 139/78 04/21/17 01:47 27 Intake and Output 04/20/17 04/20/17 04/21/17 15:00 23:00 07:00 Intake Total 650 ml 400 ml Balance 650 ml 400 ml Results Result Diagram: 04/21/17 0531 04/21/17 0531 Results 24 hrs Laboratory Tests Test 04/21/17 05:31 04/21/17 13:15 White Blood Count 5.5 # Red Blood Count 2.86 L Hemoglobin 9.1 L Hematocrit 27.8 L Mean Corpuscular Volume 97.2 Mean Corpuscular Hemoglobin 31.8 Mean Corpuscular Hemoglobin Concent 32.7 Red Cell Distribution Width 18.2 H Platelet Count 86 L Mean Platelet Volume 11.1 H Neutrophils % 76.2 Lymphocytes % 15.5 Monocytes % 5.6 Eosinophils % 2.0 Basophils % 0.0 Nucleated Red Blood Cells % 0.0 Neutrophils # 4.2 Lymphocytes # 0.9 Monocytes # 0.3 Eosinophils # 0.1 Basophils # 0.0 Nucleated Red Blood Cells # 0.0 Sodium Level 132 L Potassium Level 3.7 Chloride Level 98 Carbon Dioxide Level 30 Anion Gap 8 Blood Urea Nitrogen 28 H Creatinine 1.77 H Glucose Level 101 Calcium Level 7.7 L Phosphorus Level 2.5 Magnesium Level 1.8 Prothrombin Time 18.4 H Prothrombin Time Ratio 1.4 INR International Normalized Ratio 1.52 Medications Medications Current Medications Tramadol HCl (Ultram) 50 mg Q6H PRN PO PAIN; Start 04/17/17 at 03:30 Ondansetron HCl (Zofran Inj) 4 mg Q6H PRN IV NAUSEA AND/OR VOMITING; Start 09/23 at 03:30 Nitroglycerin (Nitroglycerin (Sl Tab) 0.4 Mg) 1 tab Q5M PRN SL CHEST PAIN; Start 04/17/17 at 03:30 Acetaminophen (Tylenol Tab) 650 mg Q6H PRN PO PAIN LEVEL 1-3 OR FEVER Last administered on 04/19/17 13:07; Admin Dose 650 MG; Start 04/17/17 at 03:30 Docusate Sodium (Colace) 100 mg Q12H PRN PO CONSTIPATION; Start 04/17/17 at 03: 30 Magnesium Hydroxide (Milk Of Mag) 30 ml DAILY PRN PO CONSTIPATION; Start at 03:30 Bisacodyl (Dulcolax Supp) 10 mg DAILY PRN [place] CONSTIPATION; Start 04/17/17 at 03 :30 Famotidine (Pepcid) 20 mg DAILY PO Last administered on 04/21/17 09:39; Admin Dose 20 MG; Start 04/17/17 at 09:00 Clopidogrel Bisulfate (plaVIX) 75 mg DAILY PO Last administered on 04/21/17 09 :38; Admin Dose 75 MG; Start 04/18/17 at 09:00 Atorvastatin Calcium (Lipitor) 40 mg HS PO Last administered on 04/20/17 21:28 ; Admin Dose 40 MG; Start 04/17/17 at 21:00 Carvedilol (Coreg) 6.25 mg BID PO Last administered on 04/21/17 09:42; Admin Dose 6.25 MG; Start 04/18/17 at 21:00 Midodrine (Proamatine) 5 mg BID@ PO Last administered on 04/21/17 17:41; Admin Dose 5 MG; Start 04/19/17 at 09:00 Cephalexin (Keflex) 500 mg Q12 PO ; Start 04/21/17 at 18:00 MACI ASHLEY MD Apr 21, 2017 17:44
[2017-04-21] MEDS: CEPHALEXIN 500 MG CAP PO SCH (18:45)
[2017-04-21] MEDS: ACETAMINOPHEN 325 MG TAB PO PRN (18:46)
[2017-04-21] MEDS: ATORVASTATIN 40 MG TAB PO SCH (21:16)
[2017-04-22] VITALS (12 sets, daily range): BP systolic 110–168; BP diastolic 58–91; PULSE 95–109; RESP 16–22
[2017-04-22] MEDS: ALBUTEROL/IPRATROPIUM (NEB) 3 ML AMP HHN SCH ×4 (00:31→23:00)
[2017-04-22 07:13] LABS: ADD SCAN DIFF NO
[2017-04-22 07:22] LABS: BASOPHILS % 0.3 % (0.0-2.0); EOSINOPHILS # 0.1 10^3/ul (0.0-0.5); EOSINOPHILS % 2.2 % (0.0-7.0); HEMATOCRIT 27.1 % (42.0-52.0); HEMOGLOBIN 8.7 g/dl (14.0-18.0); LYMPHOCYTES # 1.2 10^3/ul (0.8-2.9); LYMPHOCYTES % 18.3 % (15.0-51.0); MEAN CORPUSCULAR HEMOGLOBIN 31.2 pg (29.0-33.0); MEAN CORPUSCULAR HGB CONC 32.1 g/dl (32.0-37.0); MEAN CORPUSCULAR VOLUME 97.1 fl (82.0-101.0); MEAN PLATELET VOLUME 10.8 fl (7.4-10.4); MONOCYTE # 0.6 10^3/ul (0.3-0.9); MONOCYTES % 9.8 % (0.0-11.0); NEUTROPHIL # 4.4 10^3/ul (1.6-7.5); NEUTROPHILS % 68.8 % (39.0-77.0); PLATELET COUNT 104 10^3/UL (140-415); RED BLOOD COUNT 2.79 10^6/ul (4.70-6.10); RED CELL DISTRIBUTION WIDTH 17.6 % (11.5-14.5); WHITE BLOOD COUNT 6.3 10^3/ul (4.8-10.8)
[2017-04-22 07:32] LABS: INR 1.51; PROTIME 18.3 Sec (12.2-14.2); PT RATIO 1.4
[2017-04-22 07:33] LABS: PARTIAL THROMBOPLASTIN TIME 32.6 Sec (25.0-35.0)
[2017-04-22 07:43] LABS: CREATININE 2.11 mg/dl (0.61-1.24); POTASSIUM 4.4 mmol/L (3.5-5.1)
[2017-04-22 07:54] LABS: MAGNESIUM 1.9 mg/dl (1.7-2.5); PHOSPHORUS 3.5 mg/dl (2.5-4.9)
[2017-04-22] MEDS: CEPHALEXIN 500 MG CAP PO SCH ×2 (08:32→20:29)
[2017-04-22] MEDS: CLOPIDOGREL 75 MG TAB PO SCH (08:32)
[2017-04-22] MEDS: FAMOTIDINE 20 MG TAB PO SCH (08:32)
[2017-04-22] MEDS: MIDODRINE 5 MG TAB PO SCH ×2 (08:38→17:00)
[2017-04-22] MEDS: ACETAMINOPHEN 325 MG TAB PO PRN (08:42)
--- NOTE | 2017-04-22 10:30 | RADRPT ---
PROCEDURE: XR Chest 1 view. CLINICAL INDICATION: Shortness of breath. TECHNIQUE: AP views of the chest were obtained. COMPARISON: April 20, 2017 FINDINGS: The heart is large. Calcified atherosclerosis is noted in the aorta. Right-sided dialysis catheter is stable and appears in grossly appropriate location. Central pulmonary vascular congestion and in terstitial prominence in both lungs is unchanged. Patchy infiltrates throughout both lungs, combine d with small to moderate pleural effusions are unchanged. Right-sided pleural drain is stable. The o sseous structures are osteopenic, but appear grossly intact. Old, healed left-sided rib fractures a re stable. Degenerative changes are seen in the shoulders. IMPRESSION: Cardiomegaly with calcified atherosclerosis in the aorta. Stable central pulmonary vascular congestion and interstitial prominence in both lungs. Stable patchy infiltrates throughout both lungs, combined with small to moderate pleural effusions. Stable right-sided pleural drain. RPTAT: AA .Joon Mathew MD, MD Date Time Electronically viewed and signed by .Joon Mathew MD, on 04/22/2017 10:30 .P/
--- NOTE | 2017-04-22 11:34 | CONS ---
Date/Time of Note Date/Time of Note DATE: 04/22/17 TIME: 11:27 Assessment/Plan Assessment/Plan Additional Assessment/Plan Post dated note..Received a call from [facility], she wants to transfer patient to another facility. Will discuss with Dr. Naik Consultation Date/Type/Reason Admit Date/Time Apr 17, 2017 at 02:32 Type of Consultation: NEPHROLOGY Referring Provider: SOO NAIK Exam/Review of Systems Vital Signs Vitals Vital Signs Date Time Temp Pulse Resp B/P Pulse Ox O2 Delivery O2 Flow Rate FiO2 04/22/17 11:15 98.2 83 16 126/88 94 04/22/17 08:15 Bag Valve Mask 04/22/17 08:13 2.0 04/22/17 00:56 27 Intake and Output 04/21/17 04/21/17 04/22/17 15:00 23:00 07:00 Intake Total 300 ml 550 ml 400 ml Output Total 1800 ml Balance -1500 ml 550 ml 400 ml Results Result Diagram: 04/22/17 0600 04/22/17 0600 Results 24 hrs Laboratory Tests Test 04/21/17 13:15 04/22/17 06:00 Prothrombin Time 18.4 H 18.3 H Prothrombin Time Ratio 1.4 1.4 INR International Normalized Ratio 1.52 1.51 White Blood Count 6.3 Red Blood Count 2.79 L Hemoglobin 8.7 L Hematocrit 27.1 L Mean Corpuscular Volume 97.1 Mean Corpuscular Hemoglobin 31.2 Mean Corpuscular Hemoglobin Concent 32.1 Red Cell Distribution Width 17.6 H Platelet Count 104 #L Mean Platelet Volume 10.8 H Neutrophils % 68.8 Lymphocytes % 18.3 Monocytes % 9.8 Eosinophils % 2.2 Basophils % 0.3 Nucleated Red Blood Cells % 0.0 Neutrophils # 4.4 Lymphocytes # 1.2 Monocytes # 0.6 Eosinophils # 0.1 Basophils # 0.0 Nucleated Red Blood Cells # 0.0 Activated Partial Thromboplast Time 32.6 Sodium Level 130 L Potassium Level 4.4 Chloride Level 95 L Carbon Dioxide Level 31 Anion Gap 8 Blood Urea Nitrogen 35 H Creatinine 2.11 H Glucose Level 72 Calcium Level 8.0 L Phosphorus Level 3.5 Magnesium Level 1.9 Medications Medications Current Medications Tramadol HCl (Ultram) 50 mg Q6H PRN PO PAIN; Start 04/17/17 at 03:30 Ondansetron HCl (Zofran Inj) 4 mg Q6H PRN IV NAUSEA AND/OR VOMITING; Start 09/23 at 03:30 Nitroglycerin (Nitroglycerin (Sl Tab) 0.4 Mg) 1 tab Q5M PRN SL CHEST PAIN; Start 04/17/17 at 03:30 Acetaminophen (Tylenol Tab) 650 mg Q6H PRN PO PAIN LEVEL 1-3 OR FEVER Last administered on 04/22/17 08:42; Admin Dose 650 MG; Start 04/17/17 at 03:30 Docusate Sodium (Colace) 100 mg Q12H PRN PO CONSTIPATION; Start 04/17/17 at 03: 30 Magnesium Hydroxide (Milk Of Mag) 30 ml DAILY PRN PO CONSTIPATION; Start at 03:30 Bisacodyl (Dulcolax Supp) 10 mg DAILY PRN [place] CONSTIPATION; Start 04/17/17 at 03 :30 Famotidine (Pepcid) 20 mg DAILY PO Last administered on 04/22/17 08:32; Admin Dose 20 MG; Start 04/17/17 at 09:00 Clopidogrel Bisulfate (plaVIX) 75 mg DAILY PO Last administered on 04/22/17 08 :32; Admin Dose 75 MG; Start 04/18/17 at 09:00 Atorvastatin Calcium (Lipitor) 40 mg HS PO Last administered on 04/21/17 21:16 ; Admin Dose 40 MG; Start 04/17/17 at 21:00 Carvedilol (Coreg) 6.25 mg BID PO Last administered on 04/22/17 08:35; Admin Dose 6.25 MG; Start 04/18/17 at 21:00 Midodrine (Proamatine) 5 mg BID@ PO Last administered on 04/21/17 17:41; Admin Dose 5 MG; Start 04/19/17 at 09:00 Cephalexin (Keflex) 500 mg Q12 PO Last administered on 04/22/17 08:32; Admin Dose 500 MG; Start 04/21/17 at 18:00 ROLAND LEMUS Apr 22, 2017 11:34
--- NOTE | 2017-04-22 16:08 | PN ---
Date/Time of Note Date/Time of Note DATE: 04/22/17 TIME: 15:19 Assessment/Plan VTE Prophylaxis VTE Prophylaxis Intervention: contraindicated VTE Contraindication Reason: anticoagulation not tolerated Lines/Catheters IV Catheter Type (from Nrsg): PERMACATH Central line still needed: Yes (for IV access ) Urinary Cath still in place: No Assessment/Plan Assessment/Plan 81-year-old male with: 1. Bilateral pleural effusion, recurrent secondary to severe cardiomyopathy, diastolic and severe systolic congestive heart failure which is failing medical treatment basically, s/p bilateral Pleurx catheter placement for drainage of recurrent pleural effusions. HD for further volume management along with bilateral PleurX valves. S/p drainage of bilateral pleural effusion 04/17 and CXR today showing re accumulation R>L, s/p HD yesterday and plan for right pleurX drainage today. Continue with supplemental oxygen 2 to 4 liters nasal cannula for now. 2. Elevated troponin with known coronary artery disease. Denies chest pain Appreciate cardiology evaluation. Medical management, continue Plavix Because of easy bleeding off Eliquis, discussed with Cardiology and DPOA 3. End-stage renal disease on hemodialysis. Patient has been started on Midodrine for blood pressure support especially during HD. S/p HD yesterday. Dr. Summers following 4. Chronic atrial fibrillation, with rapid ventricular rate, currently HR in the 90's to low 100's Digoxin per Cardio, Off Cardizem and Eliquis Coreg dose lowered with holding parameters. Appreciate cardiology recommendations. 5. Hypotension especially during HD, patient on Midodrine especially during HD. 6. Moderate to severe dementia. Very poor short-term memory. He cannot really express his needs. He does not even communicate his symptoms effectively. He is completely dependent on his DPOA, Fabiola Traylor for decision making 7. Dysphagia per residential facility report, the patient also does not have dentures, and on Puree diet/mechanical soft diet. 8. Chronic pain. Marshall prn as long as BP tolerates. 9. E coli UTI. Patient tolerating Cefazolin so far, and switch to Keflex po until 04/24. Prophylaxis: Eliquis discontinued, Pepcid for GI prophylaxis. DISPOSITION: Continue drainage of PleurX valves as needed and tolerated. HD if able to tolerate. Dr. Berman and Dr. Summers following. Patient is moribund. Poor overall prognosis. Appreciate assistance from Palliative care. Patient full code Subjective 24 Hr Interval Summary Free Text/Dictation Patient remains stable and very pleasant Ecchymosis and bleeding areas improved Tolerating po well S/p HD yesterday and with reaccumulation of pleural effusion still R>>L, so plan for right pleurX drainage today. Off eliquis and on Plavix only due to easy bleeding Exam/Review of Systems Vital Signs Vitals Vital Signs Date Time Temp Pulse Resp B/P Pulse Ox O2 Delivery O2 Flow Rate FiO2 04/22/17 12:40 105 04/22/17 11:15 98.2 16 126/88 94 04/22/17 08:15 Bag Valve Mask 04/22/17 08:13 2.0 04/22/17 00:56 27 Intake and Output 04/21/17 04/21/17 04/22/17 15:00 23:00 07:00 Intake Total 300 ml 550 ml 400 ml Output Total 1800 ml Balance -1500 ml 550 ml 400 ml Exam Constitutional: alert, oriented (x1) Respiratory: diminished breath sounds (R>>L), normal air movement Cardiovascular: irregular rhythm (atrial fib ) Gastrointestinal: non-tender, soft Musculoskeletal: muscle tone (poor), other (contracted hands L>R and lower ext ) Extremities: normal pulses, other (much better anasarca ) Skin: ecchymosis, other (very thin skin) Results Result Diagram: 04/22/17 0600 04/22/17 0600 Results 24 hrs Laboratory Tests Test 04/22/17 06:00 White Blood Count 6.3 Red Blood Count 2.79 L Hemoglobin 8.7 L Hematocrit 27.1 L Mean Corpuscular Volume 97.1 Mean Corpuscular Hemoglobin 31.2 Mean Corpuscular Hemoglobin Concent 32.1 Red Cell Distribution Width 17.6 H Platelet Count 104 #L Mean Platelet Volume 10.8 H Neutrophils % 68.8 Lymphocytes % 18.3 Monocytes % 9.8 Eosinophils % 2.2 Basophils % 0.3 Nucleated Red Blood Cells % 0.0 Neutrophils # 4.4 Lymphocytes # 1.2 Monocytes # 0.6 Eosinophils # 0.1 Basophils # 0.0 Nucleated Red Blood Cells # 0.0 Prothrombin Time 18.3 H Prothrombin Time Ratio 1.4 INR International Normalized Ratio 1.51 Activated Partial Thromboplast Time 32.6 Sodium Level 130 L Potassium Level 4.4 Chloride Level 95 L Carbon Dioxide Level 31 Anion Gap 8 Blood Urea Nitrogen 35 H Creatinine 2.11 H Glucose Level 72 Calcium Level 8.0 L Phosphorus Level 3.5 Magnesium Level 1.9 Medications Medications Current Medications Tramadol HCl (Ultram) 50 mg Q6H PRN PO PAIN; Start 04/17/17 at 03:30 Ondansetron HCl (Zofran Inj) 4 mg Q6H PRN IV NAUSEA AND/OR VOMITING; Start 09/23 at 03:30 Nitroglycerin (Nitroglycerin (Sl Tab) 0.4 Mg) 1 tab Q5M PRN SL CHEST PAIN; Start 04/17/17 at 03:30 Acetaminophen (Tylenol Tab) 650 mg Q6H PRN PO PAIN LEVEL 1-3 OR FEVER Last administered on 04/22/17 08:42; Admin Dose 650 MG; Start 04/17/17 at 03:30 Docusate Sodium (Colace) 100 mg Q12H PRN PO CONSTIPATION; Start 04/17/17 at 03: 30 Magnesium Hydroxide (Milk Of Mag) 30 ml DAILY PRN PO CONSTIPATION; Start at 03:30 Bisacodyl (Dulcolax Supp) 10 mg DAILY PRN [place] CONSTIPATION; Start 04/17/17 at 03 :30 Famotidine (Pepcid) 20 mg DAILY PO Last administered on 04/22/17 08:32; Admin Dose 20 MG; Start 04/17/17 at 09:00 Clopidogrel Bisulfate (plaVIX) 75 mg DAILY PO Last administered on 04/22/17 08 :32; Admin Dose 75 MG; Start 04/18/17 at 09:00 Atorvastatin Calcium (Lipitor) 40 mg HS PO Last administered on 04/21/17 21:16 ; Admin Dose 40 MG; Start 04/17/17 at 21:00 Carvedilol (Coreg) 6.25 mg BID PO Last administered on 04/22/17 08:35; Admin Dose 6.25 MG; Start 04/18/17 at 21:00 Midodrine (Proamatine) 5 mg BID@ PO Last administered on 04/21/17 17:41; Admin Dose 5 MG; Start 04/19/17 at 09:00 Cephalexin (Keflex) 500 mg Q12 PO Last administered on 04/22/17t 08:32; Admin Dose 500 MG; Start 04/21/17 at 18:00 Procedures Procedures PROCEDURE: XR Chest 1 view. CLINICAL INDICATION: Shortness of breath. TECHNIQUE: AP views of the chest were obtained. COMPARISON: April 20, 2017 FINDINGS: The heart is large. Calcified atherosclerosis is noted in the aorta. Right- sided dialysis catheter is stable and appears in grossly appropriate location. Central pulmonary vascular congestion and interstitial prominence in both lungs is unchanged. Patchy infiltrates throughout both lungs, combined with small to moderate pleural effusions are unchanged. Right-sided pleural drain is stable. The osseous structures are osteopenic, but appear grossly intact. Old, healed left-sided rib fractures are stable. Degenerative changes are seen in the shoulders. IMPRESSION: Cardiomegaly with calcified atherosclerosis in the aorta. Stable central pulmonary vascular congestion and interstitial prominence in both lungs. Stable patchy infiltrates throughout both lungs, combined with small to moderate pleural effusions. Stable right-sided pleural drain. SOO NAIK Apr 22, 2017 16:08
--- NOTE | 2017-04-22 17:22 | CONS ---
Date/Time of Note Date/Time of Note DATE: 04/22/17 TIME: 17:15 Assessment/Plan Assessment/Plan Chief Complaint/Hosp Course IMPRESSION: 1. Positive troponin consistent with non-ST elevation myocardial infarction, likely type 2 in the setting of atrial fibrillation with rapid ventricular response, possible respiratory distress with a negative CK-MB fraction at this time and no chest pain.-decreasing enzymes currently 2. Cardiomyopathy with decreased left ventricular ejection fraction. 3. Congestive heart failure, systolic, acute on chronic. 4. Abnormal electrocardiogram with lateral biphasic T-wave abnormalities and poor R-wave progression across the precordial leads. 5. Hypotension-now on midodrine 6. Renal failure. 7. Anemia. 8. Thrombocytopenia-mildly worse 9.pleural effusions- with pleur x catheters bilateral 10. bradycardia/paf rec: -Tele -s/p discussion with conservator/patient remaining full code at this time -serial ecg's -Continue to hold eliquis and skin breakdown and bleeding -continue plavix as tolerated and may need to be held as well -continue statin -continue pleur x drainage of effusions -hd for volume removal -Midodrine as necessary Problems: Consultation Date/Type/Reason Admit Date/Time Apr 17, 2017 at 02:32 Initial Consult Date 04/17/2017 Type of Consultation: Cardiology Reason for Consultation AF Referring Provider: SOO NAIK Exam/Review of Systems Vital Signs Vitals Vital Signs Date Time Temp Pulse Resp B/P Pulse Ox O2 Delivery O2 Flow Rate FiO2 04/22/17 17:08 95 04/22/17 16:32 2.0 04/22/17 16:32 20 04/22/17 15:21 98.3 110/62 97 04/22/17 08:15 Bag Valve Mask 04/22/17 00:56 27 Intake and Output 04/21/17 04/21/17 04/22/17 14:59 22:59 06:59 Intake Total 300 ml 550 ml 400 ml Output Total 1800 ml Balance -1500 ml 550 ml 400 ml Exam Review of Systems: CONSTITUTIONAL: No fevers, chills. PULMONARY: No sob CARDIOVASCULAR: No chest pain/palpitations GASTROINTESTINAL: No nausea/vomiting. GENITOURINARY: No hematuria/dysuria. MUSCULOSKELETAL: No myagias/arthalgias. PSYCHIATRIC: The patient denies depression. NEUROLOGIC: No weakness Constitutional: alert Psych: no complaints Head: normocephalic ENMT: mucosa pink and moist Neck: jvd, supple Respiratory: diminished breath sounds (at bases/B) Cardiovascular: regular rate and rhythm Gastrointestinal: non-tender, soft Musculoskeletal: muscle tone Extremities: edema (none) Neurological: other (No focal deficits) Results Result Diagram: 04/22/17 0600 04/22/17 0600 Results 24 hrs Laboratory Tests Test 04/22/17 06:00 White Blood Count 6.3 Red Blood Count 2.79 L Hemoglobin 8.7 L Hematocrit 27.1 L Mean Corpuscular Volume 97.1 Mean Corpuscular Hemoglobin 31.2 Mean Corpuscular Hemoglobin Concent 32.1 Red Cell Distribution Width 17.6 H Platelet Count 104 #L Mean Platelet Volume 10.8 H Neutrophils % 68.8 Lymphocytes % 18.3 Monocytes % 9.8 Eosinophils % 2.2 Basophils % 0.3 Nucleated Red Blood Cells % 0.0 Neutrophils # 4.4 Lymphocytes # 1.2 Monocytes # 0.6 Eosinophils # 0.1 Basophils # 0.0 Nucleated Red Blood Cells # 0.0 Prothrombin Time 18.3 H Prothrombin Time Ratio 1.4 INR International Normalized Ratio 1.51 Activated Partial Thromboplast Time 32.6 Sodium Level 130 L Potassium Level 4.4 Chloride Level 95 L Carbon Dioxide Level 31 Anion Gap 8 Blood Urea Nitrogen 35 H Creatinine 2.11 H Glucose Level 72 Calcium Level 8.0 L Phosphorus Level 3.5 Magnesium Level 1.9 Medications Medications Current Medications Tramadol HCl (Ultram) 50 mg Q6H PRN PO PAIN; Start 04/17/17 at 03:30 Ondansetron HCl (Zofran Inj) 4 mg Q6H PRN IV NAUSEA AND/OR VOMITING; Start 09/23 at 03:30 Nitroglycerin (Nitroglycerin (Sl Tab) 0.4 Mg) 1 tab Q5M PRN SL CHEST PAIN; Start 04/17/17 at 03:30 Acetaminophen (Tylenol Tab) 650 mg Q6H PRN PO PAIN LEVEL 1-3 OR FEVER Last administered on 04/22/17t 08:42; Admin Dose 650 MG; Start 04/17/17 at 03:30 Docusate Sodium (Colace) 100 mg Q12H PRN PO CONSTIPATION; Start 04/17/17 at 03: 30 Magnesium Hydroxide (Milk Of Mag) 30 ml DAILY PRN PO CONSTIPATION; Start at 03:30 Bisacodyl (Dulcolax Supp) 10 mg DAILY PRN [place] CONSTIPATION; Start 04/17/17 at 03 :30 Famotidine (Pepcid) 20 mg DAILY PO Last administered on 04/22/17 08:32; Admin Dose 20 MG; Start 04/17/17 at 09:00 Clopidogrel Bisulfate (plaVIX) 75 mg DAILY PO Last administered on 04/22/17 08 :32; Admin Dose 75 MG; Start 04/18/17 at 09:00 Atorvastatin Calcium (Lipitor) 40 mg HS PO Last administered on 04/21/17 21:16 ; Admin Dose 40 MG; Start 04/17/17 at 21:00 Carvedilol (Coreg) 6.25 mg BID PO Last administered on 04/22/17 08:35; Admin Dose 6.25 MG; Start 04/18/17 at 21:00 Midodrine (Proamatine) 5 mg BID@,17 PO Last administered on 04/21/17 17:41; Admin Dose 5 MG; Start 04/19/17 at 09:00 Cephalexin (Keflex) 500 mg Q12 PO Last administered on 04/22/17 08:32; Admin Dose 500 MG; Start 04/21/17 at 18:00 SALOMON ROPER Apr 22, 2017 17:21
[2017-04-22] MEDS ORDERED: DIGOXIN 500 MCG INJ IV ONE (17:30)
--- NOTE | 2017-04-22 17:52 | CONS ---
Date/Time of Note Date/Time of Note DATE: 04/22/17 TIME: 17:49 Assessment/Plan Assessment/Plan Additional Assessment/Plan 1. Acute non-ST elevation myocardial infarction. 2. End-stage renal disease on hemodialysis 3 times a week. 3. Bilateral pleural effusion causing fluid overload, right greater than left, status post bilateral PleurX catheter placement by Dr. David at the [facility]. 4. Hypertension. 5. Hyperlipidemia. 6. 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 7. Coronary artery disease. 8. Chronic atrial fibrillation. 9. 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 PLAN: HD plan tomorrow Midodrine has been ordered for BP support will follow up Consultation Date/Type/Reason Admit Date/Time Apr 17, 2017 at 02:32 Type of Consultation: Cardiology Referring Provider: SOO NAIK 24 HR Interval Summary Free Text/Dictation no acute events, BP more stable, on midodrine Exam/Review of Systems Vital Signs Vitals Vital Signs Date Time Temp Pulse Resp B/P Pulse Ox O2 Delivery O2 Flow Rate FiO2 04/22/17 17:08 95 04/22/17 16:32 2.0 04/22/17 16:32 20 04/22/17 15:21 98.3 110/62 97 04/22/17 08:15 Bag Valve Mask 04/22/17 00:56 27 Intake and Output 04/21/17 04/21/17 04/22/17 15:00 23:00 07:00 Intake Total 300 ml 550 ml 400 ml Output Total 1800 ml Balance -1500 ml 550 ml 400 ml Exam Constitutional: alert (not oriented ) Respiratory: diminished breath sounds (at bases ) Cardiovascular: irregular rhythm (atrial fibrillation ) Gastrointestinal: non-tender, soft Musculoskeletal: nl extremities to inspection, other (no clubbing or cyanosis ) Extremities: other (anasarca ) Neurological: CRACK OFF PERSON II-XII intact, confused, lethargic Results Result Diagram: 04/22/17 0600 04/22/17 0600 Results 24 hrs Laboratory Tests Test 04/22/17 06:00 White Blood Count 6.3 Red Blood Count 2.79 L Hemoglobin 8.7 L Hematocrit 27.1 L Mean Corpuscular Volume 97.1 Mean Corpuscular Hemoglobin 31.2 Mean Corpuscular Hemoglobin Concent 32.1 Red Cell Distribution Width 17.6 H Platelet Count 104 #L Mean Platelet Volume 10.8 H Neutrophils % 68.8 Lymphocytes % 18.3 Monocytes % 9.8 Eosinophils % 2.2 Basophils % 0.3 Nucleated Red Blood Cells % 0.0 Neutrophils # 4.4 Lymphocytes # 1.2 Monocytes # 0.6 Eosinophils # 0.1 Basophils # 0.0 Nucleated Red Blood Cells # 0.0 Prothrombin Time 18.3 H Prothrombin Time Ratio 1.4 INR International Normalized Ratio 1.51 Activated Partial Thromboplast Time 32.6 Sodium Level 130 L Potassium Level 4.4 Chloride Level 95 L Carbon Dioxide Level 31 Anion Gap 8 Blood Urea Nitrogen 35 H Creatinine 2.11 H Glucose Level 72 Calcium Level 8.0 L Phosphorus Level 3.5 Magnesium Level 1.9 Medications Medications Current Medications Tramadol HCl (Ultram) 50 mg Q6H PRN PO PAIN; Start 04/17/17 at 03:30 Ondansetron HCl (Zofran Inj) 4 mg Q6H PRN IV NAUSEA AND/OR VOMITING; Start 09/23 at 03:30 Nitroglycerin (Nitroglycerin (Sl Tab) 0.4 Mg) 1 tab Q5M PRN SL CHEST PAIN; Start 04/17/17 at 03:30 Acetaminophen (Tylenol Tab) 650 mg Q6H PRN PO PAIN LEVEL 1-3 OR FEVER Last administered on 04/22/17 08:42; Admin Dose 650 MG; Start 04/17/17 at 03:30 Docusate Sodium (Colace) 100 mg Q12H PRN PO CONSTIPATION; Start 04/17/17 at 03: 30 Magnesium Hydroxide (Milk Of Mag) 30 ml DAILY PRN PO CONSTIPATION; Start at 03:30 Bisacodyl (Dulcolax Supp) 10 mg DAILY PRN [place] CONSTIPATION; Start 04/17/17 at 03 :30 Famotidine (Pepcid) 20 mg DAILY PO Last administered on 04/22/17 08:32; Admin Dose 20 MG; Start 04/17/17 at 09:00 Clopidogrel Bisulfate (plaVIX) 75 mg DAILY PO Last administered on 04/22/17 08 :32; Admin Dose 75 MG; Start 04/18/17 at 09:00 Atorvastatin Calcium (Lipitor) 40 mg HS PO Last administered on 04/21/17 21:16 ; Admin Dose 40 MG; Start 04/17/17 at 21:00 Carvedilol (Coreg) 6.25 mg BID PO Last administered on 04/22/17 08:35; Admin Dose 6.25 MG; Start 04/18/17 at 21:00 Midodrine (Proamatine) 5 mg BID@ PO Last administered on 04/21/17 17:41; Admin Dose 5 MG; Start 04/19/17 at 09:00 Cephalexin (Keflex) 500 mg Q12 PO Last administered on 04/22/17 08:32; Admin Dose 500 MG; Start 04/21/17 at 18:00 MACI ASHLEY MD Apr 22, 2017 17:52
[2017-04-22] MEDS: ATORVASTATIN 40 MG TAB PO SCH (20:29)
[2017-04-23] VITALS (18 sets, daily range): BP systolic 100–168; BP diastolic 55–85; PULSE 93–130; RESP 16–24
[2017-04-23 06:28] LABS: ADD SCAN DIFF NO
[2017-04-23 06:34] LABS: BASOPHILS % 0.2 % (0.0-2.0); EOSINOPHILS # 0.2 10^3/ul (0.0-0.5); EOSINOPHILS % 2.7 % (0.0-7.0); HEMATOCRIT 27.5 % (42.0-52.0); HEMOGLOBIN 8.8 g/dl (14.0-18.0); LYMPHOCYTES # 1.1 10^3/ul (0.8-2.9); LYMPHOCYTES % 17.2 % (15.0-51.0); MEAN CORPUSCULAR VOLUME 96.8 fl (82.0-101.0); MEAN PLATELET VOLUME 10.2 fl (7.4-10.4); MONOCYTE # 0.6 10^3/ul (0.3-0.9); MONOCYTES % 8.9 % (0.0-11.0); NEUTROPHIL # 4.5 10^3/ul (1.6-7.5); NEUTROPHILS % 70.4 % (39.0-77.0); PLATELET COUNT 117 10^3/UL (140-415); RED BLOOD COUNT 2.84 10^6/ul (4.70-6.10); RED CELL DISTRIBUTION WIDTH 17.5 % (11.5-14.5); WHITE BLOOD COUNT 6.4 10^3/ul (4.8-10.8)
[2017-04-23 07:17] LABS: INR 1.32; PARTIAL THROMBOPLASTIN TIME 29.9 Sec (25.0-35.0); PROTIME 16.5 Sec (12.2-14.2); PT RATIO 1.3
[2017-04-23] MEDS: ALBUTEROL/IPRATROPIUM (NEB) 3 ML AMP HHN SCH ×3 (07:19→23:40)
[2017-04-23 07:24] LABS: CALCIUM 7.8 mg/dl (8.4-10.2); CREATININE 2.63 mg/dl (0.61-1.24); POTASSIUM 4.5 mmol/L (3.5-5.1)
[2017-04-23] MEDS: MIDODRINE 5 MG TAB PO SCH ×2 (09:00→17:00)
--- NOTE | 2017-04-23 09:37 | PN ---
Date/Time of Note Date/Time of Note DATE: 04/23/17 TIME: 09:33 Assessment/Plan VTE Prophylaxis VTE Prophylaxis Intervention: anti-embolic stocking Lines/Catheters IV Catheter Type (from Nrsg): PERMACATH Urinary Cath still in place: No Assessment/Plan Assessment/Plan a/p 1. cards: end stage cardiomyopathy with low blood pressure, not tolerating medications, attempts at giving coreg are being twarted by low BP for HD (b) a fib with chronic tachycardia, this may need to be toelrated. cont digoxin , consider amiodarone for rate control? off anticoagulation secondary to bleeding issuers (c) NSTEMI (c) bilat pleural effusions secondary to cardiac and renal disease refractory to med managment, s/p bilat pleurex catheter 2. renal: ESRD on HD 3. e coli uti cont keflex 4. dementia 5. VERY POOR prognosis Subjective 24 Hr Interval Summary Free Text/Dictation no new complaints, answer questions denies sob or pain Exam/Review of Systems Vital Signs Vitals Vital Signs Date Time Temp Pulse Resp B/P Pulse Ox O2 Delivery O2 Flow Rate FiO2 04/23/17 09:05 93 18 04/23/17 04:00 97.9 168/70 100 04/23/17 01:28 2.0 04/22/17 23:00 Nasal Cannula 04/22/17 00:56 27 Intake and Output 04/22/17 04/22/17 04/23/17 15:00 23:00 07:00 Intake Total 660 ml 400 ml Balance 660 ml 400 ml Exam Constitutional: alert Psych: no complaints Respiratory: clear to auscultation Cardiovascular: regular rate and rhythm Results Result Diagram: 04/23/17 0610 04/23/17 0610 Results 24 hrs Laboratory Tests Test 04/23/17 06:10 White Blood Count 6.4 Red Blood Count 2.84 L Hemoglobin 8.8 L Hematocrit 27.5 L Mean Corpuscular Volume 96.8 Mean Corpuscular Hemoglobin 31.0 Mean Corpuscular Hemoglobin Concent 32.0 Red Cell Distribution Width 17.5 H Platelet Count 117 L Mean Platelet Volume 10.2 Neutrophils % 70.4 Lymphocytes % 17.2 Monocytes % 8.9 Eosinophils % 2.7 Basophils % 0.2 Nucleated Red Blood Cells % 0.0 Neutrophils # 4.5 Lymphocytes # 1.1 Monocytes # 0.6 Eosinophils # 0.2 Basophils # 0.0 Nucleated Red Blood Cells # 0.0 Prothrombin Time 16.5 H Prothrombin Time Ratio 1.3 INR International Normalized Ratio 1.32 Activated Partial Thromboplast Time 29.9 Sodium Level 124 L Potassium Level 4.5 Chloride Level 90 L Carbon Dioxide Level 27 Anion Gap 12 Blood Urea Nitrogen 46 #H Creatinine 2.63 H Glucose Level 81 Calcium Level 7.8 L Phosphorus Level 4.0 Magnesium Level 2.0 Medications Medications Current Medications Tramadol HCl (Ultram) 50 mg Q6H PRN PO PAIN; Start 04/17/17 at 03:30 Ondansetron HCl (Zofran Inj) 4 mg Q6H PRN IV NAUSEA AND/OR VOMITING; Start 09/23 at 03:30 Nitroglycerin (Nitroglycerin (Sl Tab) 0.4 Mg) 1 tab Q5M PRN SL CHEST PAIN; Start 04/17/17 at 03:30 Acetaminophen (Tylenol Tab) 650 mg Q6H PRN PO PAIN LEVEL 1-3 OR FEVER Last administered on 04/22/17 08:42; Admin Dose 650 MG; Start 04/17/17 at 03:30 Docusate Sodium (Colace) 100 mg Q12H PRN PO CONSTIPATION; Start 04/17/17 at 03: 30 Magnesium Hydroxide (Milk Of Mag) 30 ml DAILY PRN PO CONSTIPATION; Start at 03:30 Bisacodyl (Dulcolax Supp) 10 mg DAILY PRN [place] CONSTIPATION; Start 04/17/17 at 03 :30 Famotidine (Pepcid) 20 mg DAILY PO Last administered on 04/22/17 08:32; Admin Dose 20 MG; Start 04/17/17 at 09:00 Clopidogrel Bisulfate (plaVIX) 75 mg DAILY PO Last administered on 04/22/17 08 :32; Admin Dose 75 MG; Start 04/18/17 at 09:00 Atorvastatin Calcium (Lipitor) 40 mg HS PO Last administered on 04/22/17 20:29 ; Admin Dose 40 MG; Start 04/17/17 at 21:00 Carvedilol (Coreg) 6.25 mg BID PO Last administered on 04/22/17 20:29; Admin Dose 6.25 MG; Start 04/18/17 at 21:00 Midodrine (Proamatine) 5 mg BID@ PO Last administered on 04/21/17 17:41; Admin Dose 5 MG; Start 04/19/17 at 09:00 Cephalexin (Keflex) 500 mg Q12 PO Last administered on 04/22/17 20:29; Admin Dose 500 MG; Start 04/21/17 at 18:00 EVERARDO FIGUEROA MD Apr 23, 2017 09:37
[2017-04-23] MEDS: CEPHALEXIN 500 MG CAP PO SCH ×2 (10:41→21:21)
[2017-04-23] MEDS: FAMOTIDINE 20 MG TAB PO SCH (10:41)
[2017-04-23] MEDS: CLOPIDOGREL 75 MG TAB PO SCH (10:41)
--- NOTE | 2017-04-23 13:35 | CONS ---
Date/Time of Note Date/Time of Note DATE: 04/23/17 TIME: 13:31 Assessment/Plan Assessment/Plan Additional Assessment/Plan 1. CAD s/p NSTEMI 2. End-stage renal disease on hemodialysis 3. Bilateral pleural effusion 4. Hypertension. 5. Hyperlipidemia. 6. 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 7. Chronic atrial fibrillation. 8. Anemia Atrial fibrillation with RVR Started on Digoxin Continue Coreg Continue Plavix Continue Lipitor Continue Antibiotics HD as scheduled Consultation Date/Type/Reason Admit Date/Time Apr 17, 2017 at 02:32 Psychological: no complaints Social History Smoking Status: Unknown if ever smoked Exam/Review of Systems Vital Signs Vitals Vital Signs Date Time Temp Pulse Resp B/P Pulse Ox O2 Delivery O2 Flow Rate FiO2 04/23/17 12:34 115 04/23/17 11:45 96.8 16 128/58 98 04/23/17 11:45 2.0 04/23/17 10:27 Nasal Cannula 04/22/17 00:56 27 Intake and Output 04/22/17 04/22/17 04/23/17 14:59 22:59 06:59 Intake Total 660 ml 400 ml Balance 660 ml 400 ml Exam Constitutional: alert Head: atraumatic, normocephalic Neck: non-tender, supple Respiratory: clear to auscultation Cardiovascular: irregular rhythm Gastrointestinal: nl liver, spleen, non-tender, soft Extremities: normal pulses Results Result Diagram: 04/23/17 0610 04/23/17 0610 Results 24 hrs Laboratory Tests Test 04/23/17 06:10 White Blood Count 6.4 Red Blood Count 2.84 L Hemoglobin 8.8 L Hematocrit 27.5 L Mean Corpuscular Volume 96.8 Mean Corpuscular Hemoglobin 31.0 Mean Corpuscular Hemoglobin Concent 32.0 Red Cell Distribution Width 17.5 H Platelet Count 117 L Mean Platelet Volume 10.2 Neutrophils % 70.4 Lymphocytes % 17.2 Monocytes % 8.9 Eosinophils % 2.7 Basophils % 0.2 Nucleated Red Blood Cells % 0.0 Neutrophils # 4.5 Lymphocytes # 1.1 Monocytes # 0.6 Eosinophils # 0.2 Basophils # 0.0 Nucleated Red Blood Cells # 0.0 Prothrombin Time 16.5 H Prothrombin Time Ratio 1.3 INR International Normalized Ratio 1.32 Activated Partial Thromboplast Time 29.9 Sodium Level 124 L Potassium Level 4.5 Chloride Level 90 L Carbon Dioxide Level 27 Anion Gap 12 Blood Urea Nitrogen 46 #H Creatinine 2.63 H Glucose Level 81 Calcium Level 7.8 L Phosphorus Level 4.0 Magnesium Level 2.0 Medications Medications Current Medications Tramadol HCl (Ultram) 50 mg Q6H PRN PO PAIN; Start 04/17/17 at 03:30 Ondansetron HCl (Zofran Inj) 4 mg Q6H PRN IV NAUSEA AND/OR VOMITING; Start 09/23 at 03:30 Nitroglycerin (Nitroglycerin (Sl Tab) 0.4 Mg) 1 tab Q5M PRN SL CHEST PAIN; Start 04/17/17 at 03:30 Acetaminophen (Tylenol Tab) 650 mg Q6H PRN PO PAIN LEVEL 1-3 OR FEVER Last administered on 04/22/17 08:42; Admin Dose 650 MG; Start 04/17/17 at 03:30 Docusate Sodium (Colace) 100 mg Q12H PRN PO CONSTIPATION; Start 04/17/17 at 03: 30 Magnesium Hydroxide (Milk Of Mag) 30 ml DAILY PRN PO CONSTIPATION; Start at 03:30 Bisacodyl (Dulcolax Supp) 10 mg DAILY PRN [place] CONSTIPATION; Start 04/17/17 at 03 :30 Famotidine (Pepcid) 20 mg DAILY PO Last administered on 04/23/17 10:41; Admin Dose 20 MG; Start 04/17/17 at 09:00 Clopidogrel Bisulfate (plaVIX) 75 mg DAILY PO Last administered on 04/23/17 10 :41; Admin Dose 75 MG; Start 04/18/17 at 09:00 Atorvastatin Calcium (Lipitor) 40 mg HS PO Last administered on 04/22/17 20:29 ; Admin Dose 40 MG; Start 04/17/17 at 21:00 Carvedilol (Coreg) 6.25 mg BID PO Last administered on 04/23/17 10:42; Admin Dose 6.25 MG; Start 04/18/17 at 21:00 Midodrine (Proamatine) 5 mg BID@ PO Last administered on 04/21/17 17:41; Admin Dose 5 MG; Start 04/19/17 at 09:00 Cephalexin (Keflex) 500 mg Q12 PO Last administered on 04/23/17t 10:41; Admin Dose 500 MG; Start 04/21/17 at 18:00 Captopril (Capoten) 6.25 mg TID PO ; Start 04/23/17 at 13:00 CECILIA NARVAEZ M.D. Apr 23, 2017 13:35
--- NOTE | 2017-04-23 14:46 | CONS ---
Date/Time of Note Date/Time of Note DATE: 04/23/17 TIME: 14:45 Assessment/Plan Assessment/Plan Additional Assessment/Plan 1. Acute non-ST elevation myocardial infarction. 2. End-stage renal disease on hemodialysis 3 times a week. 3. Bilateral pleural effusion causing fluid overload, right greater than left, status post bilateral PleurX catheter placement by Dr. David at the [facility]. 4. Hypertension. 5. Hyperlipidemia. 6. 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 7. Coronary artery disease. 8. Chronic atrial fibrillation. 9. 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 PLAN: HD plan today with Ultrafitration so BP dont drop Midodrine has been ordered for BP support will follow up Consultation Date/Type/Reason Admit Date/Time Apr 17, 2017 at 02:32 Type of Consultation: NEPHROLOGY Referring Provider: SOO NAIK 24 HR Interval Summary Free Text/Dictation plan for HD today,afebrile, BP stable Exam/Review of Systems Vital Signs Vitals Vital Signs Date Time Temp Pulse Resp B/P Pulse Ox O2 Delivery O2 Flow Rate FiO2 04/23/17 12:34 115 04/23/17 11:45 96.8 16 128/58 98 04/23/17 11:45 2.0 04/23/17 10:27 Nasal Cannula 04/22/17 00:56 27 Intake and Output 04/22/17 04/22/17 04/23/17 15:00 23:00 07:00 Intake Total 660 ml 400 ml Balance 660 ml 400 ml Exam Constitutional: alert (not oriented ) Respiratory: diminished breath sounds (at bases ) Cardiovascular: irregular rhythm (atrial fibrillation ) Gastrointestinal: non-tender, soft Musculoskeletal: nl extremities to inspection, other (no clubbing or cyanosis ) Extremities: other (anasarca ) 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, confused, lethargic Results Result Diagram: 04/23/17 0610 04/23/17 0610 Results 24 hrs Laboratory Tests Test 04/23/17 06:10 White Blood Count 6.4 Red Blood Count 2.84 L Hemoglobin 8.8 L Hematocrit 27.5 L Mean Corpuscular Volume 96.8 Mean Corpuscular Hemoglobin 31.0 Mean Corpuscular Hemoglobin Concent 32.0 Red Cell Distribution Width 17.5 H Platelet Count 117 L Mean Platelet Volume 10.2 Neutrophils % 70.4 Lymphocytes % 17.2 Monocytes % 8.9 Eosinophils % 2.7 Basophils % 0.2 Nucleated Red Blood Cells % 0.0 Neutrophils # 4.5 Lymphocytes # 1.1 Monocytes # 0.6 Eosinophils # 0.2 Basophils # 0.0 Nucleated Red Blood Cells # 0.0 Prothrombin Time 16.5 H Prothrombin Time Ratio 1.3 INR International Normalized Ratio 1.32 Activated Partial Thromboplast Time 29.9 Sodium Level 124 L Potassium Level 4.5 Chloride Level 90 L Carbon Dioxide Level 27 Anion Gap 12 Blood Urea Nitrogen 46 #H Creatinine 2.63 H Glucose Level 81 Calcium Level 7.8 L Phosphorus Level 4.0 Magnesium Level 2.0 Medications Medications Current Medications Tramadol HCl (Ultram) 50 mg Q6H PRN PO PAIN; Start 04/17/17 at 03:30 Ondansetron HCl (Zofran Inj) 4 mg Q6H PRN IV NAUSEA AND/OR VOMITING; Start 09/23 at 03:30 Nitroglycerin (Nitroglycerin (Sl Tab) 0.4 Mg) 1 tab Q5M PRN SL CHEST PAIN; Start 04/17/17 at 03:30 Acetaminophen (Tylenol Tab) 650 mg Q6H PRN PO PAIN LEVEL 1-3 OR FEVER Last administered on 04/22/17 08:42; Admin Dose 650 MG; Start 04/17/17 at 03:30 Docusate Sodium (Colace) 100 mg Q12H PRN PO CONSTIPATION; Start 04/17/17 at 03: 30 Magnesium Hydroxide (Milk Of Mag) 30 ml DAILY PRN PO CONSTIPATION; Start at 03:30 Bisacodyl (Dulcolax Supp) 10 mg DAILY PRN [place] CONSTIPATION; Start 04/17/17 at 03 :30 Famotidine (Pepcid) 20 mg DAILY PO Last administered on 04/23/17 10:41; Admin Dose 20 MG; Start 04/17/17 at 09:00 Clopidogrel Bisulfate (plaVIX) 75 mg DAILY PO Last administered on 04/23/17 10 :41; Admin Dose 75 MG; Start 04/18/17 at 09:00 Atorvastatin Calcium (Lipitor) 40 mg HS PO Last administered on 04/22/17 20:29 ; Admin Dose 40 MG; Start 04/17/17 at 21:00 Carvedilol (Coreg) 6.25 mg BID PO Last administered on 04/23/17 10:42; Admin Dose 6.25 MG; Start 04/18/17 at 21:00 Midodrine (Proamatine) 5 mg BID@09,17 PO Last administered on 04/21/17 17:41; Admin Dose 5 MG; Start 04/19/17 at 09:00 Cephalexin (Keflex) 500 mg Q12 PO Last administered on 04/23/17 10:41; Admin Dose 500 MG; Start 04/21/17 at 18:00 Captopril (Capoten) 6.25 mg TID PO ; Start 04/23/17 at 13:00 Digoxin (Digoxin) 0.125 mg DAILY@13 PO ; Start 04/24/17 at 13:00 MACI ASHLEY MD Apr 23, 2017 14:46
[2017-04-23] MEDS: ATORVASTATIN 40 MG TAB PO SCH (21:22)
[2017-04-24] VITALS (13 sets, daily range): BP systolic 97–146; BP diastolic 57–78; PULSE 91–133; RESP 13–20
[2017-04-24 07:27] LABS: ADD SCAN DIFF NO
[2017-04-24 07:32] LABS: ABNORMAL IP MESSAGE 1; BASOPHILS % 0.2 % (0.0-2.0); EOSINOPHILS # 0.2 10^3/ul (0.0-0.5); HEMATOCRIT 26.7 % (42.0-52.0); HEMOGLOBIN 8.3 g/dl (14.0-18.0); LYMPHOCYTES # 1.1 10^3/ul (0.8-2.9); LYMPHOCYTES % 17.4 % (15.0-51.0); MEAN CORPUSCULAR HEMOGLOBIN 30.6 pg (29.0-33.0); MEAN CORPUSCULAR HGB CONC 31.1 g/dl (32.0-37.0); MEAN CORPUSCULAR VOLUME 98.5 fl (82.0-101.0); MEAN PLATELET VOLUME 11.2 fl (7.4-10.4); MONOCYTE # 0.7 10^3/ul (0.3-0.9); MONOCYTES % 10.7 % (0.0-11.0); NEUTROPHIL # 4.3 10^3/ul (1.6-7.5); NEUTROPHILS % 68.2 % (39.0-77.0); PLATELET COUNT 93 10^3/UL (140-415); RED BLOOD COUNT 2.71 10^6/ul (4.70-6.10); RED CELL DISTRIBUTION WIDTH 17.5 % (11.5-14.5); WHITE BLOOD COUNT 6.3 10^3/ul (4.8-10.8)
[2017-04-24 07:51] LABS: CALCIUM 7.6 mg/dl (8.4-10.2); CREATININE 2.1 mg/dl (0.61-1.24); POTASSIUM 3.6 mmol/L (3.5-5.1)
[2017-04-24] MEDS: ALBUTEROL/IPRATROPIUM (NEB) 3 ML AMP HHN SCH ×2 (08:17→15:25)
[2017-04-24] MEDS: MIDODRINE 5 MG TAB PO SCH (09:00)
[2017-04-24] MEDS: CEPHALEXIN 500 MG CAP PO SCH ×2 (10:13→20:32)
[2017-04-24] MEDS: CLOPIDOGREL 75 MG TAB PO SCH (10:13)
[2017-04-24] MEDS: FAMOTIDINE 20 MG TAB PO SCH (10:13)
--- NOTE | 2017-04-24 10:46 | PN ---
Date/Time of Note Date/Time of Note DATE: 04/24/17 TIME: 10:43 Assessment/Plan VTE Prophylaxis VTE Prophylaxis Intervention: other Lines/Catheters IV [facility] ([facility] PERM A CATH-HD Urinary Cath still in place: No Assessment/Plan Assessment/Plan 1. cards: severe ischemic cardiomyopathy, tolerating coreg and captopril thus far (b) paroxysmal a fib, controlled at this point 3. pulm: recurrent pleural effusions related to esrd and chf, pleurex bilat in situ 3. renal: esrd on hd, cont (b) give midodrine prior to dialysis and hold coreg prior to dialysis 4. cognitive impairment 5. uti, cont keflex 6. anticipate snf 1-2 days Subjective 24 Hr Interval Summary Free Text/Dictation no complaints looks MUCH better breathing easier Exam/Review of Systems Vital Signs Vitals Vital Signs Date Time Temp Pulse Resp B/P Pulse Ox O2 Delivery O2 Flow Rate FiO2 04/24/17 10:08 133 20 112/73 133 04/24/17 08:21 99 Nasal Cannula 2.0 04/24/17 07:43 97.8 04/22/17 00:56 27 Intake and Output 04/23/17 04/23/17 04/24/17 15:00 23:00 07:00 Intake Total 500 ml 200 ml Output Total 2500 ml Balance -2000 ml 200 ml Exam Constitutional: alert Respiratory: clear to auscultation Cardiovascular: regular rate and rhythm Gastrointestinal: non-tender, soft Results Result Diagram: 04/24/17 0630 04/24/17 0630 Results 24 hrs Laboratory Tests Test 04/24/17 06:30 White Blood Count 6.3 Red Blood Count 2.71 L Hemoglobin 8.3 L Hematocrit 26.7 L Mean Corpuscular Volume 98.5 Mean Corpuscular Hemoglobin 30.6 Mean Corpuscular Hemoglobin Concent 31.1 L Red Cell Distribution Width 17.5 H Platelet Count 93 #L Mean Platelet Volume 11.2 H Neutrophils % 68.2 Lymphocytes % 17.4 Monocytes % 10.7 Eosinophils % 3.0 Basophils % 0.2 Nucleated Red Blood Cells % 0.0 Neutrophils # 4.3 Lymphocytes # 1.1 Monocytes # 0.7 Eosinophils # 0.2 Basophils # 0.0 Nucleated Red Blood Cells # 0.0 Sodium Level 126 L Potassium Level 3.6 Chloride Level 94 L Carbon Dioxide Level 27 Anion Gap 9 Blood Urea Nitrogen 32 #H Creatinine 2.10 H Glucose Level 67 #L Calcium Level 7.6 L Medications Medications Current Medications Tramadol HCl (Ultram) 50 mg Q6H PRN PO PAIN; Start 04/17/17 at 03:30 Ondansetron HCl (Zofran Inj) 4 mg Q6H PRN IV NAUSEA AND/OR VOMITING; Start 09/23 at 03:30 Nitroglycerin (Nitroglycerin (Sl Tab) 0.4 Mg) 1 tab Q5M PRN SL CHEST PAIN; Start 04/17/17 at 03:30 Acetaminophen (Tylenol Tab) 650 mg Q6H PRN PO PAIN LEVEL 1-3 OR FEVER Last administered on 04/22/17 08:42; Admin Dose 650 MG; Start 04/17/17 at 03:30 Docusate Sodium (Colace) 100 mg Q12H PRN PO CONSTIPATION; Start 04/17/17 at 03: 30 Magnesium Hydroxide (Milk Of Mag) 30 ml DAILY PRN PO CONSTIPATION; Start at 03:30 Bisacodyl (Dulcolax Supp) 10 mg DAILY PRN [place] CONSTIPATION; Start 04/17/17 at 03 :30 Famotidine (Pepcid) 20 mg DAILY PO Last administered on 04/24/17 10:13; Admin Dose 20 MG; Start 04/17/17 at 09:00 Clopidogrel Bisulfate (plaVIX) 75 mg DAILY PO Last administered on 04/24/17 10 :13; Admin Dose 75 MG; Start 04/18/17 at 09:00 Atorvastatin Calcium (Lipitor) 40 mg HS PO Last administered on 04/23/17 21:22 ; Admin Dose 40 MG; Start 04/17/17 at 21:00 Carvedilol (Coreg) 6.25 mg BID PO Last administered on 04/24/17 10:13; Admin Dose 6.25 MG; Start 04/18/17 at 21:00 Midodrine (Proamatine) 5 mg BID@ PO Last administered on 04/21/17 17:41; Admin Dose 5 MG; Start 04/19/17 at 09:00 Cephalexin (Keflex) 500 mg Q12 PO Last administered on 04/24/17 10:13; Admin Dose 500 MG; Start 04/21/17 at 18:00 Captopril (Capoten) 6.25 mg TID PO Last administered on 04/23/17t 21:22; Admin Dose 6.25 MG; Start 04/23/17 at 13:00 Digoxin (Digoxin) 0.125 mg DAILY@13 PO ; Start 04/24/17 at 13:00 EVERARDO FIGUEROA MD Apr 24, 2017 10:46
--- NOTE | 2017-04-24 13:54 | CONS ---
Date/Time of Note Date/Time of Note DATE: 04/24/17 TIME: 13:51 Assessment/Plan Assessment/Plan Additional Assessment/Plan 1. CAD s/p NSTEMI 2. End-stage renal disease on hemodialysis 3. Bilateral pleural effusion 4. Hypertension. 5. Hyperlipidemia. 6. 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 7. Chronic atrial fibrillation. 8. Anemia Atrial fibrillation rate controlled Continue Digoxin Continue Coreg Continue Plavix, Monitor Plaletet count closely Continue Lipitor Continue Antibiotics HD as scheduled Consultation Date/Type/Reason Admit Date/Time Apr 17, 2017 at 02:32 Initial Consult Date Type of Consultation: NEPHROLOGY Referring Provider: SOO NAIK Exam/Review of Systems Vital Signs Vitals Vital Signs Date Time Temp Pulse Resp B/P Pulse Ox O2 Delivery O2 Flow Rate FiO2 04/24/17 12:16 91 04/24/17 11:07 97.7 13 143/57 98 04/24/17 08:21 Nasal Cannula 2.0 04/22/17 00:56 27 Intake and Output 04/23/17 04/23/17 04/24/17 15:00 23:00 07:00 Intake Total 500 ml 200 ml Output Total 2500 ml Balance -2000 ml 200 ml Exam Constitutional: alert Head: atraumatic, normocephalic Neck: non-tender, supple Respiratory: clear to auscultation Cardiovascular: irregular rhythm Gastrointestinal: nl liver, spleen, non-tender, soft Extremities: normal pulses Results Result Diagram: 04/24/17 0630 04/24/17 0630 Results 24 hrs Laboratory Tests Test 04/24/17 06:30 White Blood Count 6.3 Red Blood Count 2.71 L Hemoglobin 8.3 L Hematocrit 26.7 L Mean Corpuscular Volume 98.5 Mean Corpuscular Hemoglobin 30.6 Mean Corpuscular Hemoglobin Concent 31.1 L Red Cell Distribution Width 17.5 H Platelet Count 93 #L Mean Platelet Volume 11.2 H Neutrophils % 68.2 Lymphocytes % 17.4 Monocytes % 10.7 Eosinophils % 3.0 Basophils % 0.2 Nucleated Red Blood Cells % 0.0 Neutrophils # 4.3 Lymphocytes # 1.1 Monocytes # 0.7 Eosinophils # 0.2 Basophils # 0.0 Nucleated Red Blood Cells # 0.0 Sodium Level 126 L Potassium Level 3.6 Chloride Level 94 L Carbon Dioxide Level 27 Anion Gap 9 Blood Urea Nitrogen 32 #H Creatinine 2.10 H Glucose Level 67 #L Calcium Level 7.6 L Medications Medications Current Medications Tramadol HCl (Ultram) 50 mg Q6H PRN PO PAIN; Start 04/17/17 at 03:30 Ondansetron HCl (Zofran Inj) 4 mg Q6H PRN IV NAUSEA AND/OR VOMITING; Start 09/23 at 03:30 Nitroglycerin (Nitroglycerin (Sl Tab) 0.4 Mg) 1 tab Q5M PRN SL CHEST PAIN; Start 04/17/17 at 03:30 Acetaminophen (Tylenol Tab) 650 mg Q6H PRN PO PAIN LEVEL 1-3 OR FEVER Last administered on 04/22/17 08:42; Admin Dose 650 MG; Start 04/17/17 at 03:30 Docusate Sodium (Colace) 100 mg Q12H PRN PO CONSTIPATION; Start 04/17/17 at 03: 30 Magnesium Hydroxide (Milk Of Mag) 30 ml DAILY PRN PO CONSTIPATION; Start at 03:30 Bisacodyl (Dulcolax Supp) 10 mg DAILY PRN [place] CONSTIPATION; Start 04/17/17 at 03 :30 Famotidine (Pepcid) 20 mg DAILY PO Last administered on 04/24/17 10:13; Admin Dose 20 MG; Start 04/17/17 at 09:00 Clopidogrel Bisulfate (plaVIX) 75 mg DAILY PO Last administered on 04/24/17 10 :13; Admin Dose 75 MG; Start 04/18/17 at 09:00 Atorvastatin Calcium (Lipitor) 40 mg HS PO Last administered on 04/23/17 21:22 ; Admin Dose 40 MG; Start 04/17/17 at 21:00 Carvedilol (Coreg) 6.25 mg BID PO Last administered on 04/24/17 10:13; Admin Dose 6.25 MG; Start 04/18/17 at 21:00 Cephalexin (Keflex) 500 mg Q12 PO Last administered on 04/24/17 10:13; Admin Dose 500 MG; Start 04/21/17 at 18:00 Captopril (Capoten) 6.25 mg TID PO Last administered on 04/23/17 21:22; Admin Dose 6.25 MG; Start 04/23/17 at 13:00 Digoxin (Digoxin) 0.125 mg DAILY@13 PO ; Start 04/24/17 at 13:00 Midodrine (Proamatine) 10 mg DAILY PRN PO dialysis; Start 04/25/17 at 09:00 CECILIA NARVAEZ M.D. Apr 24, 2017 13:54
[2017-04-24] MEDS: DIGOXIN 0.125 MG TAB PO SCH (14:08)
[2017-04-24] MEDS: ATORVASTATIN 40 MG TAB PO SCH (20:32)
[2017-04-24] MEDS: traMADol 50 MG TAB PO PRN (20:36)
--- NOTE | 2017-04-24 21:16 | CONS ---
Date/Time of Note Date/Time of Note DATE: 04/24/17 TIME: 21:14 Assessment/Plan Assessment/Plan Additional Assessment/Plan 1. Acute non-ST elevation myocardial infarction. 2. End-stage renal disease on hemodialysis 3 times a week. 3. Bilateral pleural effusion causing fluid overload, right greater than left, status post bilateral PleurX catheter placement by Dr. David at the [facility]. 4. Hypertension. 5. Hyperlipidemia. 6. 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 7. Coronary artery disease. 8. Chronic atrial fibrillation. 9. 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 PLAN: S/p HD yesterday, AM CXR ordered to follow up on pulmonary congestion Midodrine has been ordered for BP support will follow up Consultation Date/Type/Reason Admit Date/Time Apr 17, 2017 at 02:32 Type of Consultation: NEPHROLOGY Referring Provider: SOO NAIK 24 HR Interval Summary Free Text/Dictation s/p HD yesterday, BP stable with midodrine Exam/Review of Systems Vital Signs Vitals Vital Signs Date Time Temp Pulse Resp B/P Pulse Ox O2 Delivery O2 Flow Rate FiO2 04/24/17 19:52 98.2 71 18 119/78 84 04/24/17 15:29 Nasal Cannula 2.0 04/22/17 00:56 27 Intake and Output 04/23/17 04/23/17 04/24/17 15:00 23:00 07:00 Intake Total 500 ml 200 ml Output Total 2500 ml Balance -2000 ml 200 ml Exam Constitutional: alert (not oriented ) Respiratory: diminished breath sounds (at bases ) Cardiovascular: irregular rhythm (atrial fibrillation ) Gastrointestinal: non-tender, soft Musculoskeletal: nl extremities to inspection, other (no clubbing or cyanosis ) Extremities: other (anasarca ) Neurological: awake but not oriented, intermittently follow commands Results Result Diagram: 04/24/17 0630 04/24/17 0630 Results 24 hrs Laboratory Tests Test 04/24/17 06:30 White Blood Count 6.3 Red Blood Count 2.71 L Hemoglobin 8.3 L Hematocrit 26.7 L Mean Corpuscular Volume 98.5 Mean Corpuscular Hemoglobin 30.6 Mean Corpuscular Hemoglobin Concent 31.1 L Red Cell Distribution Width 17.5 H Platelet Count 93 #L Mean Platelet Volume 11.2 H Neutrophils % 68.2 Lymphocytes % 17.4 Monocytes % 10.7 Eosinophils % 3.0 Basophils % 0.2 Nucleated Red Blood Cells % 0.0 Neutrophils # 4.3 Lymphocytes # 1.1 Monocytes # 0.7 Eosinophils # 0.2 Basophils # 0.0 Nucleated Red Blood Cells # 0.0 Sodium Level 126 L Potassium Level 3.6 Chloride Level 94 L Carbon Dioxide Level 27 Anion Gap 9 Blood Urea Nitrogen 32 #H Creatinine 2.10 H Glucose Level 67 #L Calcium Level 7.6 L Medications Medications Current Medications Tramadol HCl (Ultram) 50 mg Q6H PRN PO PAIN Last administered on 04/24/17 20: 36; Admin Dose 50 MG; Start 04/17/17 at 03:30 Ondansetron HCl (Zofran Inj) 4 mg Q6H PRN IV NAUSEA AND/OR VOMITING; Start 09/23 at 03:30 Nitroglycerin (Nitroglycerin (Sl Tab) 0.4 Mg) 1 tab Q5M PRN SL CHEST PAIN; Start 04/17/17 at 03:30 Acetaminophen (Tylenol Tab) 650 mg Q6H PRN PO PAIN LEVEL 1-3 OR FEVER Last administered on 04/22/17 08:42; Admin Dose 650 MG; Start 04/17/17 at 03:30 Docusate Sodium (Colace) 100 mg Q12H PRN PO CONSTIPATION; Start 04/17/17 at 03: 30 Magnesium Hydroxide (Milk Of Mag) 30 ml DAILY PRN PO CONSTIPATION; Start at 03:30 Bisacodyl (Dulcolax Supp) 10 mg DAILY PRN [place] CONSTIPATION; Start 04/17/17 at 03 :30 Famotidine (Pepcid) 20 mg DAILY PO Last administered on 04/24/17 10:13; Admin Dose 20 MG; Start 04/17/17 at 09:00 Clopidogrel Bisulfate (plaVIX) 75 mg DAILY PO Last administered on 04/24/17 10 :13; Admin Dose 75 MG; Start 04/18/17 at 09:00 Atorvastatin Calcium (Lipitor) 40 mg HS PO Last administered on 04/24/17 20:32 ; Admin Dose 40 MG; Start 04/17/17 at 21:00 Carvedilol (Coreg) 6.25 mg BID PO Last administered on 04/24/17 20:32; Admin Dose 6.25 MG; Start 04/18/17 at 21:00 Cephalexin (Keflex) 500 mg Q12 PO Last administered on 04/24/17 20:32; Admin Dose 500 MG; Start 04/21/17 at 18:00 Captopril (Capoten) 6.25 mg TID PO Last administered on 04/24/17 20:32; Admin Dose 6.25 MG; Start 04/23/17 at 13:00 Digoxin (Digoxin) 0.125 mg DAILY@13 PO Last administered on 04/24/17 14:08; Admin Dose 0.125 MG; Start 04/24/17 at 13:00 Midodrine (Proamatine) 10 mg DAILY PRN PO dialysis; Start 04/25/17 at 09:00 MACI ASHLEY MD Apr 24, 2017 21:16
[2017-04-25] VITALS (13 sets, daily range): BP systolic 86–151; BP diastolic 60–84; PULSE 86–111; RESP 18–22
[2017-04-25] MEDS: ALBUTEROL/IPRATROPIUM (NEB) 3 ML AMP HHN SCH ×3 (00:33→15:47)
[2017-04-25 07:56] LABS: ADD SCAN DIFF NO
[2017-04-25 07:59] LABS: BASOPHILS % 0.2 % (0.0-2.0); EOSINOPHILS # 0.2 10^3/ul (0.0-0.5); EOSINOPHILS % 3.2 % (0.0-7.0); HEMATOCRIT 25.2 % (42.0-52.0); LYMPHOCYTES # 0.9 10^3/ul (0.8-2.9); LYMPHOCYTES % 17.9 % (15.0-51.0); MEAN CORPUSCULAR HGB CONC 31.7 g/dl (32.0-37.0); MEAN CORPUSCULAR VOLUME 97.7 fl (82.0-101.0); MEAN PLATELET VOLUME 10.2 fl (7.4-10.4); MONOCYTE # 0.6 10^3/ul (0.3-0.9); MONOCYTES % 11.6 % (0.0-11.0); NEUTROPHIL # 3.5 10^3/ul (1.6-7.5); NEUTROPHILS % 66.5 % (39.0-77.0); PLATELET COUNT 110 10^3/UL (140-415); RED BLOOD COUNT 2.58 10^6/ul (4.70-6.10); RED CELL DISTRIBUTION WIDTH 17.2 % (11.5-14.5); WHITE BLOOD COUNT 5.3 10^3/ul (4.8-10.8)
[2017-04-25 08:21] LABS: CALCIUM 7.7 mg/dl (8.4-10.2); CREATININE 2.52 mg/dl (0.61-1.24); POTASSIUM 3.9 mmol/L (3.5-5.1)
[2017-04-25] MEDS: CLOPIDOGREL 75 MG TAB PO SCH (08:35)
[2017-04-25] MEDS: CEPHALEXIN 500 MG CAP PO SCH (08:35)
[2017-04-25] MEDS: FAMOTIDINE 20 MG TAB PO SCH (08:35)
--- NOTE | 2017-04-25 09:35 | RADRPT ---
PROCEDURE: XR Chest. CLINICAL INDICATION: Shortness of breath TECHNIQUE: An AP view of the chest was obtained. COMPARISON: Chest x-ray dated 04/22/2017 FINDINGS: There is a right chest Perma-Cath with tip in the upper right atrium. Bilateral chest tubes are in p lace. There are diffuse interstitial opacities with small bilateral pleural effusions. No focal airspace opacification or pneumothorax is seen. The cardiomediastinal silhouette is moderately enlarged. Ca lcifications are seen within the aortic arch. The osseous structures demonstrate senescent changes. IMPRESSION: 1. Findings suggestive of interstitial edema with small bilateral pleural effusions. No significant interval change. 2. Moderate cardiomegaly and aortic atherosclerosis. 3. Tubes and lines, as described above. RPTAT: HH .Thao Sanchez MD, Date Time Electronically viewed and signed by .Thao Sanchez MD, on 04/25/2017 09:34 .G/
[2017-04-25] MEDS: DIGOXIN 0.125 MG TAB PO SCH (12:22)
--- NOTE | 2017-04-25 12:48 | CONS ---
Date/Time of Note Date/Time of Note DATE: 04/25/17 TIME: 12:45 Assessment/Plan Assessment/Plan Chief Complaint/Hosp Course IMPRESSION: 1. Positive troponin consistent with non-ST elevation myocardial infarction, likely type 2 in the setting of atrial fibrillation with rapid ventricular response, possible respiratory distress with a negative CK-MB fraction at this time and no chest pain.-decreasing enzymes currently 2. Cardiomyopathy with decreased left ventricular ejection fraction. 3. Congestive heart failure, systolic, acute on chronic. 4. Abnormal electrocardiogram with lateral biphasic T-wave abnormalities and poor R-wave progression across the precordial leads. 5. Hypotension-now on midodrine 6. Renal failure. 7. Anemia. 8. Thrombocytopenia-mildly worse 9.pleural effusions- with pleur x catheters bilateral 10. bradycardia/paf rec: -Tele -s/p discussion with conservator/patient remaining full code at this time -serial ecg's -Continue to hold eliquis and skin breakdown and bleeding -continue plavix as tolerated and may need to be held as well -continue statin -continue pleur x drainage of effusions -hd for volume removal as tolerated -resumed on low dose BB/ACEI for treatment of cardiomyopathy/rate control -Midodrine as necessary Problems: Consultation Date/Type/Reason Admit Date/Time Apr 17, 2017 at 02:32 Initial Consult Date 04/17/2017 Type of Consultation: Cardiology Reason for Consultation Nstemi/cardiomyopathy Referring Provider: SOO NAIK Exam/Review of Systems Vital Signs Vitals Vital Signs Date Time Temp Pulse Resp B/P Pulse Ox O2 Delivery O2 Flow Rate FiO2 04/25/17 11:27 97.9 110 18 94/60 99 04/25/17 08:21 2.0 04/25/17 08:21 Nasal Cannula 04/22/17 00:56 27 Intake and Output 04/24/17 04/24/17 04/25/17 15:00 23:00 07:00 Intake Total 180 ml 720 ml 400 ml Balance 180 ml 720 ml 400 ml Exam Review of Systems: CONSTITUTIONAL: No fevers, chills. PULMONARY: No sob CARDIOVASCULAR: No chest pain/palpitations GASTROINTESTINAL: No nausea/vomiting. GENITOURINARY: No hematuria/dysuria. MUSCULOSKELETAL: No myagias/arthalgias. PSYCHIATRIC: The patient denies depression. NEUROLOGIC: lethargic/confused Constitutional: alert Psych: confusion, no complaints Head: normocephalic ENMT: mucosa pink and moist Neck: jvd (9 cm water), supple Respiratory: diminished breath sounds (at bases/B) Cardiovascular: regular rate and rhythm Gastrointestinal: non-tender, soft Musculoskeletal: muscle tone (normal) Extremities: edema (none) Neurological: other (No focal deficits) Results Result Diagram: 04/25/17 0728 04/25/17 0728 Results 24 hrs Laboratory Tests Test 04/25/17 07:28 White Blood Count 5.3 Red Blood Count 2.58 L Hemoglobin 8.0 L Hematocrit 25.2 L Mean Corpuscular Volume 97.7 Mean Corpuscular Hemoglobin 31.0 Mean Corpuscular Hemoglobin Concent 31.7 L Red Cell Distribution Width 17.2 H Platelet Count 110 L Mean Platelet Volume 10.2 Neutrophils % 66.5 Lymphocytes % 17.9 Monocytes % 11.6 H Eosinophils % 3.2 Basophils % 0.2 Nucleated Red Blood Cells % 0.0 Neutrophils # 3.5 Lymphocytes # 0.9 Monocytes # 0.6 Eosinophils # 0.2 Basophils # 0.0 Nucleated Red Blood Cells # 0.0 Sodium Level 125 L Potassium Level 3.9 Chloride Level 92 L Carbon Dioxide Level 29 Anion Gap 8 Blood Urea Nitrogen 38 H Creatinine 2.52 H Glucose Level 88 Calcium Level 7.7 L Medications Medications Current Medications Tramadol HCl (Ultram) 50 mg Q6H PRN PO PAIN Last administered on 04/24/17 20: 36; Admin Dose 50 MG; Start 04/17/17 at 03:30 Ondansetron HCl (Zofran Inj) 4 mg Q6H PRN IV NAUSEA AND/OR VOMITING; Start 09/23 at 03:30 Nitroglycerin (Nitroglycerin (Sl Tab) 0.4 Mg) 1 tab Q5M PRN SL CHEST PAIN; Start 04/17/17 at 03:30 Acetaminophen (Tylenol Tab) 650 mg Q6H PRN PO PAIN LEVEL 1-3 OR FEVER Last administered on 04/22/17 08:42; Admin Dose 650 MG; Start 04/17/17 at 03:30 Docusate Sodium (Colace) 100 mg Q12H PRN PO CONSTIPATION; Start 04/17/17 at 03: 30 Magnesium Hydroxide (Milk Of Mag) 30 ml DAILY PRN PO CONSTIPATION; Start at 03:30 Bisacodyl (Dulcolax Supp) 10 mg DAILY PRN [place] CONSTIPATION; Start 04/17/17 at 03 :30 Famotidine (Pepcid) 20 mg DAILY PO Last administered on 04/25/17 08:35; Admin Dose 20 MG; Start 04/17/17 at 09:00 Clopidogrel Bisulfate (plaVIX) 75 mg DAILY PO Last administered on 04/25/17 08 :35; Admin Dose 75 MG; Start 04/18/17 at 09:00 Atorvastatin Calcium (Lipitor) 40 mg HS PO Last administered on 04/24/17 20:32 ; Admin Dose 40 MG; Start 04/17/17 at 21:00 Carvedilol (Coreg) 6.25 mg BID PO Last administered on 04/25/17 08:35; Admin Dose 6.25 MG; Start 04/18/17 at 21:00 Cephalexin (Keflex) 500 mg Q12 PO Last administered on 04/25/17 08:35; Admin Dose 500 MG; Start 04/21/17 at 18:00 Captopril (Capoten) 6.25 mg TID PO Last administered on 04/25/17 08:35; Admin Dose 6.25 MG; Start 04/23/17 at 13:00 Digoxin (Digoxin) 0.125 mg DAILY@13 PO Last administered on 04/25/17 12:22; Admin Dose 0.125 MG; Start 04/24/17 at 13:00 Midodrine (Proamatine) 10 mg DAILY PRN PO dialysis; Start 04/25/17 at 09:00 SALOMON ROPER Apr 25, 2017 12:48
--- NOTE | 2017-04-25 15:50 | PN ---
Date/Time of Note Date/Time of Note DATE: 04/25/17 TIME: 15:30 Assessment/Plan VTE Prophylaxis VTE Prophylaxis Intervention: SCD's Lines/Catheters IV Catheter Type (from Nrsg): PERMACATH Urinary Cath still in place: No Assessment/Plan Assessment/Plan 81-year-old male with: 1. Bilateral pleural effusion, recurrent secondary to severe cardiomyopathy, diastolic and severe systolic congestive heart failure which is failing medical treatment basically, s/p bilateral Pleurx catheter placement for drainage of recurrent pleural effusions. HD for further volume management along with bilateral PleurX valves. On HD Last drainage of Pleurx 04/23, CXR with small effusions, stable respiratory status Cardio and Nephro following Continue with supplemental oxygen 2 to 4 liters nasal cannula for now. 2. Elevated troponin with known coronary artery disease. Denies chest pain. Coreg and captopril as tolerated. Appreciate cardiology evaluation. Medical management, continue Plavix Because of easy bleeding off Eliquis, discussed with Cardiology and DPOA 3. End-stage renal disease on hemodialysis. Patient has been started on Midodrine for blood pressure support especially during HD. S/p HD yesterday. Dr. Summers following 4. Chronic atrial fibrillation, with rapid ventricular rate, currently HR in the 70's with current regimen. On Coreg and also on Digoxin. Off Cardizem and Eliquis Appreciate cardiology recommendations. 5. Hypotension especially during HD, patient on Midodrine especially during HD. Minimizing cardiac meds affecting BP as much as possible. 6. Moderate to severe dementia. Very poor short-term memory. He has difficulty expressing all his needs. He does not always communicate his symptoms effectively. He is completely dependent on his DPOA, Fabiola Flor for decision making 7. Dysphagia per retirement facility report, the patient also does not have dentures, and on Puree diet/mechanical soft diet. 8. Chronic pain. Tramdol prn, [place] prn as long as BP tolerates. 9. E coli UTI. Patient completed Keflex course as of yesterday. 10. Mild Hyponatremia: f/u post HD tomorrow, likely volume related Prophylaxis: Eliquis discontinued, Pepcid for GI prophylaxis. DISPOSITION: Continue drainage of PleurX valves as needed and tolerated. HD if able to tolerate. Dr. Berman and Dr. Summers following. Per [facility] requesting 2nd opinion for IM and subspecialties, Dr Rodriguez, Dr Bolivar and Dr Abdullahi consulted Patient is moribund. Poor overall prognosis. Appreciate assistance from Palliative care. Full code Subjective 24 Hr Interval Summary Free Text/Dictation Patient remains stable and respiratory status stable CXR better today, per notes attempted right pleurX drainage no output S/p HD Tuesday No further bleeding from upper ext BP low side today so some meds held or titrated down. Exam/Review of Systems Vital Signs Vitals Vital Signs Date Time Temp Pulse Resp B/P Pulse Ox O2 Delivery O2 Flow Rate FiO2 04/25/17 12:16 92 04/25/17 11:27 97.9 18 94/60 99 04/25/17 08:21 2.0 04/25/17 08:21 Nasal Cannula 04/22/17 00:56 27 Intake and Output 04/24/17 04/24/17 04/25/17 15:00 23:00 07:00 Intake Total 180 ml 720 ml 400 ml Balance 180 ml 720 ml 400 ml Exam Constitutional: alert, frail, oriented (x1), other (mostly bed bound ) Respiratory: diminished breath sounds (bases ), normal air movement, other ( bilateral PleurX valves ) Cardiovascular: irregular rhythm (controlled A fib ) Gastrointestinal: non-tender, soft Musculoskeletal: muscle tone (poor), other (minimal dependent edema ) Extremities: normal pulses Neurological: 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, confused, other (mostly bed bound ) Results Result Diagram: 04/25/1728 04/25/17 0728 Results 24 hrs Laboratory Tests Test 04/25/17 07:28 White Blood Count 5.3 Red Blood Count 2.58 L Hemoglobin 8.0 L Hematocrit 25.2 L Mean Corpuscular Volume 97.7 Mean Corpuscular Hemoglobin 31.0 Mean Corpuscular Hemoglobin Concent 31.7 L Red Cell Distribution Width 17.2 H Platelet Count 110 L Mean Platelet Volume 10.2 Neutrophils % 66.5 Lymphocytes % 17.9 Monocytes % 11.6 H Eosinophils % 3.2 Basophils % 0.2 Nucleated Red Blood Cells % 0.0 Neutrophils # 3.5 Lymphocytes # 0.9 Monocytes # 0.6 Eosinophils # 0.2 Basophils # 0.0 Nucleated Red Blood Cells # 0.0 Sodium Level 125 L Potassium Level 3.9 Chloride Level 92 L Carbon Dioxide Level 29 Anion Gap 8 Blood Urea Nitrogen 38 H Creatinine 2.52 H Glucose Level 88 Calcium Level 7.7 L Medications Medications Current Medications Tramadol HCl (Ultram) 50 mg Q6H PRN PO PAIN Last administered on 04/24/17 20: 36; Admin Dose 50 MG; Start 04/17/17 at 03:30 Ondansetron HCl (Zofran Inj) 4 mg Q6H PRN IV NAUSEA AND/OR VOMITING; Start 09/23 at 03:30 Nitroglycerin (Nitroglycerin (Sl Tab) 0.4 Mg) 1 tab Q5M PRN SL CHEST PAIN; Start 04/17/17 at 03:30 Acetaminophen (Tylenol Tab) 650 mg Q6H PRN PO PAIN LEVEL 1-3 OR FEVER Last administered on 04/22/17 08:42; Admin Dose 650 MG; Start 04/17/17 at 03:30 Docusate Sodium (Colace) 100 mg Q12H PRN PO CONSTIPATION; Start 04/17/17 at 03: 30 Magnesium Hydroxide (Milk Of Mag) 30 ml DAILY PRN PO CONSTIPATION; Start at 03:30 Bisacodyl (Dulcolax Supp) 10 mg DAILY PRN [place] CONSTIPATION; Start 04/17/17 at 03 :30 Famotidine (Pepcid) 20 mg DAILY PO Last administered on 04/25/17 08:35; Admin Dose 20 MG; Start 04/17/17 at 09:00 Clopidogrel Bisulfate (plaVIX) 75 mg DAILY PO Last administered on 04/25/17 08 :35; Admin Dose 75 MG; Start 04/18/17 at 09:00 Atorvastatin Calcium (Lipitor) 40 mg HS PO Last administered on 04/24/17 20:32 ; Admin Dose 40 MG; Start 04/17/17 at 21:00 Carvedilol (Coreg) 6.25 mg BID PO Last administered on 04/25/17 08:35; Admin Dose 6.25 MG; Start 04/18/17 at 21:00 Cephalexin (Keflex) 500 mg Q12 PO Last administered on 04/25/17 08:35; Admin Dose 500 MG; Start 04/21/17 at 18:00 Digoxin (Digoxin) 0.125 mg DAILY@13 PO Last administered on 04/25/17 12:22; Admin Dose 0.125 MG; Start 04/24/17 at 13:00 Midodrine (Proamatine) 10 mg DAILY PRN PO dialysis; Start 04/25/17 at 09:00 Captopril (Capoten) 6.25 mg BID PO ; Start 04/25/17 at 21:00 SOO NAIK Apr 25, 2017 15:40
--- NOTE | 2017-04-25 17:25 | CONS ---
Date/Time of Note Date/Time of Note DATE: 04/25/17 TIME: 17:22 Assessment/Plan Assessment/Plan Additional Assessment/Plan 1. Acute non-ST elevation myocardial infarction. 2. End-stage renal disease on hemodialysis 3 times a week. 3. Bilateral pleural effusion causing fluid overload, right greater than left, status post bilateral PleurX catheter placement by Dr. David at the [facility]. 4. Hypertension. 5. Hyperlipidemia. 6. 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 7. Coronary artery disease. 8. Chronic atrial fibrillation. 9. 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 PLAN: HD ordered for tomorrow Midodrine has been ordered for BP support will follow up LUCIAL Hicks requested second opinion City Clerk- I cotacted Another City Clerk to evaluate him - LUCILA Hicks requested all Subspecialist physiciant and primary care physician Second opinion. Consultation Date/Type/Reason Admit Date/Time Apr 17, 2017 at 02:32 Type of Consultation: NEPHROLOGY Referring Provider: SOO NAIK 24 HR Interval Summary Free Text/Dictation doing ok, BP stable, Plan for HD tomorrow, family requested second opinion from different physician from Primary care, Nephrology and cardiolgoy Exam/Review of Systems Vital Signs Vitals Vital Signs Date Time Temp Pulse Resp B/P Pulse Ox O2 Delivery O2 Flow Rate FiO2 04/25/17 16:14 95 04/25/17 15:47 20 100 Nasal Cannula 2.0 04/25/17 15:43 97.5 151/60 04/22/17 00:56 27 Intake and Output 04/24/17 04/24/17 04/25/17 15:00 23:00 07:00 Intake Total 180 ml 720 ml 400 ml Balance 180 ml 720 ml 400 ml Exam Constitutional: alert (not oriented ) Respiratory: diminished breath sounds (at bases ) Cardiovascular: irregular rhythm (atrial fibrillation ) Gastrointestinal: non-tender, soft Musculoskeletal: nl extremities to inspection, other (no clubbing or cyanosis ) Extremities: other (anasarca ) Neurological: awake but not oriented, intermittently follow commands Results Result Diagram: 04/25/17 0728 04/25/17 0728 Results 24 hrs Laboratory Tests Test 04/25/17 07:28 White Blood Count 5.3 Red Blood Count 2.58 L Hemoglobin 8.0 L Hematocrit 25.2 L Mean Corpuscular Volume 97.7 Mean Corpuscular Hemoglobin 31.0 Mean Corpuscular Hemoglobin Concent 31.7 L Red Cell Distribution Width 17.2 H Platelet Count 110 L Mean Platelet Volume 10.2 Neutrophils % 66.5 Lymphocytes % 17.9 Monocytes % 11.6 H Eosinophils % 3.2 Basophils % 0.2 Nucleated Red Blood Cells % 0.0 Neutrophils # 3.5 Lymphocytes # 0.9 Monocytes # 0.6 Eosinophils # 0.2 Basophils # 0.0 Nucleated Red Blood Cells # 0.0 Sodium Level 125 L Potassium Level 3.9 Chloride Level 92 L Carbon Dioxide Level 29 Anion Gap 8 Blood Urea Nitrogen 38 H Creatinine 2.52 H Glucose Level 88 Calcium Level 7.7 L Medications Medications Current Medications Tramadol HCl (Ultram) 50 mg Q6H PRN PO PAIN Last administered on 04/24/17 20: 36; Admin Dose 50 MG; Start 04/17/17 at 03:30 Ondansetron HCl (Zofran Inj) 4 mg Q6H PRN IV NAUSEA AND/OR VOMITING; Start 09/23 at 03:30 Nitroglycerin (Nitroglycerin (Sl Tab) 0.4 Mg) 1 tab Q5M PRN SL CHEST PAIN; Start 04/17/17 at 03:30 Acetaminophen (Tylenol Tab) 650 mg Q6H PRN PO PAIN LEVEL 1-3 OR FEVER Last administered on 04/22/17 08:42; Admin Dose 650 MG; Start 04/17/17 at 03:30 Docusate Sodium (Colace) 100 mg Q12H PRN PO CONSTIPATION; Start 04/17/17 at 03: 30 Magnesium Hydroxide (Milk Of Mag) 30 ml DAILY PRN PO CONSTIPATION; Start at 03:30 Bisacodyl (Dulcolax Supp) 10 mg DAILY PRN [place] CONSTIPATION; Start 04/17/17 at 03 :30 Famotidine (Pepcid) 20 mg DAILY PO Last administered on 04/25/17 08:35; Admin Dose 20 MG; Start 04/17/17 at 09:00 Clopidogrel Bisulfate (plaVIX) 75 mg DAILY PO Last administered on 04/25/17 08 :35; Admin Dose 75 MG; Start 04/18/17 at 09:00 Atorvastatin Calcium (Lipitor) 40 mg HS PO Last administered on 04/24/17 20:32 ; Admin Dose 40 MG; Start 04/17/17 at 21:00 Carvedilol (Coreg) 6.25 mg BID PO Last administered on 04/25/17 08:35; Admin Dose 6.25 MG; Start 04/18/17 at 21:00 Digoxin (Digoxin) 0.125 mg DAILY@13 PO Last administered on 04/25/17 12:22; Admin Dose 0.125 MG; Start 04/24/17 at 13:00 Midodrine (Proamatine) 10 mg DAILY PRN PO dialysis; Start 04/25/17 at 09:00 Captopril (Capoten) 6.25 mg BID PO ; Start 04/25/17 at 21:00 MACI ASHLEY MD Apr 25, 2017 17:25
[2017-04-25 18:51] LABS: THYROID STIMULATING HORMONE 3.42 MIU/L (0.465-4.680)
[2017-04-25] MEDS ORDERED: DIGOXIN 500 MCG INJ IV ONE (19:00)
[2017-04-25] MEDS: ATORVASTATIN 40 MG TAB PO SCH (20:29)
--- NOTE | 2017-04-25 20:51 | CONS ---
DATE OF ADMISSION: 04/17/2017 DATE OF CONSULTATION: 04/25/2017 REASON FOR CONSULTATION: Cardiology second opinion. REFERRING PHYSICIAN: Dr. Naik CHIEF COMPLAINT AND HISTORY OF PRESENT ILLNESS: Thank you for this referral. History was from an e xtensive review of the old chart, discussion with ____, Dr. Naik, Dr. Berman. The patient himself is not able to give any reliable history to me. This unfortunate 81-year-old gentleman with multipl e complicated medical history including severe LV dysfunction on recent stress test in January 2017 wh o was admitted about 9 days ago. The patient has multiple complicated medical history, has recurren t pleural effusion requiring to have PleurX catheter placement, he is in renal failure on dialysis, has severe LV dysfunction, ejection fraction has been reported as low as 15%. The patient also in a trial fibrillation intermittently with rapid ventricular response. The patient does not have any co mplaint to me. Denies any chest pain, shortness of breath, palpitations. His power of assistant county attorney hiren arently is his neighbor. He is FULL CODE. However, he is not able to provide history to me. He th inks he is 32 years old, he lives in [place], and he is at home now. PAST MEDICAL HISTORY: Severe cardiomyopathy, probably ischemic. Ejection fraction has been reporte d between 15% to 40%. History of atrial fibrillation, chronic recurrent pleural effusion requiring PleurX placement, renal failure on dialysis, history of severe dementia, hypertension, coronary bryson ry disease, status post recent respiratory failure and shock. History of hypoxemia, anemia. SURGICAL HISTORY: Bilateral PleurX placement by Dr. Presley in [place] on 03/25. SOCIAL HISTORY: The patient lives also in alf. No report of active tobacco or drug abuse. FAMILY HISTORY: Unable to obtain. ALLERGIES: PENICILLIN. MEDICATIONS: As per medication reconciliation, which was personally reviewed. PHYSICAL EXAMINATION: VITAL SIGNS: Temperature 97.5, heart rate of 95 now. Blood pressure has been ranging from 90s to 1 50, most recently was 150/60, but before that was 94/60. Respiratory rate of 20. HEENT: Normocephalic, atraumatic. Thin gentleman. EYES: Pupils are equal. CARDIOVASCULAR: Irregularly irregular. PULMONARY: Anteriorly with rhonchi at the base bilaterally. GASTROINTESTINAL: Soft, nontender. CHEST: Status post right-sided ____ access placement. GASTROINTESTINAL: Soft, nontender. EXTREMITIES: No significant lower extremity edema. NEUROLOGIC: Awake, but not oriented to person, not oriented to place or date. PSYCHIATRIC: Appears to be calm and pleasant. LABORATORY: TSH is 3.4. Chest x-ray showed interstitial edema, small left pleural effusion. Moder ate cardiomegaly. Sodium 125, potassium 3.9, BUN 38, creatinine 2.52, glucose of 98. EKG shows atr ial fibrillation, ____ age undetermined. Nonspecific ST abnormalities. Review of the old chart jose antonio wed the 01/21 nuclear stress test shows ejection fraction of 41%. Small to moderate size nonreversi ble perfusion defect in the mid to basal inferior and inferolateral ramos. Echocardiogram done on 02/03, read by Dr. Berman, shows ejection fraction of 30% with LVH, biatrial enlargement. ASSESSMENT AND PLAN: 1. Severe cardiomyopathy, probably combination of ischemic and nonischemic. 2. Atrial fibrillation with renal failure on dialysis with recurrent pleural effusion secondary to above. 3. Abnormal troponin consistent with subendocardial injury with some myocardial infarction, on medi renu therapy. 4. Hypotension. 5. Severe dementia. 6. History of urinary tract infection. 7. Hyponatremia. RECOMMENDATIONS: The patient appears to be currently on appropriate medical therapy. My only ivan rn that he is on digoxin on dialysis. I will order a digoxin level to be checked for tomorrow and, if elevated, digoxin needs to be held. Even if it is not elevated, it will eventually get elevated if he continues to be getting daily Digoxin, so the dose adjustment needs to be made. Hemodialysis is being arranged by renal team. He is already anticoagulated with Eliquis. His blood pressure has been a very limiting factor and apparently has been very low and he has required to get midodrine, as discussed with Dr. Naik, to bring his blood pressure up and also so he can be dialyzed. He is al ready on Plavix and he is already on Eliquis. The patient is also on lisinopril as well as captopri l. I would discontinue the lisinopril since he is already on captopril. Cardiology care will be fo llowed. We will continue to follow as per Dr. Berman' recommendations. I will follow the patient on an as needed basis only. Discussed with Dr. Naik extensively. Dictated By: SELENA ARCHIBALD MD AV/NTS Conf#: [id number] DID#: [id number] CC: SALOMON BERMAN MD; SOO NAIK MD;*EndCC*
[2017-04-26] VITALS (14 sets, daily range): BP systolic 58–161; BP diastolic 44–76; PULSE 35–100; RESP 15–20
[2017-04-26] MEDS: CLOPIDOGREL 75 MG TAB PO SCH (08:28)
[2017-04-26] MEDS: FAMOTIDINE 20 MG TAB PO SCH (08:29)
[2017-04-26 08:47] LABS: CALCIUM 7.8 mg/dl (8.4-10.2); CREATININE 2.73 mg/dl (0.61-1.24); MAGNESIUM 1.9 mg/dl (1.7-2.5); PHOSPHORUS 4.2 mg/dl (2.5-4.9); POTASSIUM 4.2 mmol/L (3.5-5.1)
[2017-04-26] MEDS: ALBUTEROL/IPRATROPIUM (NEB) 3 ML AMP HHN SCH ×3 (08:54→16:51)
--- NOTE | 2017-04-26 09:39 | CONS ---
Date/Time of Note Date/Time of Note DATE: 04/26/17 TIME: 09:37 Assessment/Plan Assessment/Plan Additional Assessment/Plan 1. Positive troponin consistent with non-ST elevation myocardial infarction, likely type 2 in the setting of atrial fibrillation with rapid ventricular response, possible respiratory distress with a negative CK-MB fraction at this time and no chest pain.-decreasing enzymes currently - med Rx for now 2. Cardiomyopathy with decreased left ventricular ejection fraction- will keep euvolemic. 3. Congestive heart failure, systolic, acute on chronic - con't diuresis 4. Abnormal electrocardiogram with lateral biphasic T-wave abnormalities and poor R-wave progression across the precordial leads. 5. Hypotension-now on midodrine 6. Renal failure- avoid nephrotoxic meds 7. Anemia. 8. Thrombocytopenia-mildly worse - no active bleed now 9.pleural effusions- with pleur x catheters bilateral - stable 10. bradycardia/paf Consultation Date/Type/Reason Admit Date/Time Apr 17, 2017 at 02:32 Type of Consultation: NEPHROLOGY Referring Provider: SOO NAIK 24 HR Interval Summary Free Text/Dictation No acut eevents - HR on high side - con't to optimize fluid status ROS: No fever, no chills, no nausea, no vomiting, no diarrhea/constipation No recent weight changes No chest pain, no PND, no orthopnea No dizziness, blurred vision No thirst, no heat or cold intolerance + SOB Exam/Review of Systems Vital Signs Vitals Vital Signs Date Time Temp Pulse Resp B/P Pulse Ox O2 Delivery O2 Flow Rate FiO2 04/26/17 08:55 2.0 04/26/17 08:54 108 20 96 Nasal Cannula 04/26/17 07:09 97.9 125/76 Intake and Output 04/25/17 04/25/17 04/26/17 15:00 23:00 07:00 Intake Total 1100 ml Balance 1100 ml Exam General: WN/WD/NAD, AOx 1-2 HEENT: Unicetric/atraumatic/EOMI (does not follow commands) NECK: JVD elevated, no thyromegaly Lymph: no lymphadenopathy HEART: Ir Irregular with no S3, II/ systolic murmur at apex LUNGS: Coarse sounds ABD: soft, NT, ND, +BS : Intact Neuro: non focal SKIN: chronic changes EXT: trace edema Results Result Diagram: 6/19/17 0728 04/26/17 0610 Results 24 hrs Laboratory Tests Test 04/26/17 06:10 04/26/17 08:59 04/26/17 09:15 04/26/17 09:29 Sodium Level 124 L Potassium Level 4.2 Chloride Level 91 L Carbon Dioxide Level 25 Anion Gap 12 Blood Urea Nitrogen 47 H Creatinine 2.73 H Glucose Level 45 #*L Calcium Level 7.8 L Phosphorus Level 4.2 Magnesium Level 1.9 Bedside Glucose 67 L 74 82 Medications Medications Current Medications Tramadol HCl (Ultram) 50 mg Q6H PRN PO PAIN Last administered on 04/24/17 20: 36; Admin Dose 50 MG; Start 04/17/17 at 03:30 Ondansetron HCl (Zofran Inj) 4 mg Q6H PRN IV NAUSEA AND/OR VOMITING; Start 09/23 at 03:30 Nitroglycerin (Nitroglycerin (Sl Tab) 0.4 Mg) 1 tab Q5M PRN SL CHEST PAIN; Start 04/17/17 at 03:30 Acetaminophen (Tylenol Tab) 650 mg Q6H PRN PO PAIN LEVEL 1-3 OR FEVER Last administered on 04/22/17 08:42; Admin Dose 650 MG; Start 04/17/17 at 03:30 Docusate Sodium (Colace) 100 mg Q12H PRN PO CONSTIPATION; Start 04/17/17 at 03: 30 Magnesium Hydroxide (Milk Of Mag) 30 ml DAILY PRN PO CONSTIPATION; Start at 03:30 Bisacodyl (Dulcolax Supp) 10 mg DAILY PRN [place] CONSTIPATION; Start 04/17/17 at 03 :30 Famotidine (Pepcid) 20 mg DAILY PO Last administered on 04/26/17 08:29; Admin Dose 20 MG; Start 04/17/17 at 09:00 Clopidogrel Bisulfate (plaVIX) 75 mg DAILY PO Last administered on 04/26/17 08 :28; Admin Dose 75 MG; Start 04/18/17 at 09:00 Atorvastatin Calcium (Lipitor) 40 mg HS PO Last administered on 04/25/17 20:29 ; Admin Dose 40 MG; Start 04/17/17 at 21:00 Carvedilol (Coreg) 6.25 mg BID PO Last administered on 04/26/17 08:29; Admin Dose 6.25 MG; Start 04/18/17 at 21:00 Digoxin (Digoxin) 0.125 mg DAILY@13 PO Last administered on 04/25/17 12:22; Admin Dose 0.125 MG; Start 04/24/17 at 13:00 Midodrine (Proamatine) 10 mg DAILY PRN PO dialysis; Start 04/25/17 at 09:00 Captopril (Capoten) 6.25 mg BID PO ; Start 04/25/17 at 21:00 JULIA MCKNIGHT MD Apr 26, 2017 09:39
--- NOTE | 2017-04-26 11:40 | CONS ---
DATE OF ADMISSION: 04/17/2017 DATE OF CONSULTATION: NEPHROLOGY CONSULTATION REASON FOR CONSULTATION: Second opinion regarding hemodialysis. REQUESTING PHYSICIAN: Soo Naik MD HISTORY OF PRESENT ILLNESS: This is an 81-year-old male with a past medical history of severe cardi omyopathy with ejection fraction of 15%, history of recurrent pleural effusion status post PleurX ca theter placement, history of AFib, end-stage renal disease, debility, dementia who presents to [facility] for evaluation per request of his DPOA. The patient was admitted on April 17. The patient was residing at a shelter facility, was noted to be short of breath, was fo und to have a non-STEMI with troponin 1.7. The patient was subsequently brought to [facility] and admitted to telemetry. In terms of the patient's workup, he was seen by Dr. Anjel luz. The patient was medically managed with antiplatelet therapy, anticoagulation. The patient was s tabilized. No further intervention was performed for cardiology. The patient during the hospital c [facility] [place], however, has had difficulty with hemodialysis as the patient has become tachycardic, hypotens gisela with difficulty ultrafiltrating. The patient has also been in atrial fibrillation, but his rate has been adequately controlled with medical management. In terms of the patient's renal history, the patient has end-stage renal disease on dialysis 3 times weekly. As stated above, the patient has had difficulty with dialysis due to episodes of tachycard ia and hypotension. The patient has been receiving midodrine prior to dialysis and has been receivi ng ultrafiltration in conjunction with diffusion during the course of dialysis in order to help main tain hemodynamics and prevent episodes of hypertension and tachycardia. There have been no reports of hemoptysis, hemetemesis, or hematochezia. PAST MEDICAL HISTORY: As stated above, history of end-stage renal disease, history of coronary bryson ry disease, history of ischemic cardiomyopathy, history of hypertension, history of anemia, mineral bone disorder. PAST SURGICAL HISTORY: Status post PleurX catheter placement. SOCIAL HISTORY: Lives a shelter facility. FAMILY HISTORY: Unable to obtain. ALLERGIES: THE PATIENT IS ALLERGIC TO PENICILLIN. MEDICATIONS: The patient's medications have been reviewed. REVIEW OF SYSTEMS: Unable to do adequate review of systems as the patient is altered. Pertinent po sitives obtained by reviewing medical records and speaking to hospital staff, stated in HPI, otherwi se negative. PHYSICAL EXAMINATION: VITAL SIGNS: Blood pressure is 125/76, respirations 16, pulse 108, temperature 97.9. HEENT: Head is normocephalic. Pupils are reactive to light. NECK: Supple. HEART: Regular rate, positive murmur. LUNGS: Show diminished breath sounds at the base. Positive crackles. ABDOMEN: Soft, nontender to palpation. No rebound or guarding. EXTREMITIES: Negative for clubbing, cyanosis. Trace edema. DERMATOLOGIC: No rashes. MUSCULOSKELETAL: No joint effusions. NEUROLOGIC: Limited exam due to lack of patient cooperation, but no obvious focal deficits. LABORATORY DATA: Shows sodium 124, potassium 4.2, chloride 91, BUN is 47, creatinine 2.73. White c ount 5.3, hemoglobin 8.0, hematocrit 25.2, platelet count is 110. Chest x-ray on April 25 was revi ewed, shows findings consistent with interstitial edema. ASSESSMENT AND PLAN: This is an 81-year-old male who presents with: 1. End-stage renal disease. The patient is on dialysis 3 times weekly, access is PermCath. The raffi nixon's hemodialysis has been challenging as the patient has been suffering from intradialytic hypot ension and tachycardia. The underlying etiology is due to severe ischemic cardiomyopathy. The cristina ent is appropriately being managed by Dr. Summers who was giving midodrine prior to hemodialysis, who has lowered the dialysate temperature, and has also been using stepwise dialysis with ultrafiltratio n prior to diffusion. I agree with Dr. Summers's management and would recommend to continue current t reatment plan. Unfortunately, given the patient's severe ischemic cardiomyopathy and poor ejection fraction, the patient will have difficulty maintaining prolonged sessions of hemodialysis. 2. Hyponatremia secondary to end-stage renal disease, congestive heart failure. Continue dialysis with a 140 sodium bath. Continue to minimize free water intake. 3. Anemia. Continue to monitor hemoglobin and hematocrit levels. 4. Mineral bone disorder. Will continue to monitor calcium and phosphorus levels. 5. Severe ischemic cardiomyopathy. Continue medical management. Follow up with cardiology. 6. Atrial fibrillation. Continue current medical management. The patient is rate controlled. 7. Recurrent pleural effusion secondary to congestive heart failure. The patient has PleurX cathet er, continue drainage. 8. Elevated troponin, [id number] myocardial infarction. Continue current medical management and follow up with cardiology. 9. Severe dementia. 10. Dysphagia. Continue mechanical diet. 11. Urinary tract infection. Continue antibiotic therapy. Please note, I discussed the case in detail with Dr. Naik. I discussed the case also with Dr. Summers . Please note I will follow the patient as needed. Dictated By: KAREEN ENGLAND DO NR/NTS Conf#: [id number] DID#: [id number] CC: SOO NAIK MD;*EndCC*
[2017-04-26] MEDS: DIGOXIN 0.125 MG TAB PO SCH (12:07)
[2017-04-26] MEDS: MIDODRINE 5 MG TAB PO PRN (12:08)
--- NOTE | 2017-04-26 12:45 | PN ---
Date/Time of Note Date/Time of Note DATE: 04/26/17 TIME: 12:34 Assessment/Plan VTE Prophylaxis VTE Prophylaxis Intervention: SCD's Lines/Catheters IV Catheter Type (from Nrs): Peripheral IV Urinary Cath still in place: No Assessment/Plan Assessment/Plan 81-year-old male with: 1. Bilateral pleural effusion, recurrent secondary to severe cardiomyopathy, diastolic and severe systolic congestive heart failure which is failing medical treatment basically, s/p bilateral Pleurx catheter placement for drainage of recurrent pleural effusions. HD for further volume management along with bilateral PleurX valves. Had to abort HD today due to hemodynamic instability, BP and HR dropped Last drainage of Pleurx 04/23, CXR with small effusions yesterday, stable respiratory status Cardio and Nephro following and second opinions from Dr Garza and Dr Rodriguez appreciated, in line with ongoing care Continue with supplemental oxygen 2 to 4 liters nasal cannula for now. 2. Elevated troponin with known coronary artery disease. Denies chest pain. Coreg and captopril as tolerated. Appreciate cardiology evaluation. Medical management to be continued per Dr Rodriguez too, continue Plavix. Given drop in HR and BP with HD, will decrease Coreg back down. Captopril was held today. Because of easy bleeding off Eliquis, discussed with Cardiology and DPOA 3. End-stage renal disease on hemodialysis. Had to abort HD after 1 hr today due to drop in BP and HR, albumin bolus given along with Midodrine. Continue Midodrine for blood pressure support especially during HD. Dr. Summers following, Dr Garza agrees with current management. 4. Chronic atrial fibrillation, with rapid ventricular rate, currently HR in the 70's to 80's but did drop during HD but now back up Continue with current regimen, Coreg and Digoxin. Digoxin level OK today @ 1.7 Off Cardizem and Eliquis Appreciate cardiology, Dr Berman and Dr Rodriguez's recommendations. 5. Hypotension especially during HD, patient on Midodrine especially during HD , had to be given a dose today. Minimizing cardiac meds affecting BP as much as possible. 6. Moderate to severe dementia. Very poor short-term memory. He has difficulty expressing all his needs. He does not always communicate his symptoms effectively. He is completely dependent on his DPOA, Fabiola Flor for decision making 7. Dysphagia per [facility] facility report, the patient also does not have dentures, and on Puree diet/mechanical soft diet. 8. Chronic pain. Tramdol prn, [place] prn as long as BP tolerates. 9. E coli UTI. Patient completed Keflex course as of 04/25. 10. Mild Hyponatremia: f/u post HD tomorrow, likely volume related Prophylaxis: Eliquis discontinued, Pepcid for GI prophylaxis. DISPOSITION: Continue drainage of PleurX valves as needed and tolerated. HD if able to tolerate. Dr. Berman and Dr. Summers following. Per PDOA request, 2nd opinions for IM and subspecialties, Dr Rodriguez, Dr Bolivar and Dr Abdullahi obtained or in process. Patient is moribund. Poor overall prognosis. Appreciate assistance from Palliative care, Dr Crook. Full code Exam/Review of Systems Vital Signs Vitals Vital Signs Date Time Temp Pulse Resp B/P Pulse Ox O2 Delivery O2 Flow Rate FiO2 04/26/17 11:57 97.7 54 16 102/51 100 04/26/17 08:55 2.0 04/26/17 08:54 Nasal Cannula Intake and Output 04/25/17 04/25/17 04/26/17 15:00 23:00 07:00 Intake Total 1100 ml Balance 1100 ml Results Result Diagram: 04/25/17 0728 04/26/17 0610 Results 24 hrs Laboratory Tests Test 04/26/17 06:10 04/26/17 08:59 04/26/17 09:15 04/26/17 09:29 Sodium Level 124 L Potassium Level 4.2 Chloride Level 91 L Carbon Dioxide Level 25 Anion Gap 12 Blood Urea Nitrogen 47 H Creatinine 2.73 H Glucose Level 45 #*L Calcium Level 7.8 L Phosphorus Level 4.2 Magnesium Level 1.9 Digoxin Level 1.7 Bedside Glucose 67 L 74 82 Test 04/26/17 09:46 04/26/17 12:11 Bedside Glucose 83 156 Medications Medications Current Medications Tramadol HCl (Ultram) 50 mg Q6H PRN PO PAIN Last administered on 04/24/17t 20: 36; Admin Dose 50 MG; Start 04/17/17 at 03:30 Ondansetron HCl (Zofran Inj) 4 mg Q6H PRN IV NAUSEA AND/OR VOMITING; Start 09/23 at 03:30 Nitroglycerin (Nitroglycerin (Sl Tab) 0.4 Mg) 1 tab Q5M PRN SL CHEST PAIN; Start 04/17/17 at 03:30 Acetaminophen (Tylenol Tab) 650 mg Q6H PRN PO PAIN LEVEL 1-3 OR FEVER Last administered on 04/22/17 08:42; Admin Dose 650 MG; Start 04/17/17 at 03:30 Docusate Sodium (Colace) 100 mg Q12H PRN PO CONSTIPATION; Start 04/17/17 at 03: 30 Magnesium Hydroxide (Milk Of Mag) 30 ml DAILY PRN PO CONSTIPATION; Start at 03:30 Bisacodyl (Dulcolax Supp) 10 mg DAILY PRN IN CONSTIPATION; Start 04/17/17 at 03 :30 Famotidine (Pepcid) 20 mg DAILY PO Last administered on 04/26/17 08:29; Admin Dose 20 MG; Start 04/17/17 at 09:00 Clopidogrel Bisulfate (plaVIX) 75 mg DAILY PO Last administered on 04/26/17 08 :28; Admin Dose 75 MG; Start 04/18/17 at 09:00 Atorvastatin Calcium (Lipitor) 40 mg HS PO Last administered on 04/25/17 20:29 ; Admin Dose 40 MG; Start 04/17/17 at 21:00 Digoxin (Digoxin) 0.125 mg DAILY@13 PO Last administered on 04/25/17 12:22; Admin Dose 0.125 MG; Start 04/24/17 at 13:00 Midodrine (Proamatine) 10 mg DAILY PRN PO dialysis Last administered on 12:08; Admin Dose 10 MG; Start 04/25/17 at 09:00 Captopril (Capoten) 6.25 mg BID PO ; Start 04/25/17 at 21:00 Carvedilol (Coreg) 12.5 mg BID PO ; Start 04/26/17 at 21:00 SOO NAIK Apr 26, 2017 12:44
--- NOTE | 2017-04-26 18:25 | CONS ---
Date/Time of Note Date/Time of Note DATE: 04/26/17 TIME: 18:17 Assessment/Plan Assessment/Plan Problems: (1) Chronic pain Status: Chronic Comment: As per the direction of the DURABLE POWER OF DIRECTOR OF ELEMENTARY EDUCATION for healthcare will have the palliative care team meet with her to discuss options for pain control. While intelligence and eager she does not have the background to understand all of the implications of this and these have been explained slowly. She is interested in pain control and understands that with adequate pain control may shorten his life span. Qualifiers: Qualified Code: G89.4 - Chronic pain syndrome (2) End stage renal disease on dialysis Status: Chronic Comment: He remains on dialysis at this time. Ultimately plans will need to be made about outpatient dialysis which will probably be transported from an F. The DPOA has a specific extended care facility in mind that she would like to use. (3) CHF (congestive heart failure) Status: Acute Comment: This is an intractable issue. Patient is being actively worked with by cardiology who are doing the best they can especially given the recurrences of ischemic damage. The DPOAE understands that this has an enormous impact on any projections for longevity. Qualifiers: Qualified Code: I50.23 - Acute on chronic systolic congestive heart failure (4) Pleural effusion Status: Acute Comment: Continues with a Pleurx catheter for this issue which is a result of both the heart failure and the renal failure (5) Non-STEMI (non-ST elevated myocardial infarction) Status: Acute Comment: As per cardiology. (6) Encephalopathy Status: Chronic Comment: The patient's mental status has deteriorated in the last 6 months 2 years since he has become ill. Will continue to work with the patient as best as possible the DPOAE understands her situation. Consultation Date/Type/Reason Admit Date/Time Apr 17, 2017 at 02:32 Date of Consultation: Apr 26, 2017 Type of Consultation: Internal medicine second opini Reason for Consultation As per the request of DURABLE POWER OF DIRECTOR OF ELEMENTARY EDUCATION for healthcare for second opinion regarding options for care Referring Provider: SOO NAIK of Present Illness 81-year-old unmarried gentleman with a significant other with advanced medical problems. He has developed since late last year for dementia with end-stage renal disease also and significant heart failure with frequent unstable angina. He has had intractable pleural effusions that required Pleurx catheters bilaterally. He is having pain management issues. He has a pre- existing DURABLE POWER OF DIRECTOR OF ELEMENTARY EDUCATION who expresses that she wishes to follow his advice i.e. to prolong his life as best as possible. She however expresses that she primarily wants his pain management done in such way and acknowledges that she does not want futile treatments. By this she specifically states she does not want an implanted feeding tube as an example. She also states that if he was to be intubated with not reasonable chance of recovery she is not comfortable with that although she is not making any decisions about withholding CPR DC cardioversion or intubation as of today. She does wish to reexplore palliative care measures specifically for comfort. Patient is conversant but has issues with orientation which limited the quality of his answers Constitutional: no complaints Eyes: no complaints ENT: no complaints Respiratory: no complaints, pain (Notes pain at the site of the Pleurx catheters) Cardiovascular: no complaints Gastrointestinal: no complaints Genitourinary: no complaints Musculoskeletal: back pain Psychological: confusion, no complaints Past Medical History End-stage renal disease on hemodialysis; intractable heart failure Medical History: angina, congestive heart failure Past Surgical History Past Surgical Hx: noncontributory Family History Significant Family History: no pertinent family hx Social History Alcohol Use: sober Smoking Status: Unknown if ever smoked Drug Use: none Other Social History Retired male who has a significant other that he is not to and DURABLE POWER OF DIRECTOR OF ELEMENTARY EDUCATION for healthcare who he has an extremely close relationship with. He has no offspring. He has never served in the . Exam/Review of Systems Vital Signs Vitals Vital Signs Date Time Temp Pulse Resp B/P Pulse Ox O2 Delivery O2 Flow Rate FiO2 04/26/17 17:34 86 04/26/17 16:53 20 96 Nasal Cannula 2.0 04/26/17 15:12 97.9 111/56 Intake and Output 04/25/17 04/25/17 04/26/17 15:00 23:00 07:00 Intake Total 1100 ml Balance 1100 ml Exam Oriented times person not place or time Constitutional: alert Psych: nl mood/affect Head: atraumatic, normocephalic ENMT: nl external ears & nose, nl nasal mucosa & septum, other (Dentition in fair repair) Neck: non-tender, supple Respiratory: clear to auscultation, normal air movement Cardiovascular: nl pulses, regular rate and rhythm Gastrointestinal: nl liver, spleen, non-tender, soft Results Result Diagram: 04/25/17 0728 04/26/17 0610 Results 24 hrs Laboratory Tests Test 04/26/17 06:10 04/26/17 08:59 04/26/17 09:15 04/26/17 09:29 Sodium Level 124 L Potassium Level 4.2 Chloride Level 91 L Carbon Dioxide Level 25 Anion Gap 12 Blood Urea Nitrogen 47 H Creatinine 2.73 H Glucose Level 45 #*L Calcium Level 7.8 L Phosphorus Level 4.2 Magnesium Level 1.9 Digoxin Level 1.7 Bedside Glucose 67 L 74 82 Test 04/26/17 09:46 04/26/17 12:11 Bedside Glucose 83 156 Medications Medications Current Medications Tramadol HCl (Ultram) 50 mg Q6H PRN PO PAIN Last administered on 04/24/17 20: 36; Admin Dose 50 MG; Start 04/17/17 at 03:30 Ondansetron HCl (Zofran Inj) 4 mg Q6H PRN IV NAUSEA AND/OR VOMITING; Start 09/23 at 03:30 Nitroglycerin (Nitroglycerin (Sl Tab) 0.4 Mg) 1 tab Q5M PRN SL CHEST PAIN; Start 04/17/17 at 03:30 Acetaminophen (Tylenol Tab) 650 mg Q6H PRN PO PAIN LEVEL 1-3 OR FEVER Last administered on 04/22/17 08:42; Admin Dose 650 MG; Start 04/17/17 at 03:30 Docusate Sodium (Colace) 100 mg Q12H PRN PO CONSTIPATION; Start 04/17/17 at 03: 30 Magnesium Hydroxide (Milk Of Mag) 30 ml DAILY PRN PO CONSTIPATION; Start at 03:30 Bisacodyl (Dulcolax Supp) 10 mg DAILY PRN [place] CONSTIPATION; Start 04/17/17 at 03 :30 Famotidine (Pepcid) 20 mg DAILY PO Last administered on 04/26/17 08:29; Admin Dose 20 MG; Start 04/17/17 at 09:00 Clopidogrel Bisulfate (plaVIX) 75 mg DAILY PO Last administered on 04/26/17 08 :28; Admin Dose 75 MG; Start 04/18/17 at 09:00 Atorvastatin Calcium (Lipitor) 40 mg HS PO Last administered on 04/25/17 20:29 ; Admin Dose 40 MG; Start 04/17/17 at 21:00 Digoxin (Digoxin) 0.125 mg DAILY@13 PO Last administered on 04/25/17 12:22; Admin Dose 0.125 MG; Start 04/24/17 at 13:00 Midodrine (Proamatine) 10 mg DAILY PRN PO dialysis Last administered on 12:08; Admin Dose 10 MG; Start 04/25/17 at 09:00 Captopril (Capoten) 6.25 mg BID PO ; Start 04/25/17 at 21:00 Carvedilol (Coreg) 12.5 mg BID PO ; Start 04/26/17 at 21:00 BRIE MEYER MD Apr 26, 2017 18:25
[2017-04-26] MEDS: traMADol 50 MG TAB PO PRN ×2 (18:56→20:52)
[2017-04-26] MEDS: ATORVASTATIN 40 MG TAB PO SCH (20:52)
--- NOTE | 2017-04-26 21:24 | CONS ---
Date/Time of Note Date/Time of Note DATE: 04/26/17 TIME: 21:19 Assessment/Plan Assessment/Plan Additional Assessment/Plan 1. Acute non-ST elevation myocardial infarction. 2. End-stage renal disease on hemodialysis 3 times a week. 3. Bilateral pleural effusion causing fluid overload, right greater than left, status post bilateral PleurX catheter placement by Dr. David at the [facility]. 4. Hypertension. 5. Hyperlipidemia. 6. 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 7. Coronary artery disease. 8. Chronic atrial fibrillation. 9. Multiple comorbidities with a poor prognosis and assistedpatient care nursing assistant. PLAN: S/p Albumin and Midodrine For BP support- Pt did not tolerate HD today, BP drops to Systolic 70s HR 38- HD stopped after 1 hr- Message left on [employer] [phone] and it went into voicemail, message left on phone regarding what happened during HD today. Midodrine has been ordered for BP support will follow up will continue HD on TTS if BP stable Consultation Date/Type/Reason Admit Date/Time Apr 17, 2017 at 02:32 Type of Consultation: NEPHROLOGY Referring Provider: SOO NAIK 24 HR Interval Summary Free Text/Dictation s/p Evaluation by Another sales route driver helper for second opinion - Pt did not tolerate HD today , BP drops to systolic 70s, HR 38 Exam/Review of Systems Vital Signs Vitals Vital Signs Date Time Temp Pulse Resp B/P Pulse Ox O2 Delivery O2 Flow Rate FiO2 04/26/17 20:12 98.6 86 18 161/69 97 04/26/17 16:53 Nasal Cannula 2.0 Intake and Output 04/25/17 04/25/17 04/26/17 15:00 23:00 07:00 Intake Total 1100 ml Balance 1100 ml Exam Constitutional: alert (not oriented ) Respiratory: diminished breath sounds (at bases ) Cardiovascular: irregular rhythm (atrial fibrillation ) Gastrointestinal: non-tender, soft Musculoskeletal: nl extremities to inspection, other (no clubbing or cyanosis ) Extremities: other (anasarca ) Neurological: awake but not oriented, intermittently follow commands Results Result Diagram: 04/25/17 0728 04/26/17 0610 Results 24 hrs Laboratory Tests Test 04/26/17 06:10 04/26/17 08:59 04/26/17 09:15 04/26/17 09:29 Sodium Level 124 L Potassium Level 4.2 Chloride Level 91 L Carbon Dioxide Level 25 Anion Gap 12 Blood Urea Nitrogen 47 H Creatinine 2.73 H Glucose Level 45 #*L Calcium Level 7.8 L Phosphorus Level 4.2 Magnesium Level 1.9 Digoxin Level 1.7 Bedside Glucose 67 L 74 82 Test 04/26/17 09:46 04/26/17 12:11 Bedside Glucose 83 156 Medications Medications Current Medications Tramadol HCl (Ultram) 50 mg Q6H PRN PO PAIN Last administered on 04/26/17 20: 52; Admin Dose 50 MG; Start 04/17/17 at 03:30 Ondansetron HCl (Zofran Inj) 4 mg Q6H PRN IV NAUSEA AND/OR VOMITING; Start 09/23 at 03:30 Nitroglycerin (Nitroglycerin (Sl Tab) 0.4 Mg) 1 tab Q5M PRN SL CHEST PAIN; Start 04/17/17 at 03:30 Acetaminophen (Tylenol Tab) 650 mg Q6H PRN PO PAIN LEVEL 1-3 OR FEVER Last administered on 04/22/17 08:42; Admin Dose 650 MG; Start 04/17/17 at 03:30 Docusate Sodium (Colace) 100 mg Q12H PRN PO CONSTIPATION; Start 04/17/17 at 03: 30 Magnesium Hydroxide (Milk Of Mag) 30 ml DAILY PRN PO CONSTIPATION; Start at 03:30 Bisacodyl (Dulcolax Supp) 10 mg DAILY PRN [place] CONSTIPATION; Start 04/17/17 at 03 :30 Famotidine (Pepcid) 20 mg DAILY PO Last administered on 04/26/17 08:29; Admin Dose 20 MG; Start 04/17/17 at 09:00 Clopidogrel Bisulfate (plaVIX) 75 mg DAILY PO Last administered on 04/26/17 08 :28; Admin Dose 75 MG; Start 04/18/17 at 09:00 Atorvastatin Calcium (Lipitor) 40 mg HS PO Last administered on 04/26/17 20:52 ; Admin Dose 40 MG; Start 04/17/17 at 21:00 Digoxin (Digoxin) 0.125 mg DAILY@13 PO Last administered on 04/25/17 12:22; Admin Dose 0.125 MG; Start 04/24/17 at 13:00 Midodrine (Proamatine) 10 mg DAILY PRN PO dialysis Last administered on 12:08; Admin Dose 10 MG; Start 04/25/17 at 09:00 Captopril (Capoten) 6.25 mg BID PO Last administered on 04/26/17 20:53; Admin Dose 6.25 MG; Start 04/25/17 at 21:00 Carvedilol (Coreg) 12.5 mg BID PO Last administered on 04/26/17 20:53; Admin Dose 12.5 MG; Start 04/26/17 at 21:00 MACI ASHLEY MD Apr 26, 2017 21:23
[2017-04-27] VITALS (13 sets, daily range): BP systolic 99–151; BP diastolic 51–97; PULSE 67–98; RESP 15–18
[2017-04-27] MEDS ORDERED: SUCCINYLCHOLINE CHLORIDE 100 MG/5 ML SYG IV ONE
[2017-04-27] MEDS ORDERED: MIDAZOLAM 1 MG/ML 2 ML INJ ONE
[2017-04-27] MEDS: ALBUTEROL/IPRATROPIUM (NEB) 3 ML AMP HHN SCH ×3 (01:23→16:34)
[2017-04-27 07:41] LABS: ADD SCAN DIFF NO
[2017-04-27 07:56] LABS: BASOPHILS % 0.4 % (0.0-2.0); EOSINOPHILS # 0.1 10^3/ul (0.0-0.5); EOSINOPHILS % 2.3 % (0.0-7.0); HEMATOCRIT 24.5 % (42.0-52.0); HEMOGLOBIN 7.7 g/dl (14.0-18.0); LYMPHOCYTES # 1.3 10^3/ul (0.8-2.9); MEAN CORPUSCULAR HEMOGLOBIN 30.6 pg (29.0-33.0); MEAN CORPUSCULAR HGB CONC 31.4 g/dl (32.0-37.0); MEAN CORPUSCULAR VOLUME 97.2 fl (82.0-101.0); MEAN PLATELET VOLUME 10.6 fl (7.4-10.4); MONOCYTE # 0.8 10^3/ul (0.3-0.9); MONOCYTES % 13.9 % (0.0-11.0); NEUTROPHIL # 3.5 10^3/ul (1.6-7.5); NEUTROPHILS % 60.7 % (39.0-77.0); PLATELET COUNT 128 10^3/UL (140-415); RED BLOOD COUNT 2.52 10^6/ul (4.70-6.10); RED CELL DISTRIBUTION WIDTH 17.2 % (11.5-14.5); WHITE BLOOD COUNT 5.7 10^3/ul (4.8-10.8)
[2017-04-27 08:25] LABS: CALCIUM 7.9 mg/dl (8.4-10.2); CREATININE 2.37 mg/dl (0.61-1.24); POTASSIUM 4.4 mmol/L (3.5-5.1)
[2017-04-27] MEDS: CLOPIDOGREL 75 MG TAB PO SCH (08:39)
[2017-04-27] MEDS: FAMOTIDINE 20 MG TAB PO SCH (08:40)
[2017-04-27 09:48] LABS: MAGNESIUM 1.9 mg/dl (1.7-2.5); PHOSPHORUS 3.6 mg/dl (2.5-4.9)
[2017-04-27] MEDS: traMADol 50 MG TAB PO PRN ×2 (11:05→21:06)
--- NOTE | 2017-04-27 12:38 | PN ---
Date/Time of Note Date/Time of Note DATE: 04/27/17 TIME: 12:33 Assessment/Plan VTE Prophylaxis VTE Prophylaxis Intervention: heparin Lines/Catheters IV Catheter Type (from Nrs): Saline Lock Urinary Cath still in place: No Assessment/Plan Chief Complaint/Hosp Course 81-year-old unmarried gentleman with a significant other with advanced medical problems. He has developed since late last year for dementia with end-stage renal disease also and significant heart failure with frequent unstable angina. He has had intractable pleural effusions that required Pleurx catheters bilaterally. He is having pain management issues. He has a pre- existing DURABLE POWER OF [employer] SPECIALIST who expresses that she wishes to follow his advice i.e. to prolong his life as best as possible. She however expresses that she primarily wants his pain management done in such way and acknowledges that she does not want futile treatments. By this she specifically states she does not want an implanted feeding tube as an example. She also states that if he was to be intubated with not reasonable chance of recovery she is not comfortable with that although she is not making any decisions about withholding CPR DC cardioversion or intubation as of today. She does wish to reexplore palliative care measures specifically for comfort. Problems: (1) Ischemic dilated cardiomyopathy Status: Chronic Comment: He is being managed with the kind assistance of cardiology consulting. His end-stage dilated cardiomyopathy. He is marginally tolerating the afterload reduction beta-blockade for this and this becomes significant during dialysis when he drops his pressure. At this time he is not a candidate for intervention of any type. Per the family they wish to have him be kept as comfortable as possible. They are not at the point of making him DNR (2) Systolic congestive heart failure with reduced left ventricular function, NYHA class 4 Status: Chronic Comment: As above. Attempting to manage medications. For the pleural effusions caused by the heart failure in combination with the end-stage renal disease he has bilateral Pleurx catheters that were placed by Dr. Thompson at [facility] (3) Chronic pain Status: Chronic Qualifiers: Chronic pain type: chronic pain syndrome Qualified Code: G89.4 - Chronic pain syndrome (4) End stage renal disease on dialysis Status: Chronic Comment: He continues on dialysis although is only marginally tolerating this. 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 The DPOAE is aware of the permanent nature of this. Please note however he is interacting with his environment and as such should be noted he is not in a coma (6) Non-STEMI (non-ST elevated myocardial infarction) Status: Acute Comment: He came in on admission with this. This is still a worrisome issue unfortunately were in position where we can do anything about please see cardiology note (7) Pleural effusion Status: Acute Comment: Has bilateral Pleurx catheters which are keeping him from becoming significantly short of breath Subjective 24 Hr Interval Summary Free Text/Dictation Elderly male in bed reports no specific complaints. Constitutional: no complaints (Denies fevers chills or sweats) Respiratory: no complaints (Presently denies shortness of breath wheezing or cough) Cardiovascular: no complaints (Denies chest pain palpitations orthopnea or PND) Gastrointestinal: no complaints Genitourinary: no complaints Exam/Review of Systems Vital Signs Vitals Vital Signs Date Time Temp Pulse Resp B/P Pulse Ox O2 Delivery O2 Flow Rate FiO2 04/27/17 11:29 98.1 57 15 151/97 90 04/27/17 09:12 2.0 04/27/17 09:10 Nasal Cannula Intake and Output 04/26/17 04/26/17 04/27/17 15:00 23:00 07:00 Intake Total 200 ml 600 ml 350 ml Output Total 700 ml Balance -500 ml 600 ml 350 ml Exam Constitutional: alert, oriented (Oriented to person not place or time) Head: atraumatic, normocephalic ENMT: mucosa pink and moist, nl external ears & nose, nl lips & teeth, nl nasal mucosa & septum, other (Patient is unable to feed himself and has to be spoon fed a pured diet) Neck: non-tender, supple Respiratory: clear to auscultation, normal air movement Cardiovascular: S3 (Positive S3) Results Result Diagram: 04/27/17 0634 04/27/17 0634 Results 24 hrs Laboratory Tests Test 04/27/17 06:34 White Blood Count 5.7 Red Blood Count 2.52 L Hemoglobin 7.7 L Hematocrit 24.5 L Mean Corpuscular Volume 97.2 Mean Corpuscular Hemoglobin 30.6 Mean Corpuscular Hemoglobin Concent 31.4 L Red Cell Distribution Width 17.2 H Platelet Count 128 L Mean Platelet Volume 10.6 H Neutrophils % 60.7 Lymphocytes % 22.0 Monocytes % 13.9 H Eosinophils % 2.3 Basophils % 0.4 Nucleated Red Blood Cells % 0.0 Neutrophils # 3.5 Lymphocytes # 1.3 Monocytes # 0.8 Eosinophils # 0.1 Basophils # 0.0 Nucleated Red Blood Cells # 0.0 Sodium Level 129 L Potassium Level 4.4 Chloride Level 96 L Carbon Dioxide Level 26 Anion Gap 11 Blood Urea Nitrogen 44 H Creatinine 2.37 H Glucose Level 81 Calcium Level 7.9 L Phosphorus Level 3.6 Magnesium Level 1.9 Medications Medications Current Medications Tramadol HCl (Ultram) 50 mg Q6H PRN PO PAIN Last administered on 04/27/17 11: 05; Admin Dose 50 MG; Start 04/17/17 at 03:30 Ondansetron HCl (Zofran Inj) 4 mg Q6H PRN IV NAUSEA AND/OR VOMITING; Start 09/23 at 03:30 Nitroglycerin (Nitroglycerin (Sl Tab) 0.4 Mg) 1 tab Q5M PRN SL CHEST PAIN; Start 04/17/17 at 03:30 Acetaminophen (Tylenol Tab) 650 mg Q6H PRN PO PAIN LEVEL 1-3 OR FEVER Last administered on 04/22/17 08:42; Admin Dose 650 MG; Start 04/17/17 at 03:30 Docusate Sodium (Colace) 100 mg Q12H PRN PO CONSTIPATION; Start 04/17/17 at 03: 30 Magnesium Hydroxide (Milk Of Mag) 30 ml DAILY PRN PO CONSTIPATION; Start at 03:30 Bisacodyl (Dulcolax Supp) 10 mg DAILY PRN [place] CONSTIPATION; Start 04/17/17 at 03 :30 Famotidine (Pepcid) 20 mg DAILY PO Last administered on 04/27/17 08:40; Admin Dose 20 MG; Start 04/17/17 at 09:00 Clopidogrel Bisulfate (plaVIX) 75 mg DAILY PO Last administered on 04/27/17 08 :39; Admin Dose 75 MG; Start 04/18/17 at 09:00 Atorvastatin Calcium (Lipitor) 40 mg HS PO Last administered on 04/26/17 20:52 ; Admin Dose 40 MG; Start 04/17/17 at 21:00 Digoxin (Digoxin) 0.125 mg DAILY@13 PO Last administered on 04/25/17 12:22; Admin Dose 0.125 MG; Start 04/24/17 at 13:00 Midodrine (Proamatine) 10 mg DAILY PRN PO dialysis Last administered on 12:08; Admin Dose 10 MG; Start 04/25/17 at 09:00 Captopril (Capoten) 6.25 mg BID PO Last administered on 04/27/17 08:39; Admin Dose 6.25 MG; Start 04/25/17 at 21:00 Carvedilol (Coreg) 12.5 mg BID PO Last administered on 04/27/17 08:39; Admin Dose 12.5 MG; Start 04/26/17 at 21:00 BRIE MEYER MD Apr 27, 2017 12:38
[2017-04-27] MEDS: DIGOXIN 0.125 MG TAB PO SCH (12:45)
--- NOTE | 2017-04-27 13:02 | PN ---
Date/Time of Note Date/Time of Note DATE: 04/27/17 TIME: 12:44 Assessment/Plan VTE Prophylaxis VTE Prophylaxis Intervention: other VTE Contraindication Reason: anticoagulation not tolerated Lines/Catheters IV Catheter Type (from Nrs): Saline Lock Urinary Cath still in place: No Assessment/Plan Assessment/Plan 81-year-old male with: 1. Bilateral pleural effusion, recurrent secondary to severe cardiomyopathy, diastolic and severe systolic congestive heart failure which is failing medical treatment basically, s/p bilateral Pleurx catheter placement for drainage of recurrent pleural effusions. HD as tolerated for further volume management along with bilateral PleurX valves. Last drainage of Pleurx 04/23, CXR today pending to re eval pleural effusions and see if need to drain PleurX catheter, stable respiratory status Cardio and Nephro following and second opinions from Dr Abdullahi, Dr Garza and Dr Rodriguez appreciated, in line with ongoing care Continue with supplemental oxygen 2 to 4 liters nasal cannula for now. 2. Elevated troponin with known coronary artery disease. Denies chest pain. Coreg and captopril as tolerated. Appreciate cardiology evaluation. Medical management to be continued per Dr Rodriguez too, continue Plavix. Given drop in HR and BP with HD, will decrease Coreg back down. Captopril held prn. Because of easy bleeding off Eliquis, discussed with Cardiology and DPOA 3. End-stage renal disease on hemodialysis. Had to abort HD after 1 hr yesterday, HD as tolerated. Continue Midodrine for blood pressure support especially during HD. Dr. Summers following, Dr Garza agrees with current management. 4. Chronic atrial fibrillation, with rapid ventricular rate, currently HR in the 70's to 80's. Continue with current regimen, Coreg and Digoxin. Off Cardizem and Eliquis Appreciate cardiology, Dr Berman and Dr Rodriguez's recommendations. 5. Hypotension especially during HD, patient on Midodrine especially during HD , had to be given a dose today. Minimizing cardiac meds affecting BP as much as possible. 6. Moderate to severe dementia. Very poor short-term memory. He has difficulty expressing all his needs. He does not always communicate his symptoms effectively. He is completely dependent on his DPOA, Fabiola Flor for decision making 7. Dysphagia per detention facility report, the patient also does not have dentures, and on Puree diet/mechanical soft diet. 8. Chronic pain. Tramdol prn, Walnut prn as long as BP tolerates. 9. E coli UTI. Patient completed Keflex course as of 04/25. 10. Mild Hyponatremia: f/u post HD tomorrow, likely volume related Prophylaxis: Eliquis discontinued, Pepcid for GI prophylaxis. DISPOSITION: Continue drainage of PleurX valves as needed and tolerated. HD if able to tolerate. Dr. Bermna and Dr. Summers, Dr Crook and Dr Abdullahi following. Per PDOA request, 2nd opinions for IM and subspecialties, Dr Rodriguez, Dr Bolivar and Dr Abdullahi appreciated. Patient is moribund. Poor overall prognosis. Appreciate assistance from Palliative care, Dr Crook. Full code Subjective 24 Hr Interval Summary Free Text/Dictation Patient remains the same CXR pending for effusion drainage as needed Appreciate assistance from second opinions DPOA to meet with Dr Crook today for discussion re Palliative care Exam/Review of Systems Vital Signs Vitals Vital Signs Date Time Temp Pulse Resp B/P Pulse Ox O2 Delivery O2 Flow Rate FiO2 04/27/17 12:28 67 04/27/17 11:29 98.1 15 151/97 90 04/27/17 09:12 2.0 04/27/17 09:10 Nasal Cannula Intake and Output 04/26/17 04/26/17 04/27/17 15:00 23:00 07:00 Intake Total 200 ml 600 ml 350 ml Output Total 700 ml Balance -500 ml 600 ml 350 ml Exam Constitutional: alert, frail, oriented (x1) Respiratory: diminished breath sounds (bases, lower lobes bilaterally ), normal air movement Cardiovascular: irregular rhythm (A fib ) Gastrointestinal: non-tender, soft Musculoskeletal: other (contracted extremities ) Extremities: normal pulses Neurological: BOILERMAKER HELPER II-XII intact, confused, other (bed ridden ) Skin: ecchymosis (throughout ) Results Result Diagram: 04/27/17 0634 04/27/17 0634 Results 24 hrs Laboratory Tests Test 04/27/17 06:34 White Blood Count 5.7 Red Blood Count 2.52 L Hemoglobin 7.7 L Hematocrit 24.5 L Mean Corpuscular Volume 97.2 Mean Corpuscular Hemoglobin 30.6 Mean Corpuscular Hemoglobin Concent 31.4 L Red Cell Distribution Width 17.2 H Platelet Count 128 L Mean Platelet Volume 10.6 H Neutrophils % 60.7 Lymphocytes % 22.0 Monocytes % 13.9 H Eosinophils % 2.3 Basophils % 0.4 Nucleated Red Blood Cells % 0.0 Neutrophils # 3.5 Lymphocytes # 1.3 Monocytes # 0.8 Eosinophils # 0.1 Basophils # 0.0 Nucleated Red Blood Cells # 0.0 Sodium Level 129 L Potassium Level 4.4 Chloride Level 96 L Carbon Dioxide Level 26 Anion Gap 11 Blood Urea Nitrogen 44 H Creatinine 2.37 H Glucose Level 81 Calcium Level 7.9 L Phosphorus Level 3.6 Magnesium Level 1.9 Medications Medications Current Medications Tramadol HCl (Ultram) 50 mg Q6H PRN PO PAIN Last administered on 04/27/17 11: 05; Admin Dose 50 MG; Start 04/17/17 at 03:30 Ondansetron HCl (Zofran Inj) 4 mg Q6H PRN IV NAUSEA AND/OR VOMITING; Start 09/23 at 03:30 Nitroglycerin (Nitroglycerin (Sl Tab) 0.4 Mg) 1 tab Q5M PRN SL CHEST PAIN; Start 04/17/17 at 03:30 Acetaminophen (Tylenol Tab) 650 mg Q6H PRN PO PAIN LEVEL 1-3 OR FEVER Last administered on 04/22/17 08:42; Admin Dose 650 MG; Start 04/17/17 at 03:30 Docusate Sodium (Colace) 100 mg Q12H PRN PO CONSTIPATION; Start 04/17/17 at 03: 30 Magnesium Hydroxide (Milk Of Mag) 30 ml DAILY PRN PO CONSTIPATION; Start at 03:30 Bisacodyl (Dulcolax Supp) 10 mg DAILY PRN [place] CONSTIPATION; Start 04/17/17 at 03 :30 Famotidine (Pepcid) 20 mg DAILY PO Last administered on 04/27/17 08:40; Admin Dose 20 MG; Start 04/17/17 at 09:00 Clopidogrel Bisulfate (plaVIX) 75 mg DAILY PO Last administered on 04/27/17 08 :39; Admin Dose 75 MG; Start 04/18/17 at 09:00 Atorvastatin Calcium (Lipitor) 40 mg HS PO Last administered on 04/26/17 20:52 ; Admin Dose 40 MG; Start 04/17/17 at 21:00 Digoxin (Digoxin) 0.125 mg DAILY@13 PO Last administered on 04/25/17 12:22; Admin Dose 0.125 MG; Start 04/24/17 at 13:00 Midodrine (Proamatine) 10 mg DAILY PRN PO dialysis Last administered on 12:08; Admin Dose 10 MG; Start 04/25/17 at 09:00 Captopril (Capoten) 6.25 mg BID PO Last administered on 04/27/17 08:39; Admin Dose 6.25 MG; Start 04/25/17 at 21:00 Carvedilol (Coreg) 12.5 mg BID PO Last administered on 04/27/17 08:39; Admin Dose 12.5 MG; Start 04/26/17 at 21:00 SOO NAIK Apr 27, 2017 12:56
--- NOTE | 2017-04-27 14:17 | CONS ---
Date/Time of Note Date/Time of Note DATE: 04/27/17 TIME: 14:13 Assessment/Plan Assessment/Plan Chief Complaint/Hosp Course IMPRESSION: 1. Positive troponin consistent with non-ST elevation myocardial infarction, likely type 2 in the setting of atrial fibrillation with rapid ventricular response, possible respiratory distress with a negative CK-MB fraction at this time and no chest pain.-decreasing enzymes currently 2. Cardiomyopathy with decreased left ventricular ejection fraction. 3. Congestive heart failure, systolic, acute on chronic. 4. Abnormal electrocardiogram with lateral biphasic T-wave abnormalities and poor R-wave progression across the precordial leads. 5. Hypotension-improved and tolerating ACEI/BB 6. Renal failure. 7. Anemia. 8. Thrombocytopenia-mildly worse 9.pleural effusions- with pleur x catheters bilateral 10. bradycardia/paf rec: -Tele -Hold digoxin which was inititiated by covering sheepskin pickler -s/p discussion with conservator/patient remaining full code at this time -s/p second opinion with no change in therapy -Continue to hold eliquis and skin breakdown and bleeding -continue plavix as tolerated and may need to be held as well -continue statin -continue pleur x drainage of effusions -hd for volume removal as tolerated -resumed on low dose BB/ACEI for treatment of cardiomyopathy/rate control -Midodrine as necessary Problems: Consultation Date/Type/Reason Admit Date/Time Apr 17, 2017 at 02:32 Initial Consult Date 04/17/2017 Type of Consultation: Cardiology Reason for Consultation Nstemi Referring Provider: SOO NAIK Exam/Review of Systems Vital Signs Vitals Vital Signs Date Time Temp Pulse Resp B/P Pulse Ox O2 Delivery O2 Flow Rate FiO2 04/27/17 12:28 67 04/27/17 11:29 98.1 15 151/97 90 04/27/17 09:12 2.0 04/27/17 09:10 Nasal Cannula Intake and Output 04/26/17 04/26/17 04/27/17 15:00 23:00 07:00 Intake Total 200 ml 600 ml 350 ml Output Total 700 ml Balance -500 ml 600 ml 350 ml Exam Review of Systems: CONSTITUTIONAL: No fevers, chills. PULMONARY: No sob CARDIOVASCULAR: No chest pain/palpitations GASTROINTESTINAL: No nausea/vomiting. GENITOURINARY: No hematuria/dysuria. MUSCULOSKELETAL: No myagias/arthalgias. PSYCHIATRIC: The patient denies depression. NEUROLOGIC: lethargic Constitutional: alert Psych: no complaints Head: normocephalic ENMT: mucosa pink and moist Neck: jvd (9 cm water), supple Respiratory: diminished breath sounds (at bases/B) Cardiovascular: regular rate and rhythm Gastrointestinal: non-tender, soft Musculoskeletal: muscle tone (normal) Extremities: edema (none) Neurological: other (No focal deficits) Results Result Diagram: 04/27/17 0634 04/27/17 0634 Results 24 hrs Laboratory Tests Test 04/27/17 06:34 White Blood Count 5.7 Red Blood Count 2.52 L Hemoglobin 7.7 L Hematocrit 24.5 L Mean Corpuscular Volume 97.2 Mean Corpuscular Hemoglobin 30.6 Mean Corpuscular Hemoglobin Concent 31.4 L Red Cell Distribution Width 17.2 H Platelet Count 128 L Mean Platelet Volume 10.6 H Neutrophils % 60.7 Lymphocytes % 22.0 Monocytes % 13.9 H Eosinophils % 2.3 Basophils % 0.4 Nucleated Red Blood Cells % 0.0 Neutrophils # 3.5 Lymphocytes # 1.3 Monocytes # 0.8 Eosinophils # 0.1 Basophils # 0.0 Nucleated Red Blood Cells # 0.0 Sodium Level 129 L Potassium Level 4.4 Chloride Level 96 L Carbon Dioxide Level 26 Anion Gap 11 Blood Urea Nitrogen 44 H Creatinine 2.37 H Glucose Level 81 Calcium Level 7.9 L Phosphorus Level 3.6 Magnesium Level 1.9 Medications Medications Current Medications Tramadol HCl (Ultram) 50 mg Q6H PRN PO PAIN Last administered on 04/27/17 11: 05; Admin Dose 50 MG; Start 04/17/17 at 03:30 Ondansetron HCl (Zofran Inj) 4 mg Q6H PRN IV NAUSEA AND/OR VOMITING; Start 09/23 at 03:30 Nitroglycerin (Nitroglycerin (Sl Tab) 0.4 Mg) 1 tab Q5M PRN SL CHEST PAIN; Start 04/17/17 at 03:30 Acetaminophen (Tylenol Tab) 650 mg Q6H PRN PO PAIN LEVEL 1-3 OR FEVER Last administered on 04/22/17 08:42; Admin Dose 650 MG; Start 04/17/17 at 03:30 Docusate Sodium (Colace) 100 mg Q12H PRN PO CONSTIPATION; Start 04/17/17 at 03: 30 Magnesium Hydroxide (Milk Of Mag) 30 ml DAILY PRN PO CONSTIPATION; Start at 03:30 Bisacodyl (Dulcolax Supp) 10 mg DAILY PRN [place] CONSTIPATION; Start 04/17/17 at 03 :30 Famotidine (Pepcid) 20 mg DAILY PO Last administered on 04/27/17 08:40; Admin Dose 20 MG; Start 04/17/17 at 09:00 Clopidogrel Bisulfate (plaVIX) 75 mg DAILY PO Last administered on 04/27/17 08 :39; Admin Dose 75 MG; Start 04/18/17 at 09:00 Atorvastatin Calcium (Lipitor) 40 mg HS PO Last administered on 04/26/17 20:52 ; Admin Dose 40 MG; Start 04/17/17 at 21:00 Digoxin (Digoxin) 0.125 mg DAILY@13 PO Last administered on 04/27/17 12:45; Admin Dose 0.125 MG; Start 04/24/17 at 13:00 Midodrine (Proamatine) 10 mg DAILY PRN PO dialysis Last administered on 12:08; Admin Dose 10 MG; Start 04/25/17 at 09:00 Captopril (Capoten) 6.25 mg BID PO Last administered on 04/27/17 08:39; Admin Dose 6.25 MG; Start 04/25/17 at 21:00 Carvedilol (Coreg) 12.5 mg BID PO Last administered on 04/27/17 08:39; Admin Dose 12.5 MG; Start 04/26/17 at 21:00 SALOMON ROPER Apr 27, 2017 14:17
--- NOTE | 2017-04-27 16:47 | CONS ---
Date/Time of Note Date/Time of Note DATE: 04/27/17 TIME: 16:43 Assessment/Plan Assessment/Plan Additional Assessment/Plan 1. Acute non-ST elevation myocardial infarction. 2. End-stage renal disease on hemodialysis 3 times a week. 3. Bilateral pleural effusion causing fluid overload, right greater than left, status post bilateral PleurX catheter placement by Dr. David at the [facility]. 4. Hypertension. 5. Hyperlipidemia. 6. 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 7. Coronary artery disease. 8. Chronic atrial fibrillation. 9. Multiple comorbidities with a poor prognosis and long termmanager nursing home. PLAN: pt did not tolerate HD yesterday, BP 99/50 Midodrine has been ordered for BP support will follow up will continue HD on TTS- HD Ordered for tomorrow with ultrafiltration Consultation Date/Type/Reason Admit Date/Time Apr 17, 2017 at 02:32 Type of Consultation: NEPHROLOGY Referring Provider: SOO NAIK 24 HR Interval Summary Free Text/Dictation afebrile, BP stable Exam/Review of Systems Vital Signs Vitals Vital Signs Date Time Temp Pulse Resp B/P Pulse Ox O2 Delivery O2 Flow Rate FiO2 04/27/17 16:34 79 20 94 Nasal Cannula 2.0 04/27/17 15:09 97.6 99/55 Intake and Output 04/26/17 04/26/17 04/27/17 15:00 23:00 07:00 Intake Total 200 ml 600 ml 350 ml Output Total 700 ml Balance -500 ml 600 ml 350 ml Exam Constitutional: alert (not oriented ) Respiratory: diminished breath sounds (at bases ) Cardiovascular: irregular rhythm (atrial fibrillation ) Gastrointestinal: non-tender, soft Musculoskeletal: nl extremities to inspection, other (no clubbing or cyanosis ) Extremities: other (anasarca ) Neurological: awake but not oriented, intermittently follow commands Results Result Diagram: 04/27/17 0634 04/27/17 0634 Results 24 hrs Laboratory Tests Test 04/27/17 06:34 White Blood Count 5.7 Red Blood Count 2.52 L Hemoglobin 7.7 L Hematocrit 24.5 L Mean Corpuscular Volume 97.2 Mean Corpuscular Hemoglobin 30.6 Mean Corpuscular Hemoglobin Concent 31.4 L Red Cell Distribution Width 17.2 H Platelet Count 128 L Mean Platelet Volume 10.6 H Neutrophils % 60.7 Lymphocytes % 22.0 Monocytes % 13.9 H Eosinophils % 2.3 Basophils % 0.4 Nucleated Red Blood Cells % 0.0 Neutrophils # 3.5 Lymphocytes # 1.3 Monocytes # 0.8 Eosinophils # 0.1 Basophils # 0.0 Nucleated Red Blood Cells # 0.0 Sodium Level 129 L Potassium Level 4.4 Chloride Level 96 L Carbon Dioxide Level 26 Anion Gap 11 Blood Urea Nitrogen 44 H Creatinine 2.37 H Glucose Level 81 Calcium Level 7.9 L Phosphorus Level 3.6 Magnesium Level 1.9 Medications Medications Current Medications Tramadol HCl (Ultram) 50 mg Q6H PRN PO PAIN Last administered on 04/27/17 11: 05; Admin Dose 50 MG; Start 04/17/17 at 03:30 Ondansetron HCl (Zofran Inj) 4 mg Q6H PRN IV NAUSEA AND/OR VOMITING; Start 09/23 at 03:30 Nitroglycerin (Nitroglycerin (Sl Tab) 0.4 Mg) 1 tab Q5M PRN SL CHEST PAIN; Start 04/17/17 at 03:30 Acetaminophen (Tylenol Tab) 650 mg Q6H PRN PO PAIN LEVEL 1-3 OR FEVER Last administered on 04/22/17 08:42; Admin Dose 650 MG; Start 04/17/17 at 03:30 Docusate Sodium (Colace) 100 mg Q12H PRN PO CONSTIPATION; Start 04/17/17 at 03: 30 Magnesium Hydroxide (Milk Of Mag) 30 ml DAILY PRN PO CONSTIPATION; Start at 03:30 Bisacodyl (Dulcolax Supp) 10 mg DAILY PRN [place] CONSTIPATION; Start 04/17/17 at 03 :30 Famotidine (Pepcid) 20 mg DAILY PO Last administered on 04/27/17 08:40; Admin Dose 20 MG; Start 04/17/17 at 09:00 Clopidogrel Bisulfate (plaVIX) 75 mg DAILY PO Last administered on 04/27/17 08 :39; Admin Dose 75 MG; Start 04/18/17 at 09:00 Atorvastatin Calcium (Lipitor) 40 mg HS PO Last administered on 04/26/17 20:52 ; Admin Dose 40 MG; Start 04/17/17 at 21:00 Digoxin (Digoxin) 0.125 mg DAILY@13 PO Last administered on 04/27/17 12:45; Admin Dose 0.125 MG; Start 04/24/17 at 13:00; Status Future Hold Midodrine (Proamatine) 10 mg DAILY PRN PO dialysis Last administered on 12:08; Admin Dose 10 MG; Start 04/25/17 at 09:00 Captopril (Capoten) 6.25 mg BID PO Last administered on 04/27/17 08:39; Admin Dose 6.25 MG; Start 04/25/17 at 21:00 Carvedilol (Coreg) 12.5 mg BID PO Last administered on 04/27/17 08:39; Admin Dose 12.5 MG; Start 04/26/17 at 21:00 MACI ASHLEY MD Apr 27, 2017 16:47
--- NOTE | 2017-04-27 17:05 | CONS ---
Date/Time of Note Date/Time of Note DATE: 04/27/17 TIME: 16:42 Assessment/Plan Assessment/Plan Additional Assessment/Plan Long conversation with patient's DPOA Fabiola. First she wanted to have an explanation of Palliative Care. I explained my job is to manage his symptoms when patients are approaching end-of-life. In addition I bring together the information from multiple different consultants and synthesizer information for family members clearly and concisely so family members can make educated and informed decisions. Next we covered indications for ordering IV morphine as she had requested yesterday. First my discussion with patient confirms that he is not in extremis and does not require intravenous morphine. I asked patient in front of caregiver agent. If at any time he transitioned and required higher doses of opioids potential complications were discussed including respiratory suppression possibly requiring intubation. At this time there is no indication to escalate his pain control medications especially in the face of end-stage renal disease on hemodialysis. I explained to her opioids would accumulate in his bloodstream under such circumstances and eventually may lead to respiratory suppression especially since he is not tolerating prolonged periods of hemodialysis secondary to hypotension. I acknowledged to her that these are very difficult decisions . Her healthcare delivery team supports her decisions but cannot medicate patient who clearly could have serious untoward complications without symptoms to justify changes. Methadone is not an option because of the extremely long half-life, and patient has all of the confounding variables associated with potential life limiting complications. Consultation Date/Type/Reason Admit Date/Time Apr 17, 2017 at 02:32 Type of Consultation: Palliative care Reason for Consultation Issues to be discussed with significant other: 1. Goals of care: Background and social history of the this gentleman, level of dementia prior to this hospitalization, her understanding insofar as his ultimate prognosis and her hopes, acceptable quality of life will be addressed. 2. Communication preferences/caregiver concerns: An estimated prognosis is palliative performance scale is less than 10%. There are no pain or symptom management issues that I could ascertain from records or grossly on examination of the patient. I will explore psychosocial issues, spiritual issues ethical issues with significant other and hopefully that person will have some documentation in the form of POLST form or advanced directive. 3. Will continue to follow. Will reach out again for patient's spokesperson. Referring Provider: SOO NAIK Exam/Review of Systems Vital Signs Vitals Vital Signs Date Time Temp Pulse Resp B/P Pulse Ox O2 Delivery O2 Flow Rate FiO2 04/27/17 16:34 79 20 94 Nasal Cannula 2.0 04/27/17 15:09 97.6 99/55 Intake and Output 04/26/17 04/26/17 04/27/17 15:00 23:00 07:00 Intake Total 200 ml 600 ml 350 ml Output Total 700 ml Balance -500 ml 600 ml 350 ml Exam Constitutional: alert, oriented, well developed Eyes: EOMI, PERRL, nl conjunctiva, nl lids, nl sclera Respiratory: diminished breath sounds, intercostal retraction Cardiovascular: irregular rhythm, nl pulses Gastrointestinal: nl liver, spleen, non-tender, soft Results Result Diagram: 04/27/17 0634 04/27/17 0634 Results 24 hrs Laboratory Tests Test 04/27/17 06:34 White Blood Count 5.7 Red Blood Count 2.52 L Hemoglobin 7.7 L Hematocrit 24.5 L Mean Corpuscular Volume 97.2 Mean Corpuscular Hemoglobin 30.6 Mean Corpuscular Hemoglobin Concent 31.4 L Red Cell Distribution Width 17.2 H Platelet Count 128 L Mean Platelet Volume 10.6 H Neutrophils % 60.7 Lymphocytes % 22.0 Monocytes % 13.9 H Eosinophils % 2.3 Basophils % 0.4 Nucleated Red Blood Cells % 0.0 Neutrophils # 3.5 Lymphocytes # 1.3 Monocytes # 0.8 Eosinophils # 0.1 Basophils # 0.0 Nucleated Red Blood Cells # 0.0 Sodium Level 129 L Potassium Level 4.4 Chloride Level 96 L Carbon Dioxide Level 26 Anion Gap 11 Blood Urea Nitrogen 44 H Creatinine 2.37 H Glucose Level 81 Calcium Level 7.9 L Phosphorus Level 3.6 Magnesium Level 1.9 Medications Medications Current Medications Tramadol HCl (Ultram) 50 mg Q6H PRN PO PAIN Last administered on 04/27/17t 11: 05; Admin Dose 50 MG; Start 04/17/17 at 03:30 Ondansetron HCl (Zofran Inj) 4 mg Q6H PRN IV NAUSEA AND/OR VOMITING; Start 09/23 at 03:30 Nitroglycerin (Nitroglycerin (Sl Tab) 0.4 Mg) 1 tab Q5M PRN SL CHEST PAIN; Start 04/17/17 at 03:30 Acetaminophen (Tylenol Tab) 650 mg Q6H PRN PO PAIN LEVEL 1-3 OR FEVER Last administered on 04/22/17 08:42; Admin Dose 650 MG; Start 04/17/17 at 03:30 Docusate Sodium (Colace) 100 mg Q12H PRN PO CONSTIPATION; Start 04/17/17 at 03: 30 Magnesium Hydroxide (Milk Of Mag) 30 ml DAILY PRN PO CONSTIPATION; Start at 03:30 Bisacodyl (Dulcolax Supp) 10 mg DAILY PRN [place] CONSTIPATION; Start 04/17/17 at 03 :30 Famotidine (Pepcid) 20 mg DAILY PO Last administered on 04/27/17 08:40; Admin Dose 20 MG; Start 04/17/17 at 09:00 Clopidogrel Bisulfate (plaVIX) 75 mg DAILY PO Last administered on 04/27/17 08 :39; Admin Dose 75 MG; Start 04/18/17 at 09:00 Atorvastatin Calcium (Lipitor) 40 mg HS PO Last administered on 04/26/17 20:52 ; Admin Dose 40 MG; Start 04/17/17 at 21:00 Digoxin (Digoxin) 0.125 mg DAILY@13 PO Last administered on 04/27/17 12:45; Admin Dose 0.125 MG; Start 04/24/17 at 13:00; Status Future Hold Midodrine (Proamatine) 10 mg DAILY PRN PO dialysis Last administered on 12:08; Admin Dose 10 MG; Start 04/25/17 at 09:00 Captopril (Capoten) 6.25 mg BID PO Last administered on 04/27/17 08:39; Admin Dose 6.25 MG; Start 04/25/17 at 21:00 Carvedilol (Coreg) 12.5 mg BID PO Last administered on 04/27/17 08:39; Admin Dose 12.5 MG; Start 04/26/17 at 21:00 ROLAND LEMUS Apr 27, 2017 17:05
[2017-04-27] MEDS: ATORVASTATIN 40 MG TAB PO SCH (21:06)
--- NOTE | 2017-04-27 22:03 | RADRPT ---
PROCEDURE: XR Chest. CLINICAL INDICATION: Pleural effusion. TECHNIQUE: Single frontal view of the chest. COMPARISON: 01/24/2017 FINDINGS: New bilateral lung base narrow caliber chest tubes in place. These are poorly visualized. Right central venous double-lumen dialysis catheter again seen with tip in right atrium. Bilateral pleural effusions are seen, decreased over interval. Pleural effusions are left greater than right. Bilateral mid lung and lung base atelectasis versus airspace disease. No evident pneumothorax. Cardiomegaly and atherosclerotic calcifications in the thoracic aorta. The osseous structures and soft tissues are unremarkable. IMPRESSION: 1. New bilateral lung base narrow caliber chest tubes in place. 2. Decreased pleural effusions are mild to moderate, and are left greater than right. RPTAT: [facility] Physician Sejal Date Time Electronically viewed and signed by Physician Sejal on 04/27/2017 22:02 /
[2017-04-28] VITALS (37 sets, daily range): BP systolic 78–136; BP diastolic 43–100; PULSE 47–98; RESP 15–27
[2017-04-28] MEDS: traMADol 50 MG TAB PO PRN (05:04)
[2017-04-28 07:55] LABS: ADD SCAN DIFF NO
[2017-04-28] MEDS: ALBUTEROL/IPRATROPIUM (NEB) 3 ML AMP HHN SCH ×2 (08:06→11:26)
[2017-04-28 08:10] LABS: BASOPHILS % 0.2 % (0.0-2.0); EOSINOPHILS # 0.1 10^3/ul (0.0-0.5); EOSINOPHILS % 1.3 % (0.0-7.0); HEMATOCRIT 24.2 % (42.0-52.0); HEMOGLOBIN 7.5 g/dl (14.0-18.0); LYMPHOCYTES # 0.9 10^3/ul (0.8-2.9); LYMPHOCYTES % 9.9 % (15.0-51.0); MEAN CORPUSCULAR HEMOGLOBIN 30.5 pg (29.0-33.0); MEAN CORPUSCULAR VOLUME 98.4 fl (82.0-101.0); MEAN PLATELET VOLUME 10.3 fl (7.4-10.4); MONOCYTE # 0.6 10^3/ul (0.3-0.9); NEUTROPHILS % 81.3 % (39.0-77.0); PLATELET COUNT 122 10^3/UL (140-415); RED BLOOD COUNT 2.46 10^6/ul (4.70-6.10); RED CELL DISTRIBUTION WIDTH 16.9 % (11.5-14.5); WHITE BLOOD COUNT 8.6 10^3/ul (4.8-10.8)
[2017-04-28 08:53] LABS: CALCIUM 7.9 mg/dl (8.4-10.2); CREATININE 2.77 mg/dl (0.61-1.24); POTASSIUM 4.8 mmol/L (3.5-5.1)
[2017-04-28 09:19] LABS: MAGNESIUM 1.9 mg/dl (1.7-2.5); PHOSPHORUS 4.1 mg/dl (2.5-4.9)
--- NOTE | 2017-04-28 09:36 | QN ---
Documentation Comment I was called out of the emergency department to room 527 for a CODE BLUE event. The patient was receiving high-quality CPR and being bagged by respiratory therapy. I immediately took over as the CODE BLUE leader and ran the code. Please see the code sheet for full details. The patient received epinephrine, bicarbonate, and intubation. The final results of the CODE BLUE was return of spontaneous circulation. HPI: Please note the history and physical exam is limited as the patient is receiving CPR at this time. The patient is in full cardiac arrest. Physical exam: The patient is being bagged by respiratory therapy. There is no movement. GCS is 3. Endotracheal Intubation by me: Pre assessment performed. Pre-oxygenation performed with 100% oxygen RSI: Performed w/o complication or hypoxic events. Medications as ordered. Blade: MAC 4 Glidescope ET Tube: 7.5 cm Depth: 23 cm at the lip Intubation confirmed by colorimetric CO2, equal breath sounds, quiet over the stomach. Chest x-ray pending CARLOS MARTINEZ MD Apr 28, 2017 09:36
[2017-04-28] MEDS ORDERED: ACETAMINOPHEN 650MG/20.3ML CUP PO PRN (10:00)
[2017-04-28] MEDS ORDERED: IPRATROPIUM (HFA) 12.9 GM INHALER INH PRN (10:00)
[2017-04-28] MEDS ORDERED: ONDANSETRON 4 MG INJ IV PRN (10:00)
[2017-04-28] MEDS ORDERED: ALBUTEROL 18 GM INHALER INH PRN (10:00)
--- NOTE | 2017-04-28 10:52 | RADRPT ---
PROCEDURE: XR Chest. CLINICAL INDICATION: Respiratory failure TECHNIQUE: An AP view of the chest was obtained. COMPARISON: Chest x-ray dated 04/27/2017 FINDINGS: The endotracheal tube tip is approximately 2.6 cm above the catrachita. The tip of the enteric tube pr ojects over the left upper quadrant. There is a right chest Perma-Cath with tip in the upper right a trium. There is prominence of the interstitial and central pulmonary vascular markings with moderate right and small left pleural effusions. No pneumothorax is seen. The cardiomediastinal silhouette is mildly enlarged . Calcifications are seen within the aortic arch. The osseous structures demonstrat e senescent changes. IMPRESSION: 1. Findings suggestive of pulmonary vascular congestion moderate right and small left pleural effu sions. No significant interval change. 2. Mild cardiomegaly and aortic atherosclerosis. 3. Tubes and lines, as described above. RPTAT: HH .Thao Sanchez MD, MD Date Time Electronically viewed and signed by .Thao Sanchez MD, on 04/28/2017 10:52 .G/
[2017-04-28 11:22] LABS: AADO2 Arterial 399.7 mmHg (7.0-24.0); Allen Test ACCEPTAB; Arterial Base Excess 3.4 mmol/L (-3.0-3); Arterial COHb 0.3 % (0.0-3.0); Arterial Fraction of Oxyhgb 98.5 % (93.0-99.0); Arterial HCO3 27.7 mmol/L (22.0-26.0); Arterial MetHb 0.5 % (0.0-1.5); Arterial Total Hemglobin 8.2 g/dl (12.0-18.0); MODE VENT - AC
--- NOTE | 2017-04-28 11:34 | PN ---
Date/Time of Note Date/Time of Note DATE: 04/28/17 TIME: 10:59 Assessment/Plan VTE Prophylaxis VTE Prophylaxis Intervention: SCD's Lines/Catheters IV [facility]from [facility] [place] [facility] Urinary Cath still in place: No Assessment/Plan Assessment/Plan 81-year-old male with: 1. Acute Respiratory Failure this AM, ? 2ry to aspiration vs an event that precipitated decreased Mental status and aspiration while being fed, patient did require CPR and resuscitation including compression. VSS on vent Pulmonary consulted CXR this AM post intubation with unchanged findings 2. Bilateral pleural effusion, recurrent secondary to severe cardiomyopathy, diastolic and severe systolic congestive heart failure which is failing medical treatment basically, s/p bilateral Pleurx catheter placement for drainage of recurrent pleural effusions. HD as tolerated for further volume management along with bilateral PleurX valves. Last drainage of Pleurx 04/23, CXR yesterday and today unchanged, now intubated. Cardio and Nephro following and second opinions from Dr Abdullahi, Dr Garza and Dr Rodriguez appreciated, in line with care up to prior event today at least. 3. Elevated troponin with known coronary artery disease. Denies chest pain. Coreg and captopril as tolerated. Cardiology following. Medical management to be continued per Dr Rodriguez too, continue Plavix. Because of easy bleeding off Eliquis, discussed with Cardiology and [facility]PSARA 4. End-stage renal disease on hemodialysis. Had to abort HD after 1 hr on Tuesday, given event today per Nephrology no HD today either. Continue Midodrine for blood pressure support especially during HD. Dr. Summers following, Dr Garza agrees with current management. 5. Chronic atrial fibrillation, with rapid ventricular rate, currently HR in the 70's to 80's. Continue with current regimen, Coreg and Digoxin. Off Cardizem and Eliquis Appreciate cardiology, Dr Berman and Dr Rodriguez's recommendations. 5. Hypotension especially during HD, patient on Midodrine especially during HD , last dose on 04/26 Minimizing cardiac meds affecting BP as much as possible. 6. Moderate to severe dementia. Very poor short-term memory. He has difficulty expressing all his needs. He does not always communicate his symptoms effectively. He is completely dependent on his DPOA, Fabiola Flor for decision making 7. Dysphagia per [facility] report, the patient also does not have dentures, and on Puree diet/mechanical soft diet. 8. Chronic pain. Tramdol prn, [place] prn as long as BP tolerates. 9. E coli UTI. Patient completed Keflex course as of 04/25. 10. Mild Hyponatremia: f/u post HD tomorrow, likely volume related but unfortunately no HD x2 sessions so far Prophylaxis: Eliquis discontinued, Pepcid for GI prophylaxis. DISPOSITION: Patient intubated and in ICU Continue drainage of PleurX valves as needed and tolerated. HD if able to tolerate. Dr. Berman and Dr. Summers, Dr Crook and Dr Abdullahi following. Per PDOA request, 2nd opinions for IM and subspecialties, Dr Rodriguez, Dr Bolivar and Dr Abdullahi appreciated. Patient is moribund. Poor overall prognosis. Appreciate assistance from Palliative care, Dr Crook. Full code Subjective 24 Hr Interval Summary Free Text/Dictation Episode of bradycardia at 8 40 AM on monitor and also observed to chock during breakfast this AM and being feed puree diet and subsequently loss consciousness and had to be resuscitated x 6 mins He is currently intubated and on Vent. Exam/Review of Systems Vital Signs Vitals Vital Signs Date Time Temp Pulse Resp B/P Pulse Ox O2 Delivery O2 Flow Rate FiO2 04/28/17 10:15 84 20 105/66 98 Mechanical Ventilator 04/28/17 10:00 97.4 04/28/17 09:30 100 04/28/17 08:12 3.0 Intake and Output 04/27/17 04/27/17 04/28/17 15:00 23:00 07:00 Intake Total 1000 ml 300 ml Balance 1000 ml 300 ml Exam Constitutional: other (post extubation ) Respiratory: diminished breath sounds (decreased bilaterally ), other ( effusions unchanged mild to moderate ) Cardiovascular: irregular rhythm (a fib ) Gastrointestinal: non-tender, other (NGT on place ), soft Musculoskeletal: muscle tone (poor), other (contracted, chronically bed ridden ) Neurological: other (sedated and intubated ) Skin: ecchymosis Results Result Diagram: 04/28/17 0629 04/28/17 0629 Results 24 hrs Laboratory Tests Test 04/28/17 06:29 04/28/17 06:39 04/28/17 08:50 White Blood Count 8.6 # Red Blood Count 2.46 L Hemoglobin 7.5 L Hematocrit 24.2 L Mean Corpuscular Volume 98.4 Mean Corpuscular Hemoglobin 30.5 Mean Corpuscular Hemoglobin Concent 31.0 L Red Cell Distribution Width 16.9 H Platelet Count 122 L Mean Platelet Volume 10.3 Neutrophils % 81.3 H Lymphocytes % 9.9 L Monocytes % 7.0 Eosinophils % 1.3 Basophils % 0.2 Nucleated Red Blood Cells % 0.0 Neutrophils # 7.0 Lymphocytes # 0.9 Monocytes # 0.6 Eosinophils # 0.1 Basophils # 0.0 Nucleated Red Blood Cells # 0.0 Sodium Level 125 L Potassium Level 4.8 Chloride Level 92 L Carbon Dioxide Level 28 Anion Gap 10 Blood Urea Nitrogen 49 H Creatinine 2.77 H Glucose Level 73 Calcium Level 7.9 L Phosphorus Level 4.1 Magnesium Level 1.9 Bedside Glucose 77 Medications Medications Current Medications Tramadol HCl (Ultram) 50 mg Q6H PRN PO PAIN Last administered on 04/28/17 05: 04; Admin Dose 50 MG; Start 04/17/17 at 03:30 Ondansetron HCl (Zofran Inj) 4 mg Q6H PRN IV NAUSEA AND/OR VOMITING; Start 09/23 at 03:30 Nitroglycerin (Nitroglycerin (Sl Tab) 0.4 Mg) 1 tab Q5M PRN SL CHEST PAIN; Start 04/17/17 at 03:30 Acetaminophen (Tylenol Tab) 650 mg Q6H PRN PO PAIN LEVEL 1-3 OR FEVER Last administered on 04/22/17 08:42; Admin Dose 650 MG; Start 04/17/17 at 03:30 Docusate Sodium (Colace) 100 mg Q12H PRN PO CONSTIPATION; Start 04/17/17 at 03: 30 Magnesium Hydroxide (Milk Of Mag) 30 ml DAILY PRN PO CONSTIPATION; Start at 03:30 Bisacodyl (Dulcolax Supp) 10 mg DAILY PRN [place] CONSTIPATION; Start 04/17/17 at 03 :30 Famotidine (Pepcid) 20 mg DAILY PO Last administered on 04/27/17 08:40; Admin Dose 20 MG; Start 04/17/17 at 09:00 Clopidogrel Bisulfate (plaVIX) 75 mg DAILY PO Last administered on 04/27/17 08 :39; Admin Dose 75 MG; Start 04/18/17 at 09:00 Atorvastatin Calcium (Lipitor) 40 mg HS PO Last administered on 04/27/17 21:06 ; Admin Dose 40 MG; Start 04/17/17 at 21:00 Digoxin (Digoxin) 0.125 mg DAILY@13 PO Last administered on 04/27/17 12:45; Admin Dose 0.125 MG; Start 04/24/17 at 13:00; Status Future Hold Midodrine (Proamatine) 10 mg DAILY PRN PO dialysis Last administered on 12:08; Admin Dose 10 MG; Start 04/25/17 at 09:00 Captopril (Capoten) 6.25 mg BID PO Last administered on 04/27/17 21:06; Admin Dose 6.25 MG; Start 04/25/17 at 21:00 Carvedilol (Coreg) 12.5 mg BID PO Last administered on 04/27/17 21:06; Admin Dose 12.5 MG; Start 04/26/17 at 21:00 Ondansetron HCl (Zofran Inj) 4 mg Q6H PRN IV NAUSEA AND/OR VOMITING; Start at 10:00 Acetaminophen (Tylenol Liquid) 650 mg Q6H PRN PO PAIN LEVEL 1-3 OR FEVER; Start 04/28/17 at 10:00 Pantoprazole (Protonix Iv) 40 mg DAILY@06 IV ; Start 04/29/17 at 06:00 SOO NAIK Apr 28, 2017 11:09
--- NOTE | 2017-04-28 11:37 | CONS ---
Date/Time of Note Date/Time of Note DATE: 04/28/17 TIME: 11:33 Assessment/Plan Assessment/Plan Additional Assessment/Plan 1. S/p Code blue, acute resp failure, intubated on ventilator 2. Acute non-ST elevation myocardial infarction. 2. End-stage renal disease on hemodialysis 3 times a week. 3. Bilateral pleural effusion causing fluid overload, right greater than left, status post bilateral PleurX catheter placement by Dr. David at the [facility]. 4. Hypertension. 5. Hyperlipidemia. 6. 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 7. Coronary artery disease. 8. Chronic atrial fibrillation. 9. 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 PLAN: pt had a code blue today, intubated on ventilator, transferred to ICU Pt is currently unresponsive, sedated on ventilator BP very labile, unstable for HD today, will give albumin and midodrine for BP support will reassess him for HD tomorrow AM if BP and HR stable will try to reach out to DPOA and update her about situation Consultation Date/Type/Reason Admit Date/Time Apr 17, 2017 at 02:32 Type of Consultation: NEPHROLOGY Referring Provider: SOO NAIK 24 HR Interval Summary Free Text/Dictation pt had a code blue today, Intubated, on ventilator, transferred to ICU, pt had a episode of bradycardia also Exam/Review of Systems Vital Signs Vitals Vital Signs Date Time Temp Pulse Resp B/P Pulse Ox O2 Delivery O2 Flow Rate FiO2 04/28/17 11:15 88 20 135/100 100 Mechanical Ventilator 04/28/17 11:00 97.6 04/28/17 09:30 100 04/28/17 08:12 3.0 Intake and Output 04/27/17 04/27/17 04/28/17 15:00 23:00 07:00 Intake Total 1000 ml 300 ml Balance 1000 ml 300 ml Exam Constitutional: other (intubated, sedated on ventilator ) Head: normocephalic Eyes: other (ET tube in place, no jaundice) Neck: supple Respiratory: diminished breath sounds, other (Bilateral coarse BS+, RLL rales ) Cardiovascular: other (bradycardia), regular rate and rhythm Gastrointestinal: non-tender, soft Extremities: normal pulses Neurological: other (sedated on ventilator, not responsive ) Results Result Diagram: 04/28/17 0629 04/28/17 0629 Results 24 hrs Laboratory Tests Test 04/28/17 06:29 04/28/17 06:39 04/28/17 08:50 04/28/17 10:30 White Blood Count 8.6 # Red Blood Count 2.46 L Hemoglobin 7.5 L Hematocrit 24.2 L Mean Corpuscular Volume 98.4 Mean Corpuscular Hemoglobin 30.5 Mean Corpuscular Hemoglobin Concent 31.0 L Red Cell Distribution Width 16.9 H Platelet Count 122 L Mean Platelet Volume 10.3 Neutrophils % 81.3 H Lymphocytes % 9.9 L Monocytes % 7.0 Eosinophils % 1.3 Basophils % 0.2 Nucleated Red Blood Cells % 0.0 Neutrophils # 7.0 Lymphocytes # 0.9 Monocytes # 0.6 Eosinophils # 0.1 Basophils # 0.0 Nucleated Red Blood Cells # 0.0 Sodium Level 125 L Potassium Level 4.8 Chloride Level 92 L Carbon Dioxide Level 28 Anion Gap 10 Blood Urea Nitrogen 49 H Creatinine 2.77 H Glucose Level 73 Calcium Level 7.9 L Phosphorus Level 4.1 Magnesium Level 1.9 Bedside Glucose 77 Blood Gas Specimen Source Blood arterial Arterial Blood Date Drawn 04/28/2017 11:00:59 AM Arterial Blood pH (Temp corrected) 7.448 Arterial Blood pCO2 (Temp correct) 40.9 Arterial Blood pO2 (Temp corrected) 272.4 H Arterial Blood HCO3 27.7 H Arterial Blood Base Excess 3.4 H Arterial Blood Oxygen Saturation 99.3 Kevin Test ACCEPTAB Arterial Blood Gas Puncture Site Right Radial Arterial Blood Carboxyhemoglobin 0.3 Arterial Blood Methemoglobin 0.5 Blood Gas A-a O2 Differential 399.7 H Oxyhemoglobin Percent 98.5 Total Hemoglobin 8.2 L Blood Gas Temperature 37.0 Blood Gas Respiration Rate 20.0 Blood Gas Actual Respiration Rate 20 Blood Gas Modality VENT - AC FiO2 100.0 Blood Gas Tidal Volume 500.0 Blood Gas Low PEEP Setting 5.0 Blood Gas Notified Whom JLD Blood Gas Notified Time 04/28/2017 11:22:12 AM Medications Medications Current Medications Tramadol HCl (Ultram) 50 mg Q6H PRN PO PAIN Last administered on 04/28/17t 05: 04; Admin Dose 50 MG; Start 04/17/17 at 03:30 Ondansetron HCl (Zofran Inj) 4 mg Q6H PRN IV NAUSEA AND/OR VOMITING; Start 09/23 at 03:30 Nitroglycerin (Nitroglycerin (Sl Tab) 0.4 Mg) 1 tab Q5M PRN SL CHEST PAIN; Start 04/17/17 at 03:30 Acetaminophen (Tylenol Tab) 650 mg Q6H PRN PO PAIN LEVEL 1-3 OR FEVER Last administered on 04/22/17 08:42; Admin Dose 650 MG; Start 04/17/17 at 03:30 Docusate Sodium (Colace) 100 mg Q12H PRN PO CONSTIPATION; Start 04/17/17 at 03: 30 Magnesium Hydroxide (Milk Of Mag) 30 ml DAILY PRN PO CONSTIPATION; Start at 03:30 Bisacodyl (Dulcolax Supp) 10 mg DAILY PRN [place] CONSTIPATION; Start 04/17/17 at 03 :30 Famotidine (Pepcid) 20 mg DAILY PO Last administered on 04/27/17 08:40; Admin Dose 20 MG; Start 04/17/17 at 09:00 Clopidogrel Bisulfate (plaVIX) 75 mg DAILY PO Last administered on 04/27/17 08 :39; Admin Dose 75 MG; Start 04/18/17 at 09:00 Atorvastatin Calcium (Lipitor) 40 mg HS PO Last administered on 04/27/17 21:06 ; Admin Dose 40 MG; Start 04/17/17 at 21:00 Digoxin (Digoxin) 0.125 mg DAILY@13 PO Last administered on 04/27/17 12:45; Admin Dose 0.125 MG; Start 04/24/17 at 13:00; Status Future Hold Midodrine (Proamatine) 10 mg DAILY PRN PO dialysis Last administered on 12:08; Admin Dose 10 MG; Start 04/25/17 at 09:00 Captopril (Capoten) 6.25 mg BID PO Last administered on 04/27/17 21:06; Admin Dose 6.25 MG; Start 04/25/17 at 21:00 Carvedilol (Coreg) 12.5 mg BID PO Last administered on 04/27/17 21:06; Admin Dose 12.5 MG; Start 04/26/17 at 21:00 Ondansetron HCl (Zofran Inj) 4 mg Q6H PRN IV NAUSEA AND/OR VOMITING; Start at 10:00 Acetaminophen (Tylenol Liquid) 650 mg Q6H PRN PO PAIN LEVEL 1-3 OR FEVER; Start 04/28/17 at 10:00 Pantoprazole (Protonix Iv) 40 mg DAILY@06 IV ; Start 04/29/17 at 06:00 MACI ASHLEY MD Apr 28, 2017 11:37
[2017-04-28] MEDS: FAMOTIDINE 20 MG TAB PO SCH (11:43)
[2017-04-28] MEDS: CLOPIDOGREL 75 MG TAB PO SCH (11:43)
--- NOTE | 2017-04-28 11:44 | CONS ---
Date/Time of Note Date/Time of Note DATE: 04/28/17 TIME: 11:41 Consultation Date/Type/Reason Admit Date/Time Apr 17, 2017 at 02:32 Type of Consultation: Palliative Care Referring Provider: SOO NAIK 24 HR Interval Summary Free Text/Dictation Patient in the ICU this morning after cardiopulmonary arrest... Agent in route. Recommend meeting with agent for continued support.. goals of care discussed with agent yesterday and documented. Exam/Review of Systems Vital Signs Vitals Vital Signs Date Time Temp Pulse Resp B/P Pulse Ox O2 Delivery O2 Flow Rate FiO2 04/28/17 11:15 88 20 135/100 100 Mechanical Ventilator 04/28/17 11:00 97.6 04/28/17 09:30 100 04/28/17 08:12 3.0 Intake and Output 04/27/17 04/27/17 04/28/17 15:00 23:00 07:00 Intake Total 1000 ml 300 ml Balance 1000 ml 300 ml Results Result Diagram: 04/28/17 0629 04/28/17 0629 Results 24 hrs Laboratory Tests Test 04/28/17 06:29 04/28/17 06:39 04/28/17 08:50 04/28/17 10:30 White Blood Count 8.6 # Red Blood Count 2.46 L Hemoglobin 7.5 L Hematocrit 24.2 L Mean Corpuscular Volume 98.4 Mean Corpuscular Hemoglobin 30.5 Mean Corpuscular Hemoglobin Concent 31.0 L Red Cell Distribution Width 16.9 H Platelet Count 122 L Mean Platelet Volume 10.3 Neutrophils % 81.3 H Lymphocytes % 9.9 L Monocytes % 7.0 Eosinophils % 1.3 Basophils % 0.2 Nucleated Red Blood Cells % 0.0 Neutrophils # 7.0 Lymphocytes # 0.9 Monocytes # 0.6 Eosinophils # 0.1 Basophils # 0.0 Nucleated Red Blood Cells # 0.0 Sodium Level 125 L Potassium Level 4.8 Chloride Level 92 L Carbon Dioxide Level 28 Anion Gap 10 Blood Urea Nitrogen 49 H Creatinine 2.77 H Glucose Level 73 Calcium Level 7.9 L Phosphorus Level 4.1 Magnesium Level 1.9 Bedside Glucose 77 Blood Gas Specimen Source Blood arterial Arterial Blood Date Drawn 04/28/2017 11:00:59 AM Arterial Blood pH (Temp corrected) 7.448 Arterial Blood pCO2 (Temp correct) 40.9 Arterial Blood pO2 (Temp corrected) 272.4 H Arterial Blood HCO3 27.7 H Arterial Blood Base Excess 3.4 H Arterial Blood Oxygen Saturation 99.3 Kevin Test ACCEPTAB Arterial Blood Gas Puncture Site Right Radial Arterial Blood Carboxyhemoglobin 0.3 Arterial Blood Methemoglobin 0.5 Blood Gas A-a O2 Differential 399.7 H Oxyhemoglobin Percent 98.5 Total Hemoglobin 8.2 L Blood Gas Temperature 37.0 Blood Gas Respiration Rate 20.0 Blood Gas Actual Respiration Rate 20 Blood Gas Modality VENT - AC FiO2 100.0 Blood Gas Tidal Volume 500.0 Blood Gas Low PEEP Setting 5.0 Blood Gas Notified Whom JLD Blood Gas Notified Time 04/28/2017 11:22:12 AM Medications Medications Current Medications Tramadol HCl (Ultram) 50 mg Q6H PRN PO PAIN Last administered on 04/28/17 05: 04; Admin Dose 50 MG; Start 04/17/17 at 03:30 Ondansetron HCl (Zofran Inj) 4 mg Q6H PRN IV NAUSEA AND/OR VOMITING; Start 09/23 at 03:30 Nitroglycerin (Nitroglycerin (Sl Tab) 0.4 Mg) 1 tab Q5M PRN SL CHEST PAIN; Start 04/17/17 at 03:30 Acetaminophen (Tylenol Tab) 650 mg Q6H PRN PO PAIN LEVEL 1-3 OR FEVER Last administered on 04/22/17 08:42; Admin Dose 650 MG; Start 04/17/17 at 03:30 Docusate Sodium (Colace) 100 mg Q12H PRN PO CONSTIPATION; Start 04/17/17 at 03: 30 Magnesium Hydroxide (Milk Of Mag) 30 ml DAILY PRN PO CONSTIPATION; Start at 03:30 Bisacodyl (Dulcolax Supp) 10 mg DAILY PRN [place] CONSTIPATION; Start 04/17/17 at 03 :30 Famotidine (Pepcid) 20 mg DAILY PO Last administered on 04/27/17 08:40; Admin Dose 20 MG; Start 04/17/17 at 09:00 Clopidogrel Bisulfate (plaVIX) 75 mg DAILY PO Last administered on 04/27/17 08 :39; Admin Dose 75 MG; Start 04/18/17 at 09:00 Atorvastatin Calcium (Lipitor) 40 mg HS PO Last administered on 04/27/17 21:06 ; Admin Dose 40 MG; Start 04/17/17 at 21:00 Digoxin (Digoxin) 0.125 mg DAILY@13 PO Last administered on 04/27/17 12:45; Admin Dose 0.125 MG; Start 04/24/17 at 13:00; Status Future Hold Midodrine (Proamatine) 10 mg DAILY PRN PO dialysis Last administered on 12:08; Admin Dose 10 MG; Start 04/25/17 at 09:00 Captopril (Capoten) 6.25 mg BID PO Last administered on 04/27/17 21:06; Admin Dose 6.25 MG; Start 04/25/17 at 21:00 Ondansetron HCl (Zofran Inj) 4 mg Q6H PRN IV NAUSEA AND/OR VOMITING; Start at 10:00 Acetaminophen (Tylenol Liquid) 650 mg Q6H PRN PO PAIN LEVEL 1-3 OR FEVER; Start 04/28/17 at 10:00 Pantoprazole (Protonix Iv) 40 mg DAILY@06 IV ; Start 04/29/17 at 06:00 Carvedilol (Coreg) 6.25 mg BID PO ; Start 04/28/17 at 21:00; Status ALPHONSEV ROLAND LEMUS Apr 28, 2017 11:44
--- NOTE | 2017-04-28 12:30 | CONS ---
Date/Time of Note Date/Time of Note DATE: 04/28/17 TIME: 12:24 Assessment/Plan Assessment/Plan Additional Assessment/Plan Multiple chest x-rays were reviewed from admission and today which is showing bilateral pleural effusions with cardiomegaly. X-ray from today showing endotracheal tube at an adequate level. Ventilator setting; AC of 80, tidal volume 500, PEEP of 5, 50% FiO2. Assessment recommendations; next 1. Patient admitted with shortness of breath due to underlying severe cardiomyopathy compounded by a stage renal disease. 2. Status post CPR. 3. Severely emaciated state. 4. End-stage renal disease, on hemodialysis. 5. Coronary artery disease. 6. Recurrent bilateral pleural effusions. 7. UTI. 8. Coronary artery disease. Next Continue current treatment. Drain pleural effusions from Pleurx catheter. Patient will be assessed in 24 hours for possible weaning from ventilator. Overall prognosis remains poor. Consultation Date/Type/Reason Admit Date/Time Apr 17, 2017 at 02:32 Date of Consultation: Apr 28, 2017 Type of Consultation: Pulmonary/critical care Reason for Consultation Pulmonary consultation requested for evaluation of respiratory failure. History of presenting any; patient is a 81-year-old white male who was admitted on the of this month with complaints of shortness of breath. Patient also has a history of renal failure. The patient was doing fairly well until early this morning the patient had a cardiac arrest event and was intubated and underwent CPR. By the time I saw the patient in ICU, the patient is orally intubated, unresponsive. History was obtained from medical records. Past medical history; next 1. History of renal failure, on hemodialysis. 2. History of multiple admissions at various hospitals recently. 3. Recurrent pleural effusions, status post bilateral Pleurx catheter placement. 4. Hyponatremia. 5. Anemia. 6. E. coli UTI. 7. Coronary artery disease. Medications; reviewed. Allergies; penicillin. Social history; not available. Family history; not available. Review of systems; unable to be obtained. General examination; elderly male, appears emaciated or intubated, unresponsive. Constitutional: no complaints (Denies fevers chills or sweats) Eyes: no complaints ENT: no complaints Respiratory: no complaints (Presently denies shortness of breath wheezing or cough) Cardiovascular: no complaints (Denies chest pain palpitations orthopnea or PND) Gastrointestinal: no complaints Genitourinary: no complaints Musculoskeletal: back pain Psychological: no complaints Past Medical History Medical History: angina, congestive heart failure Past Surgical History Past Surgical Hx: noncontributory Social History Alcohol Use: sober Smoking Status: Unknown if ever smoked Drug Use: none Exam/Review of Systems Vital Signs Vitals Vital Signs Date Time Temp Pulse Resp B/P Pulse Ox O2 Delivery O2 Flow Rate FiO2 04/28/17 11:15 88 20 135/100 100 Mechanical Ventilator 04/28/17 11:00 97.6 04/28/17 09:30 100 04/28/17 08:12 3.0 Intake and Output 04/27/17 04/27/17 04/28/17 15:00 23:00 07:00 Intake Total 1000 ml 300 ml Balance 1000 ml 300 ml Exam HEENT exam; supple neck, positive JVD. No lymphadenopathy. Midline trachea. No thyromegaly. Patient is edentulous. Pupils are irregular bilaterally. Bilateral cataracts are present. Chest examined; upper lobes are clear to auscultation with diminished breath on lung bases bilaterally. Bilateral Pleurx catheters are in place. S1-S2 audible , no murmurs. Regular rhythm. Abdomen exam is; scaphoid. No organomegaly. Bowel sounds audible. Extremity exam; no peripheral edema. Patient has multiple ecchymosis involving all 4 extremities. PANEL BEATER examination; patient is unresponsive. Results Result Diagram: 04/28/17 0629 04/28/17 0629 Results 24 hrs Laboratory Tests Test 04/28/17 06:29 04/28/17 06:39 04/28/17 08:50 04/28/17 10:30 White Blood Count 8.6 # Red Blood Count 2.46 L Hemoglobin 7.5 L Hematocrit 24.2 L Mean Corpuscular Volume 98.4 Mean Corpuscular Hemoglobin 30.5 Mean Corpuscular Hemoglobin Concent 31.0 L Red Cell Distribution Width 16.9 H Platelet Count 122 L Mean Platelet Volume 10.3 Neutrophils % 81.3 H Lymphocytes % 9.9 L Monocytes % 7.0 Eosinophils % 1.3 Basophils % 0.2 Nucleated Red Blood Cells % 0.0 Neutrophils # 7.0 Lymphocytes # 0.9 Monocytes # 0.6 Eosinophils # 0.1 Basophils # 0.0 Nucleated Red Blood Cells # 0.0 Sodium Level 125 L Potassium Level 4.8 Chloride Level 92 L Carbon Dioxide Level 28 Anion Gap 10 Blood Urea Nitrogen 49 H Creatinine 2.77 H Glucose Level 73 Calcium Level 7.9 L Digoxin Level 1.7 Phosphorus Level 4.1 Magnesium Level 1.9 Bedside Glucose 77 Blood Gas Specimen Source Blood arterial Arterial Blood Date Drawn 04/28/2017 11:00:59 AM Arterial Blood pH (Temp corrected) 7.448 Arterial Blood pCO2 (Temp correct) 40.9 Arterial Blood pO2 (Temp corrected) 272.4 H Arterial Blood HCO3 27.7 H Arterial Blood Base Excess 3.4 H Arterial Blood Oxygen Saturation 99.3 Kevin Test ACCEPTAB Arterial Blood Gas Puncture Site Right Radial Arterial Blood Carboxyhemoglobin 0.3 Arterial Blood Methemoglobin 0.5 Blood Gas A-a O2 Differential 399.7 H Oxyhemoglobin Percent 98.5 Total Hemoglobin 8.2 L Blood Gas Temperature 37.0 Blood Gas Respiration Rate 20.0 Blood Gas Actual Respiration Rate 20 Blood Gas Modality VENT - AC FiO2 100.0 Blood Gas Tidal Volume 500.0 Blood Gas Low PEEP Setting 5.0 Blood Gas Notified Whom JLD Blood Gas Notified Time 04/28/2017 11:22:12 AM Medications Medications Current Medications Tramadol HCl (Ultram) 50 mg Q6H PRN PO PAIN Last administered on 04/28/17 05: 04; Admin Dose 50 MG; Start 04/17/17 at 03:30 Ondansetron HCl (Zofran Inj) 4 mg Q6H PRN IV NAUSEA AND/OR VOMITING; Start 09/23 at 03:30 Nitroglycerin (Nitroglycerin (Sl Tab) 0.4 Mg) 1 tab Q5M PRN SL CHEST PAIN; Start 04/17/17 at 03:30 Acetaminophen (Tylenol Tab) 650 mg Q6H PRN PO PAIN LEVEL 1-3 OR FEVER Last administered on 04/22/17 08:42; Admin Dose 650 MG; Start 04/17/17 at 03:30 Docusate Sodium (Colace) 100 mg Q12H PRN PO CONSTIPATION; Start 04/17/17 at 03: 30 Magnesium Hydroxide (Milk Of Mag) 30 ml DAILY PRN PO CONSTIPATION; Start at 03:30 Bisacodyl (Dulcolax Supp) 10 mg DAILY PRN [place] CONSTIPATION; Start 04/17/17 at 03 :30 Famotidine (Pepcid) 20 mg DAILY PO Last administered on 04/28/17 11:43; Admin Dose 20 MG; Start 04/17/17 at 09:00 Clopidogrel Bisulfate (plaVIX) 75 mg DAILY PO Last administered on 04/28/17 11 :43; Admin Dose 75 MG; Start 04/18/17 at 09:00 Atorvastatin Calcium (Lipitor) 40 mg HS PO Last administered on 04/27/17 21:06 ; Admin Dose 40 MG; Start 04/17/17 at 21:00 Digoxin (Digoxin) 0.125 mg DAILY@13 PO Last administered on 04/27/17 12:45; Admin Dose 0.125 MG; Start 04/24/17 at 13:00; Status Future Hold Midodrine (Proamatine) 10 mg DAILY PRN PO dialysis Last administered on 12:08; Admin Dose 10 MG; Start 04/25/17 at 09:00 Captopril (Capoten) 6.25 mg BID PO Last administered on 04/27/17 21:06; Admin Dose 6.25 MG; Start 04/25/17 at 21:00 Ondansetron HCl (Zofran Inj) 4 mg Q6H PRN IV NAUSEA AND/OR VOMITING; Start at 10:00 Acetaminophen (Tylenol Liquid) 650 mg Q6H PRN PO PAIN LEVEL 1-3 OR FEVER; Start 04/28/17 at 10:00 Pantoprazole (Protonix Iv) 40 mg DAILY@06 IV ; Start 04/29/17 at 06:00 Carvedilol (Coreg) 6.25 mg BID PO ; Start 04/28/17 at 21:00 ROXY FIERRO 22, 2017 12:30
--- NOTE | 2017-04-28 12:32 | CONS ---
Date/Time of Note Date/Time of Note DATE: 04/28/17 TIME: 12:26 Assessment/Plan Assessment/Plan Chief Complaint/Hosp Course IMPRESSION: 1. Positive troponin consistent with non-ST elevation myocardial infarction, likely type 2 in the setting of atrial fibrillation with rapid ventricular response, possible respiratory distress with a negative CK-MB fraction at this time and no chest pain.-decreasing enzymes currently 2. Cardiomyopathy with decreased left ventricular ejection fraction. 3. Congestive heart failure, systolic, acute on chronic. 4. Abnormal electrocardiogram with lateral biphasic T-wave abnormalities and poor R-wave progression across the precordial leads. 5. Hypotension-improved and tolerating ACEI/BB 6. Renal failure. 7. Anemia. 8. Thrombocytopenia-mildly worse 9.pleural effusions- with pleur x catheters bilateral 10. bradycardia/paf 11. s/p code blue with subsequent intubation after ? aspiration rec: -Tele -s/p repeat discussion with conservator/patient remaining full code at this time -s/p second opinion with no change in therapy -Continue to hold eliquis and skin breakdown and bleeding -continue plavix as tolerated and may need to be held as well -continue statin -continue pleur x drainage of effusions -hd for volume removal as tolerated -Continue BB/ACEI for treatment of cardiomyopathy/rate control -Midodrine as necessary -Wean vent as tolerated Problems: Consultation Date/Type/Reason Admit Date/Time Apr 17, 2017 at 02:32 Initial Consult Date 04/17/2017 Type of Consultation: Cardiology Reason for Consultation cardiomyopathy Referring Provider: SOO NAIK Exam/Review of Systems Vital Signs Vitals Vital Signs Date Time Temp Pulse Resp B/P Pulse Ox O2 Delivery O2 Flow Rate FiO2 04/28/17 11:15 88 20 135/100 100 Mechanical Ventilator 04/28/17 11:00 97.6 04/28/17 09:30 100 04/28/17 08:12 3.0 Intake and Output 04/27/17 04/27/17 04/28/17 15:00 23:00 07:00 Intake Total 1000 ml 300 ml Balance 1000 ml 300 ml Exam Review of Systems: CONSTITUTIONAL: No fevers, chills. PULMONARY: resp failure CARDIOVASCULAR: No chest pain/palpitations GASTROINTESTINAL: No nausea/vomiting. GENITOURINARY: No hematuria/dysuria. MUSCULOSKELETAL: No myagias/arthalgias. PSYCHIATRIC: The patient denies depression. NEUROLOGIC: No weakness Constitutional: alert Psych: no complaints Head: normocephalic ENMT: mucosa pink and moist Neck: jvd (9 cm water), supple Respiratory: other (intubated) Cardiovascular: regular rate and rhythm Gastrointestinal: non-tender, soft Musculoskeletal: muscle tone (normal) Extremities: edema (none) Neurological: other (No focal deficits) Results Result Diagram: 04/28/17 0629 04/28/17 0629 Results 24 hrs Laboratory Tests Test 04/28/17 06:29 04/28/17 06:39 04/28/17 08:50 04/28/17 10:30 White Blood Count 8.6 # Red Blood Count 2.46 L Hemoglobin 7.5 L Hematocrit 24.2 L Mean Corpuscular Volume 98.4 Mean Corpuscular Hemoglobin 30.5 Mean Corpuscular Hemoglobin Concent 31.0 L Red Cell Distribution Width 16.9 H Platelet Count 122 L Mean Platelet Volume 10.3 Neutrophils % 81.3 H Lymphocytes % 9.9 L Monocytes % 7.0 Eosinophils % 1.3 Basophils % 0.2 Nucleated Red Blood Cells % 0.0 Neutrophils # 7.0 Lymphocytes # 0.9 Monocytes # 0.6 Eosinophils # 0.1 Basophils # 0.0 Nucleated Red Blood Cells # 0.0 Sodium Level 125 L Potassium Level 4.8 Chloride Level 92 L Carbon Dioxide Level 28 Anion Gap 10 Blood Urea Nitrogen 49 H Creatinine 2.77 H Glucose Level 73 Calcium Level 7.9 L Digoxin Level 1.7 Phosphorus Level 4.1 Magnesium Level 1.9 Bedside Glucose 77 Blood Gas Specimen Source Blood arterial Arterial Blood Date Drawn 04/28/2017 11:00:59 AM Arterial Blood pH (Temp corrected) 7.448 Arterial Blood pCO2 (Temp correct) 40.9 Arterial Blood pO2 (Temp corrected) 272.4 H Arterial Blood HCO3 27.7 H Arterial Blood Base Excess 3.4 H Arterial Blood Oxygen Saturation 99.3 Kevin Test ACCEPTAB Arterial Blood Gas Puncture Site Right Radial Arterial Blood Carboxyhemoglobin 0.3 Arterial Blood Methemoglobin 0.5 Blood Gas A-a O2 Differential 399.7 H Oxyhemoglobin Percent 98.5 Total Hemoglobin 8.2 L Blood Gas Temperature 37.0 Blood Gas Respiration Rate 20.0 Blood Gas Actual Respiration Rate 20 Blood Gas Modality VENT - AC FiO2 100.0 Blood Gas Tidal Volume 500.0 Blood Gas Low PEEP Setting 5.0 Blood Gas Notified Whom JLD Blood Gas Notified Time 04/28/2017 11:22:12 AM Medications Medications Current Medications Tramadol HCl (Ultram) 50 mg Q6H PRN PO PAIN Last administered on 04/28/17 05: 04; Admin Dose 50 MG; Start 04/17/17 at 03:30 Ondansetron HCl (Zofran Inj) 4 mg Q6H PRN IV NAUSEA AND/OR VOMITING; Start 09/23 at 03:30 Nitroglycerin (Nitroglycerin (Sl Tab) 0.4 Mg) 1 tab Q5M PRN SL CHEST PAIN; Start 04/17/17 at 03:30 Acetaminophen (Tylenol Tab) 650 mg Q6H PRN PO PAIN LEVEL 1-3 OR FEVER Last administered on 04/22/17 08:42; Admin Dose 650 MG; Start 04/17/17 at 03:30 Docusate Sodium (Colace) 100 mg Q12H PRN PO CONSTIPATION; Start 04/17/17 at 03: 30 Magnesium Hydroxide (Milk Of Mag) 30 ml DAILY PRN PO CONSTIPATION; Start at 03:30 Bisacodyl (Dulcolax Supp) 10 mg DAILY PRN [place] CONSTIPATION; Start 04/17/17 at 03 :30 Famotidine (Pepcid) 20 mg DAILY PO Last administered on 04/28/17 11:43; Admin Dose 20 MG; Start 04/17/17 at 09:00 Clopidogrel Bisulfate (plaVIX) 75 mg DAILY PO Last administered on 04/28/17 11 :43; Admin Dose 75 MG; Start 04/18/17 at 09:00 Atorvastatin Calcium (Lipitor) 40 mg HS PO Last administered on 04/27/17 21:06 ; Admin Dose 40 MG; Start 04/17/17 at 21:00 Digoxin (Digoxin) 0.125 mg DAILY@13 PO Last administered on 04/27/17 12:45; Admin Dose 0.125 MG; Start 04/24/17 at 13:00; Status Future Hold Midodrine (Proamatine) 10 mg DAILY PRN PO dialysis Last administered on 12:08; Admin Dose 10 MG; Start 04/25/17 at 09:00 Captopril (Capoten) 6.25 mg BID PO Last administered on 04/27/17t 21:06; Admin Dose 6.25 MG; Start 04/25/17 at 21:00 Ondansetron HCl (Zofran Inj) 4 mg Q6H PRN IV NAUSEA AND/OR VOMITING; Start at 10:00 Acetaminophen (Tylenol Liquid) 650 mg Q6H PRN PO PAIN LEVEL 1-3 OR FEVER; Start 04/28/17 at 10:00 Pantoprazole (Protonix Iv) 40 mg DAILY@06 IV ; Start 04/29/17 at 06:00 Carvedilol (Coreg) 6.25 mg BID PO ; Start 04/28/17 at 21:00 SALOMON ROPER Apr 28, 2017 12:32
--- NOTE | 2017-04-28 13:36 | PN ---
Date/Time of Note Date/Time of Note DATE: 04/28/17 TIME: 13:32 Assessment/Plan VTE Prophylaxis VTE Prophylaxis Intervention: SCD's Lines/Catheters IV Catheter Type (from [facility]): Saline Lock Urinary Cath still in place: No Assessment/Plan Chief Complaint/Hosp Course 81-year-old unmarried gentleman with a significant other with advanced medical problems. He has developed since late last year for dementia with end-stage renal disease also and significant heart failure with frequent unstable angina. He has had intractable pleural effusions that required Pleurx catheters bilaterally. He is having pain management issues. He has a pre- existing [employer] who expresses that she wishes to follow his advice i.e. to prolong his life as best as possible. She however expresses that she primarily wants his pain management done in such way and acknowledges that she does not want futile treatments. By this she specifically states she does not want an implanted feeding tube as an example. She also states that if he was to be intubated with not reasonable chance of recovery she is not comfortable with that although she is not making any decisions about withholding CPR DC cardioversion or intubation as of today. She does wish to reexplore palliative care measures specifically for comfort. Problems: (1) Acute respiratory failure requiring reintubation Status: Acute Comment: Pulmonology is assisting with the management the patient. As of this moment it is a little premature to try and wean him or extubate him. We will do our best to spit up his pulmonary status and evaluate him tomorrow. Given the prior prolonged intubation secondary prolonged intubation will be a risky proposition and most likely require placement of trach. That is yet to be determined. (2) Pleural effusion Status: Acute Comment: Pleurx catheters will be drained today (3) End stage renal disease on dialysis Status: Chronic Comment: As per nephrology at this moment he is too fragile for dialysis and intervening with dialysis may lead to his demise. Will keep a careful eye on him and dialyze if and when he is stable (4) Ischemic dilated cardiomyopathy Status: Chronic Comment: As per cardiology note and and clarification the telemetry that is recommended is cardiac monitoring which is being done in an intensive care unit setting. 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 Prognosis is extremely poor. Please note had an extensive discussion with the [employer] Fabiola who understands that he is in poor condition. At this time she still wants everything done. She however may change her mind at some point based upon how well he responds to this event. She understands of the situation is extremely critical and that his prognosis for long-term recovery is poor Subjective 24 Hr Interval Summary Free Text/Dictation Patient had an arrest overnight now is on the ventilator in the intensive care unit. Patient is somewhat sedated opens his eyes but is not following commands. Subjective hx not possible: pt critical status Exam/Review of Systems Vital Signs Vitals Vital Signs Date Time Temp Pulse Resp B/P Pulse Ox O2 Delivery O2 Flow Rate FiO2 04/28/17 13:15 90 20 123/84 100 04/28/17 13:00 Mechanical Ventilator 04/28/17 12:00 97.8 04/28/17 12:00 50 04/28/17 08:12 3.0 Intake and Output 04/27/17 04/27/17 04/28/17 15:00 23:00 07:00 Intake Total 1000 ml 300 ml Balance 1000 ml 300 ml Exam Constitutional: non-verbal Respiratory: crackles/rales Cardiovascular: nl pulses, regular rate and rhythm Results Result Diagram: 04/28/17 0629 04/28/17 0629 Results 24 hrs Laboratory Tests Test 04/28/17 06:29 04/28/17 06:39 04/28/17 08:50 04/28/17 10:30 White Blood Count 8.6 # Red Blood Count 2.46 L Hemoglobin 7.5 L Hematocrit 24.2 L Mean Corpuscular Volume 98.4 Mean Corpuscular Hemoglobin 30.5 Mean Corpuscular Hemoglobin Concent 31.0 L Red Cell Distribution Width 16.9 H Platelet Count 122 L Mean Platelet Volume 10.3 Neutrophils % 81.3 H Lymphocytes % 9.9 L Monocytes % 7.0 Eosinophils % 1.3 Basophils % 0.2 Nucleated Red Blood Cells % 0.0 Neutrophils # 7.0 Lymphocytes # 0.9 Monocytes # 0.6 Eosinophils # 0.1 Basophils # 0.0 Nucleated Red Blood Cells # 0.0 Sodium Level 125 L Potassium Level 4.8 Chloride Level 92 L Carbon Dioxide Level 28 Anion Gap 10 Blood Urea Nitrogen 49 H Creatinine 2.77 H Glucose Level 73 Calcium Level 7.9 L Digoxin Level 1.7 Phosphorus Level 4.1 Magnesium Level 1.9 Bedside Glucose 77 Blood Gas Specimen Source Blood arterial Arterial Blood Date Drawn 04/28/2017 11:00:59 AM Arterial Blood pH (Temp corrected) 7.448 Arterial Blood pCO2 (Temp correct) 40.9 Arterial Blood pO2 (Temp corrected) 272.4 H Arterial Blood HCO3 27.7 H Arterial Blood Base Excess 3.4 H Arterial Blood Oxygen Saturation 99.3 Kevin Test ACCEPTAB Arterial Blood Gas Puncture Site Right Radial Arterial Blood Carboxyhemoglobin 0.3 Arterial Blood Methemoglobin 0.5 Blood Gas A-a O2 Differential 399.7 H Oxyhemoglobin Percent 98.5 Total Hemoglobin 8.2 L Blood Gas Temperature 37.0 Blood Gas Respiration Rate 20.0 Blood Gas Actual Respiration Rate 20 Blood Gas Modality VENT - AC FiO2 100.0 Blood Gas Tidal Volume 500.0 Blood Gas Low PEEP Setting 5.0 Blood Gas Notified Whom JLD Blood Gas Notified Time 04/28/2017 11:22:12 AM Medications Medications Current Medications Tramadol HCl (Ultram) 50 mg Q6H PRN PO PAIN Last administered on 04/28/17 05: 04; Admin Dose 50 MG; Start 04/17/17 at 03:30 Ondansetron HCl (Zofran Inj) 4 mg Q6H PRN IV NAUSEA AND/OR VOMITING; Start 09/23 at 03:30 Nitroglycerin (Nitroglycerin (Sl Tab) 0.4 Mg) 1 tab Q5M PRN SL CHEST PAIN; Start 04/17/17 at 03:30 Acetaminophen (Tylenol Tab) 650 mg Q6H PRN PO PAIN LEVEL 1-3 OR FEVER Last administered on 04/22/17 08:42; Admin Dose 650 MG; Start 04/17/17 at 03:30 Docusate Sodium (Colace) 100 mg Q12H PRN PO CONSTIPATION; Start 04/17/17 at 03: 30 Magnesium Hydroxide (Milk Of Mag) 30 ml DAILY PRN PO CONSTIPATION; Start at 03:30 Bisacodyl (Dulcolax Supp) 10 mg DAILY PRN [place] CONSTIPATION; Start 04/17/17 at 03 :30 Famotidine (Pepcid) 20 mg DAILY PO Last administered on 04/28/17 11:43; Admin Dose 20 MG; Start 04/17/17 at 09:00 Clopidogrel Bisulfate (plaVIX) 75 mg DAILY PO Last administered on 04/28/17 11 :43; Admin Dose 75 MG; Start 04/18/17 at 09:00 Atorvastatin Calcium (Lipitor) 40 mg HS PO Last administered on 04/27/17 21:06 ; Admin Dose 40 MG; Start 04/17/17 at 21:00 Digoxin (Digoxin) 0.125 mg DAILY@13 PO Last administered on 04/27/17 12:45; Admin Dose 0.125 MG; Start 04/24/17 at 13:00; Status Future Hold Midodrine (Proamatine) 10 mg DAILY PRN PO dialysis Last administered on 12:08; Admin Dose 10 MG; Start 04/25/17 at 09:00 Captopril (Capoten) 6.25 mg BID PO Last administered on 04/27/17 21:06; Admin Dose 6.25 MG; Start 04/25/17 at 21:00 Ondansetron HCl (Zofran Inj) 4 mg Q6H PRN IV NAUSEA AND/OR VOMITING; Start at 10:00 Acetaminophen (Tylenol Liquid) 650 mg Q6H PRN PO PAIN LEVEL 1-3 OR FEVER; Start 04/28/17 at 10:00 Pantoprazole (Protonix Iv) 40 mg DAILY@06 IV ; Start 04/29/17 at 06:00 Carvedilol (Coreg) 6.25 mg BID PO Last administered on 04/28/17 11:30; Admin Dose 6.25 MG; Start 04/28/17 at 21:00 BRIE MEYER MD Apr 28, 2017 13:36
[2017-04-28] MEDS: ALBUTEROL 18 GM INHALER INH SCH ×3 (14:15→20:41)
[2017-04-28] MEDS: IPRATROPIUM (HFA) 12.9 GM INHALER INH SCH ×3 (14:15→20:41)
[2017-04-28] MEDS: ATORVASTATIN 40 MG TAB PO SCH (21:05)
[2017-04-29] VITALS (51 sets, daily range): BP systolic 53–112; BP diastolic 39–90; PULSE 38–108; RESP 11–37
[2017-04-29] MEDS: IPRATROPIUM (HFA) 12.9 GM INHALER INH SCH ×3 (01:22→08:38)
[2017-04-29] MEDS: ALBUTEROL 18 GM INHALER INH SCH ×3 (01:22→08:38)
[2017-04-29] MEDS: PANTOPRAZOLE 40 MG INJ IV SCH (05:09)
[2017-04-29 07:26] LABS: ADD SCAN DIFF NO
[2017-04-29 07:37] LABS: BASOPHILS % 0.1 % (0.0-2.0); HEMATOCRIT 25.7 % (42.0-52.0); HEMOGLOBIN 8.2 g/dl (14.0-18.0); LYMPHOCYTES # 0.9 10^3/ul (0.8-2.9); MEAN CORPUSCULAR HEMOGLOBIN 30.7 pg (29.0-33.0); MEAN CORPUSCULAR HGB CONC 31.9 g/dl (32.0-37.0); MEAN CORPUSCULAR VOLUME 96.3 fl (82.0-101.0); MEAN PLATELET VOLUME 10.7 fl (7.4-10.4); MONOCYTE # 0.4 10^3/ul (0.3-0.9); MONOCYTES % 4.1 % (0.0-11.0); NEUTROPHIL # 8.6 10^3/ul (1.6-7.5); NEUTROPHILS % 86.3 % (39.0-77.0); PLATELET COUNT 137 10^3/UL (140-415); RED BLOOD COUNT 2.67 10^6/ul (4.70-6.10); RED CELL DISTRIBUTION WIDTH 17.2 % (11.5-14.5)
--- NOTE | 2017-04-29 07:55 | PN ---
Date/Time of Note Date/Time of Note DATE: 04/29/17 TIME: 07:51 Assessment/Plan VTE Prophylaxis VTE Prophylaxis Intervention: heparin Lines/Catheters IV Catheter Type (from [facility]): Peripheral IV Urinary Cath still in place: No Assessment/Plan Chief Complaint/Hosp Course 81-year-old unmarried gentleman with a significant other with advanced medical problems. Please note that none of the physicians involved in this case as of this moment have described his situation is futile care. We are not far from that situation but we have not crossed that threshold yet Problems: (1) Acute respiratory failure requiring reintubation Status: Acute Comment: He is improved today and hopefully we can work toward extubation. This will be a great fortunate good turn. 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 Rate control would be extremely beneficial but if we try and push the beta-blockade his blood pressure falls especially during dialysis. This is an extremely delicate balance. Digoxin which is rarely used in heart failure and the modern era is an option here as would slow down the pulse rate which would be beneficial. That would allow us to continue his beta blockade and his low-dose LOBO inhibitors. Hopefully would also allow us to then get away with performing dialysis. I will initiate (3) Ischemic dilated cardiomyopathy Status: Chronic Comment: As above. (4) End stage renal disease on dialysis Status: Chronic Comment: As per nephrology. Please note that as of this time none of the consultants have described his situation is futile care. That may change. (5) Encephalopathy Status: Chronic Comment: He has a chronic dementia. This is not changing or improving. Subjective 24 Hr Interval Summary Free Text/Dictation Elderly male intubated in bed however follows eyes and answers questions with nodding of head appropriately Subjective hx not possible: pt non-verbal Cardiovascular: no complaints (Denies chest pain or shortness of breath on the ventilator) Exam/Review of Systems Vital Signs Vitals Vital Signs Date Time Temp Pulse Resp B/P Pulse Ox O2 Delivery O2 Flow Rate FiO2 04/29/17 07:11 87 21 100 40 04/29/17 07:00 107/68 Mechanical Ventilator 04/29/17 04:00 98.6 04/28/17 08:12 3.0 Intake and Output 04/28/17 04/28/17 04/29/17 15:00 23:00 07:00 Intake Total 100 ml 70 ml Output Total 2550 ml Balance 100 ml -2480 ml Exam Intubated elderly male lying in bed raises hands to command Constitutional: alert, oriented ENMT: intubated Neck: non-tender, supple Respiratory: crackles/rales, normal air movement Cardiovascular: murmurs/extra sounds (Without change. But I do not hear the S3 today) Gastrointestinal: nl liver, spleen, non-tender, soft Results Result Diagram: 04/29/17 0605 04/28/17 0629 Results 24 hrs Laboratory Tests Test 04/28/17 08:50 04/28/17 10:30 04/29/17 06:05 Bedside Glucose 77 Blood Gas Specimen Source Blood arterial Arterial Blood Date Drawn 04/28/2017 11:00:59 AM Arterial Blood pH (Temp corrected) 7.448 Arterial Blood pCO2 (Temp correct) 40.9 Arterial Blood pO2 (Temp corrected) 272.4 H Arterial Blood HCO3 27.7 H Arterial Blood Base Excess 3.4 H Arterial Blood Oxygen Saturation 99.3 Kevin Test ACCEPTAB Arterial Blood Gas Puncture Site Right Radial Arterial Blood Carboxyhemoglobin 0.3 Arterial Blood Methemoglobin 0.5 Blood Gas A-a O2 Differential 399.7 H Oxyhemoglobin Percent 98.5 Total Hemoglobin 8.2 L Blood Gas Temperature 37.0 Blood Gas Respiration Rate 20.0 Blood Gas Actual Respiration Rate 20 Blood Gas Modality VENT - AC FiO2 100.0 Blood Gas Tidal Volume 500.0 Blood Gas Low PEEP Setting 5.0 Blood Gas Notified Whom JLD Blood Gas Notified Time 04/28/2017 11:22:12 AM White Blood Count 10.0 Red Blood Count 2.67 L Hemoglobin 8.2 L Hematocrit 25.7 L Mean Corpuscular Volume 96.3 Mean Corpuscular Hemoglobin 30.7 Mean Corpuscular Hemoglobin Concent 31.9 L Red Cell Distribution Width 17.2 H Platelet Count 137 L Mean Platelet Volume 10.7 H Neutrophils % 86.3 H Lymphocytes % 9.0 L Monocytes % 4.1 Eosinophils % 0.0 Basophils % 0.1 Nucleated Red Blood Cells % 0.0 Neutrophils # 8.6 H Lymphocytes # 0.9 Monocytes # 0.4 Eosinophils # 0.0 Basophils # 0.0 Nucleated Red Blood Cells # 0.0 Medications Medications Current Medications Tramadol HCl (Ultram) 50 mg Q6H PRN PO PAIN Last administered on 04/28/17 05: 04; Admin Dose 50 MG; Start 04/17/17 at 03:30 Ondansetron HCl (Zofran Inj) 4 mg Q6H PRN IV NAUSEA AND/OR VOMITING; Start 09/23 at 03:30 Nitroglycerin (Nitroglycerin (Sl Tab) 0.4 Mg) 1 tab Q5M PRN SL CHEST PAIN; Start 04/17/17 at 03:30 Acetaminophen (Tylenol Tab) 650 mg Q6H PRN PO PAIN LEVEL 1-3 OR FEVER Last administered on 04/22/17 08:42; Admin Dose 650 MG; Start 04/17/17 at 03:30 Docusate Sodium (Colace) 100 mg Q12H PRN PO CONSTIPATION; Start 04/17/17 at 03: 30 Magnesium Hydroxide (Milk Of Mag) 30 ml DAILY PRN PO CONSTIPATION; Start at 03:30 Bisacodyl (Dulcolax Supp) 10 mg DAILY PRN [place] CONSTIPATION; Start 04/17/17 at 03 :30 Famotidine (Pepcid) 20 mg DAILY PO Last administered on 04/28/17 11:43; Admin Dose 20 MG; Start 04/17/17 at 09:00 Clopidogrel Bisulfate (plaVIX) 75 mg DAILY PO Last administered on 04/28/17 11 :43; Admin Dose 75 MG; Start 04/18/17 at 09:00 Atorvastatin Calcium (Lipitor) 40 mg HS PO Last administered on 04/28/17 21:05 ; Admin Dose 40 MG; Start 04/17/17 at 21:00 Digoxin (Digoxin) 0.125 mg DAILY@13 PO Last administered on 04/27/17 12:45; Admin Dose 0.125 MG; Start 04/24/17 at 13:00; Status Future Hold Midodrine (Proamatine) 10 mg DAILY PRN PO dialysis Last administered on 12:08; Admin Dose 10 MG; Start 04/25/17 at 09:00 Captopril (Capoten) 6.25 mg BID PO Last administered on 04/27/17 21:06; Admin Dose 6.25 MG; Start 04/25/17 at 21:00 Ondansetron HCl (Zofran Inj) 4 mg Q6H PRN IV NAUSEA AND/OR VOMITING; Start at 10:00 Acetaminophen (Tylenol Liquid) 650 mg Q6H PRN PO PAIN LEVEL 1-3 OR FEVER; Start 04/28/17 at 10:00 Pantoprazole (Protonix Iv) 40 mg DAILY@06 IV Last administered on 04/29/17 05: 09; Admin Dose 40 MG; Start 04/29/17 at 06:00 Carvedilol (Coreg) 6.25 mg BID PO Last administered on 04/28/17 11:30; Admin Dose 6.25 MG; Start 04/28/17 at 21:00 BRIE MEYER MD Apr 29, 2017 07:55
[2017-04-29 08:00] LABS: ALBUMIN 2.7 g/dl (3.3-4.9); ALBUMIN/GLOBULIN RATIO 1.28; BILIRUBIN,INDIRECT 0.5 mg/dl (0-1.1); BILIRUBIN,TOTAL 0.5 mg/dl (0.2-1.3); CALCIUM 8.3 mg/dl (8.4-10.2); CREATININE 2.86 mg/dl (0.61-1.24); POTASSIUM 4.7 mmol/L (3.5-5.1); TOTAL PROTEIN 4.8 g/dl (6.1-8.1)
[2017-04-29] MEDS ORDERED: DIGOXIN 0.25 MG TAB GTB ONE (08:00)
[2017-04-29 08:05] LABS: MAGNESIUM 1.9 mg/dl (1.7-2.5); PHOSPHORUS 4.9 mg/dl (2.5-4.9)
[2017-04-29 08:38] LABS: AADO2 Arterial 100.5 mmHg (7.0-24.0); Allen Test ACCEPTAB; Arterial Base Excess 2.4 mmol/L (-3.0-3); Arterial COHb 0.3 % (0.0-3.0); Arterial Fraction of Oxyhgb 98.1 % (93.0-99.0); Arterial HCO3 24.8 mmol/L (22.0-26.0); Arterial MetHb 0.6 % (0.0-1.5); Arterial Total Hemglobin 9.2 g/dl (12.0-18.0); MODE VENT - AC
[2017-04-29] MEDS: CLOPIDOGREL 75 MG TAB PO SCH (09:11)
[2017-04-29] MEDS: FAMOTIDINE 20 MG TAB PO SCH (09:11)
--- NOTE | 2017-04-29 09:53 | CONS ---
Date/Time of Note Date/Time of Note DATE: 04/29/17 TIME: 09:51 Assessment/Plan Assessment/Plan Additional Assessment/Plan 1. CAD - now s/p cardiac arrest - ? aspiration - no cardiac intervention planned. 2. Cardiomyopathy with decreased left ventricular ejection fraction. 3. Congestive heart failure, systolic, acute on chronic. Euvolemic by exam. 4. Abnormal electrocardiogram with lateral biphasic T-wave abnormalities and poor R-wave progression across the precordial leads. 5. Hypotension-improved and tolerating ACEI/BB 6. Renal failure- acute on chronic, renal team follows. 7. Anemia- H/H stable - no obvious bleeding. 8. Thrombocytopenia-mildly worse 9.pleural effusions- with pleur x catheters bilateral 10. bradycardia/paf 11. s/p code blue with subsequent intubation after ? aspiration Consultation Date/Type/Reason Admit Date/Time Apr 17, 2017 at 02:32 Type of Consultation: Cardiology Referring Provider: SOO NAIK 24 HR Interval Summary Free Text/Dictation S/p cardiac arrest - now intubated - overall poor p[rognosis - not requiring any pressure support ROS: No fever, no chills, no nausea, no vomiting, no diarrhea/constipation No recent weight changes No chest pain, no PND, no orthopnea No dizziness, blurred vision No thirst, no heat or cold intolerance (per nurse) Exam/Review of Systems Vital Signs Vitals Vital Signs Date Time Temp Pulse Resp B/P Pulse Ox O2 Delivery O2 Flow Rate FiO2 04/29/17 09:17 99 16 100 30 04/29/17 09:00 96/77 Mechanical Ventilator 04/29/17 08:00 98.3 04/28/17 08:12 3.0 Intake and Output 04/28/17 04/28/17 04/29/17 15:00 23:00 07:00 Intake Total 100 ml 70 ml Output Total 2550 ml 0 ml Balance 100 ml -2480 ml 0 ml Exam General: WN/WD/NAD, AOx 0 HEENT: Unicetric/atraumatic/EOMI (does not follow commands) NECK: JVD elevated, no thyromegaly - intub Lymph: no lymphadenopathy HEART: regular with no S3, II/ systolic murmur at apex LUNGS: Coarse sounds ABD: soft, NT, ND, +BS : Intact Neuro: non focal SKIN: chronic changes EXT: trace edema Results Result Diagram: 04/29/17 0605 04/29/17 0605 Results 24 hrs Laboratory Tests Test 04/28/17 10:30 04/29/17 06:05 04/29/17 08:00 Blood Gas Specimen Source Blood arterial Blood arterial Arterial Blood Date Drawn 04/28/2017 11:00:59 AM 04/29/2017 8:20:05 AM Arterial Blood pH (Temp corrected) 7.448 7.536 H Arterial Blood pCO2 (Temp correct) 40.9 29.9 L Arterial Blood pO2 (Temp corrected) 272.4 H 150.3 H Arterial Blood HCO3 27.7 H 24.8 Arterial Blood Base Excess 3.4 H 2.4 Arterial Blood Oxygen Saturation 99.3 99.0 Kevin Test ACCEPTAB ACCEPTAB Arterial Blood Gas Puncture Site Right Radial Right Radial Arterial Blood Carboxyhemoglobin 0.3 0.3 Arterial Blood Methemoglobin 0.5 0.6 Blood Gas A-a O2 Differential 399.7 H 100.5 H Oxyhemoglobin Percent 98.5 98.1 Total Hemoglobin 8.2 L 9.2 L Blood Gas Temperature 37.0 37.0 Blood Gas Respiration Rate 20.0 20.0 Blood Gas Actual Respiration Rate 20 23 Blood Gas Modality VENT - AC VENT - AC FiO2 100.0 40.0 Blood Gas Tidal Volume 500.0 500.0 Blood Gas Low PEEP Setting 5.0 5.0 Blood Gas Notified Whom SUNSHINE GONSALEZ Blood Gas Notified Time 04/28/2017 11:22:12 AM 04/29/2017 8:38:42 AM White Blood Count 10.0 Red Blood Count 2.67 L Hemoglobin 8.2 L Hematocrit 25.7 L Mean Corpuscular Volume 96.3 Mean Corpuscular Hemoglobin 30.7 Mean Corpuscular Hemoglobin Concent 31.9 L Red Cell Distribution Width 17.2 H Platelet Count 137 L Mean Platelet Volume 10.7 H Neutrophils % 86.3 H Lymphocytes % 9.0 L Monocytes % 4.1 Eosinophils % 0.0 Basophils % 0.1 Nucleated Red Blood Cells % 0.0 Neutrophils # 8.6 H Lymphocytes # 0.9 Monocytes # 0.4 Eosinophils # 0.0 Basophils # 0.0 Nucleated Red Blood Cells # 0.0 Sodium Level 124 L Potassium Level 4.7 Chloride Level 92 L Carbon Dioxide Level 27 Anion Gap 10 Blood Urea Nitrogen 61 H Creatinine 2.86 H Glucose Level 52 #L Calcium Level 8.3 L Phosphorus Level 4.9 Magnesium Level 1.9 Total Bilirubin 0.5 Direct Bilirubin 0.00 Indirect Bilirubin 0.5 Aspartate Amino Transf (AST/SGOT) 43 Alanine Aminotransferase (ALT/SGPT) 48 Alkaline Phosphatase 126 H Total Protein 4.8 L Albumin 2.7 L Globulin 2.10 Albumin/Globulin Ratio 1.28 Medications Medications Current Medications Tramadol HCl (Ultram) 50 mg Q6H PRN PO PAIN Last administered on 04/28/17 05: 04; Admin Dose 50 MG; Start 04/17/17 at 03:30 Ondansetron HCl (Zofran Inj) 4 mg Q6H PRN IV NAUSEA AND/OR VOMITING; Start 09/23 at 03:30 Nitroglycerin (Nitroglycerin (Sl Tab) 0.4 Mg) 1 tab Q5M PRN SL CHEST PAIN; Start 04/17/17 at 03:30 Acetaminophen (Tylenol Tab) 650 mg Q6H PRN PO PAIN LEVEL 1-3 OR FEVER Last administered on 04/22/17 08:42; Admin Dose 650 MG; Start 04/17/17 at 03:30 Docusate Sodium (Colace) 100 mg Q12H PRN PO CONSTIPATION; Start 04/17/17 at 03: 30 Magnesium Hydroxide (Milk Of Mag) 30 ml DAILY PRN PO CONSTIPATION; Start at 03:30 Bisacodyl (Dulcolax Supp) 10 mg DAILY PRN [place] CONSTIPATION; Start 04/17/17 at 03 :30 Famotidine (Pepcid) 20 mg DAILY PO Last administered on 04/29/17 09:11; Admin Dose 20 MG; Start 04/17/17 at 09:00 Clopidogrel Bisulfate (plaVIX) 75 mg DAILY PO Last administered on 04/29/17 09 :11; Admin Dose 75 MG; Start 04/18/17 at 09:00 Atorvastatin Calcium (Lipitor) 40 mg HS PO Last administered on 04/28/17 21:05 ; Admin Dose 40 MG; Start 04/17/17 at 21:00 Midodrine (Proamatine) 10 mg DAILY PRN PO dialysis Last administered on 12:08; Admin Dose 10 MG; Start 04/25/17 at 09:00 Captopril (Capoten) 6.25 mg BID PO Last administered on 04/27/17 21:06; Admin Dose 6.25 MG; Start 04/25/17 at 21:00 Ondansetron HCl (Zofran Inj) 4 mg Q6H PRN IV NAUSEA AND/OR VOMITING; Start at 10:00 Acetaminophen (Tylenol Liquid) 650 mg Q6H PRN PO PAIN LEVEL 1-3 OR FEVER; Start 04/28/17 at 10:00 Pantoprazole (Protonix Iv) 40 mg DAILY@06 IV Last administered on 04/29/17 05: 09; Admin Dose 40 MG; Start 04/29/17 at 06:00 Carvedilol (Coreg) 6.25 mg BID PO Last administered on 04/28/17 11:30; Admin Dose 6.25 MG; Start 04/28/17 at 21:00 Digoxin (Digoxin) 0.125 mg Q2D@13 GTB ; Start 05/01/17 at 13:00 JULIA MCKNIGHT MD Apr 29, 2017 09:53
--- NOTE | 2017-04-29 09:57 | CONS ---
Date/Time of Note Date/Time of Note DATE: 04/29/17 TIME: 09:53 Assessment/Plan Assessment/Plan Additional Assessment/Plan Ventilator setting; AC of 20, tidal volume 500, PEEP of 5, 40% FiO2. Assessment recommendations; 1. Patient admitted with shortness of breath then developed respiratory failure requiring intubation. 2. Underlying severe cardiomyopathy. 3. Bilateral pleural effusions, with recurrence. Status post Pleurx catheter placement bilaterally. 4. Coronary artery disease. 5. End-stage renal disease, patient on hemodialysis. 6. Severely emaciated state. 7. UTI. Patient has been switched over to CPAP mode. He was observed for the next 45 minutes. If the patient meets weaning parameters he will be extubated. Prognosis remains poor though. Consultation Date/Type/Reason Admit Date/Time Apr 17, 2017 at 02:32 Initial Consult Date 04/28/17 Type of Consultation: Pulmonary/critical care Referring Provider: SOO NAIK 24 HR Interval Summary Free Text/Dictation Patient condition is critical but has markedly improved overnight. Patient now is completely awake and alert. Has been off sedation. General exam; elderly male, orally intubated. Currently in no distress. Awake and alert. Exam/Review of Systems Vital Signs Vitals Vital Signs Date Time Temp Pulse Resp B/P Pulse Ox O2 Delivery O2 Flow Rate FiO2 04/29/17 09:17 99 16 100 30 04/29/17 09:00 96/77 Mechanical Ventilator 04/29/17 08:00 98.3 04/28/17 08:12 3.0 Intake and Output 04/28/17 04/28/17 04/29/17 15:00 23:00 07:00 Intake Total 100 ml 70 ml Output Total 2550 ml 0 ml Balance 100 ml -2480 ml 0 ml Exam HEENT examination; supple neck, no JVD. No lymphadenopathy. Midline trachea. No thyromegaly. Patient is edentulous. Has a right intraocular lens implant. Orally intubated. Chest examination; diminished breath sounds bilaterally. More pronounced at lung bases. Bilateral Pleurx catheters are in place. S1-S2 audible, no murmurs. Regular rhythm. Abdomen examination; soft, non-distended. Scaphoid. No organomegaly. Bowel sounds audible. Extremity examination; no peripheral edema. 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 Results Result Diagram: 04/29/17 0605 04/29/17 0605 Results 24 hrs Laboratory Tests Test 04/28/17 10:30 04/29/17 06:05 04/29/17 08:00 Blood Gas Specimen Source Blood arterial Blood arterial Arterial Blood Date Drawn 04/28/2017 11:00:59 AM 04/29/2017 8:20:05 AM Arterial Blood pH (Temp corrected) 7.448 7.536 H Arterial Blood pCO2 (Temp correct) 40.9 29.9 L Arterial Blood pO2 (Temp corrected) 272.4 H 150.3 H Arterial Blood HCO3 27.7 H 24.8 Arterial Blood Base Excess 3.4 H 2.4 Arterial Blood Oxygen Saturation 99.3 99.0 Kevin Test ACCEPTAB ACCEPTAB Arterial Blood Gas Puncture Site Right Radial Right Radial Arterial Blood Carboxyhemoglobin 0.3 0.3 Arterial Blood Methemoglobin 0.5 0.6 Blood Gas A-a O2 Differential 399.7 H 100.5 H Oxyhemoglobin Percent 98.5 98.1 Total Hemoglobin 8.2 L 9.2 L Blood Gas Temperature 37.0 37.0 Blood Gas Respiration Rate 20.0 20.0 Blood Gas Actual Respiration Rate 20 23 Blood Gas Modality VENT - AC VENT - AC FiO2 100.0 40.0 Blood Gas Tidal Volume 500.0 500.0 Blood Gas Low PEEP Setting 5.0 5.0 Blood Gas Notified Whom SUNSHINE GONSALEZ Blood Gas Notified Time 04/28/2017 11:22:12 AM 04/29/2017 8:38:42 AM White Blood Count 10.0 Red Blood Count 2.67 L Hemoglobin 8.2 L Hematocrit 25.7 L Mean Corpuscular Volume 96.3 Mean Corpuscular Hemoglobin 30.7 Mean Corpuscular Hemoglobin Concent 31.9 L Red Cell Distribution Width 17.2 H Platelet Count 137 L Mean Platelet Volume 10.7 H Neutrophils % 86.3 H Lymphocytes % 9.0 L Monocytes % 4.1 Eosinophils % 0.0 Basophils % 0.1 Nucleated Red Blood Cells % 0.0 Neutrophils # 8.6 H Lymphocytes # 0.9 Monocytes # 0.4 Eosinophils # 0.0 Basophils # 0.0 Nucleated Red Blood Cells # 0.0 Sodium Level 124 L Potassium Level 4.7 Chloride Level 92 L Carbon Dioxide Level 27 Anion Gap 10 Blood Urea Nitrogen 61 H Creatinine 2.86 H Glucose Level 52 #L Calcium Level 8.3 L Phosphorus Level 4.9 Magnesium Level 1.9 Total Bilirubin 0.5 Direct Bilirubin 0.00 Indirect Bilirubin 0.5 Aspartate Amino Transf (AST/SGOT) 43 Alanine Aminotransferase (ALT/SGPT) 48 Alkaline Phosphatase 126 H Total Protein 4.8 L Albumin 2.7 L Globulin 2.10 Albumin/Globulin Ratio 1.28 Medications Medications Current Medications Tramadol HCl (Ultram) 50 mg Q6H PRN PO PAIN Last administered on 04/28/17 05: 04; Admin Dose 50 MG; Start 04/17/17 at 03:30 Ondansetron HCl (Zofran Inj) 4 mg Q6H PRN IV NAUSEA AND/OR VOMITING; Start 09/23 at 03:30 Nitroglycerin (Nitroglycerin (Sl Tab) 0.4 Mg) 1 tab Q5M PRN SL CHEST PAIN; Start 04/17/17 at 03:30 Acetaminophen (Tylenol Tab) 650 mg Q6H PRN PO PAIN LEVEL 1-3 OR FEVER Last administered on 04/22/17 08:42; Admin Dose 650 MG; Start 04/17/17 at 03:30 Docusate Sodium (Colace) 100 mg Q12H PRN PO CONSTIPATION; Start 04/17/17 at 03: 30 Magnesium Hydroxide (Milk Of Mag) 30 ml DAILY PRN PO CONSTIPATION; Start at 03:30 Bisacodyl (Dulcolax Supp) 10 mg DAILY PRN [place] CONSTIPATION; Start 04/17/17 at 03 :30 Famotidine (Pepcid) 20 mg DAILY PO Last administered on 04/29/17 09:11; Admin Dose 20 MG; Start 04/17/17 at 09:00 Clopidogrel Bisulfate (plaVIX) 75 mg DAILY PO Last administered on 04/29/17 09 :11; Admin Dose 75 MG; Start 04/18/17 at 09:00 Atorvastatin Calcium (Lipitor) 40 mg HS PO Last administered on 04/28/17 21:05 ; Admin Dose 40 MG; Start 04/17/17 at 21:00 Midodrine (Proamatine) 10 mg DAILY PRN PO dialysis Last administered on 12:08; Admin Dose 10 MG; Start 04/25/17 at 09:00 Captopril (Capoten) 6.25 mg BID PO Last administered on 04/27/17 21:06; Admin Dose 6.25 MG; Start 04/25/17 at 21:00 Ondansetron HCl (Zofran Inj) 4 mg Q6H PRN IV NAUSEA AND/OR VOMITING; Start at 10:00 Acetaminophen (Tylenol Liquid) 650 mg Q6H PRN PO PAIN LEVEL 1-3 OR FEVER; Start 04/28/17 at 10:00 Pantoprazole (Protonix Iv) 40 mg DAILY@06 IV Last administered on 04/29/17 05: 09; Admin Dose 40 MG; Start 04/29/17 at 06:00 Carvedilol (Coreg) 6.25 mg BID PO Last administered on 04/28/17 11:30; Admin Dose 6.25 MG; Start 04/28/17 at 21:00 Digoxin (Digoxin) 0.125 mg Q2D@13 GTB ; Start 05/01/17 at 13:00 ROXY FIERRO Apr 29, 2017 09:56
--- NOTE | 2017-04-29 10:01 | PN ---
Date/Time of Note Date/Time of Note DATE: 04/29/17 TIME: 09:42 Assessment/Plan VTE Prophylaxis VTE Contraindication Reason: blood coagulation disorder Lines/Catheters IV Catheter Type (from [facility]): Peripheral IV Urinary Cath still in place: No Assessment/Plan Assessment/Plan 81-year-old male with: 1. Acute Respiratory Failure this AM, ? 2ry to aspiration vs an event that precipitated decreased Mental status and aspiration while being fed, patient did require CPR and resuscitation including chest compression May have had rib fractures in process . VSS on vent and on CPAP trial this AM and likely to be extubated today. CXR pending this AM Pulmonary following. 2. Bilateral pleural effusion, recurrent secondary to severe cardiomyopathy, diastolic and severe systolic congestive heart failure which is failing medical treatment basically, s/p bilateral Pleurx catheter placement for drainage of recurrent pleural effusions. HD as tolerated for further volume management along with bilateral PleurX valves. Last drainage of Pleurx 04/28 with -1.55L right and -1L on left. CXR pending this AM Cardio and Nephro following and second opinions from Dr Abdullahi, Dr Garza and Dr Rodriguez appreciated, in line with care up to prior event today at least. 3. Elevated troponin with known coronary artery disease. Denies chest pain. Coreg and captopril as tolerated. Cardiology following. Medical management to be continued per Dr Rodriguez too, continue Plavix. Because of easy bleeding off Eliquis, discussed with Cardiology and DPOA 4. End-stage renal disease on hemodialysis. Had to abort HD after 1 hr on Tuesday, given event yesterday per Nephrology, no HD yesterday either. Continue Midodrine for blood pressure support especially during HD. Dr. Summers following, Dr Garza agrees with current management. Evaluation today for possible HD 5. Chronic atrial fibrillation, with rapid ventricular rate, currently HR in the 70's to 80's. Continue with current regimen, Coreg and Digoxin. Off Cardizem and Eliquis Appreciate cardiology, Dr Berman and Dr Rodriguez's recommendations. 5. Hypotension especially during HD, patient on Midodrine especially during HD , last dose on 04/26 Minimizing cardiac meds affecting BP as much as possible. 6. Moderate to severe dementia. Very poor short-term memory. He has difficulty expressing all his needs. He does not always communicate his symptoms effectively. He is completely dependent on his DPOA, Fabiola Flor for decision making 7. Dysphagia per group home facility report, the patient also does not have dentures, and on Puree diet/mechanical soft diet. Swallow eval post extubation. 8. Chronic pain. Tramdol prn, [place] prn as long as BP tolerates. DO NOT give morphine as DPOA has been requesting if no obvious reasons, BP frail, patient frail and still full code and aggressive measures per DPOA. 9. E coli UTI. Patient completed Keflex course as of 04/25. 10. Mild Hyponatremia: f/u post ? HD today, likely volume related but unfortunately no HD x2 sessions so far Prophylaxis: Eliquis discontinued, Pepcid for GI prophylaxis. DISPOSITION: Patient intubated and in ICU, on CPAP trial today. s/p PleurX catheters drainage yesterday and possible extubation this AM. Continue drainage of PleurX valves as needed and tolerated. HD if able to tolerate. Dr. Berman and Dr. Summers, Dr Crook and Dr Abdullahi following. Per PDOA request, 2nd opinions for IM and subspecialties, Dr Rodriguez, Dr Bolivar and Dr Abdullahi appreciated. Patient is moribund. Poor overall prognosis. Appreciate assistance from Palliative care, Dr Crook. Full code Subjective 24 Hr Interval Summary Free Text/Dictation Patient seems at baseline this AM and doing OK on CPAP trial Labs OK and Afebrile CXR pending this AM S/p drainage of b/l PleurX valves last night. Exam/Review of Systems Vital Signs Vitals Vital Signs Date Time Temp Pulse Resp B/P Pulse Ox O2 Delivery O2 Flow Rate FiO2 04/29/17 09:17 99 16 100 30 04/29/17 09:00 96/77 Mechanical Ventilator 04/29/17 08:00 98.3 04/28/17 08:12 3.0 Intake and Output 04/28/17 04/28/17 04/29/17 15:00 23:00 07:00 Intake Total 100 ml 70 ml Output Total 2550 ml 0 ml Balance 100 ml -2480 ml 0 ml Exam Constitutional: alert, oriented (x1) Respiratory: diminished breath sounds (b/l bases ), other (on CPAP trial and b/ l pleurX valves in place ) Cardiovascular: irregular rhythm (A fib ) Gastrointestinal: non-tender, soft Musculoskeletal: other (contracted LE ) Extremities: normal pulses, other (no edema, clubbing or cyanosis ) 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, other (bed bound ) Skin: ecchymosis Results Result Diagram: 04/29/17 0605 04/29/17 0605 Results 24 hrs Laboratory Tests Test 04/28/17 10:30 04/29/17 06:05 04/29/17 08:00 Blood Gas Specimen Source Blood arterial Blood arterial Arterial Blood Date Drawn 04/28/2017 11:00:59 AM 04/29/2017 8:20:05 AM Arterial Blood pH (Temp corrected) 7.448 7.536 H Arterial Blood pCO2 (Temp correct) 40.9 29.9 L Arterial Blood pO2 (Temp corrected) 272.4 H 150.3 H Arterial Blood HCO3 27.7 H 24.8 Arterial Blood Base Excess 3.4 H 2.4 Arterial Blood Oxygen Saturation 99.3 99.0 Kevin Test ACCEPTAB ACCEPTAB Arterial Blood Gas Puncture Site Right Radial Right Radial Arterial Blood Carboxyhemoglobin 0.3 0.3 Arterial Blood Methemoglobin 0.5 0.6 Blood Gas A-a O2 Differential 399.7 H 100.5 H Oxyhemoglobin Percent 98.5 98.1 Total Hemoglobin 8.2 L 9.2 L Blood Gas Temperature 37.0 37.0 Blood Gas Respiration Rate 20.0 20.0 Blood Gas Actual Respiration Rate 20 23 Blood Gas Modality VENT - AC VENT - AC FiO2 100.0 40.0 Blood Gas Tidal Volume 500.0 500.0 Blood Gas Low PEEP Setting 5.0 5.0 Blood Gas Notified Whom MARYAMD SUNSHINE Blood Gas Notified Time 04/28/2017 11:22:12 AM 04/29/2017 8:38:42 AM White Blood Count 10.0 Red Blood Count 2.67 L Hemoglobin 8.2 L Hematocrit 25.7 L Mean Corpuscular Volume 96.3 Mean Corpuscular Hemoglobin 30.7 Mean Corpuscular Hemoglobin Concent 31.9 L Red Cell Distribution Width 17.2 H Platelet Count 137 L Mean Platelet Volume 10.7 H Neutrophils % 86.3 H Lymphocytes % 9.0 L Monocytes % 4.1 Eosinophils % 0.0 Basophils % 0.1 Nucleated Red Blood Cells % 0.0 Neutrophils # 8.6 H Lymphocytes # 0.9 Monocytes # 0.4 Eosinophils # 0.0 Basophils # 0.0 Nucleated Red Blood Cells # 0.0 Sodium Level 124 L Potassium Level 4.7 Chloride Level 92 L Carbon Dioxide Level 27 Anion Gap 10 Blood Urea Nitrogen 61 H Creatinine 2.86 H Glucose Level 52 #L Calcium Level 8.3 L Phosphorus Level 4.9 Magnesium Level 1.9 Total Bilirubin 0.5 Direct Bilirubin 0.00 Indirect Bilirubin 0.5 Aspartate Amino Transf (AST/SGOT) 43 Alanine Aminotransferase (ALT/SGPT) 48 Alkaline Phosphatase 126 H Total Protein 4.8 L Albumin 2.7 L Globulin 2.10 Albumin/Globulin Ratio 1.28 Medications Medications Current Medications Tramadol HCl (Ultram) 50 mg Q6H PRN PO PAIN Last administered on 04/28/17 05: 04; Admin Dose 50 MG; Start 04/17/17 at 03:30 Ondansetron HCl (Zofran Inj) 4 mg Q6H PRN IV NAUSEA AND/OR VOMITING; Start 09/23 at 03:30 Nitroglycerin (Nitroglycerin (Sl Tab) 0.4 Mg) 1 tab Q5M PRN SL CHEST PAIN; Start 04/17/17 at 03:30 Acetaminophen (Tylenol Tab) 650 mg Q6H PRN PO PAIN LEVEL 1-3 OR FEVER Last administered on 04/22/17 08:42; Admin Dose 650 MG; Start 04/17/17 at 03:30 Docusate Sodium (Colace) 100 mg Q12H PRN PO CONSTIPATION; Start 04/17/17 at 03: 30 Magnesium Hydroxide (Milk Of Mag) 30 ml DAILY PRN PO CONSTIPATION; Start at 03:30 Bisacodyl (Dulcolax Supp) 10 mg DAILY PRN [place] CONSTIPATION; Start 04/17/17 at 03 :30 Famotidine (Pepcid) 20 mg DAILY PO Last administered on 04/29/17 09:11; Admin Dose 20 MG; Start 04/17/17 at 09:00 Clopidogrel Bisulfate (plaVIX) 75 mg DAILY PO Last administered on 04/29/17 09 :11; Admin Dose 75 MG; Start 04/18/17 at 09:00 Atorvastatin Calcium (Lipitor) 40 mg HS PO Last administered on 04/28/17 21:05 ; Admin Dose 40 MG; Start 04/17/17 at 21:00 Midodrine (Proamatine) 10 mg DAILY PRN PO dialysis Last administered on 12:08; Admin Dose 10 MG; Start 04/25/17 at 09:00 Captopril (Capoten) 6.25 mg BID PO Last administered on 04/27/17 21:06; Admin Dose 6.25 MG; Start 04/25/17 at 21:00 Ondansetron HCl (Zofran Inj) 4 mg Q6H PRN IV NAUSEA AND/OR VOMITING; Start at 10:00 Acetaminophen (Tylenol Liquid) 650 mg Q6H PRN PO PAIN LEVEL 1-3 OR FEVER; Start 04/28/17 at 10:00 Pantoprazole (Protonix Iv) 40 mg DAILY@06 IV Last administered on 04/29/17 05: 09; Admin Dose 40 MG; Start 04/29/17 at 06:00 Carvedilol (Coreg) 6.25 mg BID PO Last administered on 04/28/17 11:30; Admin Dose 6.25 MG; Start 04/28/17 at 21:00 Digoxin (Digoxin) 0.125 mg Q2D@13 GTB ; Start 05/01/17 at 13:00 SOO NAIK Apr 29, 2017 09:55
--- NOTE | 2017-04-29 10:13 | RADRPT ---
Vent Rate: 95 bpm RR Interval: 0 msec UT Interval: 0 msec QRS Duration: 114 msec QT Interval: 332 msec QTC Interval: 417 msec P-R-T [place]: 0 - -2 - 0 degrees Atrial fibrillation Low voltage QRS ST amp; T wave abnormality, consider lateral ischemia or digitalis effect Abnormal ECG Electronically Signed By: Roge Henley [id number]
[2017-04-29 11:03] LABS: AADO2 Arterial 79.8 mmHg (7.0-24.0); Allen Test ACCEPTAB; Arterial Base Excess -1.9 mmol/L (-3.0-3); Arterial COHb 0.3 % (0.0-3.0); Arterial Fraction of Oxyhgb 96.1 % (93.0-99.0); Arterial MetHb 0.6 % (0.0-1.5); Arterial Total Hemglobin 9.1 g/dl (12.0-18.0); MODE VENT - CPAP
--- NOTE | 2017-04-29 11:28 | RADRPT ---
PROCEDURE: XR Chest. CLINICAL INDICATION: Shortness of breath. TECHNIQUE: Single frontal view. COMPARISON: 04/28/2017. FINDINGS: The endotracheal tube, nasogastric tube, and right internal jugular vein tunneled dialysis catheter remain in satisfactory position. Pulmonary edema and left basilar atelectasis are unchanged. The heart is enlarged. There is calcification in the aorta consistent with atherosclerosis. There are small bilateral pleural effusions. There is no pneumothorax. IMPRESSION: 1. Smaller pleural effusions. 2. No other change from 04/28/2017. RPTAT: QQ .Mil Almodovar MD, MD Date Time Electronically viewed and signed by .Mil Almodovar MD, MD on 04/29/2017 11:28 .R/
[2017-04-29] MEDS: MIDODRINE 5 MG TAB PO PRN (12:14)
[2017-04-29] MEDS: ALBUTEROL/IPRATROPIUM (NEB) 3 ML AMP HHN SCH ×3 (12:24→20:30)
[2017-04-29] MEDS: ALBUMIN HUMAN 25% 100 ML IV PRN (12:59)
[2017-04-29] MEDS ORDERED: NORepinephrine 8MG/250 ML (PMX 250 ML IV SCH ×2 (13:00→15:30)
[2017-04-29] MEDS ORDERED: ALBUMIN HUMAN 25% 100 ML IV ONE ×2 (13:30→16:30)
--- NOTE | 2017-04-29 16:45 | CONS ---
Date/Time of Note Date/Time of Note DATE: 04/29/17 TIME: 16:37 Assessment/Plan Assessment/Plan Additional Assessment/Plan 1. S/p Code blue, acute resp failure, intubated on ventilator- s/p EXtubated on 04/29/17- on Facemask 2. Acute non-ST elevation myocardial infarction. 2. End-stage renal disease on hemodialysis 3 times a week. 3. Bilateral pleural effusion causing fluid overload, right greater than left, status post bilateral PleurX catheter placement by Dr. David at the [facility]. 4. Hypertension. 5. Hyperlipidemia. 6. 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 7. Coronary artery disease. 8. Chronic atrial fibrillation. 9. 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 PLAN: S/p Extubation today AM , on Facemask, BP has been very low despite getting Midodrine, BP has been very low and Levophed has been strated for BP support Blood pressure is too low for Hemodialysis, His pleurax catheter has been drained about 2.5 liter from both catheter continue midodrine for BP support will reassess him for HD tomorrow AM if BP and HR stable Try to leave message on [employer] Phone number on [phone] from my office phone number([phone])- unable to leave message because it was full. will talk to her and update her abotu pt condition and HD plan Consultation Date/Type/Reason Admit Date/Time Apr 17, 2017 at 02:32 Type of Consultation: NEPHROLOGY Referring Provider: SOO NAIK 24 HR Interval Summary Free Text/Dictation pt extubated, on face mask, BP has been very low, systolic 70s, not stable for HD today Exam/Review of Systems Vital Signs Vitals Vital Signs Date Time Temp Pulse Resp B/P Pulse Ox O2 Delivery O2 Flow Rate FiO2 04/29/17 16:26 67 13 100 Nasal Cannula 3.0 04/29/17 16:00 97.7 80/48 04/29/17 09:17 30 Intake and Output 04/28/17 04/28/17 04/29/17 15:00 23:00 07:00 Intake Total 100 ml 70 ml Output Total 2550 ml 0 ml Balance 100 ml -2480 ml 0 ml Exam Constitutional: extubated on faceamsk, moderate distress due to hypotension Head: normocephalic Neck: supple Respiratory: diminished breath sounds, other (Bilateral coarse BS+, RLL rales ) , bilateral pleuraX cathter in place Cardiovascular: other (bradycardia), regular rate and rhythm Gastrointestinal: non-tender, soft Extremities: normal pulses Neurological: awake,but lethargic Results Result Diagram: 04/29/17 0605 04/29/17 0605 Results 24 hrs Laboratory Tests Test 04/29/17 06:05 04/29/17 08:00 04/29/17 10:45 White Blood Count 10.0 Red Blood Count 2.67 L Hemoglobin 8.2 L Hematocrit 25.7 L Mean Corpuscular Volume 96.3 Mean Corpuscular Hemoglobin 30.7 Mean Corpuscular Hemoglobin Concent 31.9 L Red Cell Distribution Width 17.2 H Platelet Count 137 L Mean Platelet Volume 10.7 H Neutrophils % 86.3 H Lymphocytes % 9.0 L Monocytes % 4.1 Eosinophils % 0.0 Basophils % 0.1 Nucleated Red Blood Cells % 0.0 Neutrophils # 8.6 H Lymphocytes # 0.9 Monocytes # 0.4 Eosinophils # 0.0 Basophils # 0.0 Nucleated Red Blood Cells # 0.0 Sodium Level 124 L Potassium Level 4.7 Chloride Level 92 L Carbon Dioxide Level 27 Anion Gap 10 Blood Urea Nitrogen 61 H Creatinine 2.86 H Glucose Level 52 #L Calcium Level 8.3 L Phosphorus Level 4.9 Magnesium Level 1.9 Total Bilirubin 0.5 Direct Bilirubin 0.00 Indirect Bilirubin 0.5 Aspartate Amino Transf (AST/SGOT) 43 Alanine Aminotransferase (ALT/SGPT) 48 Alkaline Phosphatase 126 H Total Protein 4.8 L Albumin 2.7 L Globulin 2.10 Albumin/Globulin Ratio 1.28 Blood Gas Specimen Source Blood arterial Blood arterial Arterial Blood Date Drawn 04/29/2017 8:20:05 AM 04/29/2017 10:45:57 AM Arterial Blood pH (Temp corrected) 7.536 H 7.477 H Arterial Blood pCO2 (Temp correct) 29.9 L 29.1 L Arterial Blood pO2 (Temp corrected) 150.3 H 99.9 H Arterial Blood HCO3 24.8 21.0 L Arterial Blood Base Excess 2.4 -1.9 Arterial Blood Oxygen Saturation 99.0 97.0 Kevin Test ACCEPTAB ACCEPTAB Arterial Blood Gas Puncture Site Right Radial Right Radial Arterial Blood Carboxyhemoglobin 0.3 0.3 Arterial Blood Methemoglobin 0.6 0.6 Blood Gas A-a O2 Differential 100.5 H 79.8 H Oxyhemoglobin Percent 98.1 96.1 Total Hemoglobin 9.2 L 9.1 L Blood Gas Temperature 37.0 37.0 Blood Gas Respiration Rate 20.0 Blood Gas Actual Respiration Rate 23 12 Blood Gas Modality VENT - AC VENT - CPAP FiO2 40.0 30.0 Blood Gas Tidal Volume 500.0 Blood Gas Low PEEP Setting 5.0 5.0 Blood Gas Notified Whom SUNSHINE GONSALEZ Blood Gas Notified Time 04/29/2017 8:38:42 AM 04/29/2017 11:02:51 AM Medications Medications Current Medications Tramadol HCl (Ultram) 50 mg Q6H PRN PO PAIN Last administered on 04/28/17 05: 04; Admin Dose 50 MG; Start 04/17/17 at 03:30 Ondansetron HCl (Zofran Inj) 4 mg Q6H PRN IV NAUSEA AND/OR VOMITING; Start 09/23 at 03:30 Nitroglycerin (Nitroglycerin (Sl Tab) 0.4 Mg) 1 tab Q5M PRN SL CHEST PAIN; Start 04/17/17 at 03:30 Acetaminophen (Tylenol Tab) 650 mg Q6H PRN PO PAIN LEVEL 1-3 OR FEVER Last administered on 04/22/17 08:42; Admin Dose 650 MG; Start 04/17/17 at 03:30 Docusate Sodium (Colace) 100 mg Q12H PRN PO CONSTIPATION; Start 04/17/17 at 03: 30 Magnesium Hydroxide (Milk Of Mag) 30 ml DAILY PRN PO CONSTIPATION; Start at 03:30 Bisacodyl (Dulcolax Supp) 10 mg DAILY PRN [place] CONSTIPATION; Start 04/17/17 at 03 :30 Famotidine (Pepcid) 20 mg DAILY PO Last administered on 04/29/17 09:11; Admin Dose 20 MG; Start 04/17/17 at 09:00 Clopidogrel Bisulfate (plaVIX) 75 mg DAILY PO Last administered on 04/29/17 09 :11; Admin Dose 75 MG; Start 04/18/17 at 09:00 Atorvastatin Calcium (Lipitor) 40 mg HS PO Last administered on 04/28/17 21:05 ; Admin Dose 40 MG; Start 04/17/17 at 21:00 Midodrine (Proamatine) 10 mg DAILY PRN PO dialysis Last administered on 12:14; Admin Dose 10 MG; Start 04/25/17 at 09:00 Ondansetron HCl (Zofran Inj) 4 mg Q6H PRN IV NAUSEA AND/OR VOMITING; Start at 10:00 Acetaminophen (Tylenol Liquid) 650 mg Q6H PRN PO PAIN LEVEL 1-3 OR FEVER; Start 04/28/17 at 10:00 Pantoprazole (Protonix Iv) 40 mg DAILY@06 IV Last administered on 04/29/17 05: 09; Admin Dose 40 MG; Start 04/29/17 at 06:00 Carvedilol (Coreg) 6.25 mg BID PO Last administered on 04/28/17 11:30; Admin Dose 6.25 MG; Start 04/28/17 at 21:00; Status Future Hold Digoxin 0.125 mg 0.125 mg Q2D@13 GTB ; Start 05/01/17 at 13:00; Status Future Hold Norepinephrine 16 mg/Dextrose 500 ml @ 0 mls/hr TITRATE IV ; Start 04/29/17 at 13:00 Albumin Human (Albumin Human 25%) 100 ml @ 100 mls/hr ONCE ONCE IV Last administered on 04/29/17 16:08; Admin Dose 100 MLS/HR; Start 04/29/17 at 16:30 ; Stop 04/29/17 at 17:29 MACI ASHLEY MD Apr 29, 2017 16:45
[2017-04-29] MEDS: ATORVASTATIN 40 MG TAB PO SCH (20:51)
[2017-04-30] VITALS (54 sets, daily range): BP systolic 56–182; BP diastolic 13–111; PULSE 0–169; RESP 8–35
[2017-04-30] MEDS: ALBUTEROL/IPRATROPIUM (NEB) 3 ML AMP HHN SCH ×2 (00:46→04:20)
[2017-04-30] MEDS: PANTOPRAZOLE 40 MG INJ IV SCH (05:31)
[2017-04-30 05:57] LABS: ADD SCAN DIFF NO
[2017-04-30 06:05] LABS: HEMATOCRIT 24.3 % (42.0-52.0); HEMOGLOBIN 7.8 g/dl (14.0-18.0); LYMPHOCYTES % 11.8 % (15.0-51.0); MEAN CORPUSCULAR HEMOGLOBIN 30.7 pg (29.0-33.0); MEAN CORPUSCULAR HGB CONC 32.1 g/dl (32.0-37.0); MEAN CORPUSCULAR VOLUME 95.7 fl (82.0-101.0); MEAN PLATELET VOLUME 10.7 fl (7.4-10.4); MONOCYTE # 0.5 10^3/ul (0.3-0.9); MONOCYTES % 5.4 % (0.0-11.0); NEUTROPHIL # 6.8 10^3/ul (1.6-7.5); NEUTROPHILS % 82.3 % (39.0-77.0); PLATELET COUNT 109 10^3/UL (140-415); RED BLOOD COUNT 2.54 10^6/ul (4.70-6.10); RED CELL DISTRIBUTION WIDTH 16.9 % (11.5-14.5); WHITE BLOOD COUNT 8.3 10^3/ul (4.8-10.8)
[2017-04-30] MEDS ORDERED: EPINEPHrine 0.1 MG/ML SYG ONE (06:34)
[2017-04-30 06:40] LABS: ALBUMIN/GLOBULIN RATIO 1.87; BILIRUBIN,DIRECT 0.1 mg/dl (0.00-0.20); BILIRUBIN,INDIRECT 0.7 mg/dl (0-1.1); BILIRUBIN,TOTAL 0.8 mg/dl (0.2-1.3); CALCIUM 8.6 mg/dl (8.4-10.2); CREATININE 3.33 mg/dl (0.61-1.24); POTASSIUM 5.8 mmol/L (3.5-5.1); TOTAL PROTEIN 4.6 g/dl (6.1-8.1)
[2017-04-30] MEDS ORDERED: DEXTROSE 50% 50 ML SYRINGE ONE ×2 (06:41→06:50)
[2017-04-30 06:56] LABS: MAGNESIUM 2.1 mg/dl (1.7-2.5); PHOSPHORUS 6.8 mg/dl (2.5-4.9)
[2017-04-30] MEDS: DEXTROSE 50% 50 ML SYRINGE IV PRN ×2 (07:02→07:06)
[2017-04-30] MEDS ORDERED: AMIODARONE 900 MG in DEXTROSE 5% 482 ML IV SCH (07:30)
[2017-04-30 07:32] LABS: AADO2 Arterial 609.5 mmHg (7.0-24.0); Allen Test ACCEPTAB; Arterial COHb 0.3 % (0.0-3.0); Arterial Fraction of Oxyhgb 88.7 % (93.0-99.0); Arterial HCO3 16.1 mmol/L (22.0-26.0); Arterial MetHb 0.6 % (0.0-1.5); Arterial Total Hemglobin 7.8 g/dl (12.0-18.0); MODE VENT - AC
--- NOTE | 2017-04-30 08:06 | RADRPT ---
PROCEDURE: XR Chest 1 view. CLINICAL INDICATION: Shortness of breath TECHNIQUE: AP views of the chest was obtained. COMPARISON: Yesterday FINDINGS: The heart is large. Calcified atherosclerosis is noted in the aorta. Endotracheal tube has its tip approximately 3.5 cm above the catrachita. Nasogastric tube is stable and has its distal end in the exp ected location of the stomach. Right-sided dialysis catheter is unchanged. Patchy infiltrates thro ughout the left lung, possibly combined small pleural effusion have increased. Interstitial promine nce in mild alveolar infiltrates throughout the right lung have also increased. Right-sided pleural catheter is stable. The osseous structures are unchanged. IMPRESSION: Cardiomegaly with calcified atherosclerosis in the aorta. Endotracheal tube with its tip approximately 3.5 cm above the catrachita. Interval increase in patchy infiltrates throughout the left lung, possibly combined with small pleur al effusion. Interval increase in interstitial prominence and potential mild alveolar infiltrates throughout the right lung. RPTAT: AA .Joon Mathew MD, MD Date Time Electronically viewed and signed by .Joon Mathew MD, on 04/30/2017 08:06 .P/
--- NOTE | 2017-04-30 08:13 | QN ---
Documentation Comment 04/30/2017 Time:06:23 Emergency medicine consultation performed outside the emergency department. Reason for consultation: CODE BLUE. 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 CPR was initiated with closed chest compressions and bag valve mask ventilations and a CODE BLUE was called. On my arrival the patient was receiving high quality chest compressions , bag valve mask ventilations and 2 amps of epinephrine were already given. Patient is apneic and asystolic. Patient was immediately intubated as described below. Accu-Chek was 25 mg/dL treated with D50 2 amps IV. Patient also immediately received 1 amp of bicarb and 1 amp of calcium. After several more doses of epinephrine ventricular fibrillation which was defibrillated successfully to sinus rhythm with palpable pulses. Pleurx catheters were open briefly and there is no evidence of tension pneumothorax. Vital signs as documented. PMD will be notified by nursing staff. Chest x-ray is pending will be reviewed. Endotracheal Intubation by me: Pre assessment performed. See preceding note for details. Pre-oxygenation performed with 100% oxygen RSI: Performed w/o complication or hypoxic events. Medications as ordered. Blade: MAC 4 ET Tube: 7.5 cm Depth: 21 cm at the lip Intubation confirmed by colorimetric CO2, equal breath sounds, quiet over the stomach. Chest X-ray 1V Interpreted by me: 1 cm above the catrachita ET tube. Normal soft tissue, No pneumothorax. Cardiomegaly with bilateral left greater than right pleural effusions bilateral Pleurx catheters are in place. LUIS F KLEIN MD Apr 30, 2017 08:13
[2017-04-30] MEDS ORDERED: ALBUTEROL 18 GM INHALER INH SCH (09:00)
[2017-04-30] MEDS ORDERED: IPRATROPIUM (HFA) 12.9 GM INHALER INH SCH (09:00)
[2017-04-30] MEDS ORDERED: PHENYLephrine 40 MG in DEXTROSE 5% 496 ML IV SCH (09:00)
--- NOTE | 2017-04-30 09:06 | PN ---
Date/Time of Note Date/Time of Note DATE: 04/30/17 TIME: 09:00 Assessment/Plan VTE Prophylaxis VTE Prophylaxis Intervention: anti-embolic stocking Lines/Catheters IV Catheter Type (from Nrsg): Peripheral IV Central line still needed: No Urinary Cath still in place: Yes Reason Cath still needed: terminal illness/intractable pain Assessment/Plan Assessment/Plan This is an 81 year old unfortunate male with multiple co-morbid conditions who sustained apnea, PEA, v-fib arrest this AM. Now he is intubated and on pressors. 1. PEA/Apnea/Acute Respiratory Failure this AM: Unclear etiology, but the patient's condition has worsened significantly. He is currently on 100% FiO2 and high doses of norepi. The etiology may be secondary to aspiration while being fed, patient did require CPR and resuscitation including chest compression May have had rib fractures in process. Call to LUCILA (Fabiola) this AM, but no answer and VM is full. Pulmonary following and case d/w MD trial consultant. 2. Bilateral pleural effusion, recurrent secondary to severe cardiomyopathy, diastolic and severe systolic congestive heart failure which is failing medical treatment basically, s/p bilateral Pleurx catheter placement for drainage of recurrent pleural effusions. HD as tolerated for further volume management along with bilateral PleurX valves. Last drainage of Pleurx 04/28 with -1.55L right and -1L on left. CXR pending this AM Cardio and Nephro following and second opinions from Dr Abdullahi, Dr Garza and Dr Rodriguez appreciated, in line with care up to prior event today at least. 3. Elevated troponin with known coronary artery disease. Denies chest pain. Coreg and captopril will be held as the patient is hypotensive. Cardiology following. Medical management to be continued per Dr Rodriguez too, continue Plavix. Because of easy bleeding off Eliquis, discussed with Cardiology and [facility] 4. End-stage renal disease on hemodialysis. Had to abort HD after 1 hr on Tuesday, given event yesterday per Nephrology, no HD yesterday either. Continue Midodrine for blood pressure support especially during HD. Dr. Summers following, Dr Garza agrees with current management. I doubt he will not tolerate HD in his current condition. 5. Chronic atrial fibrillation, with rapid ventricular rate, currently HR in the 50's to 60's after code. Will hold Coreg and Digoxin. Off Cardizem and Eliquis Appreciate cardiology, Dr Berman and Dr Rodriguez's recommendations. 5. Hypotension especially during HD, patient on Midodrine especially during HD , last dose on 04/26 Minimizing cardiac meds affecting BP as much as possible. 6. Moderate to severe dementia. Very poor short-term memory. He has difficulty expressing all his needs. He does not always communicate his symptoms effectively. He is completely dependent on his DPOA, Fabiola Flor for decision making 7. Dysphagia per detention facility report, the patient also does not have dentures, and on Puree diet/mechanical soft diet. Swallow eval post extubation. 8. Chronic pain. Tramdol prn, University prn as long as BP tolerates. DO NOT give morphine as DPOA has been requesting if no obvious reasons, BP frail, patient frail and still full code and aggressive measures per DPOA. 9. E coli UTI. Patient completed Keflex course as of 04/25. 10. Mild Hyponatremia: f/u post ? HD today, likely volume related but unfortunately no HD x2 sessions so far Prophylaxis: Eliquis discontinued, Pepcid for GI prophylaxis. DISPOSITION: Patient intubated and in ICU. s/p PleurX catheters drainage yesterday and possible extubation this AM. Continue drainage of PleurX valves as needed and tolerated. HD if able to tolerate. Dr. Berman and Dr. Summers, Dr Crook and Dr Abdullahi following. Per PDOA request, 2nd opinions for IM and subspecialties, Dr Rodriguez, Dr Bolivar and Dr Abdullahi appreciated. Patient is moribund. Poor overall prognosis, especially after code this AM. Appreciate assistance from Palliative care, Dr Crook. Will ask he will re-visit code status with DPOA as a result of recent events. I had an extensive conversation with Fabiola GAYTAN who is on her way to the hospital. I updated her on our patient's condition, and she expressed that he would not like to live like this. She is strongly considering terminal extubation. This was d/w Dr. Crook and nursing team and the bedside. Full code for now. Subjective 24 Hr Interval Summary Free Text/Dictation The patient coded this AM for apnea, PEA and subsequently v-fib. The code blue was run by Dr. Bansal with note below: 81-year-old male with a history of severe dementia, severe cardiomyopathy with ejection fraction of 15%, NSTEMI, bilateral pleural effusions status post placement of Pleurx catheters, chronic atrial fibrillation, end-stage renal failure on dialysis, status post respiratory failure and CODE BLUE extubated yesterday was found this morning apneic and pulseless. CPR was initiated with closed chest compressions and bag valve mask ventilations and a CODE BLUE was called. On my arrival the patient was receiving high quality chest compressions , bag valve mask ventilations and 2 amps of epinephrine were already given. Patient is apneic and asystolic. Patient was immediately intubated as described below. Accu-Chek was 25 mg/dL treated with D50 2 amps IV. Patient also immediately received 1 amp of bicarb and 1 amp of calcium. After several more doses of epinephrine ventricular fibrillation which was defibrillated successfully to sinus rhythm with palpable pulses. Pleurx catheters were open briefly and there is no evidence of tension pneumothorax. Vital signs as documented. PMD will be notified by nursing staff. Chest x-ray is pending will be reviewed. Now, the patient is intubated (at 100% FiO2) and unresponsive, not on any medications. He is in NSR, but on pressors (26 mcgs of Norepinephrine). SBP is 110s.and HR 60. Subjective hx not possible: pt critical status Exam/Review of Systems Vital Signs Vitals Vital Signs Date Time Temp Pulse Resp B/P Pulse Ox O2 Delivery O2 Flow Rate FiO2 04/30/17 07:00 169 04/30/17 06:45 135/74 04/30/17 06:37 22 100 04/30/17 06:30 100 04/30/17 06:00 Nasal Cannula 5.0 04/30/17 04:00 97.9 Intake and Output 04/29/17 04/29/17 04/30/17 15:00 23:00 07:00 Intake Total 150 ml 146.84 ml 151.88 ml Output Total 0 ml 0 ml Balance 150 ml 146.84 ml 151.88 ml Exam Constitutional: frail, non-verbal Eyes: nl conjunctiva ENMT: intubated Neck: supple Respiratory: crackles/rales, diminished breath sounds Cardiovascular: regular rate and rhythm Gastrointestinal: soft Extremities: normal pulses Neurological: unresponsive Results Result Diagram: 04/30/17 0512 04/30/17 0512 Results 24 hrs Laboratory Tests Test 04/29/17 10:45 04/30/17 05:12 04/30/17 06:40 04/30/17 06:49 Blood Gas Specimen Source Blood arterial Arterial Blood Date Drawn 04/29/2017 10:45:57 AM Arterial Blood pH (Temp corrected) 7.477 H Arterial Blood pCO2 (Temp correct) 29.1 L Arterial Blood pO2 (Temp corrected) 99.9 H Arterial Blood HCO3 21.0 L Arterial Blood Base Excess -1.9 Arterial Blood Oxygen Saturation 97.0 Kevin Test ACCEPTAB Arterial Blood Gas Puncture Site Right Radial Arterial Blood Carboxyhemoglobin 0.3 Arterial Blood Methemoglobin 0.6 Blood Gas A-a O2 Differential 79.8 H Oxyhemoglobin Percent 96.1 Total Hemoglobin 9.1 L Blood Gas Temperature 37.0 Blood Gas Actual Respiration Rate 12 Blood Gas Modality VENT - CPAP FiO2 30.0 Blood Gas Low PEEP Setting 5.0 Blood Gas Notified Whom JLD Blood Gas Notified Time 04/29/2017 11:02:51 AM White Blood Count 8.3 Red Blood Count 2.54 L Hemoglobin 7.8 L Hematocrit 24.3 L Mean Corpuscular Volume 95.7 Mean Corpuscular Hemoglobin 30.7 Mean Corpuscular Hemoglobin Concent 32.1 Red Cell Distribution Width 16.9 H Platelet Count 109 #L Mean Platelet Volume 10.7 H Neutrophils % 82.3 H Lymphocytes % 11.8 L Monocytes % 5.4 Eosinophils % 0.0 Basophils % 0.0 Nucleated Red Blood Cells % 0.0 Neutrophils # 6.8 Lymphocytes # 1.0 Monocytes # 0.5 Eosinophils # 0.0 Basophils # 0.0 Nucleated Red Blood Cells # 0.0 Sodium Level 125 L Potassium Level 5.8 H Chloride Level 92 L Carbon Dioxide Level 23 Anion Gap 16 Blood Urea Nitrogen 71 H Creatinine 3.33 H Glucose Level 63 #L Calcium Level 8.6 Phosphorus Level 6.8 H Magnesium Level 2.1 Total Bilirubin 0.8 Direct Bilirubin 0.10 Indirect Bilirubin 0.7 Aspartate Amino Transf (AST/SGOT) 36 Alanine Aminotransferase (ALT/SGPT) 39 Alkaline Phosphatase 96 Total Protein 4.6 L Albumin 3.0 L Globulin 1.60 Albumin/Globulin Ratio 1.87 Bedside Glucose 36 *L 35 *L Test 04/30/17 07:00 04/30/17 07:04 Blood Gas Specimen Source Blood arterial Arterial Blood Date Drawn 04/30/2017 7:20:15 AM Arterial Blood pH (Temp corrected) 7.327 L Arterial Blood pCO2 (Temp correct) 31.5 L Arterial Blood pO2 (Temp corrected) 72.0 L Arterial Blood HCO3 16.1 L Arterial Blood Base Excess -9.0 L Arterial Blood Oxygen Saturation 89.5 L Kevin Test ACCEPTAB Arterial Blood Gas Puncture Site Left Radial Arterial Blood Carboxyhemoglobin 0.3 Arterial Blood Methemoglobin 0.6 Blood Gas A-a O2 Differential 609.5 H Oxyhemoglobin Percent 88.7 L Total Hemoglobin 7.8 L Blood Gas Temperature 37.0 Blood Gas Respiration Rate 20.0 Blood Gas Actual Respiration Rate 23 Blood Gas Modality VENT - AC FiO2 100.0 Blood Gas Tidal Volume 500.0 Blood Gas Low PEEP Setting 5.0 Blood Gas Notified Whom JLD Blood Gas Notified Time 04/30/2017 7:32:10 AM Bedside Glucose 29 *L Medications Medications Current Medications Tramadol HCl (Ultram) 50 mg Q6H PRN PO PAIN Last administered on 04/28/17 05: 04; Admin Dose 50 MG; Start 04/17/17 at 03:30 Ondansetron HCl (Zofran Inj) 4 mg Q6H PRN IV NAUSEA AND/OR VOMITING; Start 09/23 at 03:30 Nitroglycerin (Nitroglycerin (Sl Tab) 0.4 Mg) 1 tab Q5M PRN SL CHEST PAIN; Start 04/17/17 at 03:30 Acetaminophen (Tylenol Tab) 650 mg Q6H PRN PO PAIN LEVEL 1-3 OR FEVER Last administered on 04/22/17 08:42; Admin Dose 650 MG; Start 04/17/17 at 03:30 Docusate Sodium (Colace) 100 mg Q12H PRN PO CONSTIPATION; Start 04/17/17 at 03: 30 Magnesium Hydroxide (Milk Of Mag) 30 ml DAILY PRN PO CONSTIPATION; Start at 03:30 Bisacodyl (Dulcolax Supp) 10 mg DAILY PRN [place] CONSTIPATION; Start 04/17/17 at 03 :30 Famotidine (Pepcid) 20 mg DAILY PO Last administered on 04/29/17 09:11; Admin Dose 20 MG; Start 04/17/17 at 09:00 Clopidogrel Bisulfate (plaVIX) 75 mg DAILY PO Last administered on 04/29/17 09 :11; Admin Dose 75 MG; Start 04/18/17 at 09:00 Atorvastatin Calcium (Lipitor) 40 mg HS PO Last administered on 04/29/17 20:51 ; Admin Dose 40 MG; Start 04/17/17 at 21:00 Midodrine (Proamatine) 10 mg DAILY PRN PO dialysis Last administered on 12:14; Admin Dose 10 MG; Start 04/25/17 at 09:00 Ondansetron HCl (Zofran Inj) 4 mg Q6H PRN IV NAUSEA AND/OR VOMITING; Start at 10:00 Acetaminophen (Tylenol Liquid) 650 mg Q6H PRN PO PAIN LEVEL 1-3 OR FEVER; Start 04/28/17 at 10:00 Pantoprazole (Protonix Iv) 40 mg DAILY@06 IV Last administered on 04/30/17 05: 31; Admin Dose 40 MG; Start 04/29/17 at 06:00 Carvedilol (Coreg) 6.25 mg BID PO Last administered on 04/28/17 11:30; Admin Dose 6.25 MG; Start 04/28/17 at 21:00; Status Future Hold Digoxin 0.125 mg 0.125 mg Q2D@13 GTB ; Start 05/01/17 at 13:00; Status Future Hold Norepinephrine/ Dextrose (Levophed/D5W) 500 ml @ 0 mls/hr TITRATE IV Last administered on 04/29/17 17:08; Admin Dose 3.75 MLS/HR; Start 04/29/17 at 13:00 Dextrose 50 ml 50 ml PRN PRN IV HYPOGLYCEMIA Last administered on 04/30/17 07: 06; Admin Dose 50 ML; Start 04/30/17 at 07:00 Amiodarone HCl/ Dextrose (Cordarone Iv/ D5W) 500 ml @ 0 mls/hr Q0M IV Last administered on 04/30/17 07:41; Admin Dose 33.4 MLS/HR; Start 04/30/17 at 07:30 Ipratropium [place] 4 puff 4 puff Q4 INH Last administered on 04/30/17 08:40; Admin Dose 4 PUFF; Start 04/30/17 at 09:00 Phenylephrine HCl/ Dextrose (Terry-Syneph/D5W) 500 ml @ 75 mls/hr TITRATE IV ; Start 04/30/17 at 09:00 APARNA THOMPSON MD Apr 30, 2017 09:06
[2017-04-30] MEDS ORDERED: NORepinephrine 8MG/250 ML (PMX 250 ML ONE (09:08)
--- NOTE | 2017-04-30 09:37 | CONS ---
Date/Time of Note Date/Time of Note DATE: 04/30/17 TIME: 09:33 Assessment/Plan Assessment/Plan Additional Assessment/Plan Ventilator setting; AC of 20, tidal volume 500, PEEP of 5, 100% FiO2. Patient currently on amiodarone drip at 1 mg/min, Levophed at 40 mics per minute. Chest x-ray was reviewed for postintubation which is showing endotracheal tube at an adequate level. There is a left pleural effusion. Assessment recommendations; 1. Patient admitted with generalized weakness then developed respiratory failure both successfully extubated yesterday afternoon however developed ventricular fibrillation early this morning causing cardiac arrest event with successful resuscitation. 2. End-stage renal disease. On hemodialysis. 3. Hypotension. 4. Severe cardiomyopathy. 5. History of coronary artery disease. 6. Recurrent pleural effusions, status post bilateral Pleurx catheter placement. 7. Severely emaciated state. Continue current supportive care. Wean down FiO2 to keep O2 saturation around 94%. Prognosis is extremely poor. 35 minutes of critical care time was spent evaluating the patient. Consultation Date/Type/Reason Admit Date/Time Apr 17, 2017 at 02:32 Initial Consult Date 04/28/17 Type of Consultation: Pulmonary/critical care Referring Provider: SOO NAIK 24 HR Interval Summary Free Text/Dictation Patient condition remains critical. Patient was extubated yesterday afternoon was doing extremely well however at 6:40 this morning the patient went into ventricular fibrillation and had cardiac arrest, CPR was done, patient was attended to by the emergency room physician and resuscitated. General exam; elderly male, appears severely macerated, now orally intubated. Currently in no distress. Exam/Review of Systems Vital Signs Vitals Vital Signs Date Time Temp Pulse Resp B/P Pulse Ox O2 Delivery O2 Flow Rate FiO2 04/30/17 08:00 80 04/30/17 06:45 135/74 04/30/17 06:37 22 100 04/30/17 06:30 100 04/30/17 06:00 Nasal Cannula 5.0 04/30/17 04:00 97.9 Intake and Output 04/29/17 04/29/17 04/30/17 15:00 23:00 07:00 Intake Total 150 ml 146.84 ml 151.88 ml Output Total 0 ml 0 ml Balance 150 ml 146.84 ml 151.88 ml Exam HEENT exam; supple neck, positive JVD. No lymphadenopathy. Midline trachea. No thyromegaly. Patient is edentulous. Has a right intraocular lens implant. Orally intubated. Chest exam; diminished breath sounds throughout. S1-S2 audible, no murmurs. Bilateral Pleurx catheters are in place. Abdomen exam is; scaphoid. No organomegaly. Bowel sounds are absent. No distention. Extremity exam; no peripheral edema. Patient has a multiple ecchymosis involving all 4 extremities. DISCOUNT CLERK exam; patient currently is unresponsive. Results Result Diagram: 04/30/17 0512 04/30/17 0512 Results 24 hrs Laboratory Tests Test 04/29/17 10:45 04/30/17 05:12 04/30/17 06:40 04/30/17 06:49 Blood Gas Specimen Source Blood arterial Arterial Blood Date Drawn 04/29/2017 10:45:57 AM Arterial Blood pH (Temp corrected) 7.477 H Arterial Blood pCO2 (Temp correct) 29.1 L Arterial Blood pO2 (Temp corrected) 99.9 H Arterial Blood HCO3 21.0 L Arterial Blood Base Excess -1.9 Arterial Blood Oxygen Saturation 97.0 Kevin Test ACCEPTAB Arterial Blood Gas Puncture Site Right Radial Arterial Blood Carboxyhemoglobin 0.3 Arterial Blood Methemoglobin 0.6 Blood Gas A-a O2 Differential 79.8 H Oxyhemoglobin Percent 96.1 Total Hemoglobin 9.1 L Blood Gas Temperature 37.0 Blood Gas Actual Respiration Rate 12 Blood Gas Modality VENT - CPAP FiO2 30.0 Blood Gas Low PEEP Setting 5.0 Blood Gas Notified Whom JLD Blood Gas Notified Time 04/29/2017 11:02:51 AM White Blood Count 8.3 Red Blood Count 2.54 L Hemoglobin 7.8 L Hematocrit 24.3 L Mean Corpuscular Volume 95.7 Mean Corpuscular Hemoglobin 30.7 Mean Corpuscular Hemoglobin Concent 32.1 Red Cell Distribution Width 16.9 H Platelet Count 109 #L Mean Platelet Volume 10.7 H Neutrophils % 82.3 H Lymphocytes % 11.8 L Monocytes % 5.4 Eosinophils % 0.0 Basophils % 0.0 Nucleated Red Blood Cells % 0.0 Neutrophils # 6.8 Lymphocytes # 1.0 Monocytes # 0.5 Eosinophils # 0.0 Basophils # 0.0 Nucleated Red Blood Cells # 0.0 Sodium Level 125 L Potassium Level 5.8 H Chloride Level 92 L Carbon Dioxide Level 23 Anion Gap 16 Blood Urea Nitrogen 71 H Creatinine 3.33 H Glucose Level 63 #L Calcium Level 8.6 Phosphorus Level 6.8 H Magnesium Level 2.1 Total Bilirubin 0.8 Direct Bilirubin 0.10 Indirect Bilirubin 0.7 Aspartate Amino Transf (AST/SGOT) 36 Alanine Aminotransferase (ALT/SGPT) 39 Alkaline Phosphatase 96 Total Protein 4.6 L Albumin 3.0 L Globulin 1.60 Albumin/Globulin Ratio 1.87 Bedside Glucose 36 *L 35 *L Test 04/30/17 07:00 04/30/17 07:04 Blood Gas Specimen Source Blood arterial Arterial Blood Date Drawn 04/30/2017 7:20:15 AM Arterial Blood pH (Temp corrected) 7.327 L Arterial Blood pCO2 (Temp correct) 31.5 L Arterial Blood pO2 (Temp corrected) 72.0 L Arterial Blood HCO3 16.1 L Arterial Blood Base Excess -9.0 L Arterial Blood Oxygen Saturation 89.5 L Kevin Test ACCEPTAB Arterial Blood Gas Puncture Site Left Radial Arterial Blood Carboxyhemoglobin 0.3 Arterial Blood Methemoglobin 0.6 Blood Gas A-a O2 Differential 609.5 H Oxyhemoglobin Percent 88.7 L Total Hemoglobin 7.8 L Blood Gas Temperature 37.0 Blood Gas Respiration Rate 20.0 Blood Gas Actual Respiration Rate 23 Blood Gas Modality VENT - AC FiO2 100.0 Blood Gas Tidal Volume 500.0 Blood Gas Low PEEP Setting 5.0 Blood Gas Notified Whom JLD Blood Gas Notified Time 04/30/2017 7:32:10 AM Bedside Glucose 29 *L Medications Medications Current Medications Tramadol HCl (Ultram) 50 mg Q6H PRN PO PAIN Last administered on 04/28/17 05: 04; Admin Dose 50 MG; Start 04/17/17 at 03:30 Ondansetron HCl (Zofran Inj) 4 mg Q6H PRN IV NAUSEA AND/OR VOMITING; Start 09/23 at 03:30 Nitroglycerin (Nitroglycerin (Sl Tab) 0.4 Mg) 1 tab Q5M PRN SL CHEST PAIN; Start 04/17/17 at 03:30 Acetaminophen (Tylenol Tab) 650 mg Q6H PRN PO PAIN LEVEL 1-3 OR FEVER Last administered on 04/22/17 08:42; Admin Dose 650 MG; Start 04/17/17 at 03:30 Docusate Sodium (Colace) 100 mg Q12H PRN PO CONSTIPATION; Start 04/17/17 at 03: 30 Magnesium Hydroxide (Milk Of Mag) 30 ml DAILY PRN PO CONSTIPATION; Start at 03:30 Bisacodyl (Dulcolax Supp) 10 mg DAILY PRN ME CONSTIPATION; Start 04/17/17 at 03 :30 Famotidine (Pepcid) 20 mg DAILY PO Last administered on 04/29/17 09:11; Admin Dose 20 MG; Start 04/17/17 at 09:00 Clopidogrel Bisulfate (plaVIX) 75 mg DAILY PO Last administered on 04/29/17 09 :11; Admin Dose 75 MG; Start 04/18/17 at 09:00 Atorvastatin Calcium (Lipitor) 40 mg HS PO Last administered on 04/29/17 20:51 ; Admin Dose 40 MG; Start 04/17/17 at 21:00 Midodrine (Proamatine) 10 mg DAILY PRN PO dialysis Last administered on 12:14; Admin Dose 10 MG; Start 04/25/17 at 09:00 Ondansetron HCl (Zofran Inj) 4 mg Q6H PRN IV NAUSEA AND/OR VOMITING; Start at 10:00 Acetaminophen (Tylenol Liquid) 650 mg Q6H PRN PO PAIN LEVEL 1-3 OR FEVER; Start 04/28/17 at 10:00 Pantoprazole (Protonix Iv) 40 mg DAILY@06 IV Last administered on 04/30/17 05: 31; Admin Dose 40 MG; Start 04/29/17 at 06:00 Carvedilol (Coreg) 6.25 mg BID PO Last administered on 04/28/17 11:30; Admin Dose 6.25 MG; Start 04/28/17 at 21:00; Status Future Hold Digoxin 0.125 mg 0.125 mg Q2D@13 GTB ; Start 05/01/17 at 13:00; Status Future Hold Norepinephrine/ Dextrose (Levophed/D5W) 500 ml @ 0 mls/hr TITRATE IV Last administered on 04/29/17 17:08; Admin Dose 3.75 MLS/HR; Start 04/29/17 at 13:00 Dextrose 50 ml 50 ml PRN PRN IV HYPOGLYCEMIA Last administered on 04/30/17 07: 06; Admin Dose 50 ML; Start 04/30/17 at 07:00 Amiodarone HCl/ Dextrose (Cordarone Iv/ D5W) 500 ml @ 0 mls/hr Q0M IV Last administered on 04/30/17 07:41; Admin Dose 33.4 MLS/HR; Start 04/30/17 at 07:30 Ipratropium [place] 4 puff 4 puff Q4 INH Last administered on 04/30/17 08:40; Admin Dose 4 PUFF; Start 04/30/17 at 09:00 Phenylephrine HCl/ Dextrose (Terry-Syneph/D5W) 500 ml @ 75 mls/hr TITRATE IV ; Start 04/30/17 at 09:00 ROXY FIERRO Apr 30, 2017 09:37
[2017-04-30] MEDS: FAMOTIDINE 20 MG TAB PO SCH (09:59)
[2017-04-30] MEDS: CLOPIDOGREL 75 MG TAB PO SCH (09:59)
--- NOTE | 2017-04-30 11:25 | CONS ---
Date/Time of Note Date/Time of Note DATE: 04/30/17 TIME: 11:23 Assessment/Plan Assessment/Plan Additional Assessment/Plan 1. CAD - now s/p cardiac arrest - ? aspiration - no cardiac intervention planned now - another episode of VT with sarbjit - intubated - now on Levo gtt - con't to follow. 2. Cardiomyopathy with decreased left ventricular ejection fraction - low EF - will follow for now. 3. Congestive heart failure, systolic, acute on chronic. Euvolemic by exam. 4. Abnormal electrocardiogram with lateral biphasic T-wave abnormalities and poor R-wave progression across the precordial leads. 5. Hypotension-improved and tolerating ACEI/BB 6. Renal failure- acute on chronic, renal team follows - poor urine output now. 7. Anemia- H/H stable - no obvious bleeding. 8. Thrombocytopenia-mildly worse 9.pleural effusions- with pleur x catheters bilateral 10. bradycardia/paf 11. s/p code blue with subsequent intubation after ? aspiration Consultation Date/Type/Reason Admit Date/Time Apr 17, 2017 at 02:32 Type of Consultation: Pulmonary/critical care Referring Provider: SOO NAIK 24 HR Interval Summary Free Text/Dictation Now s/p another another Code Blue - now on levo tgg ROS: No fever, no chills, no nausea, no vomiting, no diarrhea/constipation No recent weight changes No chest pain, no PND, no orthopnea No dizziness, blurred vision No thirst, no heat or cold intolerance (per nurse) Exam/Review of Systems Vital Signs Vitals Vital Signs Date Time Temp Pulse Resp B/P Pulse Ox O2 Delivery O2 Flow Rate FiO2 04/30/17 11:00 62 24 129/13 79 Mechanical Ventilator 04/30/17 06:37 100 04/30/17 06:00 5.0 04/30/17 04:00 97.9 Intake and Output 04/29/17 04/29/17 04/30/17 15:00 23:00 07:00 Intake Total 150 ml 146.84 ml 151.88 ml Output Total 0 ml 0 ml Balance 150 ml 146.84 ml 151.88 ml Exam General: WN/WD/NAD, AOx 0 HEENT: Unicetric/atraumatic/EOMI (does not follow commands) - intubated NECK: JVD elevated, no thyromegaly Lymph: no lymphadenopathy HEART: regular with no S3, II/ systolic murmur at apex LUNGS: Coarse sounds ABD: soft, NT, ND, +BS : Intact Neuro: non focal SKIN: chronic changes EXT: trace edema Results Result Diagram: 04/30/17 0512 04/30/17 0512 Results 24 hrs Laboratory Tests Test 04/30/17 05:12 04/30/17 06:40 04/30/17 06:49 04/30/17 07:00 White Blood Count 8.3 Red Blood Count 2.54 L Hemoglobin 7.8 L Hematocrit 24.3 L Mean Corpuscular Volume 95.7 Mean Corpuscular Hemoglobin 30.7 Mean Corpuscular Hemoglobin Concent 32.1 Red Cell Distribution Width 16.9 H Platelet Count 109 #L Mean Platelet Volume 10.7 H Neutrophils % 82.3 H Lymphocytes % 11.8 L Monocytes % 5.4 Eosinophils % 0.0 Basophils % 0.0 Nucleated Red Blood Cells % 0.0 Neutrophils # 6.8 Lymphocytes # 1.0 Monocytes # 0.5 Eosinophils # 0.0 Basophils # 0.0 Nucleated Red Blood Cells # 0.0 Sodium Level 125 L Potassium Level 5.8 H Chloride Level 92 L Carbon Dioxide Level 23 Anion Gap 16 Blood Urea Nitrogen 71 H Creatinine 3.33 H Glucose Level 63 #L Calcium Level 8.6 Phosphorus Level 6.8 H Magnesium Level 2.1 Total Bilirubin 0.8 Direct Bilirubin 0.10 Indirect Bilirubin 0.7 Aspartate Amino Transf (AST/SGOT) 36 Alanine Aminotransferase (ALT/SGPT) 39 Alkaline Phosphatase 96 Total Protein 4.6 L Albumin 3.0 L Globulin 1.60 Albumin/Globulin Ratio 1.87 Bedside Glucose 36 *L 35 *L Blood Gas Specimen Source Blood arterial Arterial Blood Date Drawn 04/30/2017 7:20:15 AM Arterial Blood pH (Temp corrected) 7.327 L Arterial Blood pCO2 (Temp correct) 31.5 L Arterial Blood pO2 (Temp corrected) 72.0 L Arterial Blood HCO3 16.1 L Arterial Blood Base Excess -9.0 L Arterial Blood Oxygen Saturation 89.5 L Kevin Test ACCEPTAB Arterial Blood Gas Puncture Site Left Radial Arterial Blood Carboxyhemoglobin 0.3 Arterial Blood Methemoglobin 0.6 Blood Gas A-a O2 Differential 609.5 H Oxyhemoglobin Percent 88.7 L Total Hemoglobin 7.8 L Blood Gas Temperature 37.0 Blood Gas Respiration Rate 20.0 Blood Gas Actual Respiration Rate 23 Blood Gas Modality VENT - AC FiO2 100.0 Blood Gas Tidal Volume 500.0 Blood Gas Low PEEP Setting 5.0 Blood Gas Notified Whom JLD Blood Gas Notified Time 04/30/2017 7:32:10 AM Test 04/30/17 07:04 04/30/17 10:01 Bedside Glucose 29 *L 152 Medications Medications Current Medications Tramadol HCl (Ultram) 50 mg Q6H PRN PO PAIN Last administered on 04/28/17 05: 04; Admin Dose 50 MG; Start 04/17/17 at 03:30 Ondansetron HCl (Zofran Inj) 4 mg Q6H PRN IV NAUSEA AND/OR VOMITING; Start 09/23 at 03:30 Nitroglycerin (Nitroglycerin (Sl Tab) 0.4 Mg) 1 tab Q5M PRN SL CHEST PAIN; Start 04/17/17 at 03:30 Acetaminophen (Tylenol Tab) 650 mg Q6H PRN PO PAIN LEVEL 1-3 OR FEVER Last administered on 04/22/17 08:42; Admin Dose 650 MG; Start 04/17/17 at 03:30 Docusate Sodium (Colace) 100 mg Q12H PRN PO CONSTIPATION; Start 04/17/17 at 03: 30 Magnesium Hydroxide (Milk Of Mag) 30 ml DAILY PRN PO CONSTIPATION; Start at 03:30 Bisacodyl (Dulcolax Supp) 10 mg DAILY PRN IA CONSTIPATION; Start 04/17/17 at 03 :30 Famotidine (Pepcid) 20 mg DAILY PO Last administered on 04/30/17 09:59; Admin Dose 20 MG; Start 04/17/17 at 09:00 Clopidogrel Bisulfate (plaVIX) 75 mg DAILY PO Last administered on 04/30/17 09 :59; Admin Dose 75 MG; Start 04/18/17 at 09:00 Atorvastatin Calcium (Lipitor) 40 mg HS PO Last administered on 04/29/17 20:51 ; Admin Dose 40 MG; Start 04/17/17 at 21:00 Midodrine (Proamatine) 10 mg DAILY PRN PO dialysis Last administered on 12:14; Admin Dose 10 MG; Start 04/25/17 at 09:00 Ondansetron HCl (Zofran Inj) 4 mg Q6H PRN IV NAUSEA AND/OR VOMITING; Start at 10:00 Acetaminophen (Tylenol Liquid) 650 mg Q6H PRN PO PAIN LEVEL 1-3 OR FEVER; Start 04/28/17 at 10:00 Pantoprazole (Protonix Iv) 40 mg DAILY@06 IV Last administered on 04/30/17 05: 31; Admin Dose 40 MG; Start 04/29/17 at 06:00 Carvedilol (Coreg) 6.25 mg BID PO Last administered on 04/28/17 11:30; Admin Dose 6.25 MG; Start 04/28/17 at 21:00; Status Future Hold Digoxin 0.125 mg 0.125 mg Q2D@13 GTB ; Start 05/01/17 at 13:00; Status Future Hold Norepinephrine/ Dextrose (Levophed/D5W) 500 ml @ 0 mls/hr TITRATE IV Last administered on 04/29/17 17:08; Admin Dose 3.75 MLS/HR; Start 04/29/17 at 13:00 Dextrose 50 ml 50 ml PRN PRN IV HYPOGLYCEMIA Last administered on 04/30/17 07: 06; Admin Dose 50 ML; Start 04/30/17 at 07:00 Amiodarone HCl/ Dextrose (Cordarone Iv/ D5W) 500 ml @ 0 mls/hr Q0M IV Last administered on 04/30/17 07:41; Admin Dose 33.4 MLS/HR; Start 04/30/17 at 07:30 Ipratropium [place] 4 puff 4 puff Q4 INH Last administered on 04/30/17 08:40; Admin Dose 4 PUFF; Start 04/30/17 at 09:00 Phenylephrine HCl/ Dextrose (Terry-Syneph/D5W) 500 ml @ 75 mls/hr TITRATE IV ; Start 04/30/17 at 09:00 JULIA MCKNIGHT MD Apr 30, 2017 11:25
[2017-04-30] MEDS ORDERED: morphine (DRIP) 100 MG/100 ML 100 ML IV SCH (12:30)
[2017-04-30] MEDS ORDERED: LORAZEPAM 2 MG INJ IV PRN (12:30)
--- NOTE | 2017-04-30 12:59 | CONS ---
Date/Time of Note Date/Time of Note DATE: 04/30/17 TIME: 12:57 Assessment/Plan Assessment/Plan Additional Assessment/Plan 1. S/p Code blue, acute resp failure, intubated on ventilator- s/p EXtubated on 04/29/17- on Facemask 2. Acute non-ST elevation myocardial infarction. 2. End-stage renal disease on hemodialysis 3 times a week. 3. Bilateral pleural effusion causing fluid overload, right greater than left, status post bilateral PleurX catheter placement by Dr. David at the [facility]. 4. Hypertension. 5. Hyperlipidemia. 6. 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 7. Coronary artery disease. 8. Chronic atrial fibrillation. 9. 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 PLAN: pt had a code blue today AM, intubated on ventilator, on 2 pressors fo rBP support, still labile BP, unstable to do HD today Blood pressure is too low for Hemodialysis, His pleurax catheter has been drained about 2.5 liter from both catheter continue midodrine for BP support will reassess him for HD tomorrow AM if BP and HR stable Consultation Date/Type/Reason Admit Date/Time Apr 17, 2017 at 02:32 Type of Consultation: NEPHROLOGY Referring Provider: SOO NAIK 24 HR Interval Summary Free Text/Dictation pt had a code blue yeter night, Intubtaed, on ventilator, on 2 pressors now, still labile BP Exam/Review of Systems Vital Signs Vitals Vital Signs Date Time Temp Pulse Resp B/P Pulse Ox O2 Delivery O2 Flow Rate FiO2 04/30/17 12:15 52 23 110/19 94 Mechanical Ventilator 04/30/17 08:00 100 04/30/17 06:00 5.0 04/30/17 04:00 97.9 Intake and Output 04/29/17 04/29/17 04/30/17 15:00 23:00 07:00 Intake Total 150 ml 146.84 ml 151.88 ml Output Total 0 ml 0 ml Balance 150 ml 146.84 ml 151.88 ml Exam Constitutional: intubated, on ventilator Head: normocephalic Neck: supple Respiratory: diminished breath sounds, other (Bilateral coarse BS+, RLL rales ) , bilateral pleuraX cathter in place Cardiovascular: other (bradycardia), regular rate and rhythm Gastrointestinal: non-tender, soft Extremities: normal pulses Neurological: awake,but lethargic Results Result Diagram: 04/30/17 0512 04/30/17 0512 Results 24 hrs Laboratory Tests Test 04/30/17 05:12 04/30/17 06:40 04/30/17 06:49 04/30/17 07:00 White Blood Count 8.3 Red Blood Count 2.54 L Hemoglobin 7.8 L Hematocrit 24.3 L Mean Corpuscular Volume 95.7 Mean Corpuscular Hemoglobin 30.7 Mean Corpuscular Hemoglobin Concent 32.1 Red Cell Distribution Width 16.9 H Platelet Count 109 #L Mean Platelet Volume 10.7 H Neutrophils % 82.3 H Lymphocytes % 11.8 L Monocytes % 5.4 Eosinophils % 0.0 Basophils % 0.0 Nucleated Red Blood Cells % 0.0 Neutrophils # 6.8 Lymphocytes # 1.0 Monocytes # 0.5 Eosinophils # 0.0 Basophils # 0.0 Nucleated Red Blood Cells # 0.0 Sodium Level 125 L Potassium Level 5.8 H Chloride Level 92 L Carbon Dioxide Level 23 Anion Gap 16 Blood Urea Nitrogen 71 H Creatinine 3.33 H Glucose Level 63 #L Calcium Level 8.6 Phosphorus Level 6.8 H Magnesium Level 2.1 Total Bilirubin 0.8 Direct Bilirubin 0.10 Indirect Bilirubin 0.7 Aspartate Amino Transf (AST/SGOT) 36 Alanine Aminotransferase (ALT/SGPT) 39 Alkaline Phosphatase 96 Total Protein 4.6 L Albumin 3.0 L Globulin 1.60 Albumin/Globulin Ratio 1.87 Bedside Glucose 36 *L 35 *L Blood Gas Specimen Source Blood arterial Arterial Blood Date Drawn 04/30/2017 7:20:15 AM Arterial Blood pH (Temp corrected) 7.327 L Arterial Blood pCO2 (Temp correct) 31.5 L Arterial Blood pO2 (Temp corrected) 72.0 L Arterial Blood HCO3 16.1 L Arterial Blood Base Excess -9.0 L Arterial Blood Oxygen Saturation 89.5 L Kevin Test ACCEPTAB Arterial Blood Gas Puncture Site Left Radial Arterial Blood Carboxyhemoglobin 0.3 Arterial Blood Methemoglobin 0.6 Blood Gas A-a O2 Differential 609.5 H Oxyhemoglobin Percent 88.7 L Total Hemoglobin 7.8 L Blood Gas Temperature 37.0 Blood Gas Respiration Rate 20.0 Blood Gas Actual Respiration Rate 23 Blood Gas Modality VENT - AC FiO2 100.0 Blood Gas Tidal Volume 500.0 Blood Gas Low PEEP Setting 5.0 Blood Gas Notified Whom JLD Blood Gas Notified Time 04/30/2017 7:32:10 AM Test 04/30/17 07:04 04/30/17 10:01 Bedside Glucose 29 *L 152 Medications Medications Current Medications Morphine Sulfate/ Sodium Chloride (morphine) 100 ml @ 1 mls/hr TITRATE IV Last administered on 04/30/17t 12:35; Admin Dose 1 MLS/HR; Start 04/30/17 at 12:30 Lorazepam (Ativan) 2 mg Q2H PRN IV AGITATION; Start 04/30/17 at 12:30 MACI ASHLEY MD Apr 30, 2017 12:58
[2017-05-01] MEDS ORDERED: DIGOXIN 0.125 MG TAB GTB SCH (13:00)
--- NOTE | 2017-05-02 09:00 | CONS ---
Date/Time of Note Date/Time of Note DATE: 05/02/17 TIME: 08:57 Consultation Date/Type/Reason Admit Date/Time Apr 17, 2017 at 02:32 Type of Consultation: Palliative care Reason for Consultation Postdated note family conference April 30 Referring Provider: SOO NAIK 24 HR Interval Summary Free Text/Dictation Long discussion with patients agent with primary care physician and nursing in attendance. We discussed his recent cardiopulmonary arrest twice and explored the level of care that he would want to have an event he could make decisions on his own behalf. We also discussed pain and symptom management fears hopes desires ethical issues spiritual issues prognosis quality of life. Patients agent has decided to discontinue current level of care proceed with full comfort measures. We will support her decision and proceed with compassionate extubation. Exam/Review of Systems Vital Signs Vitals Vital Signs Date Time Temp Pulse Resp B/P Pulse Ox O2 Delivery O2 Flow Rate FiO2 04/30/17 13:06 0 04/30/17 13:00 8 04/30/17 12:47 2.0 04/30/17 12:45 128/111 Mechanical Ventilator 04/30/17 12:15 94 04/30/17 11:15 100 04/30/17 04:00 97.9 Results Result Diagram: 04/30/17 0512 04/30/17 0512 ROLAND LEMUS May 02, 2017 09:00
== END 2017-04-30 13:06 | disposition expired ==
LOC: E/R 22:41 → TEL 04-17 02:32 → ICU 04-28 10:43
PROVIDERS: ADMIT Internal Medicine; ATTEND Internal Medicine
PROC: 5A12012 Performance of Cardiac Output, Single, Manual (ICD-10-PCS; 2017-04-17)
PROC: 0BH17EZ Insertion of Endotracheal Airway into Trachea, Via Natural or Artificial Opening (ICD-10-PCS; 2017-04-17)
PROC: 5A1D60Z (ICD-10-PCS; 2017-04-17)
PROC: 5A12012 Performance of Cardiac Output, Single, Manual (ICD-10-PCS; principal; 2017-04-28)
PROC: 5A1945Z Respiratory Ventilation, 24-96 Consecutive Hours (ICD-10-PCS; 2017-04-28)
PROC: 0BH17EZ Insertion of Endotracheal Airway into Trachea, Via Natural or Artificial Opening (ICD-10-PCS; 2017-04-28)
PROC: 5A2204Z Restoration of Cardiac Rhythm, Single (ICD-10-PCS; 2017-04-30)
DX: I13.2 Hypertensive heart and chronic kidney disease with heart failure and with stage 5 chronic kidney disease, or end stage renal disease (principal); I21.4 Non-ST elevation (NSTEMI) myocardial infarction; I50.23 Acute on chronic systolic (congestive) heart failure; J96.00 Acute respiratory failure, unspecified whether with hypoxia or hypercapnia; I49.01 Ventricular fibrillation; J90 Pleural effusion, not elsewhere classified; N18.6 End stage renal disease; D69.6 Thrombocytopenia, unspecified; F03.90 Unspecified dementia, unspecified severity, without behavioral disturbance, psychotic disturbance, mood disturbance, and anxiety; I95.3 Hypotension of hemodialysis; E87.1 Hypo-osmolality and hyponatremia; N39.0 Urinary tract infection, site not specified; I46.2 Cardiac arrest due to underlying cardiac condition; I25.10 Atherosclerotic heart disease of native coronary artery without angina pectoris; I48.2 Chronic atrial fibrillation; G89.29 Other chronic pain; D63.1 Anemia in chronic kidney disease; E78.5 Hyperlipidemia, unspecified; I25.5 Ischemic cardiomyopathy; B96.20 Unspecified Escherichia coli [E. coli] as the cause of diseases classified elsewhere; Z74.01 Bed confinement status; R09.02 Hypoxemia; Z99.2 Dependence on renal dialysis
CPT/HCPCS: 31500; 36415; 36600; 71010; 80048; 80053; 80061; 80162; 81001; 82533; 82550; 82553; 82803; 82962; 83735; 83880; 84100; 84439; 84443; 84484; 85025; 85610; 85730; 86592; 87070; 87086; 90935; 92950; 93005; 94002; 94003; 94640; 94664; 94770; 96374; 97162; C9113; J0171; J0282; J0690; J0744; J1644; J2250; J2270; J7060; J7999; P9047; P9612